=== PATIENT | male | born 1945 | race Caucasian/White ===

== ENCOUNTER 2016-08-08 18:30 | Emergency (ER) | payer MEDICARE, MEDICAID ==
[2016-08-08 18:57] LABS: Add Diff/Slide Review? Slide Review Added; Comments Flag Yes; Hematocrit 42 % (42-52); Hemoglobin 13.7 g/dl (14.0-18.0); Mean Corpuscular HGB Conc 33 g/dl (31-36); Mean Corpuscular Hemoglobin 27 pg (27-31); Mean Corpuscular Volume 83 fL (80-94); Mean Platelet Volume 8 um3 (7.4-10.4); Red Blood Count 5.03 10^6/ul (4.0-5.4); Red Cell Distribution Width 16 % (10.5-15); White Blood Count 8.9 10^3/ul (3.5-10.8)
[2016-08-08] MEDS ORDERED: Acetaminophen TAB* 325 MG PO ONE (19:02)
[2016-08-08 19:13] LABS: Albumin 3.9 g/dL (3.2-5.2); BUN/Creatinine Ratio 16.3 (8-20); EGFR African American 74.6 (>60); Globulin 2.8 g/dL (2-4); Magnesium 1.6 mg/dL (1.9-2.7); Potassium 4.1 mmol/L (3.5-5.0); Total Bilirubin 0.3 mg/dL (0.2-1.0); Total Protein 6.7 g/dL (6.4-8.9)
[2016-08-08 19:14] LABS: Troponin I 0.02 ng/mL (<0.04)
--- NOTE | 2016-08-08 19:28 | ED ---
HPI Chest Pain - HPI Summary HPI Summary: Patient presents with one hour of sharp substernal chest pain that makes him feel SOB. The pain is present in his mid-abdomen as well. He feels sweaty and anxious when the pain occurs and deep breaths can make it worse. He denies pain like this before. He denies feelings of gastric reflux, but tried taking his antacid medication without relief. A low grade sensation of the pain is present now, and he has 2 minute episode of sharp pain that resolves spontaneously. The pain does not radiate to his jaw or arm. He does have back pain but can not say whether it is related to his chest discomfort. - History of Current Complaint Chief Complaint: EDChestPainROMI Time Seen by Provider: 08/08/16 18:48 Hx Obtained From: Patient Onset/Duration: Started Hours Ago, Atraumatic, Still Present - low grade Timing: Intermittent, Lasting Minutes - 2 Initial Severity: Severe Current Severity: Severe Pain Intensity: 9 Chest Pain Location: Mid Sternal Chest Pain Radiates: Yes Chest Pain Radiates To:: Epigastric Character: Sharp/Stabbing Aggravating Factor(s): Deep Breaths Associated Signs and Symptoms: Positive: Chest Pain, Shortness of Breath, Lightheadedness, Back Pain, Abdominal Pain - Additional Pertinent History Primary Care Physician: [id number] - Allergy/Home Medications Allergies/Adverse Reactions: Allergies Allergy/AdvReac Type Severity Reaction Status Date / Time Shellfish Allergy Allergy Severe Difficulty Verified 06/20/16 09:56 Breathing Povidone Iodine Allergy Intermediate Rash Verified 06/20/16 09:56 [From Betadine] PMH/Surg Hx/FS Hx/Imm Hx Endocrine/Hematology History: Reports: Hx Anticoagulant Therapy, Hx Diabetes - II, Hx Anemia, Other Endocrine/Hematological Disorders - Eosinophilia Denies: Hx Blood Disorders, Hx Blood Transfusions, Hx Systemic Lupus Erythematosus, Hx Thyroid Disease Cardiovascular History: Reports: Hx Angina, Hx Congestive Heart Failure, Hx Coronary Artery Disease, Hx Embolism, Hx Hypercholesterolemia, Hx Hypertension, Hx Myocardial Infarction - x2, Other Cardiovascular Problems/Disorders - Cardiomyopathy Denies: Hx Deep Vein Thrombosis, Hx Pacemaker/ICD Respiratory History: Reports: Hx Asthma, Hx Pneumonia, Hx Pulmonary Edema, Hx Pulmonary Embolism, Other Respiratory Problems/Disorders - PE'S Denies: Hx Chronic Obstructive Pulmonary Disease (COPD), Hx Lung Cancer GI History: Reports: Hx Gastroesophageal Reflux Disease, Hx Hiatal Hernia, Other GI Disorders - chronic abdominal pain Denies: Hx Gall Bladder Disease, Hx Gastrointestinal Bleed, Hx Ulcer, Hx Urosepsis History: Reports: Hx Acute Renal Failure, Hx Benign Prostatic Hyperplasia, Hx Kidney Stones Denies: Hx Dialysis, Hx Renal Disease, Other Problems/Disorders Musculoskeletal History: Reports: Hx Back Problems, Other Musculoskeletal History - OBESITY, DJD Denies: Hx Rheumatoid Arthritis Sensory History: Reports: Hx Contacts or Glasses, Hx Vision Problem Denies: Other Sensory Impairments Opthamlomology History: Reports: Hx Contacts or Glasses, Hx Vision Problem Denies: Other Sensory Impairments Neurological History: Reports: 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 hernia repair x 2;. rt knee cartlidge repair;. RIGHT ROTATOR CUFF ; Hx Anesthesia Reactions: No - Immunization History Date of Tetanus Vaccine: Unk Date of Influenza Vaccine: 05/13/14 Infectious Disease History: Yes Infectious Disease History: Denies: Hx Hepatitis, Hx Human Immunodeficiency Virus (HIV), Hx of Known/ Suspected MRSA, Hx Shingles, Hx Tuberculosis, History Other Infectious Disease, Traveled Outside the [place] in Last 30 Days - Family History Known Family History: Positive: Cardiac Disease, Diabetes - Social History Occupation: Unemployed Lives: Alone Alcohol Use: None Hx Substance Use: No Substance Use Type: Reports: None Hx Tobacco Use: No Smoking Status (MU): Never Smoked Tobacco Review of Systems Negative: Fever, Chills Positive: Chest Pain. Negative: Palpitations Positive: Shortness Of Breath. Negative: Cough Negative: Headache All Other Systems Reviewed And Are Negative: Yes Physical Exam Triage Information Reviewed: Yes Vital Signs On Initial Exam: Initial Vitals Temp Pulse Resp BP Pulse Ox 97.4 F 64 16 128/74 96 08/08/16 18:41 08/08/16 18:41 08/08/16 18:41 08/08/16 18:41 08/08/16 18:41 Vital Signs Reviewed: Yes Appearance: Positive: Well-Appearing, Pain Distress, Obese Skin: Positive: Warm, Skin Color Reflects Adequate Perfusion, Dry, Soft Head/Face: Positive: Normal Head/Face Inspection Eyes: Positive: EOMI, ARNOLD, Conjunctiva Clear ENT: Positive: Hearing grossly normal Neck: Positive: Supple, Nontender, No Lymphadenopathy Respiratory/Lung Sounds: Positive: Clear to Auscultation, Breath Sounds Present. Negative: Rales, Rhonchi, Wheezes Cardiovascular: Positive: RRR Abdomen Description: Positive: Nontender, Soft. Negative: Distended, Guarding, Pulsatile Mass Bowel Sounds: Positive: Present Musculoskeletal: Positive: Strength/ROM Intact. Negative: Edema Left, Edema Right Neurological: Positive: Sensory/Motor Intact, Alert, Oriented to Person Place, Time, NV Bundle Intact Distally, Normal Gait Psychiatric: Positive: Affect/Mood Appropriate AVPU Assessment: Alert Diagnostics - Vital Signs Vital Signs Temp Pulse Resp BP Pulse Ox 08/08/16 18:41 97.4 F 64 16 128/74 96 - Laboratory Lab Results: Lab Results 08/08/16 08/08/16 Range/Units 18:47 18:47 WBC 8.9 (3.5-10.8) 10^3/ul RBC 5.03 (4.0-5.4) 10^6/ul Hgb 13.7 L (14.0-18.0) g/dl Hct 42 (42-52) % MCV 83 (80-94) fL MCH 27 (27-31) pg MCHC 33 (31-36) g/dl RDW 16 H (10.5-15) % Plt Count 231 (150-450) 10^3/ul MPV 8 (7.4-10.4) um3 Neut % (Auto) 47.9 (38-83) % Lymph % (Auto) 17.9 L (25-47) % [place] % (Auto) 6.0 (1-9) % Eos % (Auto) 27.1 H (0-6) % Baso % (Auto) 1.1 (0-2) % Absolute Neuts (auto) 4.2 (1.5-7.7) 10^3/ul Absolute Lymphs (auto) 1.6 (1.0-4.8) 10^3/ul Absolute Monos (auto) 0.5 (0-0.8) 10^3/ul Absolute Eos (auto) 2.4 H (0-0.6) 10^3/ul Absolute Basos (auto) 0.1 (0-0.2) 10^3/ul Absolute Nucleated RBC 0 10^3/ul Nucleated RBC % 0 Sodium 136 (133-145) mmol/L Potassium 4.1 (3.5-5.0) mmol/L Chloride 105 (101-111) mmol/L Carbon Dioxide 25 (22-32) mmol/L Anion Gap 6 (2-11) mmol/L BUN 20 (6-24) mg/dL Creatinine 1.23 H (0.67-1.17) mg/dL Est GFR ( Amer) 74.6 (>60) Est GFR (Non-Af Amer) 58.0 (>60) BUN/Creatinine Ratio 16.3 (8-20) Glucose 100 (70-100) mg/dL Calcium 9.0 (8.6-10.3) mg/dL Magnesium 1.6 L (1.9-2.7) mg/dL Total Bilirubin 0.30 (0.2-1.0) mg/dL AST 21 (13-39) U/L ALT 26 (7-52) U/L Alkaline Phosphatase 69 (34-104) U/L Troponin I 0.02 (<0.04) ng/mL Total Protein 6.7 (6.4-8.9) g/dL Albumin 3.9 (3.2-5.2) g/dL Globulin 2.8 (2-4) g/dL Albumin/Globulin Ratio 1.4 (1-3) Result Diagrams: 08/08/16 18:47 08/08/16 18:47 Lab Statement: Any lab studies that have been ordered have been reviewed, and results considered in the medical decision making process. - Radiology No standard instances Xray Interpretation: No Acute Changes Radiology Interpretation Completed By: Radiologist - EKG No standard instances Cardiac Rate: NL EKG Rhythm: Sinus Rhythm ST Segment: Normal Ectopy: None EKG Interpretation: Normal sinus with RBBB EKG Comparison: No Significant Change Re-Evaluation - Re-Evaluation First Eval Re-Evaluation Time: 10:45 - Patient's pain has improved. He is eating. Change: Improved Chest Pain Course/Dx - Course Course Of Treatment: Patient has improved and is pain free. His labwork was reveiwed with Dr. Ramirez, and patient will be discharged home with instructions to follow-up with his PCP and to return to the ED if symptoms worsen or return. - Chest Pain Differential Diagnosis/HQI/PQRI: Acute VA, ACS, Angina, CHF, Chest Wall, Pulmonary Embolism - Diagnoses Provider Diagnoses: Chest pain of unknown etiology - Provider Notifications Discussed Care Of Patient With: Dr. Ramirez, emergency department attending. Time Discussed With Above Provider: 23:00 Discharge - Discharge Plan Condition: Stable Disposition: HOME Patient Education Materials: Chest Pain (ED) Referrals: Ivonne Cotton MD [Primary Care Provider] - Additional Instructions: Please call Dr. Cotton for a follow-up appointment in the next 48 hours. Return to the emergency department if your symptoms worsen or return.
--- NOTE | 2016-08-08 19:29 | RAD ---
Indication: Chest pain. Coronary artery disease with stents. Cardiomyopathy. History of pulmonary embolism and asthma. Comparison: June 25, 2016 CT abdomen. March 27, 2016 Technique: Upright AP 1912 hours Report: Obese body habitus limits image quality. Cardiomegaly. Mild prominence of the central pulmonary vasculature and mildly prominent interstitial markings. Small bilateral pleural effusions. Negative for pneumothorax. IMPRESSION: The constellation of findings is most consistent with mild pulmonary vascular congestion and interstitial edema with associated small pleural effusions.
[2016-08-08] MEDS ORDERED: Morphine INJ* 2 MG/ML 1 ML CARPUJECT IV ONE (19:58)
[2016-08-08 23:55] VITALS: BP 135/89
== END 2016-08-08 23:51 | disposition home or self-care (01) ==
LOC: ED 18:30
DX: R07.9 Chest pain, unspecified (principal); R06.02 Shortness of breath; R10.9 Unspecified abdominal pain; E11.9 Type 2 diabetes mellitus without complications; I11.0 Hypertensive heart disease with heart failure; I50.9 Heart failure, unspecified; I25.119 Atherosclerotic heart disease of native coronary artery with unspecified angina pectoris; Z86.718 Personal history of other venous thrombosis and embolism; Z79.01 Long term (current) use of anticoagulants; K21.9 Gastro-esophageal reflux disease without esophagitis; I25.2 Old myocardial infarction; Z95.5 Presence of coronary angioplasty implant and graft; Z88.8 Allergy status to other drugs, medicaments and biological substances; I45.10 Unspecified right bundle-branch block
CPT/HCPCS: 36415; 71010; 80053; 83735; 83880; 84484; 85025; 86703; 93005; 96374; 99283; A9270-GY; J2270

== ENCOUNTER 2016-08-17 20:07 | Emergency (ER) | payer MEDICARE, MEDICAID ==
[2016-08-17 21:03] LABS: Urine Bacteria Absent (Absent); Urine Bilirubin Negative (Negative); Urine Glucose Negative (Negative); Urine Nitrite Negative (Negative)
[2016-08-17 21:40] LABS: Hematocrit 41 % (42-52); Hemoglobin 13.4 g/dl (14.0-18.0); Mean Corpuscular HGB Conc 33 g/dl (31-36); Mean Corpuscular Hemoglobin 27 pg (27-31); Mean Corpuscular Volume 83 fL (80-94); Mean Platelet Volume 8 um3 (7.4-10.4); Red Blood Count 4.94 10^6/ul (4.0-5.4); Red Cell Distribution Width 17 % (10.5-15); White Blood Count 7.8 10^3/ul (3.5-10.8)
[2016-08-17 21:59] LABS: Albumin 3.9 g/dL (3.2-5.2); BUN/Creatinine Ratio 20.7 (8-20); Calcium 9.1 mg/dL (8.6-10.3); EGFR Non-African American 59.1 (>60); Potassium 4.1 mmol/L (3.5-5.0); Total Bilirubin 0.3 mg/dL (0.2-1.0); Total Protein 6.9 g/dL (6.4-8.9)
--- NOTE | 2016-08-17 22:36 | ED ---
Tavo Osei SooYoung, scribed for Cory Farr on 08/17/16 at 2042 . GI/ HPI - HPI Summary HPI Summary: A 70 y/o M presents to ED with abd pain due to his Rivero catheter onset approx 1700. He says the catheter feels like "it's pulling." It hurts when he lays and sits down. His last catheter change was two days ago. Known enlarged prostate, which pt says is pushing against his bladder. He notes that the catheter was draining properly this AM. Pt is a non-smoker, non-drinker. - History of Current Complaint Chief Complaint: EDUrogenitalProblems Time Seen by Provider: 08/17/16 20:38 Stated Complaint: PAIN FROM CATHETER Hx Obtained From: Patient Onset/Duration: Started Hours Ago, Still Present Timing: Constant Current Severity: Moderate Pain Intensity: 9 - out of 10 - Additional Pertinent History Primary Care Physician: [id number] - Allergy/Home Medications Allergies/Adverse Reactions: Allergies Allergy/AdvReac Type Severity Reaction Status Date / Time Shellfish Allergy Allergy Severe Difficulty Verified 06/20/16 09:56 Breathing Povidone Iodine Allergy Intermediate Rash Verified 06/20/16 09:56 [From Betadine] PMH/Surg Hx/FS Hx/Imm Hx Previously Healthy: No Endocrine/Hematology History: Reports: Hx Anticoagulant Therapy, Hx Diabetes - II, Hx Anemia, Other Endocrine/Hematological Disorders - Eosinophilia Denies: Hx Blood Disorders, Hx Blood Transfusions, Hx Systemic Lupus Erythematosus, Hx Thyroid Disease Cardiovascular History: Reports: Hx Angina, Hx Congestive Heart Failure, Hx Coronary Artery Disease, Hx Embolism, Hx Hypercholesterolemia, Hx Hypertension, Hx Myocardial Infarction - x2, Other Cardiovascular Problems/Disorders - Cardiomyopathy Denies: Hx Deep Vein Thrombosis, Hx Pacemaker/ICD Respiratory History: Reports: Hx Asthma, Hx Pneumonia, Hx Pulmonary Edema, Hx Pulmonary Embolism, Other Respiratory Problems/Disorders - PE'S Denies: Hx Chronic Obstructive Pulmonary Disease (COPD), Hx Lung Cancer GI History: Reports: Hx Gastroesophageal Reflux Disease, Hx Hiatal Hernia, Other GI Disorders - chronic abdominal pain Denies: Hx Gall Bladder Disease, Hx Gastrointestinal Bleed, Hx Ulcer, Hx Urosepsis History: Reports: Hx Acute Renal Failure, Hx Benign Prostatic Hyperplasia, Hx Kidney Stones Denies: Hx Dialysis, Hx Renal Disease, Other Problems/Disorders Musculoskeletal History: Reports: Hx Back Problems, Other Musculoskeletal History - OBESITY, DJD Denies: Hx Rheumatoid Arthritis Sensory History: Reports: Hx Contacts or Glasses, Hx Vision Problem Denies: Other Sensory Impairments Opthamlomology History: Reports: Hx Contacts or Glasses, Hx Vision Problem Denies: Other Sensory Impairments Neurological History: Reports: 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 hernia repair x 2;. rt knee cartlidge repair;. RIGHT ROTATOR CUFF ; Hx Anesthesia Reactions: No - Immunization History Date of Tetanus Vaccine: Unk Date of Influenza Vaccine: 05/13/14 Infectious Disease History: No Infectious Disease History: Denies: Hx Hepatitis, Hx Human Immunodeficiency Virus (HIV), Hx of Known/ Suspected MRSA, Hx Shingles, Hx Tuberculosis, History Other Infectious Disease, Traveled Outside the [place] in Last 30 Days - Family History Known Family History: Positive: Cardiac Disease, Diabetes - Social History Occupation: Disabled Lives: Alone Alcohol Use: None Hx Substance Use: No Substance Use Type: Reports: None Hx Tobacco Use: No Smoking Status (MU): Never Smoked Tobacco Review of Systems Positive: Abdominal Pain Positive: other - pos: PAIN ASSOCIATED WITH CATHETER All Other Systems Reviewed And Are Negative: Yes Physical Exam Triage Information Reviewed: Yes Vital Signs On Initial Exam: Initial Vitals Temp Pulse Resp BP Pulse Ox 99 F 80 22 131/79 95 08/17/16 20:27 08/17/16 20:27 08/17/16 20:27 08/17/16 20:27 08/17/16 20:27 Vital Signs Reviewed: Yes Appearance: Positive: Well-Appearing, No Pain Distress Skin: Positive: Warm, Skin Color Reflects Adequate Perfusion, Dry Head/Face: Positive: Normal Head/Face Inspection Eyes: Positive: EOMI, ARNOLD ENT: Positive: Normal ENT inspection Neck: Positive: Supple, Nontender Respiratory/Lung Sounds: Positive: Clear to Auscultation, Breath Sounds Present Cardiovascular: Positive: RRR, Pulses are Symmetrical in both Upper and Lower Extremities Abdomen Description: Positive: Soft, Distended, Other: - TENDER IN RLQ AND LLQ Bowel Sounds: Positive: Present Musculoskeletal: Positive: Normal, Strength/ROM Intact - FROMx4 Neurological: Positive: Normal, Sensory/Motor Intact, Alert, Oriented to Person Place, Time Diagnostics - Vital Signs Vital Signs Temp Pulse Resp BP Pulse Ox 08/17/16 20:27 99 F 80 22 131/79 95 - Laboratory Lab Results: Lab Results 08/17/16 08/17/16 08/17/16 Range/Units 20:40 21:25 21:25 WBC 7.8 (3.5-10.8) 10^3/ul RBC 4.94 (4.0-5.4) 10^6/ul Hgb 13.4 L (14.0-18.0) g/dl Hct 41 L (42-52) % MCV 83 (80-94) fL MCH 27 (27-31) pg MCHC 33 (31-36) g/dl RDW 17 H (10.5-15) % Plt Count 199 (150-450) 10^3/ul MPV 8 (7.4-10.4) um3 Neut % (Auto) 50.1 (38-83) % Lymph % (Auto) 16.7 L (25-47) % [place] % (Auto) 10.7 H (1-9) % Eos % (Auto) 21.6 H (0-6) % Baso % (Auto) 0.9 (0-2) % Absolute Neuts (auto) 3.9 (1.5-7.7) 10^3/ul Absolute Lymphs (auto) 1.3 (1.0-4.8) 10^3/ul Absolute Monos (auto) 0.8 (0-0.8) 10^3/ul Absolute Eos (auto) 1.7 H (0-0.6) 10^3/ul Absolute Basos (auto) 0.1 (0-0.2) 10^3/ul Absolute Nucleated RBC 0 10^3/ul Nucleated RBC % 0 Sodium 136 (133-145) mmol/L Potassium 4.1 (3.5-5.0) mmol/L Chloride 106 (101-111) mmol/L Carbon Dioxide 23 (22-32) mmol/L Anion Gap 7 (2-11) mmol/L BUN 25 H (6-24) mg/dL Creatinine 1.21 H (0.67-1.17) mg/dL Est GFR ( Amer) 76.0 (>60) Est GFR (Non-Af Amer) 59.1 (>60) BUN/Creatinine Ratio 20.7 H (8-20) Glucose 83 (70-100) mg/dL Calcium 9.1 (8.6-10.3) mg/dL Total Bilirubin 0.30 (0.2-1.0) mg/dL AST 16 (13-39) U/L ALT 23 (7-52) U/L Alkaline Phosphatase 72 (34-104) U/L Total Protein 6.9 (6.4-8.9) g/dL Albumin 3.9 (3.2-5.2) g/dL Globulin 3.0 (2-4) g/dL Albumin/Globulin Ratio 1.3 (1-3) Lipase 27 (11.0-82.0) U/L Urine Color Yellow Urine Appearance Cloudy Urine pH 5.0 (5-9) Ur Specific [place] 1.012 (1.010-1.030) Urine Protein 1+(30 mg/dl) H (Negative) Urine Ketones Negative (Negative) Urine Blood 3+ H (Negative) Urine Nitrate Negative (Negative) Urine Bilirubin Negative (Negative) Urine Urobilinogen Negative (Negative) Ur Leukocyte Esterase 3+ H (Negative) Urine WBC (Auto) 3+(>20/hpf) H (Absent) Urine RBC (Auto) 3+(>10/hpf) H (Absent) Ur Squamous Epith Cells Present H (Absent) Urine Bacteria Absent (Absent) Urine Glucose Negative (Negative) Result Diagrams: 08/17/16 21:25 08/17/16 21:25 Lab Statement: Any lab studies that have been ordered have been reviewed, and results considered in the medical decision making process. GIGU Course/Dx - Course Course Of Treatment: MDM: Pt is a 70 y/o M with distended abd and tenderness at RLQ and LLQ. Pt has a Rivero catheter in bladder. Ordered a new catheter placed and UA. UA results: Urine protein is 1+. Urine blood was 3+. Urine WBC and RBC were each 3+. Luekocytes was 3+. Pt will be discharged home with Levoquin, to follow up with urology in 3 days. - Diagnoses Provider Diagnoses: BPH, UTI (urinary tract infection), Urinary retention Discharge - Discharge Plan Condition: Stable Disposition: HOME Prescriptions: Levofloxacin TAB* [Levaquin TAB*] 500 mg PO DAILY #7 tab Patient Education Materials: Levofloxacin (By mouth), Urinary Retention in Men (ED), Benign Prostatic Hypertrophy (ED), Urinary Tract Infection in Men (ED) Referrals: Ivonne Cotton MD [Primary Care Provider] - Ryan Hawk MD [Medical Doctor] - 3 Days Additional Instructions: Continue taking liquids by mouth. Follow up with Dr. Hawk within 3 days. If your symptoms worsen or return, please return to ED. The documentation as recorded by the Tavo clifford SooYoung accurately reflects the service I personally performed and the decisions made by me, Cory Farr.
[2016-08-17 22:46] VITALS: BP 129/75
== END 2016-08-17 22:44 | disposition home or self-care (01) ==
LOC: ED 20:07
DX: N40.0 Benign prostatic hyperplasia without lower urinary tract symptoms (principal); N39.0 Urinary tract infection, site not specified; R33.8 Other retention of urine
CPT/HCPCS: 36415; 80053; 81003; 81015; 83690; 85025; 86803; 87086; 99282

== ENCOUNTER 2016-09-03 09:44 | Inpatient (IN) | payer MEDICARE, MEDICAID ==
[2016-09-03] MEDS ORDERED: Aspirin Low Dose CHEW TAB* 81 MG PO ONE (09:57)
--- NOTE | 2016-09-03 10:34 | RAD ---
INDICATION: Chest pain COMPARISON: With recent comparison chest x-ray August 08, 2016 TECHNIQUE: Single AP portable view of the chest was obtained. FINDINGS: Image quality is compromised due to the relative inferiority of a portable chest x-ray. Some of the most recent chest x-ray there is mild cardiomegaly and coarse atherosclerotic calcification overlying the arch of the aorta. There is density of securing the left lung base and causing left costophrenic angle blunting, an appearance similar to the previous chest x-ray. Overall there is hyperaeration of the lungs bilaterally which could be due to poor inspiratory effort. The pulmonary vasculature is minimally engorged, appearance similar to the most recent chest x-ray. IMPRESSION: Similar to the one 1616 chest x-ray the constellation of findings described above are consistent with congestive heart failure with density and/or pleural effusion obscuring the left lung base.
[2016-09-03 10:49] LABS: Hematocrit 45 % (42-52); Hemoglobin 14.5 g/dl (14.0-18.0); Mean Corpuscular HGB Conc 32 g/dl (31-36); Mean Corpuscular Hemoglobin 27 pg (27-31); Mean Corpuscular Volume 83 fL (80-94); Mean Platelet Volume 8 um3 (7.4-10.4); Red Blood Count 5.44 10^6/ul (4.0-5.4); Red Cell Distribution Width 16 % (10.5-15); White Blood Count 8.8 10^3/ul (3.5-10.8)
[2016-09-03 10:51] LABS: Comments Flag Yes
[2016-09-03 11:03] LABS: Albumin 3.7 g/dL (3.2-5.2); BUN/Creatinine Ratio 22.7 (8-20); Calcium 8.6 mg/dL (8.6-10.3); EGFR African American 98.1 (>60); EGFR Non-African American 76.3 (>60); Globulin 2.8 g/dL (2-4); Total Bilirubin 0.3 mg/dL (0.2-1.0); Total Protein 6.5 g/dL (6.4-8.9)
[2016-09-03 11:05] LABS: Troponin I 0.02 ng/mL (<0.04)
[2016-09-03] MEDS ORDERED: Iodixanol* (CONTRAST) 320 MG/ML 100 ML SDV IV ONE ×2 (11:35→11:41)
--- NOTE | 2016-09-03 13:13 | RAD ---
INDICATION chest pain: COMPARISON: CT of the chest dated January 30, 2016 TECHNIQUE: Contrast-enhanced CT angiography of the chest abdomen and pelvis was acquired after the injection of 100 mL of Visipaque 320. Images reviewed in the axial, sagittal and coronal projections. Three-dimensional reformats of the thoracic and abdominal aorta were created and reviewed. ANGIOGRAPHIC FINDINGS: There are mild coronary artery calcifications. The aortic ring is not pathologically enlarged. There is no pathologic aneurysmal dilatation of the thoracic aorta. There is mild calcified atherosclerosis at the arch of the aorta. Calcified atherosclerosis becomes increasingly more severe in the infrarenal abdominal aorta extending into the bilateral common iliac arteries. There is no abdominal aortic aneurysm or evidence of active dissection. Contrast is seen filling as far as the bilateral common femoral arteries. There is calcified atherosclerosis at the origins of the celiac trunk and superior mesenteric artery. Mixed attenuation atherosclerosis extends into the proximal portion of the superior mesenteric artery causing mild stenosis. 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 Calcified atherosclerosis is seen at the origins of the renal arteries causing mild appearance of stenosis. The inferior mesenteric artery is adequately patent. CHEST: There is moderate cardiomegaly. The lungs are clear. There are no large pleural effusions. There is no mediastinal or hilar lymphadenopathy. There is a appearance of circumferential thickening of the mid level esophagus measuring up to 5 mm in thickness (image 34 of 270). ABDOMEN \T\ PELVIS: The liver, spleen and pancreas are grossly normal in appearance. The gallbladder is normal. At the apex of the left adrenal gland (image 113) there is a 9 mm fat density focus. The right adrenal gland is normal. The kidneys are normal in appearance without focal mass, calcification or signs of hydronephrosis. A Rivero catheter is identified in the lumen of the decompressed bladder. Evaluation of the gastrointestinal tract is limited without oral contrast. There is no small or large bowel dilatation. The appendix is normal in appearance (image 195). There is no gross retroperitoneal or mesenteric lymphadenopathy. The pelvic viscera is normal in appearance. There is a fat-containing left-sided inguinal hernia. Multilevel degenerative changes of the thoracic and lumbar spine include loss of intervertebral disc height, anterior marginal osteophyte formation at the thoracic spine and to a lesser extent at the lower lumbar spine. There are no sinister bone lesions. IMPRESSION: 1. Widespread calcified atherosclerosis as described in more detail above without evidence of acute aortic abnormality such as pathologic aneurysmal dilatation or acute dissection. 2. Circumferential thickening of the mid level esophagus up to 5 mm in thickness. Please correlate to signs and symptoms of esophagitis. 3. Cardiomegaly with coronary artery calcifications. 4. There is a 9 mm fatty focus at the apex of the left adrenal gland which could represent a lipoma or adenoma. 5. There are additional chronic, degenerative and iatrogenic findings described in the body the report.
[2016-09-03] MEDS ORDERED: Al Hydrox/Mg Hydrox/Simet LIQ* 30 ML UDC PO ONE (13:41)
[2016-09-03] MEDS ORDERED: Lidocaine 2% VISCOUS* 15 ML UDC PO ONE (13:41)
[2016-09-03 13:54] LABS: Troponin I 0.03 ng/mL (<0.04)
[2016-09-03] MEDS ORDERED: Nitroglycerin TAB 0.4 MG* 0.4 MG TAB SL ONE (13:58)
[2016-09-03] MEDS ORDERED: Nitroglycerin TAB 0.4 MG* 0.4 MG TAB ONE (14:32)
[2016-09-03] MEDS ORDERED: Al Hydrox/Mg Hydrox/Simet LIQ* 30 ML UDC PO PRN (14:47)
[2016-09-03] MEDS ORDERED: Albuterol 2.5 MG/3 ML NEB.SOL* (0.083%) INH PRN (14:47)
[2016-09-03] MEDS ORDERED: Dextrose 50% Syringe 50 ML* 25 GM/50 ML SYRINGE IV PUSH PRN (14:50)
[2016-09-03 16:50] LABS: Troponin I 0.02 ng/mL (<0.04)
[2016-09-03] MEDS: Omeprazole CAP* 20 MG PO SCH (16:57)
[2016-09-03] MEDS: Sucralfate TAB* 1 GM PO SCH (16:57)
[2016-09-03] MEDS: Insulin LISPRO* 1 UNITS UNIT SUBCUT SCH (17:16)
[2016-09-03] MEDS: Morphine INJ* 4 MG/ML 1 ML CARPUJECT IV PRN ×2 (18:14→22:35)
--- NOTE | 2016-09-03 19:25 | HP ---
HOSPITAL MEDICINE HISTORY AND PHYSICAL: DATE OF ADMISSION: 09/03/16 PRIMARY CARE PHYSICIAN: Dr. Cotton. ATTENDING PHYSICIAN: Harsh Couch MD *(dictation provided by Keily Lou NP) CHIEF COMPLAINT: Chest pain. HISTORY OF PRESENT ILLNESS: Mr. Yip is a 70-year-old male well known to the hospital medicine team with multiple admissions for chest and abdominal discomfort who has a past medical history of coronary artery disease with CABG, insulin dependent diabetes, AFib, eosinophilic and candidal esophagitis who presents to the hospital with chest and epigastric discomfort. Mr. Yip states he has been in his normal state of health. He has been following routinely with Dr. Cotton. His biggest issue recently has been of urinary retention secondary to enlarged prostate. Unfortunately he is not a candidate for prostate surgery and will continue with chronic indwelling Rivero. The patient states this morning that he was washing dishes when he developed a sudden onset of discomfort in his mid chest and in his epigastric region. He called emergency medical service to be brought to the emergency room. In the emergency room, Mr. Yip had a troponin which was 0.02, on repeat it was 0.03. Despite having nitroglycerin, the patient continued to have chest discomfort. His EKG showed no evidence of ischemia and AFib. The patient went on for a chest, abdomen, pelvis CT which is read as follows; "widespread calcified atherosclerosis, circumferential thickening of the mid level esophagus up to 5 mm in thickness. Cardiomegaly with coronary artery calcifications, 9 mm fatty focus at the apex of the left adrenal gland which could represent a lipoma or adenoma and additional chronic degenerative iatrogenic findings described in the body of the report." Based on the presentation with the patient with chest pain, epigastric pain, and esophagitis, Hospital Medicine was called regarding admission. PAST MEDICAL HISTORY: 1. History of AFib, on Xarelto. 2. Coronary artery disease, status post CABG. 3. History of cardiac catheterization in September 2014, which showed no evidence of definitive hemodynamically significant lesions. 4. Type 2 diabetes, insulin dependent. 5. Hypertension. 6. GERD. 7. Eosinophilic esophagitis. 8. Candidal esophagitis. 9. Obesity. 10. BPH with chronic indwelling Rivero. 11. SVT. 12. TIA. 13. Degenerative disk disease. 14. History of pulmonary embolism, October 2014. 15. History of retroperitoneal hematoma, 2014. 16. History of hernia repair. 17. History of right shoulder arthroscopy. 18. History of knee arthroscopy. MEDICATIONS: 1. Fluticasone/salmeterol 250/50 one puff inhaled b.i.d. 2. Albuterol nebulizer p.r.n. 3. Maalox Plus p.r.n. 4. Lantus insulin 25 units subcutaneously at bedtime. 5. Furosemide 20 mg p.o. q.a.m. 6. Finasteride 5 mg p.o. q.a.m. 7. Ferrous sulfate 325 mg p.o. daily. 8. Trulicity 0.75 mg subcutaneously q.7 days. 9. Docusate 100 mg p.o. b.i.d. 10. Calcium carbonate 500 mg p.o. b.i.d. 11. Atorvastatin 20 mg p.o. bedtime. 12. Senna 8.6 mg p.o. bedtime p.r.n. 13. Xarelto 20 mg p.o. q.a.m. 14. Potassium chloride 20 mEq p.o. daily. 15. MiraLax 17 g p.o. daily. 16. Omeprazole 20 mg p.o. b.i.d. 17. Multivitamin 1 tab p.o. daily. 18. Metoprolol tartrate 25 mg p.o. b.i.d. 19. Magnesium oxide 800 mg p.o. b.i.d. 20. Losartan 50 mg p.o. daily. 21. Metformin 1000 mg p.o. b.i.d. 22. Tamsulosin 0.4 mg p.o. at bedtime. 23. Sucralfate 1 g p.o. t.i.d. with meals. 24. Sertraline 75 mg p.o. daily. ALLERGIES: SHELLFISH and POVIDONE-IODINE. FAMILY HISTORY: The patient reports that both his mother and father related to heart disease and diabetes. SOCIAL HISTORY: No reported alcohol, tobacco, or drug use. The patient lives alone. He states his sister and Jessie Gonzalez would be his healthcare proxies. REVIEW OF SYSTEMS: A 14-point review of systems was completed with Mr. Yip and all those not mentioned above were negative. PHYSICAL EXAMINATION GENERAL: Mr. Yip is lying in bed. He is in no acute distress. He is calm and cooperative with my examination. VITAL SIGNS: Temperature 99.0, heart rate 76, respiratory rate 14, O2 saturation 96% on room air, blood pressure 134/60. LUNGS: Clear to auscultation bilaterally with no accessory muscle use and good aeration. HEART: S1, S2. No murmur, rub, or gallop and regular. ABDOMEN: Soft. There is tenderness to palpation in the epigastric region. Bowel sounds are positive. EXTREMITIES: No cyanosis or edema. NEUROLOGIC: He is alert and oriented x3. Moves all extremities equally. There is no facial asymmetry or focal weakness. Extraocular movements are intact. SKIN: Intact. LABORATORY DATA: WBC 8.8, hemoglobin 14.5, hematocrit 45, platelet count 223. Sodium 137, potassium 4.0, chloride 104, serum bicarbonate 28, BUN 22, creatinine 0.97, glucose 107, lactic acid 1.8. Troponin 0.02, on repeat it was 0.03. BNP 108. Report from CTA of chest, abdomen, and pelvis is as read in the HPI. ASSESSMENT: Mr. Yip is a 70-year-old male with past medical history of coronary artery disease status post CABG, insulin dependent diabetes, and history of candidal and eosinophilic esophagitis who presents today to the hospital with concern for chest and epigastric discomfort. Our plans are for observation in the hospital as I expect his length of stay to be less than 2 days for the followin. Chest and epigastric pain. The patient's first two troponins have essentially been negative but we will repeat a third one. He will be monitored on the telemetry unit. His pain seems to be more epigastric in nature. He does have question of esophagitis noted on his CT scan today. I have discussed the case with Dr. Joseph and the plan will be for the patient to be n.p.o. in preparation for endoscopy tomorrow. 2. Type 2 diabetes. Plan to continue Lantus and lispro sliding scale insulin. 3. Hypertension. Continue metoprolol and losartan. 4. Benign prostatic hypertrophy. Continue home medications and indwelling Rivero. 5. Atrial fibrillation. Continue Xarelto and metoprolol. 6. DVT prophylaxis with Xarelto. 7. Code status is DNR and a MOLST form has been completed. TIME SPENT: Approximately 60 minutes was spent on this admission of this patient; more than half the time spent with him at the bedside, reviewing the events leading up to this hospitalization, performing physical examination, and reviewing my plan of care. KEILY LOU NP CC: Dr. Cotton* [id number]/CPS #: [id number] CAMMIE
[2016-09-03] MEDS ORDERED: Tamsulosin CAP* 0.4 MG PO SCH (21:00)
[2016-09-03] MEDS ORDERED: Senna TAB PO PRN (21:00)
[2016-09-03] MEDS ORDERED: Atorvastatin* 20 MG TAB PO SCH (21:00)
[2016-09-03] MEDS ORDERED: Insulin GLARGINE(*) 1 UNITS UNIT SUBCUT SCH (21:00)
[2016-09-03] MEDS: Calcium Carbonate CHEW TAB* 500 MG (TUMS) PO SCH (21:00)
[2016-09-03] MEDS: Magnesium Oxide TAB* 400 MG PO SCH (21:01)
[2016-09-03] MEDS: Docusate CAP* 100 MG PO SCH (21:01)
[2016-09-03] MEDS: Metoprolol Tartrate TAB* 25 MG PO SCH (21:04)
[2016-09-04] MEDS: Morphine INJ* 4 MG/ML 1 ML CARPUJECT IV PRN ×2 (02:51→08:25)
[2016-09-04] MEDS: Mometasone/Formoter 200/5 MDI INH SCH ×2 (04:31→08:44)
[2016-09-04] MEDS: Insulin LISPRO* 1 UNITS UNIT SUBCUT SCH ×3 (07:17→16:55)
[2016-09-04] MEDS: Sucralfate TAB* 1 GM PO SCH ×2 (07:24→13:11)
[2016-09-04] MEDS: Omeprazole CAP* 20 MG PO SCH ×2 (07:24→17:48)
[2016-09-04] MEDS: Calcium Carbonate CHEW TAB* 500 MG (TUMS) PO SCH (07:25)
[2016-09-04] MEDS: Docusate CAP* 100 MG PO SCH (07:25)
[2016-09-04] MEDS: Magnesium Oxide TAB* 400 MG PO SCH (07:26)
[2016-09-04] MEDS: Metoprolol Tartrate TAB* 25 MG PO SCH (07:26)
[2016-09-04] MEDS ORDERED: Furosemide TAB* 20 MG PO SCH (09:00)
[2016-09-04] MEDS ORDERED: Rivaroxaban TAB(*) 20 MG TAB PO SCH (09:00)
[2016-09-04] MEDS ORDERED: Sertraline* 25 MG TAB PO SCH (09:00)
[2016-09-04] MEDS ORDERED: Prenatal Vitamin TAB PO SCH (09:00)
[2016-09-04] MEDS ORDERED: Sertraline* 50 MG TAB PO SCH (09:00)
[2016-09-04] MEDS ORDERED: Ferrous Sulfate TAB* 325 MG PO SCH (09:00)
[2016-09-04] MEDS ORDERED: Potassium Chlor TAB* 20 MEQ TAB.ER PO SCH (09:00)
[2016-09-04] MEDS ORDERED: Finasteride TAB* 5 MG PO SCH (09:00)
[2016-09-04] MEDS ORDERED: Polyethylene Glycol 3350* 17 GM PACKET PO SCH (09:00)
[2016-09-04] MEDS ORDERED: fentaNYL* 50 MCG/ML 2 ML VIAL (100 MCG VIAL) ONE (10:29)
[2016-09-04] MEDS ORDERED: Midazolam* 1 MG/ML 10 ML VIAL (10 MG) ONE (10:29)
[2016-09-04] MEDS ORDERED: Losartan TAB* 25 MG PO SCH (12:00)
--- NOTE | 2016-09-04 13:42 | PN ---
Subjective Date of Service: 09/04/16 Interval History: Mr. Yip is drowsy after his endoscopy today. He continues to complain of epigastric pain with palpation. He denies other complaint including chest pain , SOB, nausea, or vomiting. Objective Active Medications: Al Hydrox/Mg Hydrox/Simethicone (Maalox Plus*) 15 ml PO Q6H PRN Albuterol (Ventolin 2.5 Mg/3 Ml Neb.Marjorie*) 2.5 mg INH Q4H PRN Atorvastatin Calcium (Lipitor*) 20 mg PO BEDTIME DUSTIN Calcium Carbonate (Tums*) 500 mg PO BID DUSTIN Dextrose (D50w Syringe 50 Ml*) 12.5 gm IV PUSH .FOR FS < 60 - SS PRN Docusate Sodium (Colace Cap*) 100 mg PO BID DUSTIN Ferrous Sulfate (Ferrous Sulfate Tab*) 325 mg PO DAILY DUSTIN Finasteride (Proscar Tab*) 5 mg PO QAM DUSTIN Furosemide (Lasix Tab*) 20 mg PO QAM DUSTIN Insulin Glargine (Lantus(*)) 25 units SUBCUT BEDTIME DUSTIN Insulin Human Lispro (Humalog*) 0 units SUBCUT AC DUSTIN Losartan Potassium (Cozaar Tab*) 50 mg PO 1200 DUSTIN Magnesium Oxide (Magox 400 Tab*) 800 mg PO BID DUSTIN Metoprolol Tartrate (Lopressor Tab*) 25 mg PO BID DUSTIN Mometasone Furoate/Formoterol Fumar (Dulera 200/5 Mdi*) 2 puff INH BID DUSTIN Morphine Sulfate (Morphine Inj (Syringe)*) 4 mg IV Q4H PRN Multivitamins ( Vitamin Tab*) 1 tab PO DAILY DUSTIN Omeprazole (Prilosec Cap*) 20 mg PO 0730,1630 DUSTIN Polyethylene Glycol/Electrolytes (Miralax*) 17 gm PO DAILY DUSTIN Potassium Chloride (Klor Con Er Tab*) 20 meq PO DAILY DUSTIN Rivaroxaban (Xarelto (*)) 20 mg PO QAM DUSTIN Senna (Senokot Tab*) 1 tab PO BEDTIME PRN Sertraline HCl (Zoloft*) 25 mg PO DAILY DUSTIN Sertraline HCl (Zoloft*) 50 mg PO DAILY DUSTIN Sucralfate (Carafate*) 1 gm PO TID WITH MEALS DUSTIN Tamsulosin HCl (Flomax Cap*) 0.4 mg PO BEDTIME [facility] Vital Signs 09/03/16 09/03/16 09/03/16 14:00 14:30 15:00 Temperature Pulse Rate 66 78 78 Respiratory Rate Blood Pressure 141/71 134/60 116/70 (mmHg) O2 Sat by Pulse 97 96 95 Oximetry 09/03/16 09/03/16 09/03/16 15:13 15:30 16:00 Temperature Pulse Rate 72 66 Respiratory 14 Rate Blood Pressure 119/67 (mmHg) O2 Sat by Pulse 96 98 Oximetry 09/03/16 09/03/16 09/03/16 17:21 18:14 19:14 Temperature 98.8 F Pulse Rate 65 Respiratory 14 16 17 Rate Blood Pressure 143/78 (mmHg) O2 Sat by Pulse 97 Oximetry 09/03/16 09/03/16 09/03/16 19:45 20:00 22:35 Temperature 98.5 F Pulse Rate 66 Respiratory 16 16 18 Rate Blood Pressure 135/74 (mmHg) O2 Sat by Pulse 97 Oximetry 09/03/16 09/03/16 09/04/16 23:30 23:35 02:51 Temperature 96.9 F Pulse Rate 65 Respiratory 16 19 19 Rate Blood Pressure 128/71 (mmHg) O2 Sat by Pulse 97 Oximetry 09/04/16 09/04/16 09/04/16 03:31 03:51 06:30 Temperature 97.3 F Pulse Rate 64 Respiratory 16 17 17 Rate Blood Pressure 128/67 (mmHg) O2 Sat by Pulse 95 Oximetry 09/04/16 09/04/16 09/04/16 07:29 08:25 08:46 Temperature 98.1 F Pulse Rate 65 66 Respiratory 16 14 14 Rate Blood Pressure 113/65 (mmHg) O2 Sat by Pulse 94 95 Oximetry 09/04/16 09/04/16 09:21 12:17 Temperature 97.9 F Pulse Rate 72 Respiratory 16 18 Rate Blood Pressure 117/64 (mmHg) O2 Sat by Pulse 95 Oximetry Oxygen Devices in Use Now: None Appearance: Obese male lying in bed in NAD Respiratory: Symmetrical Chest Expansion and Respiratory Effort, Clear to Auscultation Cardiovascular: NL Sounds; No Murmurs; No JVD, No Edema Abdominal: - - Soft, protuberant, tenderness to epigastric region with palpation. Ribs nontender. Extremities: No Edema Skin: No Rash or Ulcers Neurological: Alert and Oriented x 3, NL Muscle Strength and Tone Nutrition: Taking PO's Result Diagrams: 09/03/16 10:40 09/03/16 10:40 Assess/Plan/Problems-Billing Assessment: Mr. Yip is a 70 yo male with a PMH of DM, CAD and esophagitis who was admitted on 09/03/16 with complaint of epigastric pain with concern for esophagitis on CT abdomen. - Patient Problems (1) Epigastric pain Comment: Persistent pain with palpation. Appreciate GI consult, endoscopy negative. Suspect musculoskeletal pain. (2) Type II diabetes mellitus Comment: BGS well controlled. Continue Lantus and lispro SSI coverage. (3) Atrial flutter Comment: The patient's EKG looks like atrial flutter. His HR is controlled. Continue xarelto. (4) Coronary artery disease Comment: Stable. Continue aspirin, metoprolol and atorvastatin. (5) Hypertension Comment: Controlled. Continue furosemide, metoprolol and Losartan. (6) DNR (do not resuscitate) (7) DVT prophylaxis Comment: Continue Xarelto. Status and Disposition: OBV. Discharge to home.
[2016-09-04] MEDS ORDERED: oxyCODONE/Acetamin 5/325 MG* TAB PO PRN (14:27)
[2016-09-04] MEDS ORDERED: Sucralfate TAB* 1 GM PO SCH (16:00)
[2016-09-04 16:21] VITALS: BP 138/72
--- NOTE | 2016-09-04 20:50 | PRO ---
DATE OF PROCEDURE: 09/04/16 - ROOM #435 PROCEDURE: Upper endoscopy. MEDICINES USED: Versed 3 mg IV, Fentanyl 25 mcg IV. NARRATIVE: This is 70-year-old gentleman with a history of chronic digestive complaints. He was admitted yesterday with a sudden onset of chest pain. It is somewhat pleuritic and also worsened with movement. He had a workup which included a CT scan of the chest and abdomen which suggested some thickening of the esophagus. For that reason, an upper endoscopy is being carried out. The patient had had previous upper endoscopy, the last one was about 2 or 3 years ago. He had some gastritis at that time. He does have a remote history of froy esophagitis. DESCRIPTION OF PROCEDURE: After the procedure was discussed with the patient, risks and benefits were outlined, written consent was obtained. The patient was placed in the left lateral decubitus position and conscious sedation was administered. A video diagnostic gastroscope was inserted orally and passed very carefully into the esophagus. The esophagus, stomach, and duodenum to the second to third portion were well visualized. The patient tolerated the procedure well and there were no immediate complications. FINDINGS: The esophagus was normal. There was no evidence of lesion, mass, exudate, or stricture. There was no erosion or evidence of Driscoll's esophagus. The stomach was entered, upon retroflexion, there was no evidence of a hiatal hernia. The cardia, fundus, and body of the stomach were unremarkable. The antrum was notable for some slight nodular inflammatory change consistent with his prior history of mild gastritis. There was no ulceration. The pylorus was normal and patent. The duodenal bulb was normal and the second to third portion of the duodenum was normal with a normal folding pattern. CONCLUSION: Mild antral gastritis, otherwise normal endoscopy, no evidence of esophageal abnormalities. RECOMMENDATION: His symptoms are more in keeping with a musculoskeletal process given the pain he has with movement and with rest. Again, there is no esophageal lesion to account for these symptoms. CC: Dr. Ivonne Cotton* [id number]/CPS #: [id number] MTDD
--- NOTE | 2016-09-04 22:16 | ED ---
Diana Osei Rebecca, scribed for Oleg Smith MD on 09/03/16 at 1000 . HPI Chest Pain - HPI Summary HPI Summary: Pt is a 70 y/o M who presents to ED c/o CP. Pain began suddenly at 0700 while doing dishes and has been constant since onset. Pain is midsternal and radiates to the back. Pain characterized as sharp, and is currently severe ranked 9/10. Sx aggravated by breathing and alleviated by nothing. Additionally c/o SOB. Denies fever, rash. No prior similar episodes. PMHx CAD. PSHx cardiac catheterization in 2008. No PMHx ulcers or kidney problems. - History of Current Complaint Chief Complaint: EDChestPainROMI Time Seen by Provider: 09/03/16 09:57 Hx Obtained From: Patient Onset/Duration: Started Hours Ago, Still Present Time of Onset: 07:00 Timing: Constant Initial Severity: Severe Current Severity: Severe Pain Intensity: 9 Pain Scale Used: 0-10 Numeric Chest Pain Location: Mid Sternal Chest Pain Radiates: Yes Chest Pain Radiates To:: Back Character: Sharp/Stabbing Aggravating Factor(s): Deep Breaths Alleviating Factor(s): Nothing Associated Signs and Symptoms: Positive: Chest Pain, Shortness of Breath, Other : - Denies rash. Negative: Fever - Additional Pertinent History Primary Care Physician: [id number] - Allergy/Home Medications Allergies/Adverse Reactions: Allergies Allergy/AdvReac Type Severity Reaction Status Date / Time Shellfish Allergy Allergy Severe Difficulty Verified 06/20/16 09:56 Breathing Povidone Iodine Allergy Intermediate Rash Verified 06/20/16 09:56 [From Betadine] PMH/Surg Hx/FS Hx/Imm Hx Endocrine/Hematology History: Reports: Hx Anticoagulant Therapy, Hx Diabetes - II, Hx Anemia, Other Endocrine/Hematological Disorders - Eosinophilia Denies: Hx Blood Disorders, Hx Blood Transfusions, Hx Systemic Lupus Erythematosus, Hx Thyroid Disease Cardiovascular History: Reports: Hx Angina, Hx Congestive Heart Failure, Hx Coronary Artery Disease, Hx Embolism, Hx Hypercholesterolemia, Hx Hypertension, Hx Myocardial Infarction - x2, Other Cardiovascular Problems/Disorders - Cardiomyopathy Denies: Hx Deep Vein Thrombosis, Hx Pacemaker/ICD Respiratory History: Reports: Hx Asthma, Hx Pneumonia, Hx Pulmonary Edema, Hx Pulmonary Embolism, Other Respiratory Problems/Disorders - PE'S Denies: Hx Chronic Obstructive Pulmonary Disease (COPD), Hx Lung Cancer GI History: Reports: Hx Gastroesophageal Reflux Disease, Hx Hiatal Hernia, Other GI Disorders - chronic abdominal pain Denies: Hx Gall Bladder Disease, Hx Gastrointestinal Bleed, Hx Ulcer, Hx Urosepsis History: Reports: Hx Acute Renal Failure, Hx Benign Prostatic Hyperplasia, Hx Kidney Stones Denies: Hx Dialysis, Hx Renal Disease, Other Problems/Disorders Musculoskeletal History: Reports: Hx Back Problems, Other Musculoskeletal History - OBESITY, DJD Denies: Hx Rheumatoid Arthritis Sensory History: Reports: Hx Contacts or Glasses, Hx Vision Problem Denies: Other Sensory Impairments Opthamlomology History: Reports: Hx Contacts or Glasses, Hx Vision Problem Denies: Other Sensory Impairments Neurological History: Reports: 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 hernia repair x 2;. rt knee cartlidge repair;. RIGHT ROTATOR CUFF ; Hx Anesthesia Reactions: No - Immunization History Date of Tetanus Vaccine: Unk Date of Influenza Vaccine: 05/13/14 Infectious Disease History: No Infectious Disease History: Denies: Hx Hepatitis, Hx Human Immunodeficiency Virus (HIV), Hx of Known/ Suspected MRSA, Hx Shingles, Hx Tuberculosis, History Other Infectious Disease, Traveled Outside the [place] in Last 30 Days - Family History Known Family History: Positive: Cardiac Disease, Diabetes - Social History Alcohol Use: None Hx Substance Use: No Substance Use Type: Reports: None Hx Tobacco Use: No Smoking Status (MU): Never Smoked Tobacco Review of Systems Negative: Fever, Chills Negative: Blurred Vision, Erythema Positive: Chest Pain - midtsernal Positive: Shortness Of Breath. Negative: Cough Negative: Abdominal Pain, Vomiting, Nausea Negative: dysuria, hematuria Negative: Myalgia, Edema Negative: Rash Neurological: Other - Denies dizziness All Other Systems Reviewed And Are Negative: Yes Physical Exam - Summary Physical Exam Summary: Constitutional: Well-developed, Well-nourished, Alert. (-) Distressed Skin: Warm, Dry HENT: Eyes: Conjunctiva normal Neck: Musculoskeletal ROM normal neck. (-) JVD, (-) Stridor, (-) Tracheal deviation Cardio: Very minimal sternal tenderness, rhythm regular, rate normal, Heart sounds normal; Intact distal pulses; The pedal pulses are 2+ and symmetric. Radial pulses are 2+ and symmetric. (-) Murmur Pulmonary/Chest wall: Effort normal. (-) Respiratory distress, (-) Wheezes, (-) Rales Abd: Soft, Epigastric tenderness (-) Distension, (-) Guarding, (-) Rebound Musculoskeletal: (-) Edema Lymph: (-) Cervical adenopathy Neuro: Alert, Oriented x3 Psych: Mood and affect Normal Triage Information Reviewed: Yes Vital Signs On Initial Exam: Initial Vitals Temp Pulse Resp BP Pulse Ox 99.0 F 69 19 147/71 96 09/03/16 09:48 09/03/16 09:48 09/03/16 09:48 09/03/16 09:48 09/03/16 09:48 Vital Signs Reviewed: Yes Diagnostics - Vital Signs Vital Signs Temp Pulse Resp BP Pulse Ox 09/03/16 09:48 99.0 F 69 19 147/71 96 - Laboratory Result Diagrams: 09/03/16 10:40 09/03/16 10:40 Lab Statement: Any lab studies that have been ordered have been reviewed, and results considered in the medical decision making process. - Radiology CXR Radiology Interpretation Completed By: Radiologist - Additionally c/o SOB. Denies fever, rash. No prior similar episodes. PMHx CAD. PSHx cardiac catheterization in 2008. - CT CTA Abd/Pel CT Interpretation Completed By: Radiologist - 1. Widespread calcified atherosclerosis as described in more detail above without evidence of acute aortic abnormality such as pathologic aneurysmal dilatation or acute dissection. 2. Circumferential thickening of the mid level esophagus up to 5 mm in thickness. Please correlate to signs and symptoms of esophagitis. 3. Cardiomegaly with coronary artery calcifications. 4. There is a 9 mm fatty focus at the apex of the left adrenal gland which could represent a lipoma or adenoma. 5. There are additional chronic, degenerative and iatrogenic findings described in the body the report. - EKG 0946 Cardiac Rate: NL - 79 bpm EKG Rhythm: Atrial Flutter EKG Interpretation: RBBB, no STEMI Re-Evaluation - Re-Evaluation First Eval Re-Evaluation Time: 13:58 Change: Unchanged Comment: Still having 9/10 pain. Chest Pain Course/Dx - Course Assessment/Plan: Pt is a 70 y/o M with a CC of CP since 0700 this morning. Additionally c/o SOB. Denies fever, rash. No prior similar episodes. PMHx CAD. PSHx cardiac catheterization in 2008. CXR reveals: "Similar to the one 1617 chest x-ray the constellation of findings described above are consistent with congestive heart failure with density and/or pleural effusion obscuring the left lung base." EKG reveals no acute pathology. CT Abd/Pel reveals: "1. Widespread calcified atherosclerosis as described in more detail above without evidence. of acute aortic abnormality such as pathologic aneurysmal dilatation or acute dissection. 2. Circumferential thickening of the mid level esophagus up to 5 mm in thickness. Please. correlate to signs and symptoms of esophagitis. 3. Cardiomegaly with coronary artery calcifications. 4. There is a 9 mm fatty focus at the apex of the left adrenal gland which could represent. a lipoma or adenoma. 5. There are additional chronic, degenerative and iatrogenic findings described in the. body the report." While esophagitis could explain pt's sx, given PMHx of CAD and stents, he should be r/o for acute coronary syndrome. Discussed care of pt with Dr. Rodriguez who accepts pt for admission. Pt will be admitted with a dx of esophagitis and unspecified CP. - Diagnoses Provider Diagnoses: Chest pain, unspecified, Esophagitis - Provider Notifications Discussed Care Of Patient With: Dr. Rodriguez, hospitalist, who accepts pt for admission. Time Discussed With Above Provider: 13:56 Discharge - Discharge Plan Condition: Good Disposition: ADMITTED TO [facility] Referrals: Ivonne Cotton MD [Primary Care Provider] - The documentation as recorded by the Diana clifford Rebecca accurately reflects the service I personally performed and the decisions made by me, Oleg Smith MD.
--- NOTE | 2016-09-04 23:32 | DS ---
[facility] MEDICINE DISCHARGE SUMMARY: DATE OF ADMISSION: 09/03/16 DATE OF DISCHARGE: 09/04/16 PRIMARY CARE PHYSICIAN: Dr. Cotton. ATTENDING PHYSICIAN: Dr. Harsh Couch *(dictation provided by Keily Lou NP) PRIMARY DIAGNOSIS: Epigastric pain, suspected musculoskeletal in origin. SECONDARY DIAGNOSES: 1. Type 2 diabetes, insulin dependent. 2. History of atrial fibrillation, on Xarelto. 3. Coronary artery disease, status post coronary artery bypass grafting. 4. History of cardiac catheterization, September 2014, showed no evidence of definitive hemodynamically significant lesions. 5. Hypertension. 6. Gastroesophageal reflux disease. 7. Eosinophilic esophagitis. 8. History of candidal esophagitis. 9. Obesity. 10. Benign prostatic hyperplasia, with chronic indwelling Rivero. 11. History of transient ischemic attack. 12. History of degenerative disk disease. 13. History of pulmonary embolism, October 2014. 14. History of retroperitoneal hematoma, 2014. 15. History of hernia repair. 16. History of right shoulder arthroscopy. 17. History of knee arthroscopy. MEDICATIONS: At the time of discharge are: 1. Oxycodone/acetaminophen 5/325 mg one tab p.o. q.4 hours p.r.n. pain. 2. Fluticasone/salmeterol 250/50 one puff inhaled b.i.d. 3. Albuterol nebulizer p.r.n. 4. Maalox Plus p.r.n. 5. Lantus insulin 25 units subcutaneously at bedtime. 6. Furosemide 20 mg p.o. q.a.m. 7. Finasteride 5 mg p.o. q.a.m. 8. Ferrous sulfate 325 mg p.o. daily. 9. Trulicity 0.75 mg subcutaneously q.7 days. 10. Docusate 100 mg p.o. b.i.d. 11. Calcium carbonate 500 mg p.o. b.i.d. 12. Atorvastatin 20 mg p.o. at bedtime. 13. Senna 8.6 mg p.o. at bedtime p.r.n. 14. Xarelto 20 mg p.o. q.a.m. 15. Potassium chloride 20 mEq p.o. daily. 16. MiraLAX 17 g p.o. daily. 17. Omeprazole 20 mg p.o. b.i.d. 18. Multivitamin 1 tab p.o. daily. 19. Metoprolol tartrate 25 mg p.o. b.i.d. 20. Magnesium oxide 800 mg p.o. b.i.d. 21. Losartan 50 mg p.o. daily. 22. Metformin 1000 mg p.o. b.i.d. 23. Tamsulosin 0.4 mg p.o. at bedtime. 24. Sucralfate 1 g p.o. t.i.d. with meals. 25. Sertraline 75 mg p.o. daily. HOSPITAL COURSE: Mr. Yip is a 70-year-old male with a past medical history of AFib, coronary artery disease, diabetes, as well as episodes of esophagitis, who presented to the hospital on 09/03/16 with a complaint of sudden onset of epigastric pain. Please see the dictated H and P from myself for complete details. In brief, the patient stated he was washing dishes when he had a sudden onset of a sharp epigastric pain and decided to come to the emergency room for evaluation. In the emergency room, he had a CT of the chest, abdomen, and pelvis which was read as follows: "Circumferential thickening of the mid level esophagus up to 5 mm in thickness. Please correlate to signs and symptoms of esophagitis." The patient had a troponin which was 0.02. His EKG showed no evidence of ischemia. Based on his presentation, he was admitted to the hospitalist team. Mr. Yip was seen in consultation by Dr. Joseph from Gastroenterology, who recommended endoscopy to evaluate esophagitis. Per the verbal report from Dr. Joseph, the patient's endoscopy was normal. The patient himself was complaining of severe pain with palpation on the epigastric region and I suspect that this is a musculoskeletal injury. He has no pain along the ribs and therefore, a dedicated rib x-ray was not ordered. The patient did have 3 troponins with peak at 0.03. Mr. Yip is doing well today after his endoscopy. He still complains some discomfort in the epigastric region. He should be following up with Dr. Cotton. DISPOSITION: Home. DIET: Consistent carbohydrate, low fat, low salt. ACTIVITY: As tolerated. FOLLOWUP PLAN: Please follow up with Dr. Cotton per routine status post his hospitalization. TIME SPENT: Approximately 60 minutes was spent in the discharge of this patient , more than half the time spent with him at the bedside reviewing the events leading up to this hospitalization, performing the physical examination, and reviewing the plan of care. KEILY LOU NP CC: Dr. Cotton* [id number]/CPS #: [id number] CAMMIE
== END 2016-09-04 18:20 | disposition home or self-care (01) | DRG 392 ==
LOC: ED 09:44 → MEDTELE 13:56 → OBSVTOIN 09-04 14:24
PROVIDERS: ADMIT Internal Medicine; ATTEND Internal Medicine
PROC: 0DJ08ZZ Inspection of Upper Intestinal Tract, Via Natural or Artificial Opening Endoscopic (ICD-10-PCS; principal; 2016-09-04)
DX: R10.13 Epigastric pain (principal); I48.91 Unspecified atrial fibrillation; Z68.41 Body mass index [BMI] 40.0-44.9, adult; I25.810 Atherosclerosis of coronary artery bypass graft(s) without angina pectoris; I11.9 Hypertensive heart disease without heart failure; E66.01 Morbid (severe) obesity due to excess calories; E11.9 Type 2 diabetes mellitus without complications; N40.0 Benign prostatic hyperplasia without lower urinary tract symptoms; K21.9 Gastro-esophageal reflux disease without esophagitis; K29.50 Unspecified chronic gastritis without bleeding; K20.0 Eosinophilic esophagitis; Z66 Do not resuscitate; Z79.01 Long term (current) use of anticoagulants; Z95.1 Presence of aortocoronary bypass graft; Z79.4 Long term (current) use of insulin; Z86.73 Personal history of transient ischemic attack (TIA), and cerebral infarction without residual deficits; Z86.711 Personal history of pulmonary embolism; Z79.899 Other long term (current) drug therapy; Z91.013 Allergy to seafood; Z91.048 Other nonmedicinal substance allergy status; Z83.3 Family history of diabetes mellitus; Z82.49 Family history of ischemic heart disease and other diseases of the circulatory system
CPT/HCPCS: 36415; 71010; 71275; 74174; 80053; 82947; 83605; 83880; 84484; 85025; 93005; 94640; 94760; A9270-GY; G0378; J2250; J2270; J3010; Q9967

== ENCOUNTER 2016-09-12 11:08 | Emergency (ER) | payer MEDICARE, MEDICAID ==
--- NOTE | 2016-09-12 12:32 | ED ---
Tavo Osei SooYoung, scribed for Kevin Ospina MD on 09/12/16 at 1212 . GI/ HPI - HPI Summary HPI Summary: A 70 y/o M MORRIS presents to ED with c/o leaking catheter onset this AM [employer]. Denies fever. Pt has known enlarged prostate. - History of Current Complaint Chief Complaint: EDUrogenitalProblems Time Seen by Provider: 09/12/16 11:34 Stated Complaint: PENIS PAIN FROM CATHER Hx Obtained From: Patient Onset/Duration: Still Present Timing: Lasting Hours Current Severity: Mild Pain Intensity: 1 Associated Signs and Symptoms: Negative: Fever - Additional Pertinent History Primary Care Physician: [id number] - Allergy/Home Medications Allergies/Adverse Reactions: Allergies Allergy/AdvReac Type Severity Reaction Status Date / Time Shellfish Allergy Allergy Severe Difficulty Verified 06/20/16 09:56 Breathing Povidone Iodine Allergy Intermediate Rash Verified 06/20/16 09:56 [From Betadine] PMH/Surg Hx/FS Hx/Imm Hx Previously Healthy: No Endocrine/Hematology History: Reports: Hx Anticoagulant Therapy, Hx Diabetes - II, Hx Anemia, Other Endocrine/Hematological Disorders - Eosinophilia Denies: Hx Blood Disorders, Hx Blood Transfusions, Hx Systemic Lupus Erythematosus, Hx Thyroid Disease Cardiovascular History: Reports: Hx Angina, Hx Congestive Heart Failure, Hx Coronary Artery Disease, Hx Embolism, Hx Hypercholesterolemia, Hx Hypertension, Hx Myocardial Infarction - x2, Other Cardiovascular Problems/Disorders - Cardiomyopathy Denies: Hx Deep Vein Thrombosis, Hx Pacemaker/ICD Respiratory History: Reports: Hx Asthma, Hx Pneumonia, Hx Pulmonary Edema, Hx Pulmonary Embolism, Other Respiratory Problems/Disorders - PE'S Denies: Hx Chronic Obstructive Pulmonary Disease (COPD), Hx Lung Cancer GI History: Reports: Hx Gastroesophageal Reflux Disease, Hx Hiatal Hernia, Other GI Disorders - chronic abdominal pain Denies: Hx Gall Bladder Disease, Hx Gastrointestinal Bleed, Hx Ulcer, Hx Urosepsis History: Reports: Hx Acute Renal Failure, Hx Benign Prostatic Hyperplasia, Hx Kidney Stones Denies: Hx Dialysis, Hx Renal Disease, Other Problems/Disorders Musculoskeletal History: Reports: Hx Back Problems, Other Musculoskeletal History - OBESITY, DJD Denies: Hx Rheumatoid Arthritis Sensory History: Reports: Hx Contacts or Glasses, Hx Vision Problem Denies: Other Sensory Impairments Opthamlomology History: Reports: Hx Contacts or Glasses, Hx Vision Problem Denies: Other Sensory Impairments Neurological History: Reports: 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 hernia repair x 2;. rt knee cartlidge repair;. RIGHT ROTATOR CUFF ; Hx Anesthesia Reactions: No - Immunization History Date of Tetanus Vaccine: Unk Date of Influenza Vaccine: 05/13/14 Infectious Disease History: Yes Infectious Disease History: Denies: Hx Hepatitis, Hx Human Immunodeficiency Virus (HIV), Hx of Known/ Suspected MRSA, Hx Shingles, Hx Tuberculosis, History Other Infectious Disease, Traveled Outside the [place] in Last 30 Days - Family History Known Family History: Positive: Cardiac Disease, Diabetes - Social History Occupation: Disabled Lives: [facility] [employer] Alcohol Use: None Hx Substance Use: No Substance Use Type: Reports: None Hx Tobacco Use: No Smoking Status (MU): Never Smoked Tobacco Review of Systems Negative: Fever Positive: other - POS: LEAKING CATHETER All Other Systems Reviewed And Are Negative: Yes Physical Exam - Summary Physical Exam Summary: Xochitl: well-appearing, no pain distress Skin: warm, skin color reflects, dry Head/Face: nml head/face inspection Eyes: EOMI, ARNOLD ENT: nml Neck: supple, non-tender Resp: CTA, breath sounds present Cardio: RRR Abd: nontender, soft GIGU: CATHETER IN PLACE. URINE IS CLEAR, YELLOW. Bowel: present Musc: nml, strength/ROM intact Neuro: nml, sensory/motor intact, A&O x 3 Psych: affect/mood appropriate Triage Information Reviewed: Yes Vital Signs On Initial Exam: Initial Vitals Temp Pulse Resp BP Pulse Ox 98.1 F 83 18 113/59 98 09/12/16 11:57 09/12/16 11:57 09/12/16 11:57 09/12/16 11:57 09/12/16 11:57 Vital Signs Reviewed: Yes Diagnostics - Vital Signs Vital Signs Temp Pulse Resp BP Pulse Ox 09/12/16 11:57 98.1 F 83 18 113/59 98 - Laboratory Lab Statement: Any lab studies that have been ordered have been reviewed, and results considered in the medical decision making process. GIGU Course/Dx - Course Assessment/Plan: POWER CHANGED IN ED. NO SIGN OF INFECTION. DISCHARGE HOME STABLE. - Diagnoses Provider Diagnoses: Power catheter problem Discharge - Discharge Plan Condition: Stable Disposition: HOME Patient Education Materials: Power Catheter Placement and Care (ED) Referrals: Ivonne Cotton MD [Primary Care Provider] - Additional Instructions: FOLLOW UP WITH YOUR DOCTOR. RETURN TO THE EMERGENCY DEPARTMENT FOR ANY WORSENING OF YOUR CONDITION OR QUESTIONS OR CONCERNS. The documentation as recorded by the Tavo clifford SooYoung accurately reflects the service I personally performed and the decisions made by me, Kevin Ospina MD.
[2016-09-12 12:40] VITALS: BP 113/65
== END 2016-09-12 12:38 | disposition home or self-care (01) ==
LOC: ED 11:08
DX: T83.038A Leakage of other urinary catheter, initial encounter (principal); Y84.6 Urinary catheterization as the cause of abnormal reaction of the patient, or of later complication, without mention of misadventure at the time of the procedure; Y92.9 Unspecified place or not applicable; E11.9 Type 2 diabetes mellitus without complications; Z79.01 Long term (current) use of anticoagulants; D64.9 Anemia, unspecified; N40.0 Benign prostatic hyperplasia without lower urinary tract symptoms; I50.9 Heart failure, unspecified; I25.10 Atherosclerotic heart disease of native coronary artery without angina pectoris; I10 Essential (primary) hypertension; E78.00 Pure hypercholesterolemia, unspecified; I25.2 Old myocardial infarction; Z86.711 Personal history of pulmonary embolism; E66.9 Obesity, unspecified; Z68.41 Body mass index [BMI] 40.0-44.9, adult
CPT/HCPCS: 99282

== ENCOUNTER 2016-10-01 09:42 | Emergency (ER) | payer MEDICARE, MEDICAID ==
[2016-10-01 10:07] LABS: Hematocrit 42 % (42-52); Hemoglobin 13.5 g/dl (14.0-18.0); Mean Corpuscular HGB Conc 32 g/dl (31-36); Mean Corpuscular Hemoglobin 27 pg (27-31); Mean Corpuscular Volume 84 fL (80-94); Mean Platelet Volume 8 um3 (7.4-10.4); Red Blood Count 5.02 10^6/ul (4.0-5.4); Red Cell Distribution Width 17 % (10.5-15); White Blood Count 9.7 10^3/ul (3.5-10.8)
[2016-10-01 10:08] LABS: Add Diff/Slide Review? Slide Review Added; Comments Flag Yes
--- NOTE | 2016-10-01 10:23 | RAD ---
Indication: Central chest pain with breathing. Vomiting. History of cardiomyopathy. Comparison: September 03, 2016 CT. Technique: Upright AP 0958 hours Report: Obesity limits image quality. Grossly clear lungs and pleural spaces. Negative for pneumothorax. Cardiomegaly and epicardial fat pads. Unremarkable central pulmonary vasculature. No gross subphrenic gas evident. IMPRESSION: Cardiomegaly without compelling evidence for pulmonary edema.
[2016-10-01 10:27] LABS: Albumin 3.6 g/dL (3.2-5.2); BUN/Creatinine Ratio 19.8 (8-20); Calcium 9.3 mg/dL (8.6-10.3); Globulin 2.9 g/dL (2-4); Total Bilirubin 0.3 mg/dL (0.2-1.0); Total Protein 6.5 g/dL (6.4-8.9)
[2016-10-01 10:30] LABS: Troponin I 0.02 ng/mL (<0.04)
[2016-10-01 10:42] LABS: Potassium 4.3 mmol/L (3.5-5.0)
[2016-10-01 10:53] LABS: T4 5.17 g/dL (6.09-12.23)
[2016-10-01 10:54] LABS: TSH (Thyroid Stimulating Horm) 0.8 mcIU/mL (0.34-5.60)
[2016-10-01] MEDS ORDERED: Morphine INJ* 4 MG/ML 1 ML CARPUJECT IV ONE (11:06)
[2016-10-01] MEDS ORDERED: Famotidine IV* 10 MG/ML 2 ML (20 mg) IV SLOW PU ONE (11:06)
[2016-10-01] MEDS ORDERED: Ondansetron INJ* 2 MG/ML VIAL IV ONE (11:06)
--- NOTE | 2016-10-01 15:09 | ED ---
Diana Osei Rebecca, scribed for Luis De León MD on 10/01/16 at 0955 . HPI Chest Pain - HPI Summary HPI Summary: Pt is a 71 y/o M BIBA who presents to ED c/o CP. Pain began suddenly this morning at 0730 this eating and has been constant since onset. Pain is midsternal without radiation and currently ranked 10/10. Pain is characterized as pressure/heaviness. Sx aggravated and alleviated by nothing, unchanged by NTG administered by EMS ELECT[employer]ER. Additionally c/o N/V, mild SOB characterized as dyspnea at rest. Denies diaphoresis or syncope. PMHx CAD, last STEMI approximately 2 years ago. - History of Current Complaint Chief Complaint: EDChestPainROMI Time Seen by Provider: 10/01/16 09:46 Hx Obtained From: Patient Onset/Duration: Started Hours Ago - 2 hours ago, Still Present Time of Onset: 07:30 Timing: Constant Initial Severity: Severe Current Severity: Severe Pain Intensity: 10 Pain Scale Used: 0-10 Numeric Chest Pain Location: Mid Sternal Chest Pain Radiates: No Character: Heaviness, Pressure/Squeezing Aggravating Factor(s): Nothing Alleviating Factor(s): Nothing Associated Signs and Symptoms: Positive: Shortness of Breath - mild, Nausea, Vomiting. Negative: Syncope, Diaphoresis - Additional Pertinent History Primary Care Physician: [id number] - Allergy/Home Medications Allergies/Adverse Reactions: Allergies Allergy/AdvReac Type Severity Reaction Status Date / Time Shellfish Allergy Allergy Severe Difficulty Verified 06/20/16 09:56 Breathing Povidone Iodine Allergy Intermediate Rash Verified 06/20/16 09:56 [From Betadine] PMH/Surg Hx/FS Hx/Imm Hx Endocrine/Hematology History: Reports: Hx Anticoagulant Therapy, Hx Diabetes - II, Hx Anemia, Other Endocrine/Hematological Disorders - Eosinophilia Denies: Hx Blood Disorders, Hx Blood Transfusions, Hx Systemic Lupus Erythematosus, Hx Thyroid Disease Cardiovascular History: Reports: Hx Angina, Hx Congestive Heart Failure, Hx Coronary Artery Disease, Hx Embolism, Hx Hypercholesterolemia, Hx Hypertension, Hx Myocardial Infarction - x2, Other Cardiovascular Problems/Disorders - Cardiomyopathy Denies: Hx Deep Vein Thrombosis, Hx Pacemaker/ICD Respiratory History: Reports: Hx Asthma, Hx Pneumonia, Hx Pulmonary Edema, Hx Pulmonary Embolism, Other Respiratory Problems/Disorders - PE'S Denies: Hx Chronic Obstructive Pulmonary Disease (COPD), Hx Lung Cancer GI History: Reports: Hx Gastroesophageal Reflux Disease, Hx Hiatal Hernia, Other GI Disorders - chronic abdominal pain Denies: Hx Gall Bladder Disease, Hx Gastrointestinal Bleed, Hx Ulcer, Hx Urosepsis History: Reports: Hx Acute Renal Failure, Hx Benign Prostatic Hyperplasia, Hx Kidney Stones Denies: Hx Dialysis, Hx Renal Disease, Other Problems/Disorders Musculoskeletal History: Reports: Hx Back Problems, Other Musculoskeletal History - OBESITY, DJD Denies: Hx Rheumatoid Arthritis Sensory History: Reports: Hx Contacts or Glasses, Hx Vision Problem Denies: Other Sensory Impairments Opthamlomology History: Reports: Hx Contacts or Glasses, Hx Vision Problem Denies: Other Sensory Impairments Neurological History: Reports: 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 hernia repair x 2;. rt knee cartlidge repair;. RIGHT ROTATOR CUFF ; Hx Anesthesia Reactions: No - Immunization History Date of Tetanus Vaccine: Unk Date of Influenza Vaccine: 05/13/14 Infectious Disease History: No Infectious Disease History: Denies: Hx Hepatitis, Hx Human Immunodeficiency Virus (HIV), Hx of Known/ Suspected MRSA, Hx Shingles, Hx Tuberculosis, History Other Infectious Disease, Traveled Outside the [place] in Last 30 Days - Family History Known Family History: Positive: Cardiac Disease, Diabetes - Social History Alcohol Use: None Hx Substance Use: No Substance Use Type: Reports: None Hx Tobacco Use: No Smoking Status (MU): Never Smoked Tobacco Review of Systems Negative: Skin Diaphoresis Positive: Chest Pain Positive: Shortness Of Breath - mild Positive: Vomiting, Nausea Negative: Syncope All Other Systems Reviewed And Are Negative: Yes Physical Exam Triage Information Reviewed: Yes Vital Signs On Initial Exam: Initial Vitals Temp Pulse Resp BP Pulse Ox 98.4 F 66 20 136/67 97 10/01/16 09:45 10/01/16 09:45 10/01/16 09:45 10/01/16 09:45 10/01/16 09:45 Vital Signs Reviewed: Yes Appearance: Positive: Obese Skin: Positive: Warm, Skin Color Reflects Adequate Perfusion, Dry Head/Face: Positive: Normal Head/Face Inspection Eyes: Positive: EOMI, ARNOLD ENT: Positive: Normal ENT inspection Neck: Positive: Supple, Nontender Respiratory/Lung Sounds: Positive: Clear to Auscultation, Breath Sounds Present Cardiovascular: Positive: RRR, Pulses are Symmetrical in both Upper and Lower Extremities, Other - Possible reproduction of CP in the retrosternal area and epigastric area Abdomen Description: Positive: Soft. Negative: Nontender - Possible epigastric tenderness Bowel Sounds: Positive: Present Musculoskeletal: Positive: Normal, Strength/ROM Intact Neurological: Positive: Normal, Sensory/Motor Intact, Alert, Oriented to Person Place, Time Psychiatric: Positive: Anxious - slightly Diagnostics - Vital Signs Vital Signs Temp Pulse Resp BP Pulse Ox 10/01/16 09:45 98.4 F 66 20 136/67 97 - Laboratory Lab Results: Lab Results 10/01/16 10/01/16 10/01/16 Range/Units 09:54 09:54 09:54 WBC 9.7 (3.5-10.8) 10^3/ul RBC 5.02 (4.0-5.4) 10^6/ul Hgb 13.5 L (14.0-18.0) g/dl Hct 42 (42-52) % MCV 84 (80-94) fL MCH 27 (27-31) pg MCHC 32 (31-36) g/dl RDW 17 H (10.5-15) % Plt Count 230 (150-450) 10^3/ul MPV 8 (7.4-10.4) um3 Neut % (Auto) 47.6 (38-83) % Lymph % (Auto) 20.8 L (25-47) % Whitman % (Auto) 8.3 (1-9) % Eos % (Auto) 21.9 H (0-6) % Baso % (Auto) 1.4 (0-2) % Absolute Neuts (auto) 4.7 (1.5-7.7) 10^3/ul Absolute Lymphs (auto) 2.0 (1.0-4.8) 10^3/ul Absolute Monos (auto) 0.8 (0-0.8) 10^3/ul Absolute Eos (auto) 2.1 H (0-0.6) 10^3/ul Absolute Basos (auto) 0.1 (0-0.2) 10^3/ul Absolute Nucleated RBC 0 10^3/ul Nucleated RBC % 0 INR (Anticoag Therapy) 1.10 (0.89-1.11) Sodium 139 (133-145) mmol/L Potassium 4.3 (3.5-5.0) mmol/L Chloride 105 (101-111) mmol/L Carbon Dioxide 28 (22-32) mmol/L Anion Gap 6 (2-11) mmol/L BUN 19 (6-24) mg/dL Creatinine 0.96 (0.67-1.17) mg/dL Est GFR ( Amer) 99.0 (>60) Est GFR (Non-Af Amer) 77.0 (>60) BUN/Creatinine Ratio 19.8 (8-20) Glucose 113 H (70-100) mg/dL Lactic Acid (0.5-2.0) mmol/L Calcium 9.3 (8.6-10.3) mg/dL Total Bilirubin 0.30 (0.2-1.0) mg/dL AST 16 (13-39) U/L ALT 16 (7-52) U/L Alkaline Phosphatase 59 (34-104) U/L CK-MB (CK-2) 4.2 (0.6-6.3) ng/mL Troponin I 0.02 (<0.04) ng/mL B-Natriuretic Peptide ( - 100) pg/mL Total Protein 6.5 (6.4-8.9) g/dL Albumin 3.6 (3.2-5.2) g/dL Globulin 2.9 (2-4) g/dL Albumin/Globulin Ratio 1.2 (1-3) TSH 0.80 (0.34-5.60) mcIU/mL Thyroxine (T4) 5.17 L (6.09-12.23) g/dL 10/01/16 10/01/16 10/01/16 Range/Units 09:54 09:54 13:28 WBC (3.5-10.8) 10^3/ul RBC (4.0-5.4) 10^6/ul Hgb (14.0-18.0) g/dl Hct (42-52) % MCV (80-94) fL MCH (27-31) pg MCHC (31-36) g/dl RDW (10.5-15) % Plt Count (150-450) 10^3/ul MPV (7.4-10.4) um3 Neut % (Auto) (38-83) % Lymph % (Auto) (25-47) % Whitman % (Auto) (1-9) % Eos % (Auto) (0-6) % Baso % (Auto) (0-2) % Absolute Neuts (auto) (1.5-7.7) 10^3/ul Absolute Lymphs (auto) (1.0-4.8) 10^3/ul Absolute Monos (auto) (0-0.8) 10^3/ul Absolute Eos (auto) (0-0.6) 10^3/ul Absolute Basos (auto) (0-0.2) 10^3/ul Absolute Nucleated RBC 10^3/ul Nucleated RBC % INR (Anticoag Therapy) (0.89-1.11) Sodium (133-145) mmol/L Potassium (3.5-5.0) mmol/L Chloride (101-111) mmol/L Carbon Dioxide (22-32) mmol/L Anion Gap (2-11) mmol/L BUN (6-24) mg/dL Creatinine (0.67-1.17) mg/dL Est GFR ( Amer) (>60) Est GFR (Non-Af Amer) (>60) BUN/Creatinine Ratio (8-20) Glucose (70-100) mg/dL Lactic Acid 2.4 H* (0.5-2.0) mmol/L Calcium (8.6-10.3) mg/dL Total Bilirubin (0.2-1.0) mg/dL AST (13-39) U/L ALT (7-52) U/L Alkaline Phosphatase (34-104) U/L CK-MB (CK-2) (0.6-6.3) ng/mL Troponin I 0.02 (<0.04) ng/mL B-Natriuretic Peptide 89 ( - 100) pg/mL Total Protein (6.4-8.9) g/dL Albumin (3.2-5.2) g/dL Globulin (2-4) g/dL Albumin/Globulin Ratio (1-3) TSH (0.34-5.60) mcIU/mL Thyroxine (T4) (6.09-12.23) g/dL Result Diagrams: 10/01/16 09:54 10/01/16 09:54 Lab Statement: Any lab studies that have been ordered have been reviewed, and results considered in the medical decision making process. - Radiology CXR Xray Interpretation: No Acute Changes - Cardiomegaly without compelling evidence for pulmonary edema. Radiology Interpretation Completed By: Radiologist - EKG 0943 Cardiac Rate: NL - 66 bpm EKG Rhythm: Atrial Flutter ST Segment: Normal - no ST elevations Chest Pain Course/Dx - Course Assessment/Plan: Pt is a 71 y/o M BIBA who presents to ED c/o CP. Pain began suddenly this morning at 0730 this eating and has been constant since onset. Pain is midsternal without radiation and currently ranked 10/10. Pain is characterized as pressure/heaviness. Sx aggravated and alleviated by nothing, unchanged by NTG administered by EMS ELECT[employer] ASSEM[employer]ER. Additionally c/o N/V, mild SOB characterized as dyspnea at rest. Denies diaphoresis or syncope. PMHx CAD, last STEMI approximately 2 years ago. Bloodwork within normal limits except for glucose of 113, lactic acid of 2.4 and thyroxine of 5.1. Troponin number 1 is 0.02 and 3 hours later, Troponin number 2 is 0.02. The CXR shows cardiomegaly without pulmonary edema. EKG is a normal sinus rhythm with no ST elevations. EMS gave pt ASA and 3 NTG w/o improvements. In the ED course, pt was given 1 dose of morphine and sx resolved. I disclosed the case with the hospitalist and they consulted with the pt and report that the pt has been admitted for the same reasons multiple times. He has gotten chest CT, Abd/Pel CT without any findings. He has had 3 stress tests in the last 3 years, with negative results. Therefore, this time I feel safe sending the pt home even though pt has multiple comorbidities. Pt will be D/C to home with a follow up with PCP. He was instructed to return to the ED if sx worsen or if SOB, dizziness, nausea, vomiting or diaphoresis begin. He understands and agrees. He is comfortable going home. Pt is hemodynamically stable and AxOx3. I discussed all the findings and test results with the patient. Patient was instructed to return to the emergency room immediately if any of the symptoms return or worsens. Plan of care was discussed with the patient and understands and agrees. All questions were answered at patient satisfaction. There were no further complaints or concerns. Lung exam before discharge: CTA B/L. Good air exchange. No wheezing or crackles heard. CVS: S1 and S2 present. No murmurs appreciated. Patient is alert and oriented x 3. Patient is hemodynamically stable. Patient will be discharged home with follow up care coordinator in the next 2-3 days - Chest Pain Differential Diagnosis/HQI/PQRI: Acute NV, ACS, Angina, CHF, Chest Wall, GI Disease, Lower Respiratory Infection - Diagnoses Provider Diagnoses: Atypical chest pain - Provider Notifications Discussed Care Of Patient With: Dr. Borges, hospitalist, who will evaluate pt in the ED. Time Discussed With Above Provider: 13:01 Discharge - Discharge Plan Condition: Stable Disposition: HOME Patient Education Materials: Chest Pain (ED) Referrals: Ivonne Cotton MD [Primary Care Provider] - 3 Days (Follow up with your primary care physician in the next 3 days. ) Additional Instructions: Return to the ED if your symptoms worsen or if you experience shortness of breath, dizziness, sweating, nausea or vomiting. The documentation as recorded by the Diana clifford Rebecca accurately reflects the service I personally performed and the decisions made by me, Luis De León MD.
[2016-10-01 15:36] VITALS: BP 121/55
--- NOTE | 2016-10-01 22:37 | CONS ---
HOSPITAL MEDICINE CONSULTATION REPORT: DATE OF CONSULT: 10/01/16 - EMERGENCY DEPT PRIMARY CARE PHYSICIAN: Dr. Cotton. ATTENDING PHYSICIAN: Dr. Margarito Borges (dictation provided by Keily Lou NP) REASON FOR CONSULT: Question of need for admission. HISTORY OF PRESENT ILLNESS: Mr. Yip is a 71-year-old male well-known to the hospital medicine team with multiple admissions for chest and abdominal discomfort, who has past medical history of coronary artery disease with CABG, insulin- dependent diabetes, AFib, eosinophilic and candidal esophagitis, who presented to the hospital today with concern for epigastric discomfort. Mr. Yip states that he has been in his normal state of health since his last admission here for similar complaints on 09/03/16. However, today, he had the sudden onset again of sharp pain in his epigastric region. He states that he was not doing anything when this happened. He had just eaten breakfast. He did become nauseous and vomit. He then called the EMS to be brought to the emergency room. He denies any other complaints. He has had no fever. He has been eating and drinking normally other than this one episode of vomiting this morning. He continues to have a Rivero catheter chronically for BPH. The patient was admitted to our hospital on 09/03/16 with complaints of epigastric pain and was tender to palpation as exactly as he is describing today. For that admission, he had a workup including CT of the chest, abdomen, and pelvis which did show concern for esophageal thickening. For this reason, he did go on for consultation with Gastroenterology and endoscopy. Endoscopy report showed only mild antral gastritis and is otherwise normal. Dr. Joseph speculated that likely the patient had a musculoskeletal process. In the emergency room, Mr. Yip had troponin which was 0.02, which is in keeping with all previous troponins checked over the past several years. An EKG showed no evidence of ischemia. PAST MEDICAL HISTORY: 1. Type 2 diabetes, insulin dependent. 2. History of AFib, on Xarelto. 3. Coronary artery disease, status post CABG. 4. History of cardiac catheterization, September 2014, which showed no hemodynamically significant lesions. 5. Hypertension. 6. GERD. 7. History of eosinophilic and candidal esophagitis. 8. Morbid obesity. 9. BPH with chronic indwelling Rivero. 10. History of SVT. 11. History of TIA. 12. Degenerative disk disease. 13. History of pulmonary embolism, October 2014. 14. History of retroperitoneal hematoma, 2014. 15. History of a hernia repair. 16. History of right shoulder arthroscopy. 17. History of knee arthroscopy. MEDICATIONS: 1. Fluticasone/formoterol 250/50 one puff inhaled b.i.d. p.r.n. 2. Albuterol nebulizer p.r.n. 3. Maalox plus p.r.n. 4. Lantus 25 units subcutaneously at bedtime. 5. Furosemide 20 mg p.o. q.a.m. 6. Finasteride 5 mg p.o. q.a.m. 7. Ferrous sulfate 325 mg p.o. daily. 8. Zosyn 3.375 mg subcutaneously q.7 days. 9. Docusate 100 mg p.o. b.i.d. 10. Calcium carbonate 500 mg p.o. b.i.d. 11. Atorvastatin 20 mg p.o. bedtime. 12. Senna 8.6 mg p.o. bedtime p.r.n. 13. Xarelto 20 mg p.o. q.a.m. 14. Potassium chloride 20 mEq p.o. daily. 15. MiraLAX 17 g p.o. daily. 16. Omeprazole 20 mg p.o. b.i.d. 17. Multivitamin 1 tab p.o. daily. 18. Metoprolol tartrate 25 mg p.o. b.i.d. 19. Magnesium oxide 800 mg p.o. b.i.d. 20. Losartan 50 mg p.o. daily. 21. Metformin 1000 mg p.o. b.i.d. 22. Tamsulosin 0.4 mg p.o. at bedtime. 23. Sucralfate 1 mg p.o. t.i.d. with meals. 24. Sertraline 75 mg p.o. daily. ALLERGIES: SHELLFISH, POVIDONE-IODINE. FAMILY HISTORY: The patient reports both his mother and father related to disease and diabetes. SOCIAL HISTORY: No report of alcohol, tobacco, or drug use. The patient lives alone. He states his sister and Jessie Gonzalez would be his healthcare proxies. REVIEW OF SYSTEMS: A 14-point review of systems was completed with Mr. Yip and all those not mentioned above were negative. PHYSICAL EXAM: Vital Signs: Temperature 98.4, respiratory rate 19, pulse 66, O2 saturation 98% on room air, blood pressure 115/71. General: Ms. Yip is sitting on the bed. He is in no acute distress. He is calm and cooperative with my examination. He is alert, he is oriented x3. Moves all extremities equally. There is no facial asymmetry or focal weakness. Extraocular movements are intact. Heart: S1, S2. No murmur, rub, gallop, and regular. Lungs are clear to auscultation bilaterally with no accessory muscle use and good aeration. Abdomen: Distended, consistent with his obesity. He has tenderness to palpation in the mid epigastric region, but none otherwise. Bowel sounds are positive. Extremities: No cyanosis or edema. Skin is intact. DIAGNOSTIC STUDIES/LAB DATA: Sodium 139, potassium 4.3, chloride 105, serum bicarbonate 28, BUN 19, creatinine 0.96, glucose 113, lactic acid 2.4. Troponin 0.02. TSH 0.80. BNP 89. WBC 9.7, hemoglobin 13.5, hematocrit 42, and platelet count 230. INR 1.10. Chest x-ray shows cardiomegaly without compelling evidence for pulmonary edema. ASSESSMENT AND PLAN: Mr. Yip is a 71-year-old male with frequent admissions to the hospital with concern for chest and epigastric discomfort as well as history of atrial fibrillation, on Xarelto; type 2 diabetes, on insulin; coronary artery disease, status post CABG, who presents to the hospital today again with concern for epigastric tenderness with sharp pain on palpation. The patient was just admitted less than a month ago for exact same complaints. At that time, he had a CT scan which was negative and Gastroenterology consultation and endoscopy which were also negative. I suspect again that the patient has a musculoskeletal injury that is causing this intermittent discomfort. Again, the pain is with palpation and is discretely in the epigastric region. I am not concerned for acute coronary syndrome. His first troponin was negative. Plan will be to repeat a second troponin as the patient would like to have lunch to make sure that he is able to tolerate oral intake before going home today. I see no indication for admission for Mr. Yip, in addition to that recent admission for his similar complaints he had been admitted in January with the same complaints with negative workup. He has also had multiple stress tests in 2012, 2013, 2015, and 2016, all of which were low risk. Mr. Yip is medically stable for discharge to home. Dr. De León plans to check a second troponin which seems reasonable, as I would like to test Mr. Yip's ability to eat as he did complain of vomiting this morning. TIME SPENT: Approximately 60 minutes was spent in the consultation of this patient, more than half the time was spent with him at the bedside, reviewing the events leading up to this hospitalization, performing the physical examination, and reviewing my plan of care. KEILY LOU NP CC: Dr. Cotton * [id number]/CPS #: [id number]
== END 2016-10-01 15:35 | disposition home or self-care (01) ==
LOC: ED 09:42
DX: R07.89 Other chest pain (principal); E11.9 Type 2 diabetes mellitus without complications; Z79.01 Long term (current) use of anticoagulants; I50.9 Heart failure, unspecified; E78.00 Pure hypercholesterolemia, unspecified; I25.2 Old myocardial infarction; I10 Essential (primary) hypertension; K21.9 Gastro-esophageal reflux disease without esophagitis; I25.10 Atherosclerotic heart disease of native coronary artery without angina pectoris; Z79.4 Long term (current) use of insulin; I48.91 Unspecified atrial fibrillation; Z95.1 Presence of aortocoronary bypass graft; E66.01 Morbid (severe) obesity due to excess calories; N40.0 Benign prostatic hyperplasia without lower urinary tract symptoms; Z86.73 Personal history of transient ischemic attack (TIA), and cerebral infarction without residual deficits; Z86.711 Personal history of pulmonary embolism; Z68.41 Body mass index [BMI] 40.0-44.9, adult
CPT/HCPCS: 36415; 71010; 80053; 82553; 83605; 83880; 84436; 84443; 84484; 85025; 85610; 93005; 96374; 96375; 99284; J2270; J2405

== ENCOUNTER 2016-10-13 09:28 | Emergency (ER) | payer MEDICARE, MEDICAID ==
[2016-10-13] MEDS ORDERED: Morphine INJ* 4 MG/ML 1 ML SYRINGE IV ONE ×2 (09:42→11:40)
[2016-10-13] MEDS ORDERED: Aspirin Low Dose CHEW TAB* 81 MG PO ONE (09:42)
[2016-10-13] MEDS ORDERED: NS 0.9% 1000 ML* 1,000 ML IV ONE (09:42)
[2016-10-13] MEDS ORDERED: Ondansetron INJ* 2 MG/ML VIAL IV ONE (09:42)
[2016-10-13] MEDS ORDERED: Pantoprazole IV* 40 MG IV ONE (09:48)
[2016-10-13 10:06] LABS: Hematocrit 41 % (42-52); Hemoglobin 13.1 g/dl (14.0-18.0); Mean Corpuscular HGB Conc 32 g/dl (31-36); Mean Corpuscular Hemoglobin 27 pg (27-31); Mean Corpuscular Volume 84 fL (80-94); Mean Platelet Volume 8 um3 (7.4-10.4); Red Blood Count 4.86 10^6/ul (4.0-5.4); Red Cell Distribution Width 16 % (10.5-15); White Blood Count 8.6 10^3/ul (3.5-10.8)
[2016-10-13 10:21] LABS: Albumin 3.5 g/dL (3.2-5.2); BUN/Creatinine Ratio 18.5 (8-20); Calcium 8.9 mg/dL (8.6-10.3); EGFR African American 86.4 (>60); EGFR Non-African American 67.2 (>60); Globulin 2.7 g/dL (2-4); Magnesium 1.5 mg/dL (1.9-2.7); Total Bilirubin 0.3 mg/dL (0.2-1.0); Total Protein 6.2 g/dL (6.4-8.9)
[2016-10-13 10:23] LABS: Troponin I 0.02 ng/mL (<0.04)
--- NOTE | 2016-10-13 10:45 | RAD ---
HISTORY: Chest pain, pneumonia COMPARISONS: October 01, 2016 VIEWS: 2: Frontal and lateral views of the chest. FINDINGS: CARDIOMEDIASTINAL SILHOUETTE: The cardiac silhouette is enlarged. The cardiomediastinal silhouette is otherwise normal. TOMY: The tomy are normal. PLEURA: The costophrenic angles are sharp. No pleural abnormalities are noted. LUNG PARENCHYMA: The lung volumes are low. The lungs are clear. ABDOMEN: The upper abdomen is clear. There is no subphrenic gas. BONES AND SOFT TISSUES: No bone or soft tissue abnormalities are noted. OTHER: None. IMPRESSION: CARDIOMEGALY. LOW LUNG VOLUMES.
--- NOTE | 2016-10-13 14:01 | ED ---
Telly Osei Salem, scribed for Nathanael Lam MD on 10/13/16 at 1236 . HPI Chest Pain - HPI Summary HPI Summary: Patient is a 71 y/o male who presents to the ED with CP since 0600 this morning. He states pain is still present and he describes it as squeezing pain that does not radiate. Pt reports vomiting twice since onset of pain. He denies abd pain and reports his CP is not aggravated or alleviated with anything. He reports a hx of FL and that he is on Xarelto. - History of Current Complaint Chief Complaint: EDChestPainROMI Time Seen by Provider: 10/13/16 09:40 Hx Obtained From: Patient Onset/Duration: Started Hours Ago, Still Present Initial Severity: Moderate Current Severity: Moderate Pain Intensity: 9 Pain Scale Used: 0-10 Numeric Chest Pain Radiates: No Character: Other: - Squeezing. Aggravating Factor(s): Nothing Alleviating Factor(s): Nothing Associated Signs and Symptoms: Positive: Vomiting - twice. - Additional Pertinent History Primary Care Physician: CHRISTINE - Allergy/Home Medications Allergies/Adverse Reactions: Allergies Allergy/AdvReac Type Severity Reaction Status Date / Time Shellfish Allergy Allergy Severe Difficulty Verified 06/20/16 09:56 Breathing Povidone Iodine Allergy Intermediate Rash Verified 06/20/16 09:56 [From Betadine] PMH/Surg Hx/FS Hx/Imm Hx Endocrine/Hematology History: Reports: Hx Anticoagulant Therapy, Hx Diabetes - II, Hx Anemia, Other Endocrine/Hematological Disorders - Eosinophilia Denies: Hx Blood Disorders, Hx Blood Transfusions, Hx Systemic Lupus Erythematosus, Hx Thyroid Disease Cardiovascular History: Reports: Hx Angina, Hx Congestive Heart Failure, Hx Coronary Artery Disease, Hx Embolism, Hx Hypercholesterolemia, Hx Hypertension, Hx Myocardial Infarction - x2, Other Cardiovascular Problems/Disorders - Cardiomyopathy Denies: Hx Deep Vein Thrombosis, Hx Pacemaker/ICD Respiratory History: Reports: Hx Asthma, Hx Pneumonia, Hx Pulmonary Edema, Hx Pulmonary Embolism, Other Respiratory Problems/Disorders - PE'S Denies: Hx Chronic Obstructive Pulmonary Disease (COPD), Hx Lung Cancer GI History: Reports: Hx Gastroesophageal Reflux Disease, Hx Hiatal Hernia, Other GI Disorders - chronic abdominal pain Denies: Hx Gall Bladder Disease, Hx Gastrointestinal Bleed, Hx Ulcer, Hx Urosepsis History: Reports: Hx Acute Renal Failure, Hx Benign Prostatic Hyperplasia, Hx Kidney Stones Denies: Hx Dialysis, Hx Renal Disease, Other Problems/Disorders Musculoskeletal History: Reports: Hx Back Problems, Other Musculoskeletal History - OBESITY, DJD Denies: Hx Rheumatoid Arthritis Sensory History: Reports: Hx Contacts or Glasses, Hx Vision Problem Denies: Other Sensory Impairments Opthamlomology History: Reports: Hx Contacts or Glasses, Hx Vision Problem Denies: Other Sensory Impairments Neurological History: Reports: 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 hernia repair x 2;. rt knee cartlidge repair;. RIGHT ROTATOR CUFF ; Hx Anesthesia Reactions: No - Immunization History Date of Tetanus Vaccine: Unk Date of Influenza Vaccine: 05/13/14 Infectious Disease History: No Infectious Disease History: Denies: Hx Hepatitis, Hx Human Immunodeficiency Virus (HIV), Hx of Known/ Suspected MRSA, Hx Shingles, Hx Tuberculosis, History Other Infectious Disease, Traveled Outside the [place] in Last 30 Days - Family History Known Family History: Positive: Cardiac Disease, Diabetes - Social History Alcohol Use: None Hx Substance Use: No Substance Use Type: Reports: None Hx Tobacco Use: No Smoking Status (MU): Never Smoked Tobacco Review of Systems Negative: Fever Positive: Chest Pain Positive: Vomiting. Negative: Abdominal Pain All Other Systems Reviewed And Are Negative: Yes Physical Exam - Summary Physical Exam Summary: The patient is well-nourished in no acute distress. The skin is warm and dry and skin color reflects adequate perfusion. HEENT: The head is normocephalic and atraumatic. The pupils are equal and reactive. The conjunctivae are clear and without drainage. Nares are patent and without drainage. Mouth reveals moist mucous membranes and the throat is without erythema and exudate. Neck is supple with full range of motion and non-tender. There are no carotid bruits. Respiratory: Chest is non-tender. Lungs are clear to auscultation and breath sounds are symmetrical and equal. No reproducible CP. Cardiovascular: Hear is regular rate and rhythm. There is no murmur or rub auscultated. Abdomen: The abdomen is soft. Epigastric tenderness. Obese. Musculoskeletal: There is no back pain noted. Extremities are non-tender with full range of motion. There is good capillary refill. Edema of the ankles. Neurological: Patient is alert and oriented to person, place and time. The patient has symmetrical motor strength in all four extremities. Psychiatric: The patient has an appropriate affect and does not exhibit any anxiety or depression. Triage Information Reviewed: Yes Vital Signs On Initial Exam: Initial Vitals BP 118/90 10/13/16 09:34 Vital Signs Reviewed: Yes - Mariola Coma Scale Coma Scale Total: 15 Diagnostics - Vital Signs Vital Signs Temp Pulse Resp BP Pulse Ox 10/13/16 11:50 20 10/13/16 11:30 16 119/78 10/13/16 11:00 16 121/71 10/13/16 10:37 14 10/13/16 10:35 117/77 10/13/16 10:14 15 10/13/16 10:06 24 10/13/16 10:00 66 19 113/74 97 10/13/16 09:43 98.3 F 66 24 118/90 96 10/13/16 09:36 98.3 F 66 24 118/90 96 10/13/16 09:35 66 20 94 10/13/16 09:34 118/90 - Laboratory Lab Results: Lab Results 10/13/16 10/13/16 10/13/16 Range/Units 09:51 09:51 09:51 WBC 8.6 (3.5-10.8) 10^3/ul RBC 4.86 (4.0-5.4) 10^6/ul Hgb 13.1 L (14.0-18.0) g/dl Hct 41 L (42-52) % MCV 84 (80-94) fL MCH 27 (27-31) pg MCHC 32 (31-36) g/dl RDW 16 H (10.5-15) % Plt Count 210 (150-450) 10^3/ul MPV 8 (7.4-10.4) um3 Neut % (Auto) 47.5 (38-83) % Lymph % (Auto) 22.4 L (25-47) % [place] % (Auto) 7.4 (1-9) % Eos % (Auto) 21.9 H (0-6) % Baso % (Auto) 0.8 (0-2) % Absolute Neuts (auto) 4.1 (1.5-7.7) 10^3/ul Absolute Lymphs (auto) 1.9 (1.0-4.8) 10^3/ul Absolute Monos (auto) 0.6 (0-0.8) 10^3/ul Absolute Eos (auto) 1.9 H (0-0.6) 10^3/ul Absolute Basos (auto) 0.1 (0-0.2) 10^3/ul Absolute Nucleated RBC 0 10^3/ul Nucleated RBC % 0 INR (Anticoag Therapy) 1.14 H (0.89-1.11) APTT 33.2 (26.0-36.3) seconds Sodium 138 (133-145) mmol/L Potassium 4.0 (3.5-5.0) mmol/L Chloride 105 (101-111) mmol/L Carbon Dioxide 26 (22-32) mmol/L Anion Gap 7 (2-11) mmol/L BUN 20 (6-24) mg/dL Creatinine 1.08 (0.67-1.17) mg/dL Est GFR ( Amer) 86.4 (>60) Est GFR (Non-Af Amer) 67.2 (>60) BUN/Creatinine Ratio 18.5 (8-20) Glucose 109 H (70-100) mg/dL Lactic Acid (0.5-2.0) mmol/L Calcium 8.9 (8.6-10.3) mg/dL Magnesium 1.5 L (1.9-2.7) mg/dL Total Bilirubin 0.30 (0.2-1.0) mg/dL AST 11 L (13-39) U/L ALT 13 (7-52) U/L Alkaline Phosphatase 58 (34-104) U/L Troponin I 0.02 (<0.04) ng/mL B-Natriuretic Peptide ( - 100) pg/mL Total Protein 6.2 L (6.4-8.9) g/dL Albumin 3.5 (3.2-5.2) g/dL Globulin 2.7 (2-4) g/dL Albumin/Globulin Ratio 1.3 (1-3) Lipase 20 (11.0-82.0) U/L 10/13/16 10/13/16 Range/Units 09:51 09:51 WBC (3.5-10.8) 10^3/ul RBC (4.0-5.4) 10^6/ul Hgb (14.0-18.0) g/dl Hct (42-52) % MCV (80-94) fL MCH (27-31) pg MCHC (31-36) g/dl RDW (10.5-15) % Plt Count (150-450) 10^3/ul MPV (7.4-10.4) um3 Neut % (Auto) (38-83) % Lymph % (Auto) (25-47) % [place] % (Auto) (1-9) % Eos % (Auto) (0-6) % Baso % (Auto) (0-2) % Absolute Neuts (auto) (1.5-7.7) 10^3/ul Absolute Lymphs (auto) (1.0-4.8) 10^3/ul Absolute Monos (auto) (0-0.8) 10^3/ul Absolute Eos (auto) (0-0.6) 10^3/ul Absolute Basos (auto) (0-0.2) 10^3/ul Absolute Nucleated RBC 10^3/ul Nucleated RBC % INR (Anticoag Therapy) (0.89-1.11) APTT (26.0-36.3) seconds Sodium (133-145) mmol/L Potassium (3.5-5.0) mmol/L Chloride (101-111) mmol/L Carbon Dioxide (22-32) mmol/L Anion Gap (2-11) mmol/L BUN (6-24) mg/dL Creatinine (0.67-1.17) mg/dL Est GFR ( Amer) (>60) Est GFR (Non-Af Amer) (>60) BUN/Creatinine Ratio (8-20) Glucose (70-100) mg/dL Lactic Acid 1.7 (0.5-2.0) mmol/L Calcium (8.6-10.3) mg/dL Magnesium (1.9-2.7) mg/dL Total Bilirubin (0.2-1.0) mg/dL AST (13-39) U/L ALT (7-52) U/L Alkaline Phosphatase (34-104) U/L Troponin I (<0.04) ng/mL B-Natriuretic Peptide 1077 H ( - 100) pg/mL Total Protein (6.4-8.9) g/dL Albumin (3.2-5.2) g/dL Globulin (2-4) g/dL Albumin/Globulin Ratio (1-3) Lipase (11.0-82.0) U/L Result Diagrams: 10/13/16 09:51 10/13/16 09:51 Lab Statement: Any lab studies that have been ordered have been reviewed, and results considered in the medical decision making process. - Radiology CXR Radiology Interpretation Completed By: Radiologist - IMPRESSION: CARDIOMEGALY. LOW LUNG VOLUMES. - EKG 0941 EKG Interpretation: Sinus rhythm @66 bpm. RBBB. No STEMI. PRWP. LAD. 1157 EKG Interpretation: Sinus rhythm @63 bpm. RBBB. No STEMI. PRWP. LAD. Re-Evaluation - Re-Evaluation First Eval Re-Evaluation Time: 01:52 Change: Improved Comment: Pain decreased. He reports he has medication at home. Chest Pain Course/Dx - Chest Pain Differential Diagnosis/HQI/PQRI: Acute FL, GI Disease, Other: - pneumonia, peptic ulcer disease - Diagnoses Provider Diagnoses: Abdominal pain, Chest pain Discharge - Discharge Plan Condition: Stable Disposition: HOME Patient Education Materials: Chest Pain (ED), Abdominal Pain (ED) Referrals: Ivonne Cotton MD [Primary Care Provider] - Additional Instructions: Follow up with PCP. The documentation as recorded by the Telly clifford Salem accurately reflects the service I personally performed and the decisions made by , Nathanael Lam MD.
[2016-10-13 14:32] VITALS: BP 126/71
== END 2016-10-13 12:29 | disposition home or self-care (01) ==
LOC: ED 09:28
DX: R10.9 Unspecified abdominal pain (principal); R07.9 Chest pain, unspecified; R11.10 Vomiting, unspecified
CPT/HCPCS: 36415; 71020; 80053; 83605; 83690; 83735; 83880; 84484; 85025; 85610; 85730; 93005; 96374; 96375; 99285; J2270; J2405

== ENCOUNTER 2016-10-15 13:38 | Observation (INO) | payer MEDICARE, MEDICAID ==
[2016-10-15] MEDS ORDERED: Ondansetron INJ* 2 MG/ML VIAL IV ONE (16:05)
[2016-10-15] MEDS ORDERED: NS 0.9% 1000 ML* 1,000 ML IV ONE (16:05)
[2016-10-15 16:49] LABS: Hematocrit 44 % (42-52); Hemoglobin 14.2 g/dl (14.0-18.0); Mean Corpuscular HGB Conc 32 g/dl (31-36); Mean Corpuscular Hemoglobin 27 pg (27-31); Mean Corpuscular Volume 84 fL (80-94); Mean Platelet Volume 9 um3 (7.4-10.4); Red Blood Count 5.27 10^6/ul (4.0-5.4); Red Cell Distribution Width 17 % (10.5-15); White Blood Count 9.3 10^3/ul (3.5-10.8)
[2016-10-15 17:05] LABS: Albumin 3.8 g/dL (3.2-5.2); BUN/Creatinine Ratio 15.5 (8-20); EGFR African American 84.6 (>60); EGFR Non-African American 65.8 (>60); Globulin 2.9 g/dL (2-4); Magnesium 1.5 mg/dL (1.9-2.7); Potassium 3.8 mmol/L (3.5-5.0); Total Bilirubin 0.3 mg/dL (0.2-1.0); Total Protein 6.7 g/dL (6.4-8.9)
[2016-10-15 17:11] LABS: Troponin I 0.07 ng/mL (<0.04)
[2016-10-15] MEDS ORDERED: Iodixanol* (CONTRAST) 320 MG/ML 100 ML SDV IV ONE (17:12)
--- NOTE | 2016-10-15 17:32 | ED ---
Joni Osei Michael, scribed for Carisa Trejo MD on 10/15/16 at 1645 . Abdominal Pain/Male - HPI Summary HPI Summary: 71 y/o male was BIBA to the ED presenting with diffuse abd pain that started at 1430 today while the patient was at rest. He states that the abd pain is aggravated with palpation and radiates to his lower back. The pt also had 3 vomiting episodes one day ago, but he has not had any today. He denies diarrhea. The PMHx is significant for PE and AL. - History of Current Complaint Chief Complaint: EDAbdPain Stated Complaint: ABD PAIN Time Seen by Provider: 10/15/16 16:04 Hx Obtained From: Patient, EMS, Medical Records Onset/Duration: Gradual Onset, Lasting Hours, Still Present Timing: Constant Severity Initially: Moderate Severity Currently: Moderate Pain Intensity: 9 Pain Scale Used: 0-10 Numeric Location: Diffuse Radiates: Yes Radiates to: Back Aggravating Factor(s): Other: - palpation Alleviating Factor(s): Nothing Associated Signs And Symptoms: Positive: Back Pain, Vomiting. Negative: Diarrhea - Allergies/Home Medications Allergies/Adverse Reactions: Allergies Allergy/AdvReac Type Severity Reaction Status Date / Time Shellfish Allergy Allergy Severe Difficulty Verified 10/15/16 13:50 Breathing Povidone Iodine Allergy Intermediate Rash Verified 10/15/16 13:50 [From Betadine] PMH/Surg Hx/FS Hx/Imm Hx Endocrine/Hematology History: Reports: Hx Anticoagulant Therapy, Hx Diabetes - II, Hx Anemia, Other Endocrine/Hematological Disorders - Eosinophilia Denies: Hx Blood Disorders, Hx Blood Transfusions, Hx Systemic Lupus Erythematosus, Hx Thyroid Disease Cardiovascular History: Reports: Hx Angina, Hx Congestive Heart Failure, Hx Coronary Artery Disease, Hx Embolism, Hx Hypercholesterolemia, Hx Hypertension, Hx Myocardial Infarction - x2, Other Cardiovascular Problems/Disorders - Cardiomyopathy Denies: Hx Deep Vein Thrombosis, Hx Pacemaker/ICD Respiratory History: Reports: Hx Asthma, Hx Pneumonia, Hx Pulmonary Edema, Hx Pulmonary Embolism, Other Respiratory Problems/Disorders - PE'S Denies: Hx Chronic Obstructive Pulmonary Disease (COPD), Hx Lung Cancer GI History: Reports: Hx Gastroesophageal Reflux Disease, Hx Hiatal Hernia, Other GI Disorders - chronic abdominal pain Denies: Hx Gall Bladder Disease, Hx Gastrointestinal Bleed, Hx Ulcer, Hx Urosepsis History: Reports: Hx Acute Renal Failure, Hx Benign Prostatic Hyperplasia, Hx Kidney Stones Denies: Hx Dialysis, Hx Renal Disease, Other Problems/Disorders Musculoskeletal History: Reports: Hx Back Problems, Other Musculoskeletal History - OBESITY, DJD Denies: Hx Rheumatoid Arthritis Sensory History: Reports: Hx Contacts or Glasses, Hx Vision Problem Denies: Other Sensory Impairments Opthamlomology History: Reports: Hx Contacts or Glasses, Hx Vision Problem Denies: Other Sensory Impairments Neurological History: Reports: 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 hernia repair x 2;. rt knee cartlidge repair;. RIGHT ROTATOR CUFF ; Hx Anesthesia Reactions: No - Immunization History Date of Tetanus Vaccine: Unk Date of Influenza Vaccine: 05/13/14 Infectious Disease History: No Infectious Disease History: Denies: Hx Hepatitis, Hx Human Immunodeficiency Virus (HIV), Hx of Known/ Suspected MRSA, Hx Shingles, Hx Tuberculosis, History Other Infectious Disease, Traveled Outside the [place] in Last 30 Days - Family History Known Family History: Positive: Cardiac Disease, Diabetes - Social History Occupation: Disabled Lives: Alone Alcohol Use: None Hx Substance Use: No Substance Use Type: Reports: None Hx Tobacco Use: No Smoking Status (MU): Never Smoked Tobacco Review of Systems Negative: Fever Positive: Abdominal Pain, Vomiting. Negative: Diarrhea All Other Systems Reviewed And Are Negative: Yes Physical Exam Triage Information Reviewed: Yes Vital Signs On Initial Exam: Initial Vitals Temp Pulse Resp BP Pulse Ox 98.4 F 65 16 136/68 98 10/15/16 13:50 10/15/16 13:50 10/15/16 13:50 10/15/16 13:50 10/15/16 13:50 Vital Signs Reviewed: Yes Appearance: Positive: Well-Appearing, No Pain Distress Skin: Positive: Warm, Skin Color Reflects Adequate Perfusion, Dry Eyes: Positive: EOMI, ARNOLD ENT: Positive: Pharynx normal, TMs normal Neck: Positive: Supple, Nontender Respiratory/Lung Sounds: Positive: Clear to Auscultation, Breath Sounds Present. Negative: Rales, Rhonchi, Wheezes Cardiovascular: Positive: Other - irregularly irregular rate Abdomen Description: Positive: Soft. Negative: Nontender - diffuse abd tenderness Bowel Sounds: Positive: Present Musculoskeletal: Positive: Strength/ROM Intact. Negative: Edema Left, Edema Right Neurological: Positive: Sensory/Motor Intact, Alert, Oriented to Person Place, Time, CN Intact II-III Psychiatric: Positive: Affect/Mood Appropriate - Mariola Coma Scale Coma Scale Total: 15 Diagnostics - Vital Signs Vital Signs Temp Pulse Resp BP Pulse Ox 10/15/16 14:29 97.4 F 64 20 124/68 98 10/15/16 13:50 98.4 F 65 16 136/68 98 - Laboratory Lab Results: Lab Results 10/15/16 10/15/16 10/15/16 Range/Units 16:10 16:10 16:10 WBC 9.3 (3.5-10.8) 10^3/ul RBC 5.27 (4.0-5.4) 10^6/ul Hgb 14.2 (14.0-18.0) g/dl Hct 44 (42-52) % MCV 84 (80-94) fL MCH 27 (27-31) pg MCHC 32 (31-36) g/dl RDW 17 H (10.5-15) % Plt Count 222 (150-450) 10^3/ul MPV 9 (7.4-10.4) um3 Neut % (Auto) 68.2 (38-83) % Lymph % (Auto) 12.8 L (25-47) % Morrow % (Auto) 5.9 (1-9) % Eos % (Auto) 12.4 H (0-6) % Baso % (Auto) 0.7 (0-2) % Absolute Neuts (auto) 6.3 (1.5-7.7) 10^3/ul Absolute Lymphs (auto) 1.2 (1.0-4.8) 10^3/ul Absolute Monos (auto) 0.6 (0-0.8) 10^3/ul Absolute Eos (auto) 1.2 H (0-0.6) 10^3/ul Absolute Basos (auto) 0.1 (0-0.2) 10^3/ul Absolute Nucleated RBC 0.01 10^3/ul Nucleated RBC % 0.1 Sodium 138 (133-145) mmol/L Potassium 3.8 (3.5-5.0) mmol/L Chloride 103 (101-111) mmol/L Carbon Dioxide 27 (22-32) mmol/L Anion Gap 8 (2-11) mmol/L BUN 17 (6-24) mg/dL Creatinine 1.10 (0.67-1.17) mg/dL Est GFR ( Amer) 84.6 (>60) Est GFR (Non-Af Amer) 65.8 (>60) BUN/Creatinine Ratio 15.5 (8-20) Glucose 106 H (70-100) mg/dL Lactic Acid 2.2 H* (0.5-2.0) mmol/L Calcium 9.0 (8.6-10.3) mg/dL Magnesium 1.5 L (1.9-2.7) mg/dL Total Bilirubin 0.30 (0.2-1.0) mg/dL AST 14 (13-39) U/L ALT 15 (7-52) U/L Alkaline Phosphatase 65 (34-104) U/L Troponin I 0.07 H* (<0.04) ng/mL C-Reactive Protein Pending Total Protein 6.7 (6.4-8.9) g/dL Albumin 3.8 (3.2-5.2) g/dL Globulin 2.9 (2-4) g/dL Albumin/Globulin Ratio 1.3 (1-3) Lipase 26 (11.0-82.0) U/L Result Diagrams: 10/15/16 16:10 10/15/16 16:10 Lab Statement: Any lab studies that have been ordered have been reviewed, and results considered in the medical decision making process. - EKG EK EKG Rhythm: Atrial Flutter EKG Comparison: No Significant Change - compared to EKG on 10/14/15 Abdominal Pain Fem Course/Dx - Course Course Of Treatment: 71 yo male who apparently has chronic abd and chest pain. He is unknown to me, his abdomen was diffusely ttp but without focality, a CT was recently done in Jun. He dose have an elevated trop of 0.07 and a sl elevated lactate, the hospitalists have agreed to observe the pt - Diagnoses Provider Diagnoses: Abdominal pain, Chest pain Discharge - Discharge Plan Condition: Stable Disposition: ADMITTED TO [facility] The documentation as recorded by the Joni clifford Michael accurately reflects the service I personally performed and the decisions made by me, Carisa Trejo MD.
[2016-10-15 17:40] LABS: C Reactive Protein 2.84 mg/L (< 5.00)
[2016-10-15 18:13] LABS: Urine Bacteria Absent (Absent); Urine Bilirubin Negative (Negative); Urine Glucose Negative (Negative); Urine Nitrite Positive (Negative)
[2016-10-15] MEDS ORDERED: Dextrose 50% Syringe 50 ML* 25 GM/50 ML SYRINGE IV PUSH PRN (18:37)
[2016-10-15] MEDS ORDERED: Ondansetron INJ* 2 MG/ML VIAL IV PRN (18:37)
[2016-10-15] MEDS ORDERED: oxyCODONE/Acetamin 5/325 MG* TAB PO PRN (18:45)
[2016-10-15] MEDS ORDERED: Albuterol 2.5 MG/3 ML NEB.SOL* (0.083%) INH PRN (18:45)
[2016-10-15] MEDS ORDERED: Senna TAB PO PRN (18:45)
[2016-10-15] MEDS ORDERED: Magnesium Sulfate 2 GM IV* 2 GM/50 ML BAG IVPB ONE (18:53)
[2016-10-15 19:21] LABS: Erythrocyte Sed Rate 10 mm/Hr (0-40)
[2016-10-15] MEDS ORDERED: cefTRIAXone VIAL(*) 1,000 MG in NS 0.9% 50 ML* 50 ML IVPB SCH (20:00)
[2016-10-15] MEDS ORDERED: Insulin GLARGINE(*) 1 UNITS UNIT SUBCUT SCH (21:00)
[2016-10-15] MEDS ORDERED: Lidocaine Patch REMOVE* 1 NOTE MISC SCH (21:00)
[2016-10-15] MEDS ORDERED: Atorvastatin* 20 MG TAB PO SCH (21:00)
[2016-10-15] MEDS ORDERED: Tamsulosin CAP* 0.4 MG PO SCH (21:00)
[2016-10-15] MEDS: Acetaminophen TAB* 325 MG PO PRN (21:40)
[2016-10-15] MEDS: Calcium Carbonate CHEW TAB* 500 MG (TUMS) PO SCH (21:41)
[2016-10-15] MEDS: Docusate CAP* 100 MG PO SCH (21:42)
[2016-10-15] MEDS: Metoprolol Tartrate TAB* 25 MG PO SCH (21:43)
[2016-10-15] MEDS: Magnesium Oxide TAB* 400 MG PO SCH (21:43)
[2016-10-15] MEDS: Omeprazole CAP* 20 MG PO SCH (21:45)
--- NOTE | 2016-10-15 21:46 | HP ---
HISTORY AND PHYSICAL: DATE OF ADMISSION: 10/15/16 PRIMARY CARE PROVIDER: Dr. Cotton. ATTENDING PHYSICIAN WHILE IN THE HOSPITAL: Dr. Zaheer Wiley* (report dictated by Tacos Vee NP) CHIEF COMPLAINT: 1. Abdominal pain. 2. Left buttocks pain and pain shooting down leg. HISTORY OF PRESENT ILLNESS: Mr. Yip is a 71-year-old male patient, he has multiple medical problems, history of AFib, CAD, diabetes, hypertension, GERD, esophagitis, obesity, BPH, SVT, TIA, degenerative disk disease, history of PE, and history of retroperitoneal hematoma, who comes into the ER today stating that this afternoon around 2:30, he was sitting down and he developed a sudden onset of abdominal discomfort and also back pain that went down his left side and down his left leg. No association of urinary incontinence or bowel incontinence or weakness to the lower extremity. He denied having any chills or fevers. He says that he did vomit yesterday twice, but there has been no diarrhea. He said on Monday, his catheter was changed. He denied having any chest pain. There was no orthopnea, no dyspnea on exertion. He denied having any chest pain with exertion. There was concern though in the ED because it was noted that his troponin was mildly elevated; in addition to this, because of his pain, it was also found that he had a UTI. He denied having any recent cough, shortness of breath or fevers, but because of the findings in the ED, it prompted hospitalist evaluation and we were asked to evaluate for admission. PAST MEDICAL HISTORY: Significant for: 1. Atrial fibrillation. 2. CAD. 3. Diabetes. 4. Hypertension. 5. GERD. 6. Eosinophilic esophagitis. 7. Obesity. 8. BPH. 9. SVT. 10. TIA. 11. Degenerative disk disease. 12. PE. 13. Retroperitoneal hematoma. PAST SURGICAL HISTORY: 1. The patient has a history of CABG. 2. Cardiac cath. 3. Hernia repair. 4. Shoulder arthroscopy. 5. Knee arthroscopy. HOME MEDICATIONS: Include: 1. Lipitor 20 mg at bedtime. 2. Ventolin 2.5 mg inhaled every 4 hours as needed. 3. Maalox 15 cc p.o. every 6 hours as needed. 4. Lantus 20 units subcu at bedtime. 5. Lasix 20 mg daily. 6. Advair 1 puff inhaled b.i.d. 7. Proscar 5 mg p.o. daily. 8. Ferrous sulfate 325 mg p.o. daily. 9. Trulicity 0.75 mg subcu every 7 days. 10. Colace 100 mg p.o. b.i.d. 11. Tums 500 mg p.o. b.i.d. 12. Potassium 20 mEq p.o. daily. 13. MiraLAX 17 g p.o. daily. 14. Prilosec 20 mg p.o. b.i.d. 15. Multivitamin 1 tablet daily. 16. Lopressor 25 mg p.o. b.i.d. 17. Magnesium 800 mg p.o. b.i.d. 18. Cozaar 50 mg daily. 19. Glucophage 1000 mg p.o. b.i.d. 20. Flomax 0.4 mg p.o. at bedtime. 21. Carafate 1 g p.o. t.i.d. with meals. 22. Zoloft 75 mg daily. 23. Senna 1 tablet at bedtime as needed. 24. Xarelto 20 mg p.o. daily. 25. Percocet 1 tablet every 4 hours as needed for pain. ALLERGIES TO MEDICATIONS: Include SHELLFISH and IODINE. FAMILY HISTORY: Both his parents had history of heart disease and diabetes. SOCIAL HISTORY: The patient does not smoke. He does not drink. He lives alone. Surrogate decision maker is his friend, Larry, and his sister, Zamzam. REVIEW OF SYSTEMS: There is no documented fever. He denied having any significant weight change. There was no double vision. He denies having any ear discharge. No rhinorrhea. No sore throat. No thyroid enlargement. Denies having any chest pain. There is abdominal pain; it is mostly lower and on to, he says, his flank. He is also complaining of having back pain that shoots down the left leg. He denies having any nausea, vomiting, or diarrhea. Denies having any dysuria, no frequency. Denies having loss of consciousness. No pruritus and no skin ulcerations. Review of 14 systems completed, all others negative. PHYSICAL EXAMINATION GENERAL: At this time, Mr. Yip is a 71-year-old male patient. He is chronically ill appearing. He is sitting in the ER stretcher. He does not appear to be in any acute distress. VITAL SIGNS: Reveal blood pressure 124/68 with a pulse of 64, respirations 18, O2 sat 98%, temperature 97.4. HEENT: Head: Atraumatic, normocephalic. Eyes: Sclerae are anicteric and not pale. Throat: Oral mucosa appears to be dry. No oropharyngeal erythema. NECK: Supple. LUNGS: Clear to auscultation bilaterally. No wheezes, rales, or rhonchi. HEART: Sounds S1, S2. Regular rate and rhythm. No murmurs, rubs, or gallops. ABDOMEN: Obese, it was soft, it was nontender. Bowel sounds present. EXTREMITIES: Pulses were 2+ throughout. He is able to move all 4 extremities with 5/5 strength. NEUROLOGIC: He is awake, he is alert, he is oriented x3. His tongue is midline. His guyline operator were equal. He had no gross focal deficits. SKIN: Grossly intact. DIAGNOSTIC STUDIES/LAB DATA: Today revealed WBC of 9.3, RBC of 5.27, hemoglobin 14.2, hematocrit of 44, platelet count of 222. Sodium 138, potassium 3.8, chloride of 103, bicarb 27, BUN 17, creatinine 1.10, glucose 106 , lactate 2.2, calcium 9.0, his mag was 1.5. His AST 14, ALT 15, alk phos 65. His troponin was 0.07. His albumin was 3.8. Urine showed 1+ protein, 2+ blood , positive nitrite, 1+ leukocyte esterase, 2+ wbc's, absent bacteria. He had an EKG obtained today as well, which showed atrial fibrillation with a rate of 64 with a right bundle branch block, no ST elevations or T-wave inversions. He had an EKG 2 days ago, which appeared similar. Old medical records were reviewed. ASSESSMENT AND PLAN: Mr. Yip is a 71-year-old male patient coming into the ER today with complaints of abdominal discomfort, recently had a CT scan actually in August of this year, and also complaining of having pain in his back going down his left leg. Hospitalist service was asked to evaluate for admission. He will be admitted under observation status for: 1. Abdominal discomfort. I suspect the pain that he is having is actually mostly back pain, it extends down the left side down the left leg. I think, at this point, it is probably from his degenerative disk disease and probably from sciatica pain. I am going to go ahead and put him on some Lidoderm patch. In addition to this, I am also going to give him p.r.n. Percocet and I will also order some PT for the patient. Also, his abdominal pain is chronic in nature. He does not appear to have an acute abdomen. I do not think he needs a CAT scan or imaging. If he spikes a fever or if his white count goes up, I would go ahead and repeat the imaging but he just had imaging in August which was stable. I do think at this point though he does have a urinary tract infection , which I think we should treat with Rocephin and I will continue to follow. 2. Indeterminate troponin. The troponin is 0.07, he is not having any cardiac symptoms. EKG appears to be stable. I think, at this point, we will trend these and place him on telemetry and I will continue to follow. 3. Atrial fibrillation. He is rate controlled. Continue meds as prescribed. 4. Coronary artery disease. He is on a statin and a beta guy, so for the time being we will continue these. 5. Diabetes. We will go ahead and put him on lispro sliding scale and continue the Lantus. 6. Hypertension. Continue meds as prescribed. 7. Gastroesophageal reflux disease. Continue PPI therapy, his Tums, and his Carafate. 8. Eosinophilic esophagitis. We will go ahead and continue meds as prescribed. 9. History of benign prostatic hyperplasia. He is on Flomax and Proscar, continue. 10. Supraventricular tachycardia. Not an active issue. We will monitor. 11. History of transient ischemic attack. Continue with secondary prevention. 12. Degenerative disk disease. Continue p.r.n. Percocet. I did add on Lidoderm patch. 13. History of pulmonary embolism. Continue with Xarelto. 14. DVT prophylaxis. We will go ahead and continue Xarelto. 15. Fluids, electrolytes, and nutrition. He can have a consistent carb diet. 16. Code status. He wishes to be a DNR. TIME SPENT: On the admission was approximately 70 minutes, greater than half the time was spent [id number] with the patient obtaining my history and physical, and the other half time was spent going over the plan of care with patient and implementing plan of care. I did discuss the plan of care with my attending, Dr. Wiley; he is in agreement. TACOS VEE NP CC: Dr. Cotton * [id number]/[facility] #: [id number] CAMMIE
[2016-10-15] MEDS: Mometasone/Formoter 200/5 MDI INH SCH (22:04)
[2016-10-16] MEDS: Lidocaine PATCH 5%* 1 PATCH TRANSDERM SCH ×2 (01:07→08:46)
[2016-10-16] MEDS: Acetaminophen TAB* 325 MG PO PRN (02:28)
[2016-10-16] MEDS: Sucralfate TAB* 1 GM PO SCH ×2 (05:47→11:34)
[2016-10-16 06:10] LABS: Hematocrit 37 % (42-52); Hemoglobin 12.3 g/dl (14.0-18.0); Mean Corpuscular HGB Conc 33 g/dl (31-36); Mean Corpuscular Hemoglobin 27 pg (27-31); Mean Corpuscular Volume 83 fL (80-94); Mean Platelet Volume 8 um3 (7.4-10.4); Red Blood Count 4.53 10^6/ul (4.0-5.4); Red Cell Distribution Width 17 % (10.5-15); White Blood Count 7.3 10^3/ul (3.5-10.8)
[2016-10-16 06:23] LABS: BUN/Creatinine Ratio 16.5 (8-20); Calcium 8.3 mg/dL (8.6-10.3); EGFR African American 97.8 (>60); EGFR Non-African American 76.1 (>60); Potassium 3.8 mmol/L (3.5-5.0)
[2016-10-16] MEDS: Insulin LISPRO* 1 UNITS UNIT SUBCUT SCH ×2 (08:34→12:14)
[2016-10-16] MEDS: Mometasone/Formoter 200/5 MDI INH SCH (08:37)
[2016-10-16] MEDS: Calcium Carbonate CHEW TAB* 500 MG (TUMS) PO SCH (08:46)
[2016-10-16] MEDS: Omeprazole CAP* 20 MG PO SCH (08:46)
[2016-10-16] MEDS: Docusate CAP* 100 MG PO SCH (08:47)
[2016-10-16] MEDS: Magnesium Oxide TAB* 400 MG PO SCH (08:47)
[2016-10-16] MEDS: Metoprolol Tartrate TAB* 25 MG PO SCH (08:48)
[2016-10-16] MEDS ORDERED: Sertraline* 50 MG TAB PO SCH (09:00)
[2016-10-16] MEDS ORDERED: Prenatal Vitamin TAB PO SCH (09:00)
[2016-10-16] MEDS ORDERED: Potassium Chlor TAB* 20 MEQ TAB.ER PO SCH (09:00)
[2016-10-16] MEDS ORDERED: Finasteride TAB* 5 MG PO SCH (09:00)
[2016-10-16] MEDS ORDERED: Ferrous Sulfate TAB* 325 MG PO SCH (09:00)
[2016-10-16] MEDS ORDERED: Rivaroxaban TAB(*) 20 MG TAB PO SCH (09:00)
[2016-10-16] MEDS ORDERED: Sertraline* 25 MG TAB PO SCH (09:00)
[2016-10-16] MEDS ORDERED: Polyethylene Glycol 3350* 17 GM PACKET PO SCH (09:00)
[2016-10-16] MEDS ORDERED: Furosemide TAB* 20 MG PO SCH (09:00)
[2016-10-16] MEDS ORDERED: Losartan TAB* 25 MG PO SCH (12:00)
[2016-10-16 16:08] VITALS: BP 132/71
--- NOTE | 2016-10-17 03:49 | DS ---
DISCHARGE SUMMARY: DATE OF ADMISSION: 10/15/16 DATE OF DISCHARGE: 10/16/16 PRIMARY CARE PROVIDER: Dr. Cotton. PRIMARY DIAGNOSES: 1. Abdominal pain. 2. Urinary tract infection, E. coli. SECONDARY DIAGNOSES: 1. Lower back pain. 2. Atrial fibrillation. 3. Coronary artery disease. 4. Type 2 diabetes. 5. Hypertension. 6. Morbid obesity. 7. Benign prostatic hypertrophy. 8. History of transient ischemic attacks. 9. History of degenerative disk disease. 10. History of pulmonary embolism. 11. History of retroperitoneal hematoma in 2004. MEDICATIONS ON DISCHARGE: Unchanged from admission include: 1. Acetaminophen 650 mg every 4 hours as needed for pain or fever. 2. Albuterol every 4 hours as needed for shortness of breath. 3. Atorvastatin 20 mg at bedtime. 4. Calcium carbonate 500 mg twice daily. 5. Maalox 15 mL every 6 hours as needed for abdominal distress or dyspepsia. 6. Lantus 25 mg at bedtime. 7. Lasix 20 mg in the morning. 8. Advair 250/50 one puff twice daily. 9. Proscar 5 mg in the morning. 10. Ferrous sulfate 325 mg daily. 11. Trulicity 0.75 mg every 7 days. 12. Colace 100 mg twice daily. 13. Potassium chloride 20 mEq daily. 14. MiraLAX 17 g daily. 15. Prilosec 20 mg twice daily. 16. Multivitamin 1 tab daily. 17. Metoprolol tartrate 25 mg twice daily. 18. Magnesium oxide 800 mg twice daily. 19. Cozaar 50 mg at noon. 20. Metformin 1000 mg twice daily. 21. Flomax 0.4 mg at bedtime. 22. Carafate 1 g 3 times a day with meals. 23. Zoloft 75 mg daily. 24. Senna 8.6 mg at bedtime as needed for constipation. 25. Xarelto 20 mg daily. 26. Percocet 5/325 one tab every 4 hours as needed for pain up to 4 tabs, max daily dose. 27. Ciprofloxacin 500 mg twice daily for 6 additional days. PERTINENT MICROBIOLOGY: Urine positive for E. coli 75,000 to 100,000 colony counts per mL. Troponin I 0.07, decreased to 0.02 on 2 consecutive checks. HISTORY OF PRESENT ILLNESS AND HOSPITAL COURSE: This is a 71-year-old man, past medical history as outlined in the history of present illness on the day of admission with recurrent hospital stays for abdominal pain as well as chest pain, presented to the hospital reporting both abdominal pain as well as left lower leg pain, felt like it was shooting up to his abdomen. Troponin was checked and it was noted to be 0.07, concerning for cardiac etiology. The patient was admitted to the hospitalist service. The patient reported his abdominal pain had improved the following day without intervention; however, still continued to have left lower leg pain. It was positive for ipsilateral left lower extremity straight leg test with shooting pain from the leg up to his back. In addition, he endorsed lower back pain, unchanged from his chronic pain. I suspect this is similar pain that he has been experiencing chronically. His laboratory data indication of new or worsening infection. He did have a urinary culture that was positive for E. coli, noted to be checked from River[place] catheter. He had no other complaints that might be suspicious for urinary tract infection including urine cloudiness or change in smell. However, in the setting of positive culture, he was started on ciprofloxacin. Sensitivity should be followed at his next followup appointment. There were no other changes to his medications except for the addition of ciprofloxacin. The patient was able to tolerate both breakfast and lunch without any distress. He had no nausea, vomiting, constipation, or diarrhea during the course of the hospital stay. At followup, please; 1. Follow urine sensitivities as indicated above. 2. Evaluate for continued resolution of abdominal pain. 3. Can consider physical therapy evaluation. Referral for continued sciatic pain in his lower back and left leg. 4. No other specific labs or vitals that need followup. Reasons to return to the hospital including but not limited to recurrent or worsening of symptoms, worsening abdominal pain, nausea, vomiting, inability to tolerate p.o., loss of consciousness, bleeding from any source, chest pain, shortness of breath, inability to obtain or tolerate medications were discussed with the patient. TIME SPENT: Greater than 45 minutes were spent with this patient on discharge from the hospital, greater than half was spent [id number] with the patient. CC: Dr. Cotton * [id number]/[facility] [place] #: [id number] CAMMIE
== END 2016-10-16 18:00 | disposition home or self-care (01) ==
LOC: ED 13:38 → MEDTELE 17:48
PROVIDERS: ADMIT Internal Medicine; ATTEND Internal Medicine
DX: R10.9 Unspecified abdominal pain (principal); N39.0 Urinary tract infection, site not specified; B96.20 Unspecified Escherichia coli [E. coli] as the cause of diseases classified elsewhere; M51.16 Intervertebral disc disorders with radiculopathy, lumbar region; I48.91 Unspecified atrial fibrillation; Z79.01 Long term (current) use of anticoagulants; I25.10 Atherosclerotic heart disease of native coronary artery without angina pectoris; I10 Essential (primary) hypertension; E11.9 Type 2 diabetes mellitus without complications; Z79.4 Long term (current) use of insulin; K21.9 Gastro-esophageal reflux disease without esophagitis; E66.01 Morbid (severe) obesity due to excess calories; N40.0 Benign prostatic hyperplasia without lower urinary tract symptoms; Z86.73 Personal history of transient ischemic attack (TIA), and cerebral infarction without residual deficits; Z86.711 Personal history of pulmonary embolism; Z79.899 Other long term (current) drug therapy; Z88.8 Allergy status to other drugs, medicaments and biological substances; Z95.1 Presence of aortocoronary bypass graft; R94.31 Abnormal electrocardiogram [ECG] [EKG]; R06.02 Shortness of breath
CPT/HCPCS: 36415; 80048; 80053; 81003; 81015; 83605; 83690; 83735; 84484; 85025; 85610; 85652; 86140; 87040; 87077; 87086; 87186; 93005; 94640; 96361; 96365; 96367; 99283; A9270-GY; G0378; G8978-GP-CI; G8979-GP-CH; J0696

== ENCOUNTER 2016-10-29 09:06 | Emergency (ER) | payer MEDICARE, MEDICAID ==
[2016-10-29 10:50] LABS: Hematocrit 41 % (42-52); Hemoglobin 13.2 g/dl (14.0-18.0); Mean Corpuscular HGB Conc 32 g/dl (31-36); Mean Corpuscular Hemoglobin 27 pg (27-31); Mean Corpuscular Volume 84 fL (80-94); Mean Platelet Volume 9 um3 (7.4-10.4); Red Blood Count 4.93 10^6/ul (4.0-5.4); Red Cell Distribution Width 17 % (10.5-15); White Blood Count 8.6 10^3/ul (3.5-10.8)
[2016-10-29 10:57] LABS: ALT 13 U/L (7-52); Albumin 3.4 g/dL (3.2-5.2); Alkaline Phosphatase 54 U/L (34-104); BUN/Creatinine Ratio 19.4 (8-20); Blood Urea Nitrogen 19 mg/dL (6-24); CO2 Carbon Dioxide 23 mmol/L (22-32); Calcium 8.4 mg/dL (8.6-10.3); Chloride 107 mmol/L (101-111); Creatine Kinase 113 U/L (10-223); EGFR African American 96.7 (>60); EGFR Non-African American 75.2 (>60); Globulin 2.6 g/dL (2-4); Glucose 129 mg/dL (70-100); Magnesium 1.7 mg/dL (1.9-2.7); Sodium 137 mmol/L (133-145)
--- NOTE | 2016-10-29 10:59 | RAD ---
INDICATION: Chest pain COMPARISON: October 13, 2016 TECHNIQUE: An AP portable view obtained at 1047 hours is submitted. FINDINGS: Bones/Soft Tissues: There are no acute bony findings. Cardiomediastinal: The cardiomediastinal silhouette is enlarged, unchanged. Lungs: There are no infiltrates. Pleura: There are no pleural effusions. Other: None IMPRESSION: ENLARGED CARDIAC SILHOUETTE, UNCHANGED. LUNGS CLEAR.
[2016-10-29 11:00] LABS: Troponin I 0.02 ng/mL (<0.04)
[2016-10-29] MEDS ORDERED: Morphine INJ* 4 MG/ML 1 ML SYRINGE IV ONE (11:03)
[2016-10-29 11:30] LABS: T4 5.87 g/dL (6.09-12.23)
[2016-10-29] MEDS ORDERED: Magnesium Oxide TAB* 400 MG PO ONE (12:04)
--- NOTE | 2016-10-29 14:05 | ED ---
Ravi Osei Janilya, scribed for Luis De León MD on 10/29/16 at 0922 . HPI Chest Pain - HPI Summary HPI Summary: A 71 y/o male was BIBA to [facility] presenting w/ a sudden onset of constant CP that started this morning. Pt states that he walked 100 yards to a grocery store and on the way back, he felt sharp and stabbing CP. At home, the pain worsened hence the 911 call. The pain severity rated 9/10. At this time, the severity is still at 9/10. In addition to CP, pt reports some SOB. Pt denies nausea, diaphoresis. Per EMS, en route pt was given 2 nitro and 324 mg ASA with no relief to Sx. PMHx 3 stents in heart, HTN, hypercholesterolemia. No SHx of tobacco or EtOH use. FHx PA mother and father. - History of Current Complaint Hx Obtained From: Patient Onset/Duration: Started Hours Ago, Atraumatic, Worse Since - coming back home after walking to grocery store Timing: Constant Initial Severity: Moderate Current Severity: Moderate Pain Intensity: 9 Pain Scale Used: 0-10 Numeric Chest Pain Radiates: No Character: Sharp/Stabbing Aggravating Factor(s): Movement Alleviating Factor(s): Nothing Associated Signs and Symptoms: Positive: Chest Pain, Shortness of Breath. Negative: Diaphoresis, Nausea - Additional Pertinent History Primary Care Physician: CHRISTINE - Allergy/Home Medications Allergies/Adverse Reactions: Allergies Allergy/AdvReac Type Severity Reaction Status Date / Time Shellfish Allergy Allergy Severe Difficulty Verified 10/15/16 13:50 Breathing Povidone Iodine Allergy Intermediate Rash Verified 10/15/16 13:50 [From Betadine] PMH/Surg Hx/FS Hx/Imm Hx Previously Healthy: No Endocrine/Hematology History: Reports: Hx Anticoagulant Therapy, Hx Diabetes - II, Hx Anemia, Other Endocrine/Hematological Disorders - Eosinophilia Denies: Hx Blood Disorders, Hx Blood Transfusions, Hx Systemic Lupus Erythematosus, Hx Thyroid Disease Cardiovascular History: Reports: Hx Angina, Hx Congestive Heart Failure, Hx Coronary Artery Disease, Hx Embolism, Hx Hypercholesterolemia, Hx Hypertension, Hx Myocardial Infarction - x2, Other Cardiovascular Problems/Disorders - Cardiomyopathy Denies: Hx Deep Vein Thrombosis, Hx Pacemaker/ICD Respiratory History: Reports: Hx Asthma, Hx Pneumonia, Hx Pulmonary Edema, Hx Pulmonary Embolism, Other Respiratory Problems/Disorders - PE'S Denies: Hx Chronic Obstructive Pulmonary Disease (COPD), Hx Lung Cancer GI History: Reports: Hx Gastroesophageal Reflux Disease, Hx Hiatal Hernia, Other GI Disorders - chronic abdominal pain Denies: Hx Gall Bladder Disease, Hx Gastrointestinal Bleed, Hx Ulcer, Hx Urosepsis History: Reports: Hx Acute Renal Failure, Hx Benign Prostatic Hyperplasia, Hx Kidney Stones Denies: Hx Dialysis, Hx Renal Disease, Other Problems/Disorders Musculoskeletal History: Reports: Hx Back Problems, Other Musculoskeletal History - OBESITY, DJD Denies: Hx Rheumatoid Arthritis Sensory History: Reports: Hx Contacts or Glasses, Hx Vision Problem Denies: Hx Hearing Aid, Other Sensory Impairments Opthamlomology History: Reports: Hx Contacts or Glasses, Hx Vision Problem Denies: Other Sensory Impairments Neurological History: Reports: 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 hernia repair x 2;. rt knee cartlidge repair;. RIGHT ROTATOR CUFF ;. CABG Hx Anesthesia Reactions: No - Immunization History Date of Tetanus Vaccine: Unk Date of Influenza Vaccine: 05/13/14 Infectious Disease History: Denies: Hx Hepatitis, Hx Human Immunodeficiency Virus (HIV), Hx of Known/ Suspected MRSA, Hx Shingles, Hx Tuberculosis, History Other Infectious Disease, Traveled Outside the [place] in Last 30 Days - Family History Known Family History: Positive: Cardiac Disease - [place] mother and father, Diabetes - Social History Alcohol Use: None Hx Substance Use: No Substance Use Type: Reports: None Hx Tobacco Use: No Smoking Status (MU): Never Smoked Tobacco Review of Systems Negative: Skin Diaphoresis Positive: Chest Pain Positive: Shortness Of Breath Negative: Nausea All Other Systems Reviewed And Are Negative: Yes Physical Exam - Summary Physical Exam Summary: VITAL SIGNS: Reviewed. GENERAL: Patient is an obese male who is lying comfortable in the stretcher. Patient is not in any acute respiratory distress. HEAD AND FACE: No signs of trauma. No ecchymosis, hematomas or skull depressions. No sinus tenderness. EYES: PERRLA, EOMI x 2, No injected conjunctiva, no nystagmus. EARS: Hearing grossly intact. Ear canals and tympanic membranes are within normal limits. MOUTH: Oropharynx within normal limits. NECK: Supple, trachea is midline, no adenopathy, no JVD, no carotid bruit, no c- spine tenderness, neck with full ROM. CHEST: Symmetric, positive tenderness at palpation in the center of the chest LUNGS: Clear to auscultation bilaterally. No wheezing or crackles. CVS: Irregular rate and rhythm, S1 and S2 present, no murmurs or gallops appreciated. ABDOMEN: Soft, non-tender. No signs of distention. No rebound no guarding, and no masses palpated. Bowel sounds are normal. EXTREMITIES: FROM in all major joints, no edema, no cyanosis or clubbing. NEURO: Alert and oriented x 3. No acute neurological deficits. Speech is normal and follows commands. SKIN: Dry and warm Triage Information Reviewed: Yes Vital Signs On Initial Exam: Initial Vitals Temp Pulse Resp BP Pulse Ox 98.4 F 64 18 113/70 97 10/29/16 10:23 10/29/16 10:23 10/29/16 10:23 10/29/16 10:23 10/29/16 10:23 Vital Signs Reviewed: Yes Diagnostics - Vital Signs Vital Signs Temp Pulse Resp BP Pulse Ox 10/29/16 11:41 16 10/29/16 10:23 98.4 F 64 18 113/70 97 - Laboratory Lab Results: Lab Results 10/29/16 10/29/16 10/29/16 Range/Units 10:30 10:30 10:30 WBC 8.6 (3.5-10.8) 10^3/ul RBC 4.93 (4.0-5.4) 10^6/ul Hgb 13.2 L (14.0-18.0) g/dl Hct 41 L (42-52) % MCV 84 (80-94) fL MCH 27 (27-31) pg MCHC 32 (31-36) g/dl RDW 17 H (10.5-15) % Plt Count 214 (150-450) 10^3/ul MPV 9 (7.4-10.4) um3 Neut % (Auto) 53.0 (38-83) % Lymph % (Auto) 16.0 L (25-47) % [place] % (Auto) 6.5 (1-9) % Eos % (Auto) 23.3 H (0-6) % Baso % (Auto) 1.2 (0-2) % Absolute Neuts (auto) 4.5 (1.5-7.7) 10^3/ul Absolute Lymphs (auto) 1.4 (1.0-4.8) 10^3/ul Absolute Monos (auto) 0.6 (0-0.8) 10^3/ul Absolute Eos (auto) 2.0 H (0-0.6) 10^3/ul Absolute Basos (auto) 0.1 (0-0.2) 10^3/ul Absolute Nucleated RBC 0 10^3/ul Nucleated RBC % 0 INR (Anticoag Therapy) 1.14 H (0.89-1.11) APTT 28.8 (26.0-36.3) seconds Sodium 137 (133-145) mmol/L Potassium TNP Chloride 107 (101-111) mmol/L Carbon Dioxide 23 (22-32) mmol/L Anion Gap TNP BUN 19 (6-24) mg/dL Creatinine 0.98 (0.67-1.17) mg/dL Est GFR ( Amer) 96.7 (>60) Est GFR (Non-Af Amer) 75.2 (>60) BUN/Creatinine Ratio 19.4 (8-20) Glucose 129 H (70-100) mg/dL Lactic Acid (0.5-2.0) mmol/L Calcium 8.4 L (8.6-10.3) mg/dL Magnesium 1.7 L (1.9-2.7) mg/dL Total Bilirubin 0.30 (0.2-1.0) mg/dL AST TNP ALT 13 (7-52) U/L Alkaline Phosphatase 54 (34-104) U/L Total Creatine Kinase 113 (10-223) U/L CK-MB (CK-2) 4.9 (0.6-6.3) ng/mL Troponin I 0.02 (<0.04) ng/mL B-Natriuretic Peptide ( - 100) pg/mL Total Protein 6.0 L (6.4-8.9) g/dL Albumin 3.4 (3.2-5.2) g/dL Globulin 2.6 (2-4) g/dL Albumin/Globulin Ratio 1.3 (1-3) TSH 0.80 (0.34-5.60) mcIU/mL Thyroxine (T4) 5.87 L (6.09-12.23) g/dL 10/29/16 10/29/16 Range/Units 10:30 10:30 WBC (3.5-10.8) 10^3/ul RBC (4.0-5.4) 10^6/ul Hgb (14.0-18.0) g/dl Hct (42-52) % MCV (80-94) fL MCH (27-31) pg MCHC (31-36) g/dl RDW (10.5-15) % Plt Count (150-450) 10^3/ul MPV (7.4-10.4) um3 Neut % (Auto) (38-83) % Lymph % (Auto) (25-47) % [place] % (Auto) (1-9) % Eos % (Auto) (0-6) % Baso % (Auto) (0-2) % Absolute Neuts (auto) (1.5-7.7) 10^3/ul Absolute Lymphs (auto) (1.0-4.8) 10^3/ul Absolute Monos (auto) (0-0.8) 10^3/ul Absolute Eos (auto) (0-0.6) 10^3/ul Absolute Basos (auto) (0-0.2) 10^3/ul Absolute Nucleated RBC 10^3/ul Nucleated RBC % INR (Anticoag Therapy) (0.89-1.11) APTT (26.0-36.3) seconds Sodium (133-145) mmol/L Potassium Chloride (101-111) mmol/L Carbon Dioxide (22-32) mmol/L Anion Gap BUN (6-24) mg/dL Creatinine (0.67-1.17) mg/dL Est GFR ( Amer) (>60) Est GFR (Non-Af Amer) (>60) BUN/Creatinine Ratio (8-20) Glucose (70-100) mg/dL Lactic Acid 2.3 H* (0.5-2.0) mmol/L Calcium (8.6-10.3) mg/dL Magnesium (1.9-2.7) mg/dL Total Bilirubin (0.2-1.0) mg/dL AST ALT (7-52) U/L Alkaline Phosphatase (34-104) U/L Total Creatine Kinase (10-223) U/L CK-MB (CK-2) (0.6-6.3) ng/mL Troponin I (<0.04) ng/mL B-Natriuretic Peptide 98 ( - 100) pg/mL Total Protein (6.4-8.9) g/dL Albumin (3.2-5.2) g/dL Globulin (2-4) g/dL Albumin/Globulin Ratio (1-3) TSH (0.34-5.60) mcIU/mL Thyroxine (T4) (6.09-12.23) g/dL Result Diagrams: 10/29/16 10:30 10/29/16 11:20 Lab Statement: Any lab studies that have been ordered have been reviewed, and results considered in the medical decision making process. - Radiology CXR Xray Interpretation: Positive (See Comments) - IMPRESSION: ENLARGED CARDIAC SILHOUETTE, UNCHANGED. LUNGS CLEAR. Radiology Interpretation Completed By: Radiologist - EKG 0906 Cardiac Rate: NL - 91 bpm EKG Rhythm: Sinus Rhythm ST Segment: Normal Chest Pain Course/Dx - Course Assessment/Plan: A 71 y/o male was BIBA to [facility] presenting w/ a sudden onset of constant CP that started this morning. Pt states that he walked 100 yards to a grocery store and on the way back, he felt sharp and stabbing CP. At home, the pain worsened hence the 911 call. The pain severity rated 9/10. At this time , the severity is still at 9/10. In addition to CP, pt reports some SOB. Pt denies nausea, diaphoresis. Per EMS, en route pt was given 2 nitro and 324 mg ASA with no relief to Sx. Blood test are found within normal limits except for mild anemia, glucose 129, Lactic acid 2.3, Calcium 3.4, Magnesium 1.7 T4 5.87. Troponin #1: 0.02 and #2: 0.01 CXR cardiomegaly, unchanged from previous. EKG: Atrial fibrillation at 91 BPM. EMS gave ASA and 2 NTG sublingual and symptoms did not improved. Patient pain is reproducible at palpitations, and increases with movements of his both arms. In the ED course he was given morphine for the pain and his symptoms improved. After medications he is feeling better. At this time I don't think he is having an acute coronary syndrome since pain is reproducible, EKG is similar to his usual and troponin is negative. No suspicion for dissection since VS are WNL, chest pain does not radiate to his back and after morphine pain resolved. CXR showed no pneumonia. No suspicion for PE since patient is not tachycardic or hypoxic. Since patient is feeling better he will be discharged home with F/U of PCP. I discussed all the findings and test results with the patient. Patient was instructed to return to the emergency room immediately if any of the symptoms return or worsens. Plan of care was discussed with the patient and understands and agrees. All questions were answered at patient satisfaction. There were no further complaints or concerns. Lung exam before discharge: CTA B/L. Good air exchange. No wheezing or crackles heard. CVS: S1 and S2 present. No murmurs appreciated. Patient is alert and oriented x 3. Patient is hemodynamically stable. Patient will be discharged home with follow up community recreation programmer in the next 2-3 days - Chest Pain Differential Diagnosis/HQI/PQRI: Acute PA, ACS, Angina, Chest Wall, GI Disease, Lower Respiratory Infection - Diagnoses Provider Diagnoses: Atypical chest pain Discharge - Discharge Plan Condition: Stable Disposition: HOME Prescriptions: HYDROcodone/ACETAMIN 5-325 MG* [[place] 5-325 TAB*] 1 tab PO Q6H PRN #10 tab MDD Max 4 tabs / day PRN Reason: Pain Patient Education Materials: Chest Pain (ED) Referrals: Ivonne Cotton MD [Primary Care Provider] - 2 Days The documentation as recorded by the Ravi clifford Janilya accurately reflects the service I personally performed and the decisions made by me, Luis De León MD.
[2016-10-29 14:33] VITALS: BP 133/68
== END 2016-10-29 14:32 | disposition home or self-care (01) ==
LOC: ED 09:06
DX: R07.89 Other chest pain (principal); R06.02 Shortness of breath
CPT/HCPCS: 36415; 71010; 80053; 82550; 82553; 83605; 83735; 83880; 84436; 84443; 84484; 85025; 85610; 85730; 86803; 93005; 96374; 99283; J2270

== ENCOUNTER 2016-11-12 21:04 | Inpatient (IN) | payer MEDICARE, MEDICAID ==
[2016-11-12] MEDS ORDERED: Morphine INJ* 4 MG/ML 1 ML SYRINGE IV ONE (21:51)
[2016-11-12] MEDS ORDERED: Pantoprazole IV* 40 MG IV ONE (21:51)
[2016-11-12] MEDS ORDERED: NS 0.9% 1000 ML* 1,000 ML IV ONE (21:51)
[2016-11-12] MEDS ORDERED: Ondansetron INJ* 2 MG/ML VIAL IV ONE (21:51)
[2016-11-12 22:04] LABS: Hematocrit 43 % (42-52); Hemoglobin 13.7 g/dl (14.0-18.0); Mean Corpuscular HGB Conc 32 g/dl (31-36); Mean Corpuscular Hemoglobin 27 pg (27-31); Mean Corpuscular Volume 83 fL (80-94); Mean Platelet Volume 9 um3 (7.4-10.4); Red Blood Count 5.17 10^6/ul (4.0-5.4); Red Cell Distribution Width 17 % (10.5-15); White Blood Count 12.2 10^3/ul (3.5-10.8)
[2016-11-12 22:05] LABS: Add Diff/Slide Review? Slide Review Added; Comments Flag Yes
[2016-11-12 22:14] LABS: Albumin 3.7 g/dL (3.2-5.2); BUN/Creatinine Ratio 18.1 (8-20); Calcium 9.1 mg/dL (8.6-10.3); EGFR African American 89.3 (>60); EGFR Non-African American 69.4 (>60); Globulin 2.9 g/dL (2-4); Potassium 4.1 mmol/L (3.5-5.0); Total Bilirubin 0.3 mg/dL (0.2-1.0); Total Protein 6.6 g/dL (6.4-8.9)
--- NOTE | 2016-11-12 22:21 | RAD ---
Indication: Abdominal pain. Single frontal view of the chest performed at 2205 hours was reviewed. Comparison is made with previous exam dated October 29, 2016. No mediastinal shift is noted. Cardiomegaly is noted. Lungs are clear. IMPRESSION: CARDIOMEGALY WITH NO EVIDENCE OF ACTIVE CARDIOPULMONARY DISEASE.
[2016-11-12] MEDS ORDERED: Iodixanol* (CONTRAST) 320 MG/ML 100 ML SDV IV ONE (23:47)
--- NOTE | 2016-11-13 02:10 | ED ---
Alvin Osei Adam, scribed for Cory Farr on 11/12/16 at 2123 . Complex/Multi-Sys Presentation - HPI Summary HPI Summary: Pt is a 71 year old male presenting with abdominal pain and N/V/D starting today. The abdominal pain is worse with palpation. He states that he has vomited 3x and had diarrhea 3x today. He also reports 3 episodes of rectal bleeding starting tonight (with red blood). He denies fever, CP, SOB, and edema. PMHx includes CAD, DM, CHF, HTN, and HLD. Pt takes Xarelto. He denies tobacco/alcohol/drug use. He still has his appendix and gallbladder. - History Of Current Complaint Chief Complaint: EDGeneral Time Seen by Provider: 11/12/16 21:16 Hx Obtained From: Patient Onset/Duration: Gradual Onset, Lasting Hours, Still Present Timing: Constant Severity Currently: Moderate Severity Initially: Moderate Location: Pain At: - Abdomen Aggravating Factor(s): Palpation of the abdomen Alleviating Factor(s): Nothing Associated Signs And Symptoms: Positive: Nausea, Vomiting, Diarrhea, Other - Rectal bleeding. Negative: SOB, Chest Pain, Edema, Fever - Allergies/Home Medications Allergies/Adverse Reactions: Allergies Allergy/AdvReac Type Severity Reaction Status Date / Time Shellfish Allergy Allergy Severe Difficulty Verified 11/12/16 21:19 Breathing Povidone Iodine Allergy Intermediate Rash Verified 11/12/16 21:19 [From Betadine] PMH/Surg Hx/FS Hx/Imm Hx Endocrine/Hematology History: Reports: Hx Anticoagulant Therapy, Hx Diabetes - II, Hx Anemia, Other Endocrine/Hematological Disorders - Eosinophilia Denies: Hx Blood Disorders, Hx Blood Transfusions, Hx Systemic Lupus Erythematosus, Hx Thyroid Disease Cardiovascular History: Reports: Hx Angina, Hx Congestive Heart Failure, Hx Coronary Artery Disease, Hx Embolism, Hx Hypercholesterolemia, Hx Hypertension, Hx Myocardial Infarction - x2, Other Cardiovascular Problems/Disorders - Cardiomyopathy Denies: Hx Deep Vein Thrombosis, Hx Pacemaker/ICD Respiratory History: Reports: Hx Asthma, Hx Pneumonia, Hx Pulmonary Edema, Hx Pulmonary Embolism, Other Respiratory Problems/Disorders - PE'S Denies: Hx Chronic Obstructive Pulmonary Disease (COPD), Hx Lung Cancer GI History: Reports: Hx Gastroesophageal Reflux Disease, Hx Hiatal Hernia, Other GI Disorders - chronic abdominal pain Denies: Hx Gall Bladder Disease, Hx Gastrointestinal Bleed, Hx Ulcer, Hx Urosepsis History: Reports: Hx Acute Renal Failure, Hx Benign Prostatic Hyperplasia, Hx Kidney Stones Denies: Hx Dialysis, Hx Renal Disease, Other Problems/Disorders Musculoskeletal History: Reports: Hx Back Problems, Other Musculoskeletal History - OBESITY, DJD Denies: Hx Rheumatoid Arthritis Sensory History: Reports: Hx Contacts or Glasses, Hx Vision Problem Denies: Hx Hearing Aid, Other Sensory Impairments Opthamlomology History: Reports: Hx Contacts or Glasses, Hx Vision Problem Denies: Other Sensory Impairments Neurological History: Reports: 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 hernia repair x 2;. rt knee cartlidge repair;. RIGHT ROTATOR CUFF ;. CABG Hx Anesthesia Reactions: No - Immunization History Date of Tetanus Vaccine: Unk Date of Influenza Vaccine: 05/13/14 Infectious Disease History: Denies: Hx Hepatitis, Hx Human Immunodeficiency Virus (HIV), Hx of Known/ Suspected MRSA, Hx Shingles, Hx Tuberculosis, History Other Infectious Disease, Traveled Outside the [place] in Last 30 Days - Family History Known Family History: Positive: Cardiac Disease - [place] mother and father, Diabetes - Social History Occupation: Disabled Lives: Alone Alcohol Use: None Hx Substance Use: No Substance Use Type: Reports: None Hx Tobacco Use: No Smoking Status (MU): Never Smoked Tobacco Review of Systems Negative: Fever Negative: Chest Pain Negative: Shortness Of Breath Positive: Abdominal Pain, Vomiting, Diarrhea, Nausea, Other - Rectal bleeding Negative: Edema All Other Systems Reviewed And Are Negative: Yes Physical Exam Triage Information Reviewed: Yes Vital Signs Reviewed: Yes Appearance: Positive: Well-Appearing, No Pain Distress Skin: Positive: Warm, Skin Color Reflects Adequate Perfusion, Dry Head/Face: Positive: Normal Head/Face Inspection Eyes: Positive: EOMI, [place] ENT: Positive: Normal ENT inspection Neck: Positive: Supple, Nontender Respiratory/Lung Sounds: Positive: Clear to Auscultation, Breath Sounds Present Cardiovascular: Positive: RRR, Pulses are Symmetrical in both Upper and Lower Extremities Abdomen Description: Positive: Other: - Diffuse tenderness in the abdomen. Fresh blood in the rectum. Bowel Sounds: Positive: Present Musculoskeletal: Positive: Normal, Strength/ROM Intact Diagnostics - Laboratory Result Diagrams: 11/12/16 21:48 11/12/16 21:48 Lab Statement: Any lab studies that have been ordered have been reviewed, and results considered in the medical decision making process. - Radiology CXR Radiology Interpretation Completed By: Radiologist - IMPRESSION: CARDIOMEGALY WITH NO EVIDENCE OF ACTIVE CARDIOPULMONARY DISEASE. - CT A/P CT Interpretation Completed By: Radiologist - IMPRESSION: NO DEFINITE ACUTE PATHOLOGY. MILD PROSTATE ENLARGEMENT. MODERATE-SIZED FAT CONTAINING LEFT INGUINAL HERNIA. - Additional Comments Diagnostic Additional Comments: Stool Occult Blood - Positive Antibody Screen - Negative Complex Multi-Symp Course/Dx - Diagnoses Provider Diagnoses: GI bleed, Abdominal pain - Physician Notifications Discussed Care Of Patient With: Dr. Miramontes (hospitalist) at 01:25. He accepts admission of patient. Discharge - Discharge Plan Condition: Stable Disposition: ADMITTED TO [facility] The documentation as recorded by the Alvin clifford Adam accurately reflects the service I personally performed and the decisions made by , Cory Farr.
[2016-11-13] MEDS ORDERED: Albuterol 2.5 MG/3 ML NEB.SOL* (0.083%) INH PRN (03:26)
[2016-11-13] MEDS ORDERED: Dextrose 50% Syringe 50 ML* 25 GM/50 ML SYRINGE IV PUSH PRN (03:31)
[2016-11-13] MEDS: Morphine INJ* 2 MG/ML 1 ML SYRINGE IV PRN ×3 (04:17→17:00)
[2016-11-13] MEDS: NS 0.9% 1000 ML* 1,000 ML IV SCH ×2 (05:02→21:32)
[2016-11-13] MEDS ORDERED: Pantoprazole IV* 40 MG ONE (05:48)
[2016-11-13] MEDS: Pantoprazole IV* 40 MG IV SCH (05:52)
[2016-11-13 05:55] LABS: Hematocrit 40 % (42-52); Hemoglobin 13.1 g/dl (14.0-18.0)
[2016-11-13] MEDS: Mometasone/Formoter 200/5 MDI INH SCH ×2 (08:37→19:34)
[2016-11-13] MEDS ORDERED: Omeprazole CAP* 20 MG PO SCH (09:00)
[2016-11-13] MEDS ORDERED: Furosemide TAB* 20 MG PO SCH (09:00)
[2016-11-13] MEDS ORDERED: Sertraline* 50 MG TAB PO SCH (09:00)
[2016-11-13 09:05] LABS: Hematocrit 42 % (42-52); Hemoglobin 13.5 g/dl (14.0-18.0)
--- NOTE | 2016-11-13 10:00 | PN ---
Subjective Date of Service: 11/13/16 Interval History: Mr. Yip continues to endorse abdominal pain, n/v. He denies any further episodes of bloody stool. He reports that his ochoa is now draining; ED note indicates that the previous catheter was not in the bladder. Patient also expressed concern for pain and bruising to his right forearm, which he thinks may be shingles. He denies any blistering or vesicles thus far. The area of concern appeared yesterday and he states that he may have "banged his arm against something." Family History: Unchanged from Admission Social History: Unchanged from Admission Past Medical History: Unchanged from Admission Objective Active Medications: Hydrocodone Bitart/Acetaminophen ([place] 5-325 Tab*) 1 tab PO Q6H PRN PRN Reason: PAIN Albuterol (Ventolin 2.5 Mg/3 Ml Neb.Marjorie*) 2.5 mg INH Q4H PRN PRN Reason: SHORTNESS OF BREATH Atorvastatin Calcium (Lipitor*) 20 mg PO BEDTIME [facility] Calcium Carbonate (Tums*) 500 mg PO BID [facility] Dextrose (D50w Syringe 50 Ml*) 12.5 gm IV PUSH .FOR FS < 60 - SS PRN PRN Reason: FS < 60 Ferrous Sulfate (Ferrous Sulfate Tab*) 325 mg PO DAILY [facility] Finasteride (Proscar Tab*) 5 mg PO QAM [facility] Sodium Chloride (Ns 0.9% 1000 Ml*) 1,000 mls @ 75 mls/hr IV PER RATE [facility] Last Admin: 11/13/16 05:02 Dose: 75 mls/hr Insulin Glargine (Lantus(*)) 25 units SUBCUT BEDTIME [facility] Insulin Human Lispro (Humalog*) 0 units SUBCUT ACHS [facility] PRN Reason: Protocol Losartan Potassium (Cozaar Tab*) 50 mg PO 1200 [facility] Magnesium Oxide (Magox 400 Tab*) 800 mg PO BID [facility] Metoprolol Tartrate (Lopressor Tab*) 25 mg PO BID [facility] Mometasone Furoate/Formoterol Fumar (Dulera 200/5 Mdi*) 2 puff INH BID [facility] Last Admin: 11/13/16 08:37 Dose: 2 puff Morphine Sulfate (Morphine Inj (Syringe)*) 2 mg IV Q4H PRN PRN Reason: PAIN - MILD Last Admin: 11/13/16 09:55 Dose: 2 mg Multivitamins ( Vitamin Tab*) 1 tab PO DAILY [facility] Oxycodone/Acetaminophen (Percocet 5/325 Tab*) 1 tab PO Q4H PRN PRN Reason: PAIN Pantoprazole Sodium (Protonix Iv*) 40 mg IV Q24H [facility] Last Admin: 11/13/16 05:52 Dose: 40 mg Polyethylene Glycol/Electrolytes (Miralax*) 17 gm PO DAILY [facility] Potassium Chloride (Klor Con Er Tab*) 20 meq PO DAILY [facility] Sertraline HCl (Zoloft*) 75 mg PO DAILY [facility] Tamsulosin HCl (Flomax Cap*) 0.4 mg PO BEDTIME [facility] Vital Signs 11/13/16 11/13/16 11/13/16 03:51 04:00 04:17 Temperature 97.4 F Pulse Rate 81 68 Respiratory 16 20 16 Rate Blood Pressure 121/80 116/70 (mmHg) O2 Sat by Pulse 92 94 Oximetry 11/13/16 11/13/16 04:30 09:55 Temperature Pulse Rate 68 Respiratory 17 16 Rate Blood Pressure 124/84 (mmHg) O2 Sat by Pulse 94 Oximetry Oxygen Devices in Use Now: None Appearance: Male patient, lying in bed, in NAD Eyes: PERRLA Ears/Nose/Mouth/Throat: Clear Oropharnyx, Mucous Membranes Moist Neck: NL Appearance and Movements; NL JVP Respiratory: Symmetrical Chest Expansion and Respiratory Effort, Clear to Auscultation Cardiovascular: NL Sounds; No Murmurs; No JVD, RRR Abdominal: - - diffuse tenderness with palpation, + BS x 4, abd soft Extremities: No Edema Skin: - - Macular rash to right lateral forearm, appears ecchymotic. No blisters or vesicles noted. Neurological: Alert and Oriented x 3, NL Muscle Strength and Tone Lines/Tubes/Other Access: Clean, Dry and Intact Peripheral IV Nutrition: Taking PO's Result Diagrams: 11/13/16 08:36 11/12/16 21:48 Assess/Plan/Problems-Billing Assessment: Mr. Yip is a 71 yo male with a PMH of afib, CAD, DM, HTN, GERD, eosinophilic esophagitis, obesity, BPH, SVT, TIA, DDD, PE, and retroperitoneal hematoma who presented to the ED on 11/12 with concern for abd pain and n/v/d. - Patient Problems (1) UTI (urinary tract infection) Comment: Positive UA with noted blood, nitrates, leukocyte esterase, bacteria. Previous UTI in September with ESBL E. coli. Patient with history of urinary retention and BPH, chronic ochoa. Ochoa exchanged prior to collection of UA Few sensitivities seen on culture from September - will start meropenem. ID consult tomorrow (2) Abdominal pain Code(s): R10.9 - UNSPECIFIED ABDOMINAL PAIN Comment: With n/v/d - suspect gastroenteritis, ?GIB CT abd/pelvis with no definitive acute pathology. Continue pantoprazole gtt, IVF. Stool culture, O&P, fecal leukocytes pending Abd pain may also be secondary to bladder distention, secondary to malpositioned catheter and suspected UTI. Pt has chronic epigastric pain, resume sucralfate and omeprazole when appropriate. (3) Nausea, vomiting, and diarrhea Code(s): R11.2 - NAUSEA WITH VOMITING, UNSPECIFIED; R19.7 - DIARRHEA, UNSPECIFIED Comment: Suspect gastroenteritis Report of bloody stools at home, though none here Stool studies pending Continue IVF, pantoprazole gtt, supportive care Continue to trend HH, which is currently stable. (4) Afib Code(s): I48.91 - UNSPECIFIED ATRIAL FIBRILLATION Comment: Rate controlled. Continue metoprolol. Hold rivaroxaban today while evaluating for GIB. (5) Coronary artery disease Code(s): I25.10 - ATHSCL HEART DISEASE OF [place] CORONARY ARTERY W/O ANG PCTRS Comment: Stable Continue metoprolol and atorvastatin. (6) Type II diabetes mellitus Comment: BG well controlled. Continue Lantus and lispro SSI coverage. (7) GERD (gastroesophageal reflux disease) Code(s): K21.9 - GASTRO-ESOPHAGEAL REFLUX DISEASE WITHOUT ESOPHAGITIS Comment : Stable Continue pantoprazole gtt. Resume home carafate and omeprazole when medically appropriate. (8) HLD (hyperlipidemia) Code(s): E78.5 - HYPERLIPIDEMIA, UNSPECIFIED Comment: Continue atorvastatin. (9) History of BPH Code(s): Z87.438 - PERSONAL HISTORY OF OTHER DISEASES OF MALE GENITAL ORGANS Comment: With urinary retention and chronic ochoa Ochoa exchanged 11/13 Continue tamsulosin and finasteride. (10) Hypertension Code(s): I10 - ESSENTIAL (PRIMARY) HYPERTENSION Comment: Normotensive. Continue metoprolol and Losartan. Hold home furosemide in acute illness, n/v. (11) DVT prophylaxis Code(s): PWH2830 - Comment: SCDs May possibly resume Xarelto tomorrow if no further evidence of GIB Status and Disposition: OBV admit. D/c to home when medically stable.
[2016-11-13] MEDS: Sertraline* 25 MG TAB PO SCH (10:01)
[2016-11-13] MEDS: Finasteride TAB* 5 MG PO SCH (10:01)
[2016-11-13] MEDS: Metoprolol Tartrate TAB* 25 MG PO SCH ×2 (10:02→21:20)
[2016-11-13] MEDS: Potassium Chlor TAB* 20 MEQ TAB.ER PO SCH (10:02)
[2016-11-13] MEDS: Calcium Carbonate CHEW TAB* 500 MG (TUMS) PO SCH ×2 (10:03→19:57)
[2016-11-13] MEDS: Magnesium Oxide TAB* 400 MG PO SCH ×2 (10:03→19:56)
[2016-11-13] MEDS: Prenatal Vitamin TAB PO SCH (10:03)
[2016-11-13] MEDS: Polyethylene Glycol 3350* 17 GM PACKET PO SCH (10:04)
[2016-11-13] MEDS: Insulin LISPRO* 1 UNITS UNIT SUBCUT SCH ×4 (10:06→21:27)
[2016-11-13] MEDS: Ferrous Sulfate TAB* 325 MG PO SCH (10:06)
[2016-11-13 10:51] LABS: Urine Bacteria 1+ (Absent); Urine Bilirubin Negative (Negative); Urine Glucose Negative (Negative); Urine Nitrite Positive (Negative)
--- NOTE | 2016-11-13 11:10 | PN ---
Progress Note - Progress Note Note: Called by Dr Garner, radiologist regarding last night imaging- urinary catheter located in penile urethra, requires better placement. Spoke with Nurse, Shyla, catheter was replaced overnight and has good urine output currently. - MWEllings
--- NOTE | 2016-11-13 11:10 | RAD ---
Indication: Abdominal pain, diverticulitis. CT of the abdomen and pelvis was performed after oral and IV contrast administration. Coronal and sagittal reconstructed images were obtained. Comparison is made with previous exam dated April 11, 2016. The lung bases demonstrate no pleural fluid, nodules or masses. Cardiomegaly is noted without evidence of pericardial effusion. Prominent pleural fat is noted bilaterally. Liver is normal in size. No focal lesions or intrahepatic ductal dilatation is noted. The spleen is normal in size. The gallbladder demonstrates no calcified gallstones. No pericholecystic fluid or wall thickening is identified. The common duct is not dilated. The pancreas demonstrates no mass or pancreatic duct dilatation. The spleen is normal in size. Anterior to the spleen is a small soft tissue density measuring 8 mm. This may represent an splenule. Additional splenule is noted between the pancreatic tail and splenic hilum. This measures 14 mm. The adrenal gland demonstrates hyperplasia bilaterally worse on the left than on the right. There is a fat-containing lesion in the left adrenal gland likely representing a small myelolipoma. This is unchanged since previous examination. The kidneys demonstrate symmetric nephrograms without focal lesions or hydronephrosis. Aorta and inferior vena cava are unremarkable. Atherosclerosis of the aorta as well as the superior mesenteric artery is noted. No retroperitoneal adenopathy is noted. CT of the pelvis demonstrates urinary bladder to be unremarkable. The prostate is mildly enlarged. There is a left-sided inguinal hernia containing omentum likely of the indirect type. No free fluid is identified. A Rivero catheter balloon is in the penile urethral. The Rivero catheter should be advanced. IMPRESSION: No abnormal fluid collections or masses are noted. There is a Rivero catheter with balloon in the penile urethra and should be advanced. Mildly distended urinary bladder is noted. Left adrenal myelolipoma which is likely unchanged from previous exam. ARIANNA Johnson was notified of the results will notify the hospitalist.
--- NOTE | 2016-11-13 11:42 | HP ---
HISTORY AND PHYSICAL: DATE OF ADMISSION: 11/13/16 CHIEF COMPLAINT: Nausea, vomiting, and diarrhea. HISTORY OF PRESENT ILLNESS: The patient is a 71-year-old gentleman, who says he ate dinner last night, was feeling his usual state of health, then he went to the bathroom and developed nausea and vomiting, and then had very watery stools. There were some specks of blood in the stools as well. He had 4 bowel movements before he finally came in. He had abdominal pain too throughout his belly, 9/10 in severity, is sharp pain, it is unrelenting. All he had was a baked potato and a piece of chicken, he said. In the ER, the patient was evaluated. He was afebrile, had a minimally elevated white count of 12,000, and was mildly anemic, which is not new for him. PAST MEDICAL HISTORY: Significant for atrial fibrillation, on Xarelto; coronary artery disease; diabetes; hypertension; GERD; eosinophilic esophagitis ; obesity; BPH; SVT; TIA; degenerative disk disease; PE; retroperitoneal hematoma. PAST SURGICAL HISTORY: Significant for CABG, cardiac cath, hernia repair, shoulder arthroscopy, and knee arthroscopy. CURRENT MEDICATIONS: Are as follows: 1. Percocet 5/325 one tab every 4 hours as needed. 2. Metformin 1000 mg twice daily. 3. Tamsulosin 0.4 mg at bedtime. 4. Sucralfate 1 g 3 times a day with meals. 5. Zoloft 75 mg daily. 6. Senna 8.6 mg at bedtime. 7. Xarelto 20 mg daily. 8. Potassium chloride 20 mEq daily. 9. MiraLAX 17 g daily. 10. Omeprazole 20 mg twice daily. 11. Multivitamin 1 tablet daily. 12. Metoprolol tartrate 25 mg twice daily. 13. Magnesium oxide 800 mg twice daily. 14. Losartan 50 mg daily. 15. Lantus insulin 25 units subcu at bedtime. 16. [place] 5/325 one tab every 6 hours as needed. 17. Furosemide 20 mg in the morning. 18. Fluticasone/salmeterol 250/50 one puff twice daily. 19. Finasteride 5 mg in the morning. 20. Ferrous sulfate 325 mg daily. 21. Trulicity 0.75 mg subcu q.7 days. 22. Docusate 100 mg twice daily. 23. Cipro 500 mg twice daily. 24. Calcium carbonate 500 twice daily. 25. Lipitor 20 mg at bedtime. 26. Ventolin 2.5 mg inhaled every 4 hours as needed. 27. Maalox Plus 15 cc every 6 hours as needed. ALLERGIES: He has an allergy/adverse reaction to SHELLFISH and IODINE. FAMILY HISTORY: Both parents had heart disease and diabetes. SOCIAL HISTORY: No tobacco, alcohol, or recreational drug use. He lives alone. His friend, Larry, and his sister, Sondra, are his healthcare proxies. REVIEW OF SYSTEMS: A 14-point review of systems was completed with the patient. All pertinent positives and negatives are in the history of present illness, otherwise it is negative. PHYSICAL EXAMINATION GENERAL: Obese gentleman, lying in bed, in no acute distress. VITAL SIGNS: Temperature 98.7 degrees, heart rate 72 beats per minute, respiratory rate 14 breaths per minute, pulse ox 96% on room air, blood pressure 120/71. HEENT: Normocephalic, atraumatic. Pupils equal, round, and reactive to light. Moist mucous membranes. NECK: Supple. No JVD, bruits, palpable thyroid, or lymphadenopathy. CHEST: Clear to auscultation and percussion bilaterally. CARDIOVASCULAR: S1, S2 appreciated. ABDOMEN: Positive bowel sounds in all 4 quadrants. Soft, nontender, nondistended. No hepatosplenomegaly. EXTREMITIES: No cyanosis, clubbing, or edema. +2 peripheral pulses bilaterally. NEURO: Alert and oriented x3. Moves all extremities. SKIN: No rashes or abnormalities. DIAGNOSTIC STUDIES/LAB DATA: White count 12.2, hemoglobin 13.7, hematocrit 43 , platelets 252. Sodium 136, potassium 4.1, chloride 104, CO2 26, BUN 19, creatinine 1.05, glucose 91. INR 1.29. Chest x-ray shows cardiomegaly with no evidence of cardiopulmonary disease. Abdominal pelvic CT was read as no definitive acute pathology. Mild prostate enlargement, moderate size fat-containing left inguinal hernia, small left adrenal myolipoma with small possible nodule, could represent an adenoma , maybe followup with non-emergent MRI necessary. ASSESSMENT AND PLAN: 1. Nausea, vomiting, diarrhea with some blood: Probably gastroenteritis, maybe even bleeding from the diarrhea and/or hemorrhoid. We will check stool for O and P, fecal leukocytes, and culture and sensitivity. I will check his H and H q.[address] him on Protonix drip. I will hydrate him gently with 75 cc an hour. He is normally on Lasix. I anticipate this patient will turn around quite quickly as he is already feeling better. He has had no diarrhea in the ER and I do not think he has a gross gastrointestinal bleed at this time. I would hold off on calling GI for now. 2. Atrial fibrillation: We will hold Xarelto with his possible gastrointestinal bleed, but could likely be able to restart this tomorrow as I do not think it is significant. 3. Diabetes mellitus: Continue Lantus, place on fingersticks with sliding scale insulin. 4. Coronary artery disease: Stable. Continue current regimen. 5. Hypertension: Well controlled. Continue current regimen. 5. Gastroesophageal reflux disease. Continue PPI. 6. Benign prostatic hyperplasia: Continue Flomax and Proscar. 7. History of transient ischemic attack. Continue secondary prevention. 8. History of pulmonary embolism: Again, we will hold Xarelto. We will continue one probably later today if gastrointestinal bleed is insignificant. 9. FEN: Consistent carb diet. 10. DVT prophylaxis: Sequential compression stockings. 11. The patient is a do not resuscitate. TIME SPENT: Over 80 minutes was spent on this HPI, more than 45 minutes of which was spent in direct axms-ev-aitr contact with the patient in evaluation, physical exam, counseling, and coordination of care. CC: Dr. Ivonne Cotton* [id number]/[facility] #: [id number] CAMMIE
[2016-11-13] MEDS: Losartan TAB* 25 MG PO SCH (12:30)
[2016-11-13 16:29] LABS: Hematocrit 41 % (42-52); Hemoglobin 13.4 g/dl (14.0-18.0)
[2016-11-13] MEDS: Meropenem 500MG PREMIX(*) 500 MG/50 ML BAG IV SCH (18:24)
[2016-11-13] MEDS: oxyCODONE/Acetamin 5/325 MG* TAB PO PRN (19:55)
[2016-11-13] MEDS: Atorvastatin* 20 MG TAB PO SCH (19:57)
[2016-11-13] MEDS ORDERED: diPHENhydraMINE PO* 25 MG PO PRN ×2 (20:02→23:15)
[2016-11-13] MEDS: Morphine INJ* 4 MG/ML 1 ML SYRINGE IV PRN (21:18)
[2016-11-13] MEDS: Tamsulosin CAP* 0.4 MG PO SCH (21:21)
[2016-11-13] MEDS: Insulin GLARGINE(*) 1 UNITS UNIT SUBCUT SCH (21:31)
[2016-11-13 22:30] LABS: Hematocrit 41 % (42-52); Hemoglobin 13.1 g/dl (14.0-18.0)
[2016-11-14] MEDS: Meropenem 500MG PREMIX(*) 500 MG/50 ML BAG IV SCH ×2 (02:02→09:16)
[2016-11-14] MEDS: Pantoprazole IV* 40 MG IV SCH (04:21)
[2016-11-14 05:51] LABS: Hematocrit 38 % (42-52); Hemoglobin 12.3 g/dl (14.0-18.0); Mean Corpuscular HGB Conc 33 g/dl (31-36); Mean Corpuscular Hemoglobin 28 pg (27-31); Mean Corpuscular Volume 84 fL (80-94); Mean Platelet Volume 8 um3 (7.4-10.4); Red Blood Count 4.49 10^6/ul (4.0-5.4); Red Cell Distribution Width 17 % (10.5-15); White Blood Count 6.9 10^3/ul (3.5-10.8)
[2016-11-14] MEDS: Morphine INJ* 4 MG/ML 1 ML SYRINGE IV PRN ×3 (07:21→18:08)
[2016-11-14] MEDS: Insulin LISPRO* 1 UNITS UNIT SUBCUT SCH ×4 (07:53→21:46)
[2016-11-14] MEDS: Mometasone/Formoter 200/5 MDI INH SCH ×2 (09:00→21:14)
[2016-11-14] MEDS: HYDROcodone/ACETAMIN 5-325 MG* 1 TAB PO PRN ×2 (09:10→16:20)
[2016-11-14] MEDS: Prenatal Vitamin TAB PO SCH (09:12)
[2016-11-14] MEDS: Magnesium Oxide TAB* 400 MG PO SCH ×2 (09:13→21:45)
[2016-11-14] MEDS: Sertraline* 25 MG TAB PO SCH (09:13)
[2016-11-14] MEDS: Potassium Chlor TAB* 20 MEQ TAB.ER PO SCH (09:13)
[2016-11-14] MEDS: Calcium Carbonate CHEW TAB* 500 MG (TUMS) PO SCH ×2 (09:13→21:45)
[2016-11-14] MEDS: Metoprolol Tartrate TAB* 25 MG PO SCH ×2 (09:14→21:45)
[2016-11-14] MEDS: Finasteride TAB* 5 MG PO SCH (09:14)
[2016-11-14] MEDS: Ferrous Sulfate TAB* 325 MG PO SCH (09:14)
[2016-11-14] MEDS: Polyethylene Glycol 3350* 17 GM PACKET PO SCH (09:29)
--- NOTE | 2016-11-14 09:50 | PN ---
Subjective Date of Service: 11/14/16 Interval History: This is a 71 yo male with BPH and chronic urinary retention with indwelling Rivero catheter who presented with c/o abd pain, n/v. He noted some blood in his diarrhea. UA suggestive of UTI and he has a h/o ESBL, he has been empirically started on Meropenem while awaiting culture results. Also of note, Rivero balloon was within the urethra at time of admission with a slightly distended bladder. Patient reports that he continues to have abdominal pain with poor appetite and intermittent nausea. He has not had any additional episodes of vomiting or diarrhea. Objective Active Medications: Hydrocodone Bitart/Acetaminophen ([place] 5-325 Tab*) 1 tab PO Q6H PRN PRN Reason: PAIN Last Admin: 11/14/16 09:10 Dose: 1 tab Albuterol (Ventolin 2.5 Mg/3 Ml Neb.Marjorie*) 2.5 mg INH Q4H PRN PRN Reason: SHORTNESS OF BREATH Atorvastatin Calcium (Lipitor*) 20 mg PO BEDTIME [facility] Last Admin: 11/13/16 19:57 Dose: 20 mg Calcium Carbonate (Tums*) 500 mg PO BID [facility] Last Admin: 11/14/16 09:13 Dose: 500 mg Dextrose (D50w Syringe 50 Ml*) 12.5 gm IV PUSH .FOR FS < 60 - SS PRN PRN Reason: FS < 60 Diphenhydramine HCl (Benadryl Po*) 25 mg PO Q4H PRN PRN Reason: PRURITIS Ferrous Sulfate (Ferrous Sulfate Tab*) 325 mg PO DAILY [facility] Last Admin: 11/14/16 09:14 Dose: 325 mg Finasteride (Proscar Tab*) 5 mg PO QAM [facility] Last Admin: 11/14/16 09:14 Dose: 5 mg Sodium Chloride (Ns 0.9% 1000 Ml*) 1,000 mls @ 75 mls/hr IV PER RATE [facility] Last Admin: 11/13/16 21:32 Dose: 75 mls/hr Meropenem (Merrem 500mg Premix(*)) 500 mg in 50 mls @ 100 mls/hr IV Q8H [facility] Last Admin: 11/14/16 09:16 Dose: 100 mls/hr Insulin Glargine (Lantus(*)) 25 units SUBCUT BEDTIME [facility] Last Admin: 11/13/16 21:31 Dose: 25 units Insulin Human Lispro (Humalog*) 0 units SUBCUT ACHS [facility] PRN Reason: Protocol Last Admin: 11/14/16 07:53 Dose: Not Given Losartan Potassium (Cozaar Tab*) 50 mg PO 1200 [facility] Last Admin: 11/13/16 12:30 Dose: 50 mg Magnesium Oxide (Magox 400 Tab*) 800 mg PO BID [facility] Last Admin: 11/14/16 09:13 Dose: 800 mg Metoprolol Tartrate (Lopressor Tab*) 25 mg PO BID [facility] Last Admin: 11/14/16 09:14 Dose: 25 mg Mometasone Furoate/Formoterol Fumar (Dulera 200/5 Mdi*) 2 puff INH BID [facility] Last Admin: 11/14/16 09:00 Dose: 2 puff Morphine Sulfate (Morphine Inj (Syringe)*) 4 mg IV Q4H PRN PRN Reason: PAIN - MILD Last Admin: 11/14/16 07:21 Dose: 4 mg Multivitamins ( Vitamin Tab*) 1 tab PO DAILY [facility] Last Admin: 11/14/16 09:12 Dose: 1 tab Oxycodone/Acetaminophen (Percocet 5/325 Tab*) 1 tab PO Q4H PRN PRN Reason: PAIN Last Admin: 11/13/16 19:55 Dose: 1 tab Pantoprazole Sodium (Protonix Iv*) 40 mg IV Q24H [facility] Last Admin: 11/14/16 04:21 Dose: 40 mg Polyethylene Glycol/Electrolytes (Miralax*) 17 gm PO DAILY [facility] Last Admin: 11/14/16 09:29 Dose: Not Given Potassium Chloride (Klor Con Er Tab*) 20 meq PO DAILY [facility] Last Admin: 11/14/16 09:13 Dose: 20 meq Sertraline HCl (Zoloft*) 75 mg PO DAILY [facility] Last Admin: 11/14/16 09:13 Dose: 75 mg Tamsulosin HCl (Flomax Cap*) 0.4 mg PO BEDTIME [facility] Last Admin: 11/13/16 21:21 Dose: 0.4 mg Vital Signs: Temp Pulse Resp BP Pulse Ox 97.8 F 69 18 122/60 96 11/14/16 07:46 11/14/16 07:46 11/14/16 09:10 11/14/16 07:46 11/14/16 07:46 Oxygen Devices in Use Now: None Appearance: Elderly gentleman in NAD. Accompanied by his medicaid service coordinator Neck: NL Appearance and Movements; NL JVP Respiratory: Symmetrical Chest Expansion and Respiratory Effort, Clear to Auscultation Cardiovascular: NL Sounds; No Murmurs; No JVD, RRR Abdominal: - - abd slightly distended, bowel sounds present, diffuse TTP Extremities: No Edema Skin: - - patchy area of eccyhmosis R forearm, nothing raised Neurological: Alert and Oriented x 3 Result Diagrams: 11/14/16 05:30 11/12/16 21:48 Diagnostic Imaging: CXR - NAD CT abd/pelvis - No acute pathology, Rivero balloon within the urethra with slightly distended bladder Assess/Plan/Problems-Billing Assessment: Mr. Yip is a 71 yo male with a PMH of afib, CAD, DM, HTN, GERD, eosinophilic esophagitis, obesity, BPH, SVT, TIA, DDD, PE, and retroperitoneal hematoma who presented to the ED on 11/12 with concern for abd pain and n/v/d. - Patient Problems (1) Nausea, vomiting, and diarrhea Comment: Suspect gastroenteritis Report of bloody stools at home, though none here Stool studies pending Continue supportive care Note elevated eosinophils, suggesting maybe this is a parasitic process, but upon further review elevated eos is a somewhat chronic process for him H/H stsable yesterday, dropped slightly this am, will recheck at noon (2) UTI (urinary tract infection) Comment: With chronic indwelling Irvero catheter Suspected UTI based on UA Culture pending Empirically started on Meropenem based on h/o ESBL Requested ID consult (3) Urinary retention Comment: Chronic Secondary to BPH with chronic indwelling Rivero catheter (4) Afib Comment: Rate controlled. Continue metoprolol. Chronically anticoagulated with Xarelto, which was held at admission d/t c/o bloody stool (5) GERD (gastroesophageal reflux disease) Comment: He is quite tender in the epigastrum Cont IV protonix at this time (6) Cardiomyopathy Comment: No acute exacerbation EF last measured at 45-50% (7) Coronary artery disease Comment: Stable Continue metoprolol and atorvastatin. (8) Depression Comment: Continue zoloft. (9) Eosinophil count raised Comment: This appears to be chronic Unsure of any outpatient workup that may have occured (10) HLD (hyperlipidemia) Comment: Continue atorvastatin. (11) Hypertension Comment: Normotensive. Continue metoprolol and Losartan. Hold home furosemide in acute illness, n/v. (12) Obesity Comment: BMI 43 (13) Type II diabetes mellitus Comment: BG well controlled. Continue Lantus and lispro SSI coverage. Status and Disposition: Patient remains quite symptomatic and requires continued hospital care. Transition to inpatient.
[2016-11-14 11:57] LABS: Hematocrit 39 % (42-52); Hemoglobin 12.9 g/dl (14.0-18.0)
[2016-11-14] MEDS: Losartan TAB* 25 MG PO SCH (12:04)
--- NOTE | 2016-11-14 14:23 | CONS ---
CONSULTATION REPORT: DATE OF CONSULT: 11/14/16 REQUESTING PROVIDER: Gillian Clarke NP CONSULTING SERVICE: Infectious Disease. REASON FOR CONSULT: Urinary tract infection. IMPRESSION: 1. Chronic indwelling Rivero catheter and admitted with vomiting and diarrhea, no fever, I think the primary diagnosis is viral gastroenteritis. His urinalysis shows blood, leukocyte esterase, and nitrites; the nitrites are new on the urinalysis though pyuria is not. He does have a more significant left flank tenderness and so, I think urinary tract infection is a reasonable consideration. 2. Morbid obesity. 3. Coronary artery disease, history of coronary artery bypass graft. 4. Diabetes. RECOMMENDATION: 1. Change meropenem from 500 IV every 8 hours to 1 g every 12 hours while we will await the urine culture, which has grown fairly resistant gram-negative's in the past. 2. His diet is advancing, but he is distended, has decreased bowel sounds. If he develops more vomiting, we may consider an abdominal x-ray. HISTORY OF PRESENT ILLNESS: This is a 71-year-old male with a chronic Rivero catheter, admitted with vomiting and diarrhea. It came on the night of the with explosive stools and liquid vomiting without blood or coffee-ground emesis. He had no fevers, chills, or sweats. He had eaten fine the meal before. He came to the ER. A CT of the abdomen and pelvis was unremarkable. His white blood cell count was 12. He was given IV fluids and antiemetics. Yesterday, he was started on meropenem when the urinalysis came back with leukocyte esterase, blood, and nitrites. The urine culture is pending. Blood cultures are pending. He has had no fevers, chills, or sweats. He is eating again, he has had no recurrence of vomiting or diarrhea, he feels bloated. He has left greater than right flank pain worse with movement. He has had no change in the quality of the urine in the Rivero bag. He has not recently been treated for urinary tract infection, he grew an ESBL producing E. coli when he was here in the end of September, was treated with Cipro to which the isolate was resistant. PAST MEDICAL HISTORY: 1. Coronary artery disease, status post CABG. 2. Urinary retention, with chronic Rivero catheter. 3. Atrial fibrillation. 4. Diabetes. 5. Hypertension. 6. Gastroesophageal reflux disease. 7. Eosinophilic esophagitis. 8. Obesity. 9. Benign prostatic hypertrophy. 10. SVT. 11. TIA. 12. Degenerative disk disease. 13. History of pulmonary embolus. 14. Retroperitoneal hematoma. 15. History of shoulder arthroscopy and knee arthroscopy. MEDICATIONS: 1. Albuterol. 2. Lipitor. 3. Calcium. 4. Ferrous sulfate. 5. Finasteride. 6. Insulin glargine. 7. Losartan. 8. Magnesium. 9. Meropenem 500 mg IV every 8 hours. 10. Metoprolol. 11. Sertraline. 12. Tamsulosin. ALLERGIES: IODINE. FAMILY HISTORY: No recurrent infections or tuberculosis. SOCIAL HISTORY: He lives in [facility]. He has no travel. No sick contacts. REVIEW OF SYSTEMS: A full review of systems was negative except as noted above. PHYSICAL EXAM: Vital Signs: Temperature is 36.6, heart rate 70, respiratory rate 16, blood pressure 120/60, O2 sat 96% on room air. In general, he is awake , non- distressed. Neurologic: He is oriented x3. Follows all commands. HEENT: There is no conjunctival hemorrhage. Oropharynx without lesions. Neck is supple without nuchal rigidity. Lymph Nodes: There is no cervical, supraclavicular, inguinal, axillary, or epitrochlear lymphadenopathy. Heart has regular rate and rhythm without murmurs, rubs, or gallops. Lungs are clear to auscultation bilaterally. Abdomen is mildly distended, it is soft, decreased bowel sounds. There is left greater than right flank tenderness to palpation. There is no suprapubic tenderness. Skin: There is no rash or splinter hemorrhages. Musculoskeletal: There is no spine tenderness to palpation or joint synovitis. Genitourinary: There is a Rivero catheter. LABORATORY DATA: White blood cell count is 7, hemoglobin 12, platelets 193. Creatinine is 1. Please see impressions and recommendations as outlined above. Thanks for asking me to see Mr. Yip in consultation. [id number]/[facility] #: [id number] MTDD
[2016-11-14] MEDS: Rivaroxaban TAB(*) 20 MG TAB PO SCH (14:52)
[2016-11-14] MEDS: Meropenem 1 GM PREMIX(*) 1 GM/50 ML BAG IV SCH (21:42)
[2016-11-14] MEDS: Tamsulosin CAP* 0.4 MG PO SCH (21:45)
[2016-11-14] MEDS: Atorvastatin* 20 MG TAB PO SCH (21:45)
[2016-11-14] MEDS: Insulin GLARGINE(*) 1 UNITS UNIT SUBCUT SCH (21:46)
[2016-11-15] MEDS: Morphine INJ* 4 MG/ML 1 ML SYRINGE IV PRN (03:48)
[2016-11-15] MEDS: Pantoprazole IV* 40 MG IV SCH (03:49)
[2016-11-15 05:58] LABS: Hematocrit 38 % (42-52); Hemoglobin 12.6 g/dl (14.0-18.0); Mean Corpuscular HGB Conc 33 g/dl (31-36); Mean Corpuscular Hemoglobin 27 pg (27-31); Mean Corpuscular Volume 83 fL (80-94); Mean Platelet Volume 8 um3 (7.4-10.4); Red Blood Count 4.64 10^6/ul (4.0-5.4); Red Cell Distribution Width 17 % (10.5-15); White Blood Count 7.1 10^3/ul (3.5-10.8)
[2016-11-15 06:28] LABS: Calcium 8.3 mg/dL (8.6-10.3); EGFR African American 87.4 (>60); EGFR Non-African American 67.9 (>60); Potassium 4.1 mmol/L (3.5-5.0)
[2016-11-15] MEDS: Insulin LISPRO* 1 UNITS UNIT SUBCUT SCH ×4 (07:56→21:26)
[2016-11-15] MEDS: Mometasone/Formoter 200/5 MDI INH SCH ×2 (08:05→20:25)
[2016-11-15] MEDS: Potassium Chlor TAB* 20 MEQ TAB.ER PO SCH (08:26)
[2016-11-15] MEDS: Ferrous Sulfate TAB* 325 MG PO SCH (08:26)
[2016-11-15] MEDS: Polyethylene Glycol 3350* 17 GM PACKET PO SCH (08:26)
[2016-11-15] MEDS: Sertraline* 25 MG TAB PO SCH (08:26)
[2016-11-15] MEDS: Finasteride TAB* 5 MG PO SCH (08:26)
[2016-11-15] MEDS: Prenatal Vitamin TAB PO SCH (08:26)
[2016-11-15] MEDS: Meropenem 1 GM PREMIX(*) 1 GM/50 ML BAG IV SCH (08:27)
[2016-11-15] MEDS: Metoprolol Tartrate TAB* 25 MG PO SCH ×2 (08:27→21:18)
[2016-11-15] MEDS: Calcium Carbonate CHEW TAB* 500 MG (TUMS) PO SCH ×2 (08:27→21:19)
[2016-11-15] MEDS: Rivaroxaban TAB(*) 20 MG TAB PO SCH (08:27)
[2016-11-15] MEDS: Magnesium Oxide TAB* 400 MG PO SCH ×2 (08:27→21:18)
--- NOTE | 2016-11-15 11:39 | PN ---
Subjective Date of Service: 11/15/16 Interval History: Patient reports persistent abdominal pain. No nausea or vomiting. He had an episode of diarrhea this am. Not grossly bloody. No fevers. No additional complaints. Objective Active Medications: Hydrocodone Bitart/Acetaminophen (Isle 5-325 Tab*) 1 tab PO Q6H PRN PRN Reason: PAIN Last Admin: 11/14/16 16:20 Dose: 1 tab Albuterol (Ventolin 2.5 Mg/3 Ml Neb.Marjorie*) 2.5 mg INH Q4H PRN PRN Reason: SHORTNESS OF BREATH Atorvastatin Calcium (Lipitor*) 20 mg PO BEDTIME [facility] Last Admin: 11/14/16 21:45 Dose: 20 mg Calcium Carbonate (Tums*) 500 mg PO BID [facility] Last Admin: 11/15/16 08:27 Dose: 500 mg Dextrose (D50w Syringe 50 Ml*) 12.5 gm IV PUSH .FOR FS < 60 - SS PRN PRN Reason: FS < 60 Diphenhydramine HCl (Benadryl Po*) 25 mg PO Q4H PRN PRN Reason: PRURITIS Ferrous Sulfate (Ferrous Sulfate Tab*) 325 mg PO DAILY [facility] Last Admin: 11/15/16 08:26 Dose: 325 mg Finasteride (Proscar Tab*) 5 mg PO QAM [facility] Last Admin: 11/15/16 08:26 Dose: 5 mg Meropenem (Merrem 1 Gm Premix(*)) 1 gm in 50 mls @ 100 mls/hr IV Q12HR [facility] Last Admin: 11/15/16 08:27 Dose: 100 mls/hr Insulin Glargine (Lantus(*)) 25 units SUBCUT BEDTIME [facility] Last Admin: 11/14/16 21:46 Dose: 25 units Insulin Human Lispro (Humalog*) 0 units SUBCUT ACHS [facility] PRN Reason: Protocol Last Admin: 11/15/16 07:56 Dose: Not Given Losartan Potassium (Cozaar Tab*) 50 mg PO 1200 [facility] Last Admin: 11/14/16 12:04 Dose: 50 mg Magnesium Oxide (Magox 400 Tab*) 800 mg PO BID [facility] Last Admin: 11/15/16 08:27 Dose: 800 mg Metoprolol Tartrate (Lopressor Tab*) 25 mg PO BID [facility] Last Admin: 11/15/16 08:27 Dose: 25 mg Mometasone Furoate/Formoterol Fumar (Dulera 200/5 Mdi*) 2 puff INH BID [facility] Last Admin: 11/15/16 08:05 Dose: 2 puff Morphine Sulfate (Morphine Inj (Syringe)*) 4 mg IV Q4H PRN PRN Reason: PAIN - MILD Last Admin: 11/15/16 03:48 Dose: 4 mg Multivitamins ( Vitamin Tab*) 1 tab PO DAILY [facility] Last Admin: 11/15/16 08:26 Dose: 1 tab Oxycodone/Acetaminophen (Percocet 5/325 Tab*) 1 tab PO Q4H PRN PRN Reason: PAIN Last Admin: 11/13/16 19:55 Dose: 1 tab Pantoprazole Sodium (Protonix Iv*) 40 mg IV Q24H [facility] Last Admin: 11/15/16 03:49 Dose: 40 mg Polyethylene Glycol/Electrolytes (Miralax*) 17 gm PO DAILY [facility] Last Admin: 11/15/16 08:26 Dose: 17 gm Potassium Chloride (Klor Con Er Tab*) 20 meq PO DAILY [facility] Last Admin: 11/15/16 08:26 Dose: 20 meq Rivaroxaban (Xarelto (*)) 20 mg PO DAILY [facility] Last Admin: 11/15/16 08:27 Dose: 20 mg Sertraline HCl (Zoloft*) 75 mg PO DAILY [facility] Last Admin: 11/15/16 08:26 Dose: 75 mg Tamsulosin HCl (Flomax Cap*) 0.4 mg PO BEDTIME [facility] Last Admin: 11/14/16 21:45 Dose: 0.4 mg Vital Signs: Temp Pulse Resp BP Pulse Ox 97.7 F 62 16 137/67 96 11/15/16 07:17 11/15/16 08:06 11/15/16 08:06 11/15/16 07:17 11/15/16 08:06 Oxygen Devices in Use Now: None Appearance: Mildly uncomfortable appearing elderly gentleman Neck: NL Appearance and Movements; NL JVP Respiratory: Symmetrical Chest Expansion and Respiratory Effort, Clear to Auscultation Cardiovascular: NL Sounds; No Murmurs; No JVD, RRR Abdominal: - - distended, TTP in upper quadrants and epigastrum, bowel sounds present but quiet Extremities: No Edema Skin: No Rash or Ulcers Neurological: Alert and Oriented x 3 Result Diagrams: 11/15/16 05:38 11/15/16 05:38 Microbiology and Other Data: Microbiology 11/15/16 09:30 Stool Gross Appearance - Final Stool 11/15/16 09:30 Stool Gross Appearance - Final Stool Diagnostic Imaging: CXR - NAD CT abd/pelvis - No acute pathology, Rivero balloon within the urethra with slightly distended bladder Assess/Plan/Problems-Billing Assessment: Mr. Yip is a 71 yo male with a PMH of afib, CAD, DM, HTN, GERD, eosinophilic esophagitis, obesity, BPH, SVT, TIA, DDD, PE, and retroperitoneal hematoma who presented to the ED on 11/12 with concern for abd pain and n/v/d. - Patient Problems (1) Nausea, vomiting, and diarrhea Comment: Suspect gastroenteritis Report of bloody stools at home, though none here Stool studies pending Continue supportive care Will obtain KUB d/t persistent pain and distention (2) UTI (urinary tract infection) Comment: With chronic indwelling Rivero catheter ESBL Ecoli growing on culture Good AYAD to Meropenem sensitive to Augmentin, but AYAD high Plan to cont Meropenem Appreciated ID consult (3) Urinary retention Comment: Chronic Secondary to BPH with chronic indwelling Rivero catheter (4) Afib Comment: Rate controlled. Continue metoprolol. Chronically anticoagulated with Xarelto (5) GERD (gastroesophageal reflux disease) Comment: He is quite tender in the epigastrum Cont IV protonix at this time (6) Cardiomyopathy Comment: No acute exacerbation EF last measured at 45-50% (7) Coronary artery disease Comment: Stable Continue metoprolol and atorvastatin. (8) Depression Comment: Continue zoloft. (9) Eosinophil count raised Comment: This appears to be chronic Unsure of any outpatient workup that may have occured (10) HLD (hyperlipidemia) Comment: Continue atorvastatin. (11) Hypertension Comment: Normotensive. Continue metoprolol and Losartan. Hold home furosemide in acute illness, n/v. (12) Obesity Comment: BMI 43 (13) Type II diabetes mellitus Comment: BG well controlled. Continue Lantus and lispro SSI coverage. Status and Disposition: Patient remains quite symptomatic and requires continued hospital care. Inpatient. Will discuss length of IV abx with Dr Nunn
[2016-11-15] MEDS: Losartan TAB* 25 MG PO SCH (12:06)
[2016-11-15] MEDS: HYDROcodone/ACETAMIN 5-325 MG* 1 TAB PO PRN (12:06)
--- NOTE | 2016-11-15 14:29 | RAD ---
INDICATION: Abdominal pain and distention evaluate for small bowel obstruction. COMPARISON: Comparison is made with the prior CT of the abdomen and pelvis from November 13, 2016. TECHNIQUE: Frontal supine films of the abdomen were obtained. FINDINGS: There is a paucity of air within the small bowel. The stomach and colon appear nondistended. There is a small amount of residual contrast in the descending and sigmoid colon from the prior CT study. There are vascular calcifications which project over the pelvis. IMPRESSION: NO EVIDENCE FOR OBSTRUCTION.
[2016-11-15] MEDS ORDERED: Piperac/Tazob 3.375 gm in NS* 3.375 GM/100 ML BAG IVPB ONE (17:00)
[2016-11-15] MEDS: Tamsulosin CAP* 0.4 MG PO SCH (21:18)
[2016-11-15] MEDS: Atorvastatin* 20 MG TAB PO SCH (21:18)
[2016-11-15] MEDS: Piperac/Tazob 3.375 gm in NS* 3.375 GM/100 ML BAG IVPB SCH (21:19)
[2016-11-15] MEDS: Insulin GLARGINE(*) 1 UNITS UNIT SUBCUT SCH (21:27)
[2016-11-16] MEDS: oxyCODONE/Acetamin 5/325 MG* TAB PO PRN (02:14)
[2016-11-16] MEDS: Piperac/Tazob 3.375 gm in NS* 3.375 GM/100 ML BAG IVPB SCH (04:51)
[2016-11-16] MEDS: Pantoprazole IV* 40 MG IV SCH (04:51)
[2016-11-16] MEDS: Insulin LISPRO* 1 UNITS UNIT SUBCUT SCH ×2 (07:42→11:55)
[2016-11-16] MEDS: Calcium Carbonate CHEW TAB* 500 MG (TUMS) PO SCH (07:43)
[2016-11-16] MEDS: Ferrous Sulfate TAB* 325 MG PO SCH (07:43)
[2016-11-16] MEDS: Rivaroxaban TAB(*) 20 MG TAB PO SCH (07:43)
[2016-11-16] MEDS: Prenatal Vitamin TAB PO SCH (07:44)
[2016-11-16] MEDS: Magnesium Oxide TAB* 400 MG PO SCH (07:44)
[2016-11-16] MEDS: Potassium Chlor TAB* 20 MEQ TAB.ER PO SCH (07:44)
[2016-11-16] MEDS: HYDROcodone/ACETAMIN 5-325 MG* 1 TAB PO PRN (07:44)
[2016-11-16] MEDS: Finasteride TAB* 5 MG PO SCH (07:44)
[2016-11-16] MEDS: Sertraline* 25 MG TAB PO SCH (07:44)
[2016-11-16] MEDS: Metoprolol Tartrate TAB* 25 MG PO SCH (07:44)
[2016-11-16] MEDS: Mometasone/Formoter 200/5 MDI INH SCH (08:32)
[2016-11-16] MEDS: Polyethylene Glycol 3350* 17 GM PACKET PO SCH (08:47)
[2016-11-16 11:36] VITALS: BP 109/61
[2016-11-16] MEDS: Losartan TAB* 25 MG PO SCH (12:10)
--- NOTE | 2016-11-17 01:00 | DS ---
DISCHARGE SUMMARY: DATE OF ADMISSION: 11/12/16 DATE OF DISCHARGE: 11/16/16 PRIMARY CARE PROVIDER: Ivonne Cotton MD CONSULTING INFECTIOUS DISEASE SPECIALIST: Daniel Nunn MD DISCHARGING PROVIDER: ARIANNA Lancaster SUPERVISING PHYSICIAN: Ema Overton MD * (DICTATED BY ARIANNA LANCASTER) PRIMARY DISCHARGE DIAGNOSES: 1. Urinary tract infection secondary to ESBL producing E. coli. 2. Viral gastroenteritis. SECONDARY DISCHARGE DIAGNOSES: 1. Chronic urinary retention with indwelling Rivero catheter secondary to benign prostatic hypertrophy. 2. Atrial fibrillation chronically anticoagulated with Xarelto. 3. Gastroesophageal reflux disease. 4. Cardiomyopathy without acute exacerbation with last EF measured at 45% to 50 %. 5. Coronary artery disease. 6. Depression. 7. Eosinophilia of unknown etiology - chronic. 8. Hyperlipidemia. 9. Hypertension. 10. Morbid obesity with a BMI of 43. 11. Insulin-dependent diabetes, controlled. DISCHARGE MEDICATIONS: 1. Nebulized albuterol inhaled q.4 hours as needed for shortness of breath. 2. Augmentin 875/125 p.o. b.i.d. x7 days. 3. Lipitor 20 mg p.o. at bedtime. 4. Docusate 100 mg p.o. b.i.d. 5. Trulicity 0.75 mg subcu weekly. 6. Ferrous sulfate 325 mg p.o. daily. 7. Finasteride 5 mg p.o. daily. 8. Advair 1 puff inhaled twice daily. 9. Lasix 20 mg p.o. daily. 10. Vicodin 1 tablet p.o. q.6 hours as needed for pain. 11. Lantus 25 units subcu daily. 12. Losartan 50 mg p.o. daily. 13. Magnesium oxide 800 mg p.o. twice daily. 14. Metoprolol tartrate 25 mg p.o. twice daily. 15. Multivitamin 1 tablet p.o. daily. 16. Omeprazole 20 mg p.o. twice daily. 17. MiraLAX 17 g p.o. daily. 18. Potassium chloride 20 mEq p.o. daily. 19. Xarelto 20 mg p.o. daily. 20. Senna 8.6 mg p.o. at bedtime as needed for constipation. 21. Zoloft 75 mg p.o. daily. 22. Sucralfate 1 g p.o. t.i.d. with meals. 23. Flomax 0.4 mg p.o. at bedtime. 24. Metformin 1000 mg p.o. twice daily. 25. Oxycodone 5/325 one tablet p.o. q.4 hours as needed for pain. MEDICATION CHANGES: 1. Discontinue ciprofloxacin. 2. Start Augmentin x7 days. HOSPITAL IMAGIN. CT of the abdomen and pelvis, 11/12/16, demonstrates no acute intra- abdominal pathology. The Rivero catheter balloon, however, was within the urethra rather than the urinary bladder, and he had a mildly distended urinary bladder. Left adrenal myelolipoma noted, which is unchanged from prior. 2. Chest x-ray, 11/12/16, shows cardiomegaly without evidence of acute process. 3. Abdominal x-ray, 11/15/16, shows no evidence of obstruction. HOSPITAL COURSE: This is a 71-year-old gentleman with an extensive medical history and multiple prior hospital admissions who presented to the emergency department with complaints of abdominal pain, nausea, vomiting and diarrhea. He states that he had the large bloody bowel movement at home, which prompted him to contact EMS for transport to the emergency room. Symptoms had started rather suddenly just prior to admission. Denied any recent sick contacts. DIAGNOSTIC STUDIES/LAB DATA: Initial labs demonstrated mild leukocytosis with a white blood cell count of 12,200. Remainder of CBC was unremarkable. Comprehensive metabolic panel was also unremarkable with a normal lactic acid of 1.2. CT of the abdomen and pelvis was performed, which did not demonstrate any acute intra-abdominal pathology, but did demonstrate that his catheter balloon had migrated into the urethra, and his bladder was noted to be moderately distended. His urinalysis was positive for blood as well as positive for nitrites and 3+ white blood cells and 1+ bacteria. The patient has a known history of ESBL producing E. coli and the patient was subsequently empirically started on meropenem for suspected ESBL positive urinary tract infection. The patient continued to complain of abdominal pain, but his vomiting improved. He did have one additional episode of diarrhea, which was not grossly bloody, sent to the labs for analysis. He was negative for C. diff. Positive for lactoferrin and blood. Ova and parasite screenings still pending at the time of discharge. The patient was continued on supportive care measures with the assumption that his GI complaints were secondary to viral gastroenteritis. His abdominal pain and discomfort was not in the lower abdomen as would be expected if it were all related to his urinary tract infection. Rather, it was mostly epigastric and kind of in both flank regions. His abdominal pain improved slightly throughout his hospital stay and his appetite returned back to normal. Sensitivities returned on urine culture confirming an ESBL producing E. coli. He was sensitive to both Zosyn and Augmentin. Meropenem was discontinued in favor for Zosyn and the patient will be discharged with Augmentin for continued treatment of his urinary tract infection. DISPOSITION: The patient is being discharged to home with Augmentin x7 days as described above. Recommend close followup with his primary care provider regarding this hospitalization. ARIANNA LANCASTER CC: Ivonne Cotton MD* [id number]/[facility] #: [id number] CAMMIE
== END 2016-11-16 12:20 | disposition home or self-care (01) | DRG 699 ==
LOC: ED 21:04 → MED 11-13 03:47 → OBSVTOIN 11-14 09:44
PROVIDERS: ADMIT Internal Medicine; ATTEND Internal Medicine
PROC: 0T2BX0Z Change Drainage Device in Bladder, External Approach (ICD-10-PCS; principal; 2016-11-13)
DX: T83.518A Infection and inflammatory reaction due to other urinary catheter, initial encounter (principal); I42.9 Cardiomyopathy, unspecified; D72.1 Eosinophilia; Z68.41 Body mass index [BMI] 40.0-44.9, adult; I11.0 Hypertensive heart disease with heart failure; I50.9 Heart failure, unspecified; I48.91 Unspecified atrial fibrillation; N39.0 Urinary tract infection, site not specified; G43.909 Migraine, unspecified, not intractable, without status migrainosus; A08.4 Viral intestinal infection, unspecified; F32.9 Major depressive disorder, single episode, unspecified; I25.10 Atherosclerotic heart disease of native coronary artery without angina pectoris; E11.9 Type 2 diabetes mellitus without complications; E78.5 Hyperlipidemia, unspecified; E78.00 Pure hypercholesterolemia, unspecified; J45.909 Unspecified asthma, uncomplicated; K21.9 Gastro-esophageal reflux disease without esophagitis; G89.29 Other chronic pain; M19.90 Unspecified osteoarthritis, unspecified site; F70 Mild intellectual disabilities; F41.0 Panic disorder [episodic paroxysmal anxiety]; F40.240 Claustrophobia; Z66 Do not resuscitate; N40.1 Benign prostatic hyperplasia with lower urinary tract symptoms; R33.9 Retention of urine, unspecified; R10.9 Unspecified abdominal pain; T83.028A Displacement of other urinary catheter, initial encounter; Y73.1 Therapeutic (nonsurgical) and rehabilitative gastroenterology and urology devices associated with adverse incidents; E66.01 Morbid (severe) obesity due to excess calories; B96.29 Other Escherichia coli [E. coli] as the cause of diseases classified elsewhere; D17.79 Benign lipomatous neoplasm of other sites; Z88.8 Allergy status to other drugs, medicaments and biological substances; Z91.013 Allergy to seafood; Z86.711 Personal history of pulmonary embolism; I25.2 Old myocardial infarction; Z87.01 Personal history of pneumonia (recurrent); Z87.442 Personal history of urinary calculi; Z95.5 Presence of coronary angioplasty implant and graft; Z95.1 Presence of aortocoronary bypass graft; Z82.49 Family history of ischemic heart disease and other diseases of the circulatory system; Z83.3 Family history of diabetes mellitus; Z86.73 Personal history of transient ischemic attack (TIA), and cerebral infarction without residual deficits; Y92.9 Unspecified place or not applicable; Z79.4 Long term (current) use of insulin; Z79.01 Long term (current) use of anticoagulants
CPT/HCPCS: 36415; 71010; 74000; 74177; 80048; 80053; 81003; 81015; 82272; 83605; 83630; 83690; 83880; 85014; 85018; 85025; 85610; 85730; 86850; 86900; 86901; 87045; 87046; 87077; 87086; 87177; 87186; 87209; 87328; 87329; 87493; 87899; 94640; 94760; 96374; A9270-GY; G0378; J2185; J2270; J2405; J2543; Q9967

== ENCOUNTER 2016-11-26 17:01 | Emergency (ER) | payer MEDICARE, MEDICAID ==
[2016-11-26] MEDS ORDERED: Ondansetron INJ* 2 MG/ML VIAL IV ONE (17:20)
[2016-11-26] MEDS: NS 0.9% 1000 ML* 2,000 ML IV ONE (17:28)
[2016-11-26 17:39] LABS: Hematocrit 42 % (42-52); Hemoglobin 13.5 g/dl (14.0-18.0); Mean Corpuscular HGB Conc 33 g/dl (31-36); Mean Corpuscular Hemoglobin 27 pg (27-31); Mean Corpuscular Volume 83 fL (80-94); Mean Platelet Volume 8 um3 (7.4-10.4); Red Blood Count 5.03 10^6/ul (4.0-5.4); Red Cell Distribution Width 17 % (10.5-15); White Blood Count 8.9 10^3/ul (3.5-10.8)
[2016-11-26 17:40] LABS: Add Diff/Slide Review? Slide Review Added; Comments Flag Yes
[2016-11-26 17:54] LABS: Albumin 3.6 g/dL (3.2-5.2); BUN/Creatinine Ratio 20.4 (8-20); C Reactive Protein 9.79 mg/L (< 5.00); Calcium 9.4 mg/dL (8.6-10.3); EGFR African American 96.7 (>60); EGFR Non-African American 75.2 (>60); Potassium 4.1 mmol/L (3.5-5.0); Total Bilirubin 0.4 mg/dL (0.2-1.0); Total Protein 6.6 g/dL (6.4-8.9)
[2016-11-26] MEDS ORDERED: Iodixanol* (CONTRAST) 320 MG/ML 100 ML SDV IV ONE (18:28)
--- NOTE | 2016-11-26 20:07 | RAD ---
CLINICAL HISTORY: Flulike symptoms and abdominal pain. Relevant surgical history includes "stents x3" and hernia repair x2. COMPARISON: Most recent comparison CT examination is dated November 13, 2016 TECHNIQUE: Contrast enhanced CT examination of the abdomen and pelvis from the lung bases through the initial tuberosities. The patient received 100 mL Visipaque 320 intravenously prior to imaging.The patient received oral contrast as well prior to imaging. FINDINGS: VISUALIZED LUNG BASES: There is moderate cardiomegaly. Again seen is left-sided pleural thickening. Since the previous CT of the abdomen there is been development of a 1.1 cm subpleural nodule. ABDOMEN AND PELVIS: The liver, spleen and pancreas are grossly normal in appearance. Again seen is a 7 mm hypoattenuating focus in the left adrenal gland has not changed significantly since at least the September 19, 2014 CT examination. The gallbladder is normal. The kidneys are normal in appearance without focal mass, calcification or signs of hydronephrosis. The oral contrast has progressed as far as the distal small bowel. The small and large bowel are not distended. The patient's normal appendix is identified in the right lower quadrant measuring 6 mm in diameter (image 71). Gas and stool seen throughout the length of the colon. There is no definite pericolonic inflammatory change. There is no gross retroperitoneal or mesenteric lymphadenopathy. The prostate measures 4.5 x 5.5 cm in the axial plane and up to 6 cm in the cephalocaudal projection. The prostate gland is seen extending into the base of the urinary bladder. There appears to be a Rivero catheter balloon inflated in the base of the penile urethra (image 105 of [phone]). There is a moderate-sized fat-containing left-sided inguinal hernia. There is coarse atherosclerotic calcification of the infrarenal abdominal aorta with coarse calcification extending into the iliac arteries. Coarse atherosclerotic calcification is seen at the origin of the celiac trunk and superior mesenteric artery. In the superior mesenteric artery calcified atherosclerosis extends into the proximal portion of the artery. Degenerative changes include multilevel loss of intervertebral disc height involving the lower thoracic and lumbar spine as well as anterior bridging osteophytes at the lower thoracic spine..There are no sinister bone lesions. IMPRESSION: 1. No acute inflammatory change or evidence of obstruction involving the gastrointestinal tract. 2. Interval appearance of a 1.1 cm subpleural nodule in the dependent portion of the left lower lobe which is new since the 2316 CT examination. The time course of this nodule favors round atelectasis versus inflammatory change as opposed to a neoplastic etiology. 3. The balloon of the patient's Rivero catheter appears to be inflated in the base of the penile urethra. Please correlate to physical exam and urine output of the Rivero catheter. 4. Additional chronic and degenerative changes are described in the body the report. The location of the Rivero catheter balloon was reported to Dr. Ospina over the telephone at 2000 hours on November 26, 2016.
--- NOTE | 2016-11-26 22:18 | ED ---
Asael Osei Billy, scribed for Kevin Ospina MD on 11/26/16 at 1718 . Abdominal Pain/Male - HPI Summary HPI Summary: Patient is a 71 year-old male coming to [facility] for evaluation of diffuse abdominal pain and N/V/D. He describes cramping and sharp pains. Patient has had 4 episodes of watery diarrhea today. He also has subjective fevers and chills. Denies any blood in the stool. He was seen in the ED 2 weeks ago for similar symptoms and was admitted to the hospital overnight. He was discharged with a diagnosis of UTI and viral gastroenteritis. He states that the symptoms have not improved in the last 2 weeks despite antibiotics. - History of Current Complaint Chief Complaint: EDNauseaVomitDiarrh Stated Complaint: FLU LIKE SYMPTOMS Time Seen by Provider: 11/26/16 17:08 Hx Obtained From: Patient Onset/Duration: Gradual Onset, Lasting Weeks Timing: Constant Severity Initially: Moderate Severity Currently: Moderate Location: Diffuse Radiates: No Character: Sharp, Cramping Aggravating Factor(s): Nothing Alleviating Factor(s): Nothing Associated Signs And Symptoms: Positive: Fever, Nausea, Vomiting, Diarrhea, Other - chills - Allergies/Home Medications Allergies/Adverse Reactions: Allergies Allergy/AdvReac Type Severity Reaction Status Date / Time Shellfish Allergy Allergy Severe Difficulty Verified 11/12/16 21:19 Breathing Povidone Iodine Allergy Intermediate Rash Verified 11/12/16 21:19 [From Betadine] PMH/Surg Hx/FS Hx/Imm Hx Endocrine/Hematology History: Reports: Hx Anticoagulant Therapy, Hx Diabetes - II, Hx Anemia, Other Endocrine/Hematological Disorders - Eosinophilia Denies: Hx Blood Disorders, Hx Blood Transfusions, Hx Systemic Lupus Erythematosus, Hx Thyroid Disease Cardiovascular History: Reports: Hx Angina, Hx Congestive Heart Failure, Hx Coronary Artery Disease, Hx Embolism, Hx Hypercholesterolemia, Hx Hypertension, Hx Myocardial Infarction - x2, Other Cardiovascular Problems/Disorders - Cardiomyopathy Denies: Hx Deep Vein Thrombosis, Hx Pacemaker/ICD Respiratory History: Reports: Hx Asthma, Hx Pneumonia, Hx Pulmonary Edema, Hx Pulmonary Embolism, Other Respiratory Problems/Disorders - PE'S Denies: Hx Chronic Obstructive Pulmonary Disease (COPD), Hx Lung Cancer GI History: Reports: Hx Gastroesophageal Reflux Disease, Hx Hiatal Hernia, Other GI Disorders - chronic abdominal pain Denies: Hx Gall Bladder Disease, Hx Gastrointestinal Bleed, Hx Ulcer, Hx Urosepsis History: Reports: Hx Acute Renal Failure, Hx Benign Prostatic Hyperplasia, Hx Kidney Stones Denies: Hx Dialysis, Hx Renal Disease, Other Problems/Disorders Musculoskeletal History: Reports: Hx Back Problems, Other Musculoskeletal History - OBESITY, DJD Denies: Hx Rheumatoid Arthritis Sensory History: Reports: Hx Contacts or Glasses, Hx Vision Problem Denies: Hx Hearing Aid, Other Sensory Impairments Opthamlomology History: Reports: Hx Contacts or Glasses, Hx Vision Problem Denies: Other Sensory Impairments Neurological History: Reports: 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 hernia repair x 2;. rt knee cartlidge repair;. RIGHT ROTATOR CUFF ;. CABG Hx Anesthesia Reactions: No - Immunization History Date of Tetanus Vaccine: Unk Date of Influenza Vaccine: 05/13/14 Infectious Disease History: No Infectious Disease History: Denies: Hx Hepatitis, Hx Human Immunodeficiency Virus (HIV), Hx of Known/ Suspected MRSA, Hx Shingles, Hx Tuberculosis, History Other Infectious Disease, Traveled Outside the [place] in Last 30 Days - Family History Known Family History: Positive: Cardiac Disease - [place] mother and father, Diabetes - Social History Alcohol Use: None Hx Substance Use: No Substance Use Type: Reports: None Hx Tobacco Use: No Smoking Status (MU): Never Smoked Tobacco Review of Systems Positive: Fever, Chills Positive: Abdominal Pain, Vomiting, Diarrhea, Nausea All Other Systems Reviewed And Are Negative: Yes Physical Exam Triage Information Reviewed: Yes Vital Signs On Initial Exam: Initial Vitals Temp Pulse Resp BP Pulse Ox 97.6 F 66 16 119/62 95 11/26/16 17:03 11/26/16 17:03 11/26/16 17:03 11/26/16 17:03 11/26/16 17:03 Vital Signs Reviewed: Yes Appearance: Positive: Well-Appearing, No Pain Distress Skin: Positive: Warm, Skin Color Reflects Adequate Perfusion, Dry Head/Face: Positive: Normal Head/Face Inspection Eyes: Positive: EOMI, ARNOLD ENT: Positive: Normal ENT inspection Neck: Positive: Supple, Nontender Respiratory/Lung Sounds: Positive: Clear to Auscultation, Breath Sounds Present Cardiovascular: Positive: RRR Abdomen Description: Positive: Soft, Other: - Mild diffuse tenderness. Bowel Sounds: Positive: Hypoactive Musculoskeletal: Positive: Normal, Strength/ROM Intact Neurological: Positive: Normal, Sensory/Motor Intact, Alert, Oriented to Person Place, Time Psychiatric: Positive: Affect/Mood Appropriate Diagnostics - Vital Signs Vital Signs Temp Pulse Resp BP Pulse Ox 11/26/16 17:06 97.6 F 66 16 119/62 95 11/26/16 17:03 97.6 F 66 16 119/62 95 - Laboratory Lab Results: Lab Results 11/26/16 11/26/16 11/26/16 Range/Units 17:30 17:30 17:30 WBC 8.9 (3.5-10.8) 10^3/ul RBC 5.03 (4.0-5.4) 10^6/ul Hgb 13.5 L (14.0-18.0) g/dl Hct 42 (42-52) % MCV 83 (80-94) fL MCH 27 (27-31) pg MCHC 33 (31-36) g/dl RDW 17 H (10.5-15) % Plt Count 249 (150-450) 10^3/ul MPV 8 (7.4-10.4) um3 Neut % (Auto) 60.4 (38-83) % Lymph % (Auto) 9.9 L (25-47) % [place] % (Auto) 4.4 (1-9) % Eos % (Auto) 20.3 H (0-6) % Baso % (Auto) 5.0 H (0-2) % Absolute Neuts (auto) 5.4 (1.5-7.7) 10^3/ul Absolute Lymphs (auto) 0.9 L (1.0-4.8) 10^3/ul Absolute Monos (auto) 0.4 (0-0.8) 10^3/ul Absolute Eos (auto) 1.8 H (0-0.6) 10^3/ul Absolute Basos (auto) 0.4 H (0-0.2) 10^3/ul Absolute Nucleated RBC 0 10^3/ul Nucleated RBC % 0 INR (Anticoag Therapy) 1.63 H (0.89-1.11) APTT 34.6 (26.0-36.3) seconds Sodium 137 (133-145) mmol/L Potassium 4.1 (3.5-5.0) mmol/L Chloride 104 (101-111) mmol/L Carbon Dioxide 26 (22-32) mmol/L Anion Gap 7 (2-11) mmol/L BUN 20 (6-24) mg/dL Creatinine 0.98 (0.67-1.17) mg/dL Est GFR ( Amer) 96.7 (>60) Est GFR (Non-Af Amer) 75.2 (>60) BUN/Creatinine Ratio 20.4 H (8-20) Glucose 91 (70-100) mg/dL Lactic Acid (0.5-2.0) mmol/L Calcium 9.4 (8.6-10.3) mg/dL Total Bilirubin 0.40 (0.2-1.0) mg/dL AST 16 (13-39) U/L ALT 20 (7-52) U/L Alkaline Phosphatase 64 (34-104) U/L Total Creatine Kinase 76 (10-223) U/L CK-MB (CK-2) 4.3 (0.6-6.3) ng/mL C-Reactive Protein 9.79 H (< 5.00) mg/L B-Natriuretic Peptide ( - 100) pg/mL Total Protein 6.6 (6.4-8.9) g/dL Albumin 3.6 (3.2-5.2) g/dL Globulin 3.0 (2-4) g/dL Albumin/Globulin Ratio 1.2 (1-3) Lipase 19 (11.0-82.0) U/L 11/26/16 11/26/16 Range/Units 17:30 17:30 WBC (3.5-10.8) 10^3/ul RBC (4.0-5.4) 10^6/ul Hgb (14.0-18.0) g/dl Hct (42-52) % MCV (80-94) fL MCH (27-31) pg MCHC (31-36) g/dl RDW (10.5-15) % Plt Count (150-450) 10^3/ul MPV (7.4-10.4) um3 Neut % (Auto) (38-83) % Lymph % (Auto) (25-47) % [place] % (Auto) (1-9) % Eos % (Auto) (0-6) % Baso % (Auto) (0-2) % Absolute Neuts (auto) (1.5-7.7) 10^3/ul Absolute Lymphs (auto) (1.0-4.8) 10^3/ul Absolute Monos (auto) (0-0.8) 10^3/ul Absolute Eos (auto) (0-0.6) 10^3/ul Absolute Basos (auto) (0-0.2) 10^3/ul Absolute Nucleated RBC 10^3/ul Nucleated RBC % INR (Anticoag Therapy) (0.89-1.11) APTT (26.0-36.3) seconds Sodium (133-145) mmol/L Potassium (3.5-5.0) mmol/L Chloride (101-111) mmol/L Carbon Dioxide (22-32) mmol/L Anion Gap (2-11) mmol/L BUN (6-24) mg/dL Creatinine (0.67-1.17) mg/dL Est GFR ( Amer) (>60) Est GFR (Non-Af Amer) (>60) BUN/Creatinine Ratio (8-20) Glucose (70-100) mg/dL Lactic Acid 1.3 (0.5-2.0) mmol/L Calcium (8.6-10.3) mg/dL Total Bilirubin (0.2-1.0) mg/dL AST (13-39) U/L ALT (7-52) U/L Alkaline Phosphatase (34-104) U/L Total Creatine Kinase (10-223) U/L CK-MB (CK-2) (0.6-6.3) ng/mL C-Reactive Protein (< 5.00) mg/L B-Natriuretic Peptide 95 ( - 100) pg/mL Total Protein (6.4-8.9) g/dL Albumin (3.2-5.2) g/dL Globulin (2-4) g/dL Albumin/Globulin Ratio (1-3) Lipase (11.0-82.0) U/L Result Diagrams: 11/26/16 17:30 11/26/16 17:30 Lab Statement: Any lab studies that have been ordered have been reviewed, and results considered in the medical decision making process. - CT abd/pel CT Interpretation Completed By: Radiologist - 1. No acute inflammatory change or evidence of obstruction involving the gastrointestinal tract. 2. Interval appearance of a 1.1 cm subpleural nodule in the dependent portion of the left lower lobe which is new since the fourth 2316 CT examination. The time course of this nodule favors round atelectasis versus inflammatory change as opposed to a neoplastic etiology. 3. The balloon of the patient's Rivero catheter appears to be inflated in the base of the penile urethra. Please correlate to physical exam and urine output of the Rivero catheter. 4. Additional chronic and degenerative changes are described in the body the report. Abdominal Pain Fem Course/Dx - Course Course Of Treatment: NO CRITICAL CARE TIME Assessment/Plan: WHEN THE CATHETER WAS ADVANCED INTO THE BLADDER, URINE FLOW RETURNED AND THE PAIN WENT AWAY. RESULTS DICUSSED WITH PATIENT. A STOOL SAMPLE WAS SENT TO THE LAB; RESULTS ARE PENDING. DISCHARGE HOME STABLE. - Diagnoses Provider Diagnoses: Abdominal pain, Diarrhea, Urinary catheter dysfunction - Provider Notifications Discussed Care Of Patient With: Dr. Santana (radiology) at 1999: CT imaging results discussed. Discharge - Discharge Plan Condition: Stable Disposition: HOME Patient Education Materials: Acute Diarrhea (ED), Abdominal Pain (ED) Referrals: Ivonne Cotton MD [Primary Care Provider] - Additional Instructions: FOLLOW UP WITH YOUR DOCTOR. YOUR URINARY CATHETER BALLOON WAS IN YOUR URETHRA. WHEN THE CATHETER AND BALLOON WERE ADVANCED INTO THE BLADDER, URINE FLOW RESUMED AND YOU PAIN WENT AWAY. YOU HAVE A DIARRHEA SAMPLE IN THE LAB AND THE RESULTS ARE PENDING. RETURN TO THE EMERGENCY DEPARTMENT FOR ANY WORSENING OF YOUR CONDITION; PAIN, FEVER, YOU FEEL ILL OR QUESTIONS OR CONCERNS. The documentation as recorded by the Asael clifford Billy accurately reflects the service I personally performed and the decisions made by me, Kevin Ospina MD.
[2016-11-26 22:43] VITALS: BP 109/59
== END 2016-11-26 23:00 | disposition home or self-care (01) ==
LOC: ED 17:01
DX: R10.9 Unspecified abdominal pain (principal); R19.7 Diarrhea, unspecified; T83.098A Other mechanical complication of other urinary catheter, initial encounter; E11.9 Type 2 diabetes mellitus without complications; Z79.01 Long term (current) use of anticoagulants; I50.9 Heart failure, unspecified; I25.10 Atherosclerotic heart disease of native coronary artery without angina pectoris; I25.2 Old myocardial infarction; K21.9 Gastro-esophageal reflux disease without esophagitis; R62.50 Unspecified lack of expected normal physiological development in childhood; Z79.4 Long term (current) use of insulin; Y84.6 Urinary catheterization as the cause of abnormal reaction of the patient, or of later complication, without mention of misadventure at the time of the procedure; Y92.9 Unspecified place or not applicable
CPT/HCPCS: 36415; 74177; 80053; 82270; 82550; 82553; 83605; 83630; 83690; 83880; 85025; 85610; 85730; 86140; 87045; 87046; 87077; 87328; 87329; 87493; 87899; 99283; J2405; Q9967

== ENCOUNTER 2017-01-13 06:32 | Emergency (ER) | payer MEDICARE, MEDICAID ==
[2017-01-13] MEDS ORDERED: Ketorolac INJ* 30 MG/ML 1 ML VIAL IV ONE (07:21)
[2017-01-13 07:37] LABS: Hematocrit 42 % (42-52); Hemoglobin 13.4 g/dl (14.0-18.0); Mean Corpuscular HGB Conc 32 g/dl (31-36); Mean Corpuscular Hemoglobin 27 pg (27-31); Mean Corpuscular Volume 82 fL (80-94); Mean Platelet Volume 9 um3 (7.4-10.4); Red Blood Count 5.06 10^6/ul (4.0-5.4); Red Cell Distribution Width 17 % (10.5-15)
[2017-01-13 07:52] LABS: Potassium 4.1 mmol/L (3.5-5.0)
[2017-01-13 07:53] LABS: Albumin 3.5 g/dL (3.2-5.2); Calcium 8.5 mg/dL (8.6-10.3); EGFR African American 94.5 (>60); EGFR Non-African American 73.5 (>60); Globulin 2.8 g/dL (2-4); Total Bilirubin 0.3 mg/dL (0.2-1.0); Total Protein 6.3 g/dL (6.4-8.9)
[2017-01-13 07:55] LABS: Troponin I 0.03 ng/mL (<0.04)
--- NOTE | 2017-01-13 08:14 | RAD ---
Indication: Chest pain. Cardiomyopathy, congestive heart failure. Asthma. History of PE. Comparison: No relevant prior exams available on the [facility] [place] PACS for comparison. Technique: Sitting AP and lateral chest views. Report: Cardiomegaly. Mildly prominent and ill-defined central pulmonary vasculature. Mild prominence of the mid to lower lung zone interstitial markings. Grossly clear pleural spaces. Negative for pneumothorax. IMPRESSION: Cardiomegaly and probable mild interstitial edema.
[2017-01-13 12:17] VITALS: BP 102/55
--- NOTE | 2017-01-13 12:36 | ED ---
Maldonado Osei Auryana, scribed for Rickey Ramirez MD on 01/13/17 at 0731 . HPI Chest Pain - HPI Summary HPI Summary: 71 year old male BIBA with chest pain starting last night at 08:30 PM. Patient reports that the pain started suddenly last night while awake and continued intermittently- still present this morning at 06:00. The pain is characterized as a pressure. Patient also states that he "doesn't feel good all over". He denies any injuries. Chest pain is worse with touch, movement, and deep breaths and is unalleviated with ASA - 1 dose [employer]. PMHx is significant for [place], PE, cardiomyopathy, CHF, HTN, and HLD. - History of Current Complaint Chief Complaint: EDChestPainROMI Time Seen by Provider: 01/13/17 07:15 Hx Obtained From: Patient Onset/Duration: Started Days Ago - yesterday at 20:30, Still Present Time of Onset: 20:30 Timing: Constant Initial Severity: Mild Current Severity: Moderate Pain Intensity: 9 Pain Scale Used: 0-10 Numeric Chest Pain Location: Diffuse Character: Pressure/Squeezing Aggravating Factor(s): Movement, Deep Breaths, Other: - touch Associated Signs and Symptoms: Positive: Chest Pain, Other: - general illness - "doesn't feel good all over" - Additional Pertinent History Primary Care Physician: [id number] - Allergy/Home Medications Allergies/Adverse Reactions: Allergies Allergy/AdvReac Type Severity Reaction Status Date / Time Shellfish Allergy Allergy Severe Difficulty Verified 01/13/17 06:43 Breathing Povidone Iodine Allergy Intermediate Rash Verified 01/13/17 06:43 [From Betadine] Home Medications: Home Medications Acetaminophen [Acetaminophen Extra Stren] 1,000 mg PO BID PRN 01/13/17 [History Confirmed 01/13/17] Oxybutynin XL TAB* [Ditropan Xl TAB*] 10 mg PO DAILY 01/13/17 [History Confirmed 01/13/17] PMH/Surg Hx/FS Hx/Imm Hx Endocrine/Hematology History: Reports: Hx Anticoagulant Therapy, Hx Diabetes - II, Hx Anemia, Other Endocrine/Hematological Disorders - Eosinophilia Denies: Hx Blood Disorders, Hx Blood Transfusions, Hx Systemic Lupus Erythematosus, Hx Thyroid Disease Cardiovascular History: Reports: Hx Angina, Hx Congestive Heart Failure, Hx Coronary Artery Disease, Hx Embolism, Hx Hypercholesterolemia, Hx Hypertension, Hx Myocardial Infarction - x2, Other Cardiovascular Problems/Disorders - Cardiomyopathy Denies: Hx Deep Vein Thrombosis, Hx Pacemaker/ICD Respiratory History: Reports: Hx Asthma, Hx Pneumonia, Hx Pulmonary Edema, Hx Pulmonary Embolism, Other Respiratory Problems/Disorders - PE'S Denies: Hx Chronic Obstructive Pulmonary Disease (COPD), Hx Lung Cancer GI History: Reports: Hx Gastroesophageal Reflux Disease, Hx Hiatal Hernia, Other GI Disorders - chronic abdominal pain Denies: Hx Gall Bladder Disease, Hx Gastrointestinal Bleed, Hx Ulcer, Hx Urosepsis History: Reports: Hx Acute Renal Failure, Hx Benign Prostatic Hyperplasia, Hx Kidney Stones Denies: Hx Dialysis, Hx Renal Disease, Other Problems/Disorders Musculoskeletal History: Reports: Hx Back Problems, Other Musculoskeletal History - OBESITY, DJD Denies: Hx Rheumatoid Arthritis Sensory History: Reports: Hx Contacts or Glasses, Hx Vision Problem Denies: Hx Hearing Aid, Other Sensory Impairments Opthamlomology History: Reports: Hx Contacts or Glasses, Hx Vision Problem Denies: Other Sensory Impairments Neurological History: Reports: 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 hernia repair x 2;. rt knee cartlidge repair;. RIGHT ROTATOR CUFF ;. CABG Hx Anesthesia Reactions: No - Immunization History Date of Tetanus Vaccine: Unk Date of Influenza Vaccine: 05/13/14 Infectious Disease History: No Infectious Disease History: Denies: Hx Hepatitis, Hx Human Immunodeficiency Virus (HIV), Hx of Known/ Suspected MRSA, Hx Shingles, Hx Tuberculosis, History Other Infectious Disease, Traveled Outside the [place] in Last 30 Days - Family History Known Family History: Positive: Cardiac Disease - [place] mother and father, Diabetes - Social History Occupation: Disabled Lives: Alone Alcohol Use: None Hx Substance Use: No Substance Use Type: Reports: None Hx Tobacco Use: No Smoking Status (MU): Never Smoked Tobacco Review of Systems Positive: Other - general illness - doesn't feel good all over. Negative: Fever Eyes: Negative ENT: Negative Positive: Chest Pain Respiratory: Negative Gastrointestinal: Negative Genitourinary: Negative Musculoskeletal: Negative Skin: Negative Neurological: Negative Psychological: Normal All Other Systems Reviewed And Are Negative: Yes Physical Exam Triage Information Reviewed: Yes Vital Signs On Initial Exam: Initial Vitals Temp Pulse Resp BP Pulse Ox 97.3 F 62 16 126/72 97 01/13/17 06:32 01/13/17 06:32 01/13/17 06:32 01/13/17 06:32 01/13/17 06:32 Vital Signs Reviewed: Yes Appearance: Positive: Well-Appearing, No Pain Distress, Obese Skin: Positive: Warm, Skin Color Reflects Adequate Perfusion, Dry Head/Face: Positive: Normal Head/Face Inspection Eyes: Positive: Normal ENT: Positive: Normal ENT inspection Neck: Positive: Supple, Nontender Respiratory/Lung Sounds: Positive: Clear to Auscultation, Breath Sounds Present Cardiovascular: Positive: RRR, Pulses are Symmetrical in both Upper and Lower Extremities, Other - tenderness of the left anteriorlateral chest wall Abdomen Description: Positive: Nontender, Soft Bowel Sounds: Positive: Present Musculoskeletal: Positive: Normal, Strength/ROM Intact Neurological: Positive: Normal Psychiatric: Positive: Normal, Affect/Mood Appropriate Diagnostics - Vital Signs Vital Signs Temp Pulse Resp BP Pulse Ox 01/13/17 06:35 97.3 F 62 16 126/72 97 01/13/17 06:32 97.3 F 62 16 126/72 97 - Laboratory Lab Results: Lab Results 01/13/17 01/13/17 01/13/17 Range/Units 06:45 06:45 06:45 WBC 7.0 (3.5-10.8) 10^3/ul RBC 5.06 (4.0-5.4) 10^6/ul Hgb 13.4 L (14.0-18.0) g/dl Hct 42 (42-52) % MCV 82 (80-94) fL MCH 27 (27-31) pg MCHC 32 (31-36) g/dl RDW 17 H (10.5-15) % Plt Count 199 (150-450) 10^3/ul MPV 9 (7.4-10.4) um3 Neut % (Auto) 50.8 (38-83) % Lymph % (Auto) 18.5 L (25-47) % [place] % (Auto) 7.3 (1-9) % Eos % (Auto) 22.3 H (0-6) % Baso % (Auto) 1.1 (0-2) % Absolute Neuts (auto) 3.5 (1.5-7.7) 10^3/ul Absolute Lymphs (auto) 1.3 (1.0-4.8) 10^3/ul Absolute Monos (auto) 0.5 (0-0.8) 10^3/ul Absolute Eos (auto) 1.6 H (0-0.6) 10^3/ul Absolute Basos (auto) 0.1 (0-0.2) 10^3/ul Absolute Nucleated RBC 0.01 10^3/ul Nucleated RBC % 0.1 Sodium 138 (133-145) mmol/L Potassium 4.1 (3.5-5.0) mmol/L Chloride 106 (101-111) mmol/L Carbon Dioxide 25 (22-32) mmol/L Anion Gap 7 (2-11) mmol/L BUN 12 (6-24) mg/dL Creatinine 1.00 (0.67-1.17) mg/dL Est GFR ( Amer) 94.5 (>60) Est GFR (Non-Af Amer) 73.5 (>60) BUN/Creatinine Ratio 12.0 (8-20) Glucose 103 H (70-100) mg/dL Lactic Acid 1.6 (0.5-2.0) mmol/L Calcium 8.5 L (8.6-10.3) mg/dL Total Bilirubin 0.30 (0.2-1.0) mg/dL AST 15 (13-39) U/L ALT 14 (7-52) U/L Alkaline Phosphatase 58 (34-104) U/L Troponin I 0.03 (<0.04) ng/mL Total Protein 6.3 L (6.4-8.9) g/dL Albumin 3.5 (3.2-5.2) g/dL Globulin 2.8 (2-4) g/dL Albumin/Globulin Ratio 1.3 (1-3) // Range/Units 11:30 WBC (3.5-10.8) 10^3/ul RBC (4.0-5.4) 10^6/ul Hgb (14.0-18.0) g/dl Hct (42-52) % MCV (80-94) fL MCH (27-31) pg MCHC (31-36) g/dl RDW (10.5-15) % Plt Count (150-450) 10^3/ul MPV (7.4-10.4) um3 Neut % (Auto) (38-83) % Lymph % (Auto) (25-47) % [place] % (Auto) (1-9) % Eos % (Auto) (0-6) % Baso % (Auto) (0-2) % Absolute Neuts (auto) (1.5-7.7) 10^3/ul Absolute Lymphs (auto) (1.0-4.8) 10^3/ul Absolute Monos (auto) (0-0.8) 10^3/ul Absolute Eos (auto) (0-0.6) 10^3/ul Absolute Basos (auto) (0-0.2) 10^3/ul Absolute Nucleated RBC 10^3/ul Nucleated RBC % Sodium (133-145) mmol/L Potassium (3.5-5.0) mmol/L Chloride (101-111) mmol/L Carbon Dioxide (22-32) mmol/L Anion Gap (2-11) mmol/L BUN (6-24) mg/dL Creatinine (0.67-1.17) mg/dL Est GFR ( Amer) (>60) Est GFR (Non-Af Amer) (>60) BUN/Creatinine Ratio (8-20) Glucose (70-100) mg/dL Lactic Acid (0.5-2.0) mmol/L Calcium (8.6-10.3) mg/dL Total Bilirubin (0.2-1.0) mg/dL AST (13-39) U/L ALT (7-52) U/L Alkaline Phosphatase (34-104) U/L Troponin I 0.03 (<0.04) ng/mL Total Protein (6.4-8.9) g/dL Albumin (3.2-5.2) g/dL Globulin (2-4) g/dL Albumin/Globulin Ratio (1-3) Result Diagrams: 01/13/17 06:45 01/13/17 06:45 Lab Statement: Any lab studies that have been ordered have been reviewed, and results considered in the medical decision making process. - Radiology CXR Xray Interpretation: Positive (See Comments) - IMPRESSION: Cardiomegaly and probable mild interstitial edema. Radiology Interpretation Completed By: Radiologist - EKG 06:45 EKG Rhythm: Atrial Flutter EKG Interpretation: atrial flutter Chest Pain Course/Dx - Course Course Of Treatment: Mr. Yip presented with about 24 hours of a reproducible chest pain. His W/U including two troponins, was negative. - Diagnoses Provider Diagnoses: Chest pain Discharge - Discharge Plan Condition: Stable Disposition: HOME Patient Education Materials: Chest Pain (ED) Referrals: Ivonne Cotton MD [Primary Care Provider] - 3 Days The documentation as recorded by the Maldonado clifford Auryana accurately reflects the service I personally performed and the decisions made by me, Rickey Ramirez MD.
== END 2017-01-13 12:17 | disposition home or self-care (01) ==
LOC: ED 06:32
DX: R07.9 Chest pain, unspecified (principal); I48.92 Unspecified atrial flutter; E11.9 Type 2 diabetes mellitus without complications; Z79.01 Long term (current) use of anticoagulants; I50.9 Heart failure, unspecified; I25.10 Atherosclerotic heart disease of native coronary artery without angina pectoris; E78.00 Pure hypercholesterolemia, unspecified; I10 Essential (primary) hypertension; I25.2 Old myocardial infarction; I42.9 Cardiomyopathy, unspecified
CPT/HCPCS: 36415; 71020; 80053; 83605; 84484; 85025; 93005; 99283; J1885

== ENCOUNTER 2017-03-26 10:47 | Emergency (ER) | payer MEDICARE, MEDICAID ==
[2017-03-26] MEDS ORDERED: Aspirin Low Dose CHEW TAB* 81 MG PO ONE (11:25)
[2017-03-26 11:40] LABS: Hematocrit 42 % (42-52); Hemoglobin 13.7 g/dl (14.0-18.0); Mean Corpuscular HGB Conc 33 g/dl (31-36); Mean Corpuscular Hemoglobin 27 pg (27-31); Mean Corpuscular Volume 82 fL (80-94); Mean Platelet Volume 8 um3 (7.4-10.4); Red Blood Count 5.11 10^6/ul (4.0-5.4); Red Cell Distribution Width 18 % (10.5-15)
--- NOTE | 2017-03-26 12:00 | RAD ---
INDICATION: Chest pain. COMPARISON: Comparison is made with prior chest x-ray study from January 13, 2017. TECHNIQUE: A portable view of the chest was obtained. FINDINGS: The heart appears mildly enlarged and unchanged from the prior exam. The lungs are clear. No pleural effusion is seen. IMPRESSION: NO EVIDENCE FOR ACUTE FINDING.
[2017-03-26 12:03] LABS: BUN/Creatinine Ratio 23.2 (8-20); EGFR African American 95.6 (>60); EGFR Non-African American 74.3 (>60); Globulin 2.9 g/dL (2-4); Potassium 3.6 mmol/L (3.5-5.0); Total Bilirubin 0.4 mg/dL (0.2-1.0); Total Protein 6.9 g/dL (6.4-8.9); Troponin I 0.02 ng/mL (<0.04)
[2017-03-26 16:36] VITALS: BP 121/72
--- NOTE | 2017-03-27 12:08 | ED ---
Sanchez Osei Nikita, scribed for Rickey Ramirez MD on 03/26/17 at 1128 . HPI Chest Pain - HPI Summary HPI Summary: This patient is a 28 year old M BIBA to ED with a chief complaint of lower sternal CP since 09. Pt was cleaning his apartment during onset. The CC is described as constant and sharp. The patient rates the pain 9/10 in severity. Symptoms aggravated by swallowing and deep breaths. Symptoms alleviated by nothing. Pt took a light brown pill that did not help. Patient reports SOB, diaphoresis, and upper abdominal pain. Patient denies nausea, and central or lower abdominal pain. Pt denies using O2 at home. PMHx of PE, MIx2, stents x3, DM, dyslipidemia, COPD, asthma, BPH, MR, DJD, CAD, CARDIOMYOPATHY, HTN, EOSINOPHILIA, INGUINAL HERNIA, pelvic hematoma secondary to cardiac cath, constipation. - History of Current Complaint Chief Complaint: EDChestPainROMI Time Seen by Provider: 03/26/17 11:13 Hx Obtained From: Patient Onset/Duration: Started Hours Ago - 899, Still Present Timing: Constant, Lasting Hours Initial Severity: Severe Current Severity: Severe Pain Intensity: 9 Pain Scale Used: 0-10 Numeric Chest Pain Location: Lower Sternal Chest Pain Radiates: No Character: Sharp/Stabbing Aggravating Factor(s): Nothing Alleviating Factor(s): Nothing Associated Signs and Symptoms: Positive: Other: - Patient reports SOB, diaphoresis, and upper abdominal pain. Patient denies nausea, and central or lower abdominal pain. - Additional Pertinent History Primary Care Physician: [id number] - Allergy/Home Medications Allergies/Adverse Reactions: Allergies Allergy/AdvReac Type Severity Reaction Status Date / Time Shellfish Allergy Allergy Severe Difficulty Verified 01/13/17 06:43 Breathing Povidone Iodine Allergy Intermediate Rash Verified 01/13/17 06:43 [From Betadine] PMH/Surg Hx/FS Hx/Imm Hx Endocrine/Hematology History: Reports: Hx Anticoagulant Therapy, Hx Diabetes - II, Hx Anemia, Other Endocrine/Hematological Disorders - Eosinophilia Denies: Hx Blood Disorders, Hx Blood Transfusions, Hx Systemic Lupus Erythematosus, Hx Thyroid Disease Cardiovascular History: Reports: Hx Angina, Hx Congestive Heart Failure, Hx Coronary Artery Disease, Hx Embolism, Hx Hypercholesterolemia, Hx Hypertension, Hx Myocardial Infarction - x2, Other Cardiovascular Problems/Disorders - Cardiomyopathy Denies: Hx Deep Vein Thrombosis, Hx Pacemaker/ICD Respiratory History: Reports: Hx Asthma, Hx Pneumonia, Hx Pulmonary Edema, Hx Pulmonary Embolism, Other Respiratory Problems/Disorders - PE'S Denies: Hx Chronic Obstructive Pulmonary Disease (COPD), Hx Lung Cancer GI History: Reports: Hx Gastroesophageal Reflux Disease, Hx Hiatal Hernia, Other GI Disorders - chronic abdominal pain Denies: Hx Gall Bladder Disease, Hx Gastrointestinal Bleed, Hx Ulcer, Hx Urosepsis History: Reports: Hx Acute Renal Failure, Hx Benign Prostatic Hyperplasia, Hx Kidney Stones Denies: Hx Dialysis, Hx Renal Disease, Other Problems/Disorders Musculoskeletal History: Reports: Hx Back Problems, Other Musculoskeletal History - OBESITY, DJD Denies: Hx Rheumatoid Arthritis Sensory History: Reports: Hx Contacts or Glasses, Hx Vision Problem Denies: Hx Hearing Aid, Other Sensory Impairments Opthamlomology History: Reports: Hx Contacts or Glasses, Hx Vision Problem Denies: Other Sensory Impairments Neurological History: Reports: 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 hernia repair x 2;. rt knee cartlidge repair;. RIGHT ROTATOR CUFF ;. CABG Hx Anesthesia Reactions: No - Immunization History Date of Tetanus Vaccine: Unk Date of Influenza Vaccine: 05/13/14 Infectious Disease History: No Infectious Disease History: Denies: Hx Hepatitis, Hx Human Immunodeficiency Virus (HIV), Hx of Known/ Suspected MRSA, Hx Shingles, Hx Tuberculosis, History Other Infectious Disease, Traveled Outside the [place] in Last 30 Days - Family History Known Family History: Positive: Cardiac Disease - DC mother and father, Diabetes - Social History Alcohol Use: None Hx Substance Use: No Substance Use Type: Reports: None Hx Tobacco Use: No Smoking Status (MU): Never Smoked Tobacco Review of Systems Positive: Skin Diaphoresis Positive: Chest Pain Positive: Shortness Of Breath Positive: Abdominal Pain - Upper Abdominal pain. Negative: Nausea All Other Systems Reviewed And Are Negative: Yes Physical Exam Triage Information Reviewed: Yes Vital Signs On Initial Exam: Initial Vitals Temp Pulse Resp BP Pulse Ox 98.4 F 79 19 115/61 95 03/26/17 10:58 03/26/17 10:58 03/26/17 10:58 03/26/17 10:58 03/26/17 10:58 Vital Signs Reviewed: Yes Appearance: Positive: Well-Appearing, No Pain Distress, Obese Skin: Positive: Warm, Skin Color Reflects Adequate Perfusion, Dry Head/Face: Positive: Normal Head/Face Inspection Eyes: Positive: Normal ENT: Positive: Normal ENT inspection Neck: Positive: Supple, Nontender Respiratory/Lung Sounds: Positive: Clear to Auscultation, Breath Sounds Present Cardiovascular: Positive: Other - Tender in xiphoid area, cardiac tones distant. Abdomen Description: Positive: Nontender, Soft Bowel Sounds: Positive: Present Musculoskeletal: Positive: Normal Neurological: Positive: Normal, Sensory/Motor Intact, Alert, Oriented to Person Place, Time, CN Intact II-III Psychiatric: Positive: Affect/Mood Appropriate - [place] Coma Scale Coma Scale Total: 15 Diagnostics - Vital Signs Vital Signs Temp Pulse Resp BP Pulse Ox 03/26/17 11:02 75 15 97 03/26/17 10:58 98.4 F 75 14 115/61 97 - Laboratory Lab Results: Lab Results 03/26/17 03/26/17 03/26/17 Range/Units 11:10 11:10 11:10 WBC 8.0 (3.5-10.8) 10^3/ul RBC 5.11 (4.0-5.4) 10^6/ul Hgb 13.7 L (14.0-18.0) g/dl Hct 42 (42-52) % MCV 82 (80-94) fL MCH 27 (27-31) pg MCHC 33 (31-36) g/dl RDW 18 H (10.5-15) % Plt Count 226 (150-450) 10^3/ul MPV 8 (7.4-10.4) um3 Neut % (Auto) 55.1 (38-83) % Lymph % (Auto) 18.1 L (25-47) % [place] % (Auto) 6.2 (1-9) % Eos % (Auto) 19.6 H (0-6) % Baso % (Auto) 1.0 (0-2) % Absolute Neuts (auto) 4.4 (1.5-7.7) 10^3/ul Absolute Lymphs (auto) 1.5 (1.0-4.8) 10^3/ul Absolute Monos (auto) 0.5 (0-0.8) 10^3/ul Absolute Eos (auto) 1.6 H (0-0.6) 10^3/ul Absolute Basos (auto) 0.1 (0-0.2) 10^3/ul Absolute Nucleated RBC 0 10^3/ul Nucleated RBC % 0 INR (Anticoag Therapy) 1.16 H (0.89-1.11) D-Dimer, Quantitative < 200 (Less Than 230) ng/mL Sodium 137 (133-145) mmol/L Potassium 3.6 (3.5-5.0) mmol/L Chloride 103 (101-111) mmol/L Carbon Dioxide 27 (22-32) mmol/L Anion Gap 7 (2-11) mmol/L BUN 23 (6-24) mg/dL Creatinine 0.99 (0.67-1.17) mg/dL Est GFR ( Amer) 95.6 (>60) Est GFR (Non-Af Amer) 74.3 (>60) BUN/Creatinine Ratio 23.2 H (8-20) Glucose 119 H (70-100) mg/dL Lactic Acid (0.5-2.0) mmol/L Calcium 9.0 (8.6-10.3) mg/dL Total Bilirubin 0.40 (0.2-1.0) mg/dL AST 18 (13-39) U/L ALT 22 (7-52) U/L Alkaline Phosphatase 61 (34-104) U/L Troponin I 0.02 (<0.04) ng/mL Total Protein 6.9 (6.4-8.9) g/dL Albumin 4.0 (3.2-5.2) g/dL Globulin 2.9 (2-4) g/dL Albumin/Globulin Ratio 1.4 (1-3) 03/26/17 03/26/17 Range/Units 11:10 16:10 WBC (3.5-10.8) 10^3/ul RBC (4.0-5.4) 10^6/ul Hgb (14.0-18.0) g/dl Hct (42-52) % MCV (80-94) fL MCH (27-31) pg MCHC (31-36) g/dl RDW (10.5-15) % Plt Count (150-450) 10^3/ul MPV (7.4-10.4) um3 Neut % (Auto) (38-83) % Lymph % (Auto) (25-47) % [place] % (Auto) (1-9) % Eos % (Auto) (0-6) % Baso % (Auto) (0-2) % Absolute Neuts (auto) (1.5-7.7) 10^3/ul Absolute Lymphs (auto) (1.0-4.8) 10^3/ul Absolute Monos (auto) (0-0.8) 10^3/ul Absolute Eos (auto) (0-0.6) 10^3/ul Absolute Basos (auto) (0-0.2) 10^3/ul Absolute Nucleated RBC 10^3/ul Nucleated RBC % INR (Anticoag Therapy) (0.89-1.11) D-Dimer, Quantitative (Less Than 230) ng/mL Sodium (133-145) mmol/L Potassium (3.5-5.0) mmol/L Chloride (101-111) mmol/L Carbon Dioxide (22-32) mmol/L Anion Gap (2-11) mmol/L BUN (6-24) mg/dL Creatinine (0.67-1.17) mg/dL Est GFR ( Amer) (>60) Est GFR (Non-Af Amer) (>60) BUN/Creatinine Ratio (8-20) Glucose (70-100) mg/dL Lactic Acid 1.6 (0.5-2.0) mmol/L Calcium (8.6-10.3) mg/dL Total Bilirubin (0.2-1.0) mg/dL AST (13-39) U/L ALT (7-52) U/L Alkaline Phosphatase (34-104) U/L Troponin I 0.01 (<0.04) ng/mL Total Protein (6.4-8.9) g/dL Albumin (3.2-5.2) g/dL Globulin (2-4) g/dL Albumin/Globulin Ratio (1-3) Result Diagrams: 03/26/17 11:10 03/26/17 11:10 Lab Statement: Any lab studies that have been ordered have been reviewed, and results considered in the medical decision making process. - Radiology CXR Radiology Interpretation Completed By: Radiologist - NO EVIDENCE FOR ACUTE FINDING. ED physician has reviewed this radiology report and agrees. - EKG 1049 Cardiac Rate: NL - 76 bpm EKG Rhythm: 1st Degree HB EKG Interpretation: RBBB Chest Pain Course/Dx - Course Course Of Treatment: Mr. Yip clearly has risk factors. He presented with an atypical, reproducible pain and his W/U including a delayed troponin was negative. His EDACS was 14. - Diagnoses Provider Diagnoses: Chest pain Discharge - Discharge Plan Condition: Stable Disposition: HOME Patient Education Materials: Chest Pain (ED) Referrals: Ivonne Cotton MD [Primary Care Provider] - 3 Days The documentation as recorded by the Sanchez clifford Nikita accurately reflects the service I personally performed and the decisions made by , Rickey Ramirez MD.
== END 2017-03-26 17:19 | disposition home or self-care (01) ==
LOC: ED 10:47
DX: R07.9 Chest pain, unspecified (principal); R10.10 Upper abdominal pain, unspecified
CPT/HCPCS: 36415; 71010; 80053; 83605; 84484; 85025; 85379; 85610; 93005; 99283; A9270-GY

== ENCOUNTER 2017-04-01 18:49 | Emergency (ER) | payer MEDICARE, MEDICAID ==
[2017-04-01] MEDS ORDERED: Ondansetron INJ* 2 MG/ML VIAL IV ONE (19:54)
[2017-04-01] MEDS ORDERED: NS 0.9% 1000 ML* 1,000 ML IV ONE (19:54)
[2017-04-01] MEDS ORDERED: HYDROmorphone* 1 MG/ML 1 ML CARPUJECT IV ONE (19:54)
[2017-04-01 20:08] LABS: Hematocrit 43 % (42-52); Hemoglobin 14.2 g/dl (14.0-18.0); Mean Corpuscular HGB Conc 33 g/dl (31-36); Mean Corpuscular Hemoglobin 27 pg (27-31); Mean Corpuscular Volume 83 fL (80-94); Mean Platelet Volume 8 um3 (7.4-10.4); Red Blood Count 5.22 10^6/ul (4.0-5.4); Red Cell Distribution Width 18 % (10.5-15); White Blood Count 10.3 10^3/ul (3.5-10.8)
[2017-04-01 20:19] LABS: Albumin 3.8 g/dL (3.2-5.2); BUN/Creatinine Ratio 23.2 (8-20); C Reactive Protein 1.38 mg/L (< 5.00); Calcium 9.1 mg/dL (8.6-10.3); EGFR African American 95.6 (>60); EGFR Non-African American 74.3 (>60); Magnesium 1.5 mg/dL (1.9-2.7); Potassium 4.4 mmol/L (3.5-5.0); Total Bilirubin 0.3 mg/dL (0.2-1.0); Total Protein 6.8 g/dL (6.4-8.9)
[2017-04-01 20:20] LABS: Troponin I 0.01 ng/mL (<0.04)
[2017-04-01] MEDS ORDERED: Pantoprazole IV* 40 MG IV ONE (20:29)
--- NOTE | 2017-04-01 20:57 | RAD ---
INDICATION: Abdominal pain and vomiting COMPARISON: Chest x-ray dated March 26, 2017 TECHNIQUE: PA and lateral views of the chest were obtained. FINDINGS: Similar the prior chest x-ray there is mild cardiomegaly. There is faint calcification overlying the arch of the aorta. There is density obscuring the bilateral costophrenic angles more significantly on the left than the right on the AP projection. There is faint infiltrate overlying the right lower lobe. The right heart border is not obscured. IMPRESSION: PATCHY INFILTRATE OVERLYING THE RIGHT LUNG BASE COULD REPRESENT PNEUMONIA IN THE CORRECT CLINICAL SETTING. THERE IS LEFT GREATER THAN RIGHT BILATERAL COSTOPHRENIC ANGLE BLUNTING WHICH COULD BE DUE TO ATELECTASIS AND/OR SMALL PLEURAL EFFUSIONS.
--- NOTE | 2017-04-01 21:10 | RAD ---
CLINICAL HISTORY: Abdominal pain and vomiting COMPARISON: Numerous prior CT examinations, most recently dated July 05, 1960 TECHNIQUE: Noncontrast CT examination of the abdomen and pelvis from the lung bases through the initial tuberosities. FINDINGS: VISUALIZED LUNG BASES: Similar to the prior CT examination there is cardiomegaly. ABDOMEN AND PELVIS: Evaluation of the solid organs and vasculature is limited without intravenous contrast. The liver, spleen, pancreas and right adrenal gland are grossly normal in appearance. There is a stable 1.4 cm nodule at the left adrenal gland. The gallbladder is normal. The kidneys are normal in appearance without focal mass, calcification or signs of hydronephrosis. A Rivero catheter is noted in the urinary bladder which is mostly decompressed. Evaluation is limited without oral contrast. The small and large bowel are not distended.The patient's normal appendix is identified in the right lower quadrant (coronal image 55). There is no gross retroperitoneal or mesenteric lymphadenopathy. There is a small right and moderate size left fat-containing inguinal hernia. Neither has changed substantially when compared to the June 25, 2016 CT examination. The pelvic viscera is normal in appearance. There is coarse atherosclerotic calcification of the infrarenal abdominal aorta extending into the bilateral iliac arteries there is coarse calcification along the ostium and proximal portion of the superior mesenteric artery and to a lesser extent the origin of the celiac trunk. Degenerative changes include multilevel loss of intervertebral disc height involving the lower thoracic and lumbar spine.There are no sinister bone lesions. IMPRESSION: 1. No acute inflammatory change of the gastrointestinal tract or signs of pathologic obstruction. 2. Stable left inguinal hernia containing fat at the time of image acquisition. 3. Stable 1.4 cm left adrenal gland nodule. 4. Additional chronic and degenerative changes described in the body the report unlikely to be directly related to the patient's current presentation.
[2017-04-01] MEDS ORDERED: HYDROmorphone* 1 MG/ML 1 ML CARPUJECT IV SLOW PU ONE (21:11)
[2017-04-01] MEDS ORDERED: Magnesium CITRATE* 300 ML BTL PO ONE (22:56)
[2017-04-01 23:17] VITALS: BP 136/68
--- NOTE | 2017-04-02 00:24 | ED ---
Diana Osei Rebecca, scribed for Nathanael Lam MD on 04/01/17 at 2001 . Abdominal Pain/Male - HPI Summary HPI Summary: Pt is a 71 y/o M BIBA who presents to ED c/o diffuse abdominal pain since 1800 today. Pain is currently severe, ranked 9/10 and characterized as sharp. Pain does not radiate to the back. Sx aggravated by deep breaths, alleviated by nothing. Additionally c/o vomiting. Denies fever, chills, blood in stool and LE pain. Confirms he has had BM today. Pt is on Xarelto. PMHx DM, GERD and chronic abdominal pain. Current pain is different form previous incidences of abdominal pain. BG of 124. - History of Current Complaint Chief Complaint: EDAbdPain Stated Complaint: ABD PAIN/VOMITING Time Seen by Provider: 04/01/17 19:29 Hx Obtained From: Patient Onset/Duration: Lasting Hours, Still Present Severity Currently: Severe Pain Intensity: 9 Pain Scale Used: 0-10 Numeric Location: Diffuse Radiates: No Character: Sharp Aggravating Factor(s): Deep Breaths Alleviating Factor(s): Nothing Associated Signs And Symptoms: Positive: Vomiting. Negative: Fever, Blood in Stool - Allergies/Home Medications Allergies/Adverse Reactions: Allergies Allergy/AdvReac Type Severity Reaction Status Date / Time Shellfish Allergy Allergy Severe Difficulty Verified 04/01/17 19:21 Breathing Povidone Iodine Allergy Intermediate Rash Verified 04/01/17 19:21 [From Betadine] PMH/Surg Hx/FS Hx/Imm Hx Endocrine/Hematology History: Reports: Hx Anticoagulant Therapy, Hx Diabetes - II, Hx Anemia, Other Endocrine/Hematological Disorders - Eosinophilia Denies: Hx Blood Disorders, Hx Blood Transfusions, Hx Systemic Lupus Erythematosus, Hx Thyroid Disease Cardiovascular History: Reports: Hx Angina, Hx Congestive Heart Failure, Hx Coronary Artery Disease, Hx Embolism, Hx Hypercholesterolemia, Hx Hypertension, Hx Myocardial Infarction - x2, Other Cardiovascular Problems/Disorders - Cardiomyopathy Denies: Hx Deep Vein Thrombosis, Hx Pacemaker/ICD Respiratory History: Reports: Hx Asthma, Hx Pneumonia, Hx Pulmonary Edema, Hx Pulmonary Embolism, Other Respiratory Problems/Disorders - PE'S Denies: Hx Chronic Obstructive Pulmonary Disease (COPD), Hx Lung Cancer GI History: Reports: Hx Gastroesophageal Reflux Disease, Hx Hiatal Hernia, Other GI Disorders - chronic abdominal pain Denies: Hx Gall Bladder Disease, Hx Gastrointestinal Bleed, Hx Ulcer, Hx Urosepsis History: Reports: Hx Acute Renal Failure, Hx Benign Prostatic Hyperplasia, Hx Kidney Stones Denies: Hx Dialysis, Hx Renal Disease, Other Problems/Disorders Musculoskeletal History: Reports: Hx Back Problems, Other Musculoskeletal History - OBESITY, DJD Denies: Hx Rheumatoid Arthritis Sensory History: Reports: Hx Contacts or Glasses, Hx Vision Problem Denies: Hx Hearing Aid, Other Sensory Impairments Opthamlomology History: Reports: Hx Contacts or Glasses, Hx Vision Problem Denies: Other Sensory Impairments Neurological History: Reports: 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 hernia repair x 2;. rt knee cartlidge repair;. RIGHT ROTATOR CUFF ;. CABG Hx Anesthesia Reactions: No - Immunization History Date of Tetanus Vaccine: Unk Date of Influenza Vaccine: 05/13/14 Infectious Disease History: No Infectious Disease History: Denies: Hx Hepatitis, Hx Human Immunodeficiency Virus (HIV), Hx of Known/ Suspected MRSA, Hx Shingles, Hx Tuberculosis, History Other Infectious Disease, Traveled Outside the [place] in Last 30 Days - Family History Known Family History: Positive: Cardiac Disease - [place] mother and father, Diabetes - Social History Alcohol Use: None Hx Substance Use: No Substance Use Type: Reports: None Hx Tobacco Use: No Smoking Status (MU): Never Smoked Tobacco Review of Systems Negative: Fever, Chills Positive: Abdominal Pain - Diffuse, Vomiting, Other - NEGATIVE: Blood in stool Positive: Other - NEGATIVE: LE pain All Other Systems Reviewed And Are Negative: Yes Physical Exam - Summary Physical Exam Summary: The patient is well-nourished in no acute distress and in no acute pain. The skin is warm and dry and skin color reflects adequate perfusion. HEENT: The head is normocephalic and atraumatic. The pupils are equal and reactive. The conjunctivae are clear and without drainage. Nares are patent and without drainage. Mouth reveals dry mucous membranes and the throat is without erythema and exudate. The external ears are intact. The ear canals are patent and without drainage. The tympanic membranes are intact. Neck is supple with full range of motion and non-tender. Respiratory: Chest is non-tender. Lungs are clear to auscultation and breath sounds are symmetrical and equal. Cardiovascular: Hear is regular rate and rhythm. There is no murmur or rub auscultated. There is no peripheral edema and pulses are symmetrical and equal. Abdomen: The abdomen is distended and diffusely tender. There are diminished bowel sounds heard in all four quadrants. Musculoskeletal: There is no back pain noted. Extremities are non-tender with full range of motion. There is capillary refill between 2 and 3 seconds. There is no peripheral edema or calf tenderness elicited. Good pulses distally. Neurological: Patient is alert and oriented to person, place and time. The patient has symmetrical motor strength in all four extremities. Psychiatric: The patient has an appropriate affect and does not exhibit any anxiety or depression. Triage Information Reviewed: Yes Vital Signs On Initial Exam: Initial Vitals Temp Pulse Resp BP Pulse Ox 98.6 F 74 18 147/71 96 04/01/17 18:54 04/01/17 18:54 04/01/17 18:54 04/01/17 18:54 04/01/17 18:54 Vital Signs Reviewed: Yes - Mariola Coma Scale Coma Scale Total: 15 Diagnostics - Vital Signs Vital Signs Temp Pulse Resp BP Pulse Ox 04/01/17 18:59 98.6 F 71 18 147/71 94 04/01/17 18:54 98.6 F 74 18 147/71 96 - Laboratory Lab Results: Lab Results 04/01/17 04/01/17 04/01/17 Range/Units 19:09 19:09 19:09 WBC 10.3 (3.5-10.8) 10^3/ul RBC 5.22 (4.0-5.4) 10^6/ul Hgb 14.2 (14.0-18.0) g/dl Hct 43 (42-52) % MCV 83 (80-94) fL MCH 27 (27-31) pg MCHC 33 (31-36) g/dl RDW 18 H (10.5-15) % Plt Count 230 (150-450) 10^3/ul MPV 8 (7.4-10.4) um3 Neut % (Auto) 65.5 (38-83) % Lymph % (Auto) 12.4 L (25-47) % Gem % (Auto) 6.5 (1-9) % Eos % (Auto) 14.8 H (0-6) % Baso % (Auto) 0.8 (0-2) % Absolute Neuts (auto) 6.7 (1.5-7.7) 10^3/ul Absolute Lymphs (auto) 1.3 (1.0-4.8) 10^3/ul Absolute Monos (auto) 0.7 (0-0.8) 10^3/ul Absolute Eos (auto) 1.5 H (0-0.6) 10^3/ul Absolute Basos (auto) 0.1 (0-0.2) 10^3/ul Absolute Nucleated RBC 0.01 10^3/ul Nucleated RBC % 0 INR (Anticoag Therapy) (0.89-1.11) Sodium 137 (133-145) mmol/L Potassium 4.4 (3.5-5.0) mmol/L Chloride 105 (101-111) mmol/L Carbon Dioxide 26 (22-32) mmol/L Anion Gap 6 (2-11) mmol/L BUN 23 (6-24) mg/dL Creatinine 0.99 (0.67-1.17) mg/dL Est GFR ( Amer) 95.6 (>60) Est GFR (Non-Af Amer) 74.3 (>60) BUN/Creatinine Ratio 23.2 H (8-20) Glucose 129 H (70-100) mg/dL Lactic Acid (0.5-2.0) mmol/L Calcium 9.1 (8.6-10.3) mg/dL Magnesium 1.5 L (1.9-2.7) mg/dL Total Bilirubin 0.30 (0.2-1.0) mg/dL AST 19 (13-39) U/L ALT 22 (7-52) U/L Alkaline Phosphatase 58 (34-104) U/L Troponin I 0.01 (<0.04) ng/mL C-Reactive Protein 1.38 (< 5.00) mg/L B-Natriuretic Peptide 94 ( - 100) pg/mL Total Protein 6.8 (6.4-8.9) g/dL Albumin 3.8 (3.2-5.2) g/dL Globulin 3.0 (2-4) g/dL Albumin/Globulin Ratio 1.3 (1-3) Amylase 47 (29-103) U/L Lipase 44 (11.0-82.0) U/L 04/01/17 04/01/17 Range/Units 19:09 19:09 WBC (3.5-10.8) 10^3/ul RBC (4.0-5.4) 10^6/ul Hgb (14.0-18.0) g/dl Hct (42-52) % MCV (80-94) fL MCH (27-31) pg MCHC (31-36) g/dl RDW (10.5-15) % Plt Count (150-450) 10^3/ul MPV (7.4-10.4) um3 Neut % (Auto) (38-83) % Lymph % (Auto) (25-47) % Gem % (Auto) (1-9) % Eos % (Auto) (0-6) % Baso % (Auto) (0-2) % Absolute Neuts (auto) (1.5-7.7) 10^3/ul Absolute Lymphs (auto) (1.0-4.8) 10^3/ul Absolute Monos (auto) (0-0.8) 10^3/ul Absolute Eos (auto) (0-0.6) 10^3/ul Absolute Basos (auto) (0-0.2) 10^3/ul Absolute Nucleated RBC 10^3/ul Nucleated RBC % INR (Anticoag Therapy) 1.22 H (0.89-1.11) Sodium (133-145) mmol/L Potassium (3.5-5.0) mmol/L Chloride (101-111) mmol/L Carbon Dioxide (22-32) mmol/L Anion Gap (2-11) mmol/L BUN (6-24) mg/dL Creatinine (0.67-1.17) mg/dL Est GFR ( Amer) (>60) Est GFR (Non-Af Amer) (>60) BUN/Creatinine Ratio (8-20) Glucose (70-100) mg/dL Lactic Acid 2.2 H* (0.5-2.0) mmol/L Calcium (8.6-10.3) mg/dL Magnesium (1.9-2.7) mg/dL Total Bilirubin (0.2-1.0) mg/dL AST (13-39) U/L ALT (7-52) U/L Alkaline Phosphatase (34-104) U/L Troponin I (<0.04) ng/mL C-Reactive Protein (< 5.00) mg/L B-Natriuretic Peptide ( - 100) pg/mL Total Protein (6.4-8.9) g/dL Albumin (3.2-5.2) g/dL Globulin (2-4) g/dL Albumin/Globulin Ratio (1-3) Amylase (29-103) U/L Lipase (11.0-82.0) U/L Result Diagrams: 04/01/17 19:09 04/01/17 19:09 Lab Statement: Any lab studies that have been ordered have been reviewed, and results considered in the medical decision making process. - Radiology CXR Radiology Interpretation Completed By: ED Physician - Reviewed the CXR film which has no significant change from the last 2 XRs, done on 03/26/2017 and December of this year., Radiologist - PATCHY INFILTRATE OVERLYING THE RIGHT LUNG BASE COULD REPRESENT PNEUMONIA IN THE CORRECT CLINICAL SETTING. THERE IS LEFT GREATER THAN RIGHT BILATERAL COSTOPHRENIC ANGLE BLUNTING WHICH COULD BE DUE TO ATELECTASIS AND/OR SMALL PLEURAL EFFUSIONS. ED physician reviewed radiology report. - CT CT Abd/Pel CT Interpretation: No Acute Changes - 1. No acute inflammatory change of the gastrointestinal tract or signs of pathologic obstruction. 2. Stable left inguinal hernia containing fat at the time of image acquisition. 3. Stable 1.4 cm left adrenal gland nodule. 4. Additional chronic and degenerative changes described in the body the report unlikely to be directly related to the patient' s current presentation. ED physician reviewed radiology report and agrees. CT Interpretation Completed By: Radiologist - EKG 1930 Cardiac Rate: NL - [address] Segment: Normal EKG Interpretation: RBBB, no ST elevation, no ME Re-Evaluation - Re-Evaluation First Eval Re-Evaluation Time: 22:53 Change: Unchanged Comment: Continues to complain of abdominal pain, but reports he is ready to be D/C to home when asked. Abdominal Pain Fem Course/Dx - Course Assessment/Plan: Pt is a 71 y/o M BIBA who presents to ED c/o diffuse abdominal pain since 1800 today. Pain is currently severe, ranked 9/10 and characterized as sharp. Pain does not radiate to the back. Sx aggravated by deep breaths, alleviated by nothing. Additionally c/o vomiting. Denies fever, chills, blood in stool and LE pain. Confirms he has had BM today. Pt is on Xarelto. PMHx DM, GERD and chronic abdominal pain. Current pain is different form previous incidences of abdominal pain. BG of 124. CXR as read by radiologist reveals "PATCHY INFILTRATE OVERLYING THE RIGHT LUNG BASE COULD REPRESENT PNEUMONIA IN THE CORRECT CLINICAL SETTING. THERE IS LEFT GREATER THAN RIGHT BILATERAL COSTOPHRENIC ANGLE BLUNTING WHICH COULD BE DUE TO ATELECTASIS AND/OR SMALL PLEURAL EFFUSIONS." When film was reviewed by ED physician it shows to have no significant change from last 2 XRs, done on 03/26/[address] Abd/Pel is negative. Lab results are unremarkable. EKG is sinus rhythm with RBBB and no STEMI. In the ED course, pt received Dilaudid, protonix, Zofran, and fluids. He will be D/C to home with Dx of constipaion, constipation, hypomagnesemia and dehydration with a bottle of magnesium citrate that he can take tomorrow. Pt confirms he has oxycodone at home and would like to be D/C. He understands and agrees. Elevated BP noted and advised to f/u with PCP. - Diagnoses Differential Diagnosis/HQI/PQRI: Bowel Obstruction, Constipation, Ischemic Bowel , Pancreatitis, Peptic Ulcer Disease, Other - dehydration Provider Diagnoses: Abdominal pain, Constipation, Hypomagnesemia, Dehydration Discharge - Discharge Plan Condition: Stable Disposition: HOME Patient Education Materials: Hypomagnesemia (ED), Dehydration (ED), Constipation (ED) Referrals: Ivonne Cotton MD [Primary Care Provider] - 3 Days The documentation as recorded by the Diana clifford Rebecca accurately reflects the service I personally performed and the decisions made by me, Nathanael Lam MD.
== END 2017-04-01 23:22 | disposition home or self-care (01) ==
LOC: ED 18:49
DX: R10.9 Unspecified abdominal pain (principal); K59.00 Constipation, unspecified; I45.10 Unspecified right bundle-branch block; E86.0 Dehydration; E83.42 Hypomagnesemia; E11.9 Type 2 diabetes mellitus without complications; Z79.01 Long term (current) use of anticoagulants; I50.9 Heart failure, unspecified; I25.10 Atherosclerotic heart disease of native coronary artery without angina pectoris; I10 Essential (primary) hypertension; E78.00 Pure hypercholesterolemia, unspecified; I25.2 Old myocardial infarction; J45.909 Unspecified asthma, uncomplicated; Z86.711 Personal history of pulmonary embolism; E66.9 Obesity, unspecified; F41.8 Other specified anxiety disorders; F40.240 Claustrophobia; Z68.41 Body mass index [BMI] 40.0-44.9, adult
CPT/HCPCS: 36415; 71020; 74176; 80053; 82150; 83605; 83690; 83735; 83880; 84484; 85025; 85610; 86140; 93005; 96360; 96374; 96375; 99284; A9270-GY; J1170; J2405

== ENCOUNTER 2017-04-29 03:54 | Emergency (ER) | payer MEDICAID, MEDICARE ==
[2017-04-29] MEDS ORDERED: Ondansetron INJ* 2 MG/ML VIAL IV ONE (04:13)
[2017-04-29] MEDS ORDERED: NS 0.9% 1000 ML* 1,000 ML IV ONE (04:13)
[2017-04-29] MEDS ORDERED: Morphine INJ* 4 MG/ML 1 ML CARPUJECT IV ONE ×2 (04:13→08:19)
[2017-04-29 05:25] LABS: Hematocrit 42 % (42-52); Hemoglobin 13.9 g/dl (14.0-18.0); Mean Corpuscular HGB Conc 33 g/dl (31-36); Mean Corpuscular Hemoglobin 28 pg (27-31); Mean Corpuscular Volume 83 fL (80-94); Mean Platelet Volume 8 um3 (7.4-10.4); Red Blood Count 5.06 10^6/ul (4.0-5.4); Red Cell Distribution Width 17 % (10.5-15); White Blood Count 12.3 10^3/ul (3.5-10.8)
[2017-04-29 05:37] LABS: Albumin 3.9 g/dL (3.2-5.2); BUN/Creatinine Ratio 21.4 (8-20); Calcium 8.9 mg/dL (8.6-10.3); EGFR African American 78.8 (>60); EGFR Non-African American 61.3 (>60); Potassium 3.8 mmol/L (3.5-5.0); Total Bilirubin 0.5 mg/dL (0.2-1.0); Total Protein 6.9 g/dL (6.4-8.9)
[2017-04-29 05:38] LABS: Troponin I 0.02 ng/mL (<0.04)
[2017-04-29] MEDS ORDERED: Iodixanol* (CONTRAST) 320 MG/ML 100 ML SDV IV ONE (05:47)
[2017-04-29] MEDS ORDERED: HYDROmorphone INJ* 1 MG/ML CARPUJECT SYRINGE IV SLOW PU ONE (06:39)
[2017-04-29 06:48] LABS: Urine Bacteria Absent (Absent); Urine Bilirubin Negative (Negative); Urine Glucose Negative (Negative); Urine Nitrite Negative (Negative)
--- NOTE | 2017-04-29 06:48 | ED ---
Diana Osei Rebecca, scribed for Cory Farr on 04/29/17 at 0423 . Abdominal Pain/Male - HPI Summary HPI Summary: Pt is a 71 y/o M who presents to ED c/o diffuse abdominal pain. Sx began suddenly at 0300 this morning and is currently severe, ranked 9/10. Sx aggravated and alleviated by nothing. Additionally c/o N/V/D and LUE pain. Denies CP, SOB. PMHx CAD with 2 MIs. - History of Current Complaint Chief Complaint: EDAbdPain Stated Complaint: ABD PAIN Hx Obtained From: Patient Onset/Duration: Still Present Severity Currently: Severe Pain Intensity: 9 Pain Scale Used: 0-10 Numeric Location: Diffuse Radiates: No Aggravating Factor(s): Nothing Alleviating Factor(s): Nothing Associated Signs And Symptoms: Positive: Negative, Nausea, Vomiting, Diarrhea - Allergies/Home Medications Allergies/Adverse Reactions: Allergies Allergy/AdvReac Type Severity Reaction Status Date / Time Shellfish Allergy Allergy Severe Difficulty Verified 04/29/17 04:13 Breathing Povidone Iodine Allergy Intermediate Rash Verified 04/29/17 04:13 [From Betadine] PMH/Surg Hx/FS Hx/Imm Hx Endocrine/Hematology History: Reports: Hx Anticoagulant Therapy, Hx Diabetes - II, Hx Anemia, Other Endocrine/Hematological Disorders - Eosinophilia Denies: Hx Blood Disorders, Hx Blood Transfusions, Hx Systemic Lupus Erythematosus, Hx Thyroid Disease Cardiovascular History: Reports: Hx Angina, Hx Congestive Heart Failure, Hx Coronary Artery Disease, Hx Embolism, Hx Hypercholesterolemia, Hx Hypertension, Hx Myocardial Infarction - x2, Other Cardiovascular Problems/Disorders - Cardiomyopathy Denies: Hx Deep Vein Thrombosis, Hx Pacemaker/ICD Respiratory History: Reports: Hx Asthma, Hx Pneumonia, Hx Pulmonary Edema, Hx Pulmonary Embolism, Other Respiratory Problems/Disorders - PE'S Denies: Hx Chronic Obstructive Pulmonary Disease (COPD), Hx Lung Cancer GI History: Reports: Hx Gastroesophageal Reflux Disease, Hx Hiatal Hernia, Other GI Disorders - chronic abdominal pain Denies: Hx Gall Bladder Disease, Hx Gastrointestinal Bleed, Hx Ulcer, Hx Urosepsis History: Reports: Hx Acute Renal Failure, Hx Benign Prostatic Hyperplasia, Hx Kidney Stones Denies: Hx Dialysis, Hx Renal Disease, Other Problems/Disorders Musculoskeletal History: Reports: Hx Back Problems, Other Musculoskeletal History - OBESITY, DJD Denies: Hx Rheumatoid Arthritis Sensory History: Reports: Hx Contacts or Glasses, Hx Vision Problem Denies: Hx Hearing Aid, Other Sensory Impairments Opthamlomology History: Reports: Hx Contacts or Glasses, Hx Vision Problem Denies: Other Sensory Impairments Neurological History: Reports: 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 hernia repair x 2;. rt knee cartlidge repair;. RIGHT ROTATOR CUFF ;. CABG Hx Anesthesia Reactions: No - Immunization History Date of Tetanus Vaccine: Unk Date of Influenza Vaccine: 05/13/14 Infectious Disease History: No Infectious Disease History: Denies: Hx Hepatitis, Hx Human Immunodeficiency Virus (HIV), Hx of Known/ Suspected MRSA, Hx Shingles, Hx Tuberculosis, History Other Infectious Disease, Traveled Outside the [place] in Last 30 Days - Family History Known Family History: Positive: Cardiac Disease - [place] mother and father, Diabetes - Social History Alcohol Use: None Hx Substance Use: No Substance Use Type: Reports: None Hx Tobacco Use: No Smoking Status (MU): Never Smoked Tobacco Review of Systems Negative: Chest Pain Negative: Shortness Of Breath Positive: Abdominal Pain, Vomiting, Diarrhea, Nausea Positive: Other - LUE pain All Other Systems Reviewed And Are Negative: Yes Physical Exam - Summary Physical Exam Summary: Appearance: Well appearing, no pain distress Skin: warm, dry, reflects adequate perfusion Head/face: normal Eyes: EOMI, ARNOLD ENT: normal Neck: supple, nontender Respiratory: CTA, breath sounds present Cardiovascular: RRR, pulses symmetrical Abdomen: diffuse abdominal tenderness, soft Bowel: present Musculoskeletal: normal, strength/ROM intact Neuro: normal, sensory motor intact, A&Ox3 Triage Information Reviewed: Yes Vital Signs On Initial Exam: Initial Vitals Temp Pulse Resp BP Pulse Ox 98.1 F 70 20 126/108 93 04/29/17 03:59 04/29/17 03:59 04/29/17 03:59 04/29/17 03:59 04/29/17 03:59 Vital Signs Reviewed: Yes - Benge Coma Scale Coma Scale Total: 15 Diagnostics - Vital Signs Vital Signs Temp Pulse Resp BP Pulse Ox 04/29/17 03:59 98.1 F 70 20 126/108 93 - Laboratory Lab Results: Lab Results 04/29/17 04/29/17 04/29/17 Range/Units 04:50 04:50 04:50 WBC 12.3 H (3.5-10.8) 10^3/ul RBC 5.06 (4.0-5.4) 10^6/ul Hgb 13.9 L (14.0-18.0) g/dl Hct 42 (42-52) % MCV 83 (80-94) fL MCH 28 (27-31) pg MCHC 33 (31-36) g/dl RDW 17 H (10.5-15) % Plt Count 217 (150-450) 10^3/ul MPV 8 (7.4-10.4) um3 Neut % (Auto) 73.3 (38-83) % Lymph % (Auto) 7.8 L (25-47) % [place] % (Auto) 6.3 (1-9) % Eos % (Auto) 11.8 H (0-6) % Baso % (Auto) 0.8 (0-2) % Absolute Neuts (auto) 9.0 H (1.5-7.7) 10^3/ul Absolute Lymphs (auto) 1.0 (1.0-4.8) 10^3/ul Absolute Monos (auto) 0.8 (0-0.8) 10^3/ul Absolute Eos (auto) 1.5 H (0-0.6) 10^3/ul Absolute Basos (auto) 0.1 (0-0.2) 10^3/ul Absolute Nucleated RBC 0.01 10^3/ul Nucleated RBC % 0 INR (Anticoag Therapy) 0.98 (0.89-1.11) APTT 22.7 L (26.0-36.3) seconds Sodium 135 (133-145) mmol/L Potassium 3.8 (3.5-5.0) mmol/L Chloride 102 (101-111) mmol/L Carbon Dioxide 26 (22-32) mmol/L Anion Gap 7 (2-11) mmol/L BUN 25 H (6-24) mg/dL Creatinine 1.17 (0.67-1.17) mg/dL Est GFR ( Amer) 78.8 (>60) Est GFR (Non-Af Amer) 61.3 (>60) BUN/Creatinine Ratio 21.4 H (8-20) Glucose 122 H (70-100) mg/dL Lactic Acid (0.5-2.0) mmol/L Calcium 8.9 (8.6-10.3) mg/dL Total Bilirubin 0.50 (0.2-1.0) mg/dL AST 16 (13-39) U/L ALT 20 (7-52) U/L Alkaline Phosphatase 64 (34-104) U/L Troponin I 0.02 (<0.04) ng/mL Total Protein 6.9 (6.4-8.9) g/dL Albumin 3.9 (3.2-5.2) g/dL Globulin 3.0 (2-4) g/dL Albumin/Globulin Ratio 1.3 (1-3) Lipase 41 (11.0-82.0) U/L 04/29/17 Range/Units 04:50 WBC (3.5-10.8) 10^3/ul RBC (4.0-5.4) 10^6/ul Hgb (14.0-18.0) g/dl Hct (42-52) % MCV (80-94) fL MCH (27-31) pg MCHC (31-36) g/dl RDW (10.5-15) % Plt Count (150-450) 10^3/ul MPV (7.4-10.4) um3 Neut % (Auto) (38-83) % Lymph % (Auto) (25-47) % [place] % (Auto) (1-9) % Eos % (Auto) (0-6) % Baso % (Auto) (0-2) % Absolute Neuts (auto) (1.5-7.7) 10^3/ul Absolute Lymphs (auto) (1.0-4.8) 10^3/ul Absolute Monos (auto) (0-0.8) 10^3/ul Absolute Eos (auto) (0-0.6) 10^3/ul Absolute Basos (auto) (0-0.2) 10^3/ul Absolute Nucleated RBC 10^3/ul Nucleated RBC % INR (Anticoag Therapy) (0.89-1.11) APTT (26.0-36.3) seconds Sodium (133-145) mmol/L Potassium (3.5-5.0) mmol/L Chloride (101-111) mmol/L Carbon Dioxide (22-32) mmol/L Anion Gap (2-11) mmol/L BUN (6-24) mg/dL Creatinine (0.67-1.17) mg/dL Est GFR ( Amer) (>60) Est GFR (Non-Af Amer) (>60) BUN/Creatinine Ratio (8-20) Glucose (70-100) mg/dL Lactic Acid 1.6 (0.5-2.0) mmol/L Calcium (8.6-10.3) mg/dL Total Bilirubin (0.2-1.0) mg/dL AST (13-39) U/L ALT (7-52) U/L Alkaline Phosphatase (34-104) U/L Troponin I (<0.04) ng/mL Total Protein (6.4-8.9) g/dL Albumin (3.2-5.2) g/dL Globulin (2-4) g/dL Albumin/Globulin Ratio (1-3) Lipase (11.0-82.0) U/L Result Diagrams: 04/29/17 04:50 04/29/17 04:50 Lab Statement: Any lab studies that have been ordered have been reviewed, and results considered in the medical decision making process. - Radiology CXR Xray Interpretation: No Acute Changes Radiology Interpretation Completed By: ED Physician - CT CT Abd/Pel CT Interpretation Completed By: Radiologist - Pending radiologist interpretation. See Hermes IQ for results. - EKG 0357 Cardiac Rate: NL - 73 bpm EKG Rhythm: Sinus Rhythm EKG Interpretation: RBBB Abdominal Pain Fem Course/Dx - Course Assessment/Plan: Pt is a 71 y/o M who presents to ED c/o diffuse abdominal pain. Sx began suddenly at 0300 this morning and is currently severe, ranked 9/ 10. Sx aggravated and alleviated by nothing. Additionally c/o N/V/D and LUE pain. Denies CP, SOB. PMHx CAD with 2 MIs. EKG is sinus rhythm with RBBB. WBC of 12.3, troponin of 0.02. CXR reveals no acute findings. In the ED course, pt received zofran, morphine and fluids. Pt will be signed out to Dr. Smith, pending disposition, awaiting CT Abd/Pel. Elevated BP noted and advised to f/u with PCP. Allergies noted. - Diagnoses Provider Diagnoses: Abdominal pain Discharge - Discharge Plan Condition: Stable Disposition: OTHER Discharge Disposition Comment: Pt will be signed out to Dr. Smith, pending dispo, awaiting CT Abd/Pel Referrals: Ivonne Cotton MD [Primary Care Provider] - The documentation as recorded by the Diana clifford Rebecca accurately reflects the service I personally performed and the decisions made by Chika abbott Emmanuel.
--- NOTE | 2017-04-29 08:31 | RAD ---
HISTORY: Abdominal pain COMPARISONS: April 01, 2017 VIEWS: 1: frontal portable view of the chest at 4:35 AM FINDINGS: LINES AND TUBES: None. CARDIOMEDIASTINAL SILHOUETTE: The cardiac silhouette is enlarged. The cardiomediastinal silhouette is otherwise normal for portable technique. PLEURA: The costophrenic angles are sharp. No pleural abnormalities are noted. LUNG PARENCHYMA: There is a mild diffuse reticular pattern with prominence of the pulmonary vessels. ABDOMEN: The upper abdomen is clear. There is no subphrenic gas. BONES AND SOFT TISSUES: No bone or soft tissue abnormalities are noted. IMPRESSION: CARDIOMEGALY WITH MILD PULMONARY INTERSTITIAL EDEMA
--- NOTE | 2017-04-29 08:41 | RAD ---
CLINICAL HISTORY: Diffuse abdominal pain COMPARISON: April 01, 2017 TECHNIQUE: Multiple contiguous axial CT scans were obtained of the abdomen and pelvis after the administration of intravenous contrast. Coronal and sagittal multiplanar reformations are submitted for review. Oral contrast was administered. Delayed images were obtained through the abdomen and pelvis. FINDINGS: LUNG BASES: The lung bases are clear. LIVER: The liver is diffusely low in attenuation compared to the spleen. There are no focal hepatic parenchymal masses. BILE DUCTS: There is no intrahepatic or extrahepatic biliary dilatation. GALLBLADDER: The gallbladder is normal, without pericholecystic inflammatory change. PANCREAS: The pancreas is normal, without mass or ductal dilatation. SPLEEN: The spleen is at the upper limits of normal in size. UPPER GI TRACT: Evaluation of the gastrointestinal tract is limited by incomplete gastric distention. The upper GI tract is unremarkable. SMALL BOWEL AND MESENTERY: The small bowel is normal in contour, course, and caliber. There is no obstruction or dilatation. COLON: The colon is normal in contour, course, caliber. There is no pericolonic inflammatory change. There is a tubular, vermiform, hollow viscus that is blind ending, and originates from the cecum, consistent with a normal appendix. There is no periappendiceal inflammatory change. 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 There is no hydronephrosis or nephrolithiasis. BLADDER: The bladder is smooth in contour. PELVIC ORGANS: The prostate is diffusely enlarged. The seminal vesicles are symmetric. AORTA: There is extensive atherosclerosis of the abdominal aorta and its branches. There is no aneurysmal dilatation. IVC: Unremarkable LYMPH NODES: There is a 1.4 cm short axis lymph node of the misael hepatis. ABDOMINAL WALL: There are bilateral, left greater than right, fat-containing inguinal hernias. There is atrophy of the rectus abdominis musculature. BONES AND SOFT TISSUES: There are mild diffuse degenerative changes. OTHER: None IMPRESSION: 1. BILATERAL, LEFT GREATER THAN RIGHT, FAT-CONTAINING HERNIAS. 2. ATHEROSCLEROSIS. 3. THE SPLEEN IS AT THE UPPER LIMITS OF NORMAL IN SIZE. 4. ENLARGED LYMPH NODE OF THE MISAEL HEPATIS. 5. ENLARGED PROSTATE. 6. FATTY LIVER
--- NOTE | 2017-04-29 09:11 | RAD ---
HISTORY: Abdominal pain, distention COMPARISONS: CT dated April 29, 2017 TECHNIQUE: Multiple transverse and longitudinal ultrasound images were obtained of the right upper quadrant of the abdomen using grayscale and color Doppler imaging. FINDINGS: LIVER: The liver is normal in shape, size, contour, and echogenicity. There are no focal parenchymal masses. There is normal hepatopedal flow of the portal vein on Doppler imaging. BILIARY TREE: There is no intrahepatic or extrahepatic biliary dilatation. The common duct measures 0.4 cm. GALLBLADDER: The gallbladder is well-visualized. There is no cholelithiasis, gallbladder wall thickening, pericholecystic fluid, or sonographic Bentley sign. PANCREAS: The pancreas is obscured by overlying bowel gas. RIGHT KIDNEY: The right kidney is normal in shape, size, contour, and echogenicity. There is no hydronephrosis or nephrolithiasis. The right kidney measures 11.3 x 5.7 x 5.2 cm. AORTA AND IVC: The aorta and IVC are unremarkable. FLUID: There are no pleural effusions. There is no free fluid within the hepatorenal recess. OTHER FINDINGS: None. IMPRESSION: NO ACUTE SONOGRAPHIC PATHOLOGY OF THE VISUALIZED PORTION OF THE ABDOMEN
[2017-04-29] MEDS ORDERED: Al Hydrox/Mg Hydrox/Simet LIQ* 30 ML UDC PO ONE (10:29)
[2017-04-29] MEDS ORDERED: Lidocaine 2% VISCOUS* 15 ML UDC PO ONE (10:29)
[2017-04-29 11:54] VITALS: BP 105/66
--- NOTE | 2017-05-01 08:47 | ED ---
Progress - Progress Note Progress Note: Prelim urine cx reveals >100,000 proteus mirabilis - will wait for final to address w/ pt. Course/Dx - Diagnoses Provider Diagnoses: Abdominal pain
== END 2017-04-29 12:20 | disposition home or self-care (01) ==
LOC: ED 03:54
DX: R10.9 Unspecified abdominal pain (principal); Z79.01 Long term (current) use of anticoagulants; I70.90 Unspecified atherosclerosis
CPT/HCPCS: 36415; 71010; 74177; 76705; 80053; 81003; 81015; 83605; 83690; 84484; 85025; 85610; 85730; 87077; 87086; 87186; 93005; 96374; 96375; 99283; A9270-GY; J1170; J2270; J2405; Q9967

== ENCOUNTER 2017-05-01 06:14 | Emergency (ER) | payer MEDICARE ==
[2017-05-01] MEDS ORDERED: NS 0.9% 1000 ML* 1,000 ML IV ONE (07:39)
[2017-05-01 08:14] LABS: Hematocrit 37 % (42-52); Hemoglobin 12.4 g/dl (14.0-18.0); Mean Corpuscular HGB Conc 33 g/dl (31-36); Mean Corpuscular Hemoglobin 28 pg (27-31); Mean Corpuscular Volume 83 fL (80-94); Mean Platelet Volume 8 um3 (7.4-10.4); Red Blood Count 4.49 10^6/ul (4.0-5.4); Red Cell Distribution Width 18 % (10.5-15); White Blood Count 9.5 10^3/ul (3.5-10.8)
[2017-05-01 08:37] LABS: Albumin 3.3 g/dL (3.2-5.2); BUN/Creatinine Ratio 18.4 (8-20); C Reactive Protein 3.61 mg/L (< 5.00); EGFR African American 96.7 (>60); EGFR Non-African American 75.2 (>60); Globulin 2.4 g/dL (2-4); Potassium 4.3 mmol/L (3.5-5.0); Total Bilirubin 0.3 mg/dL (0.2-1.0); Total Protein 5.7 g/dL (6.4-8.9)
[2017-05-01 08:59] LABS: Urine Bacteria 2+ (Absent); Urine Bilirubin Negative (Negative); Urine Glucose Negative (Negative); Urine Nitrite Positive (Negative)
[2017-05-01 10:00] VITALS: BP 116/50
--- NOTE | 2017-05-01 10:50 | ED ---
Sue Osei Nilda, scribed for Rickey Ramirez MD on 05/01/17 at 0724 . GI/ HPI - HPI Summary HPI Summary: This patient is a 71 year old M BIBA to [facility] with a chief complaint of bloody stool since this morning. The patient rates the pain 5/10 in severity. Symptoms aggravated and alleviated by nothing. Patient reports diarrhea (5x this since this morning) and constant diffuse sharp abdominal pain (since 2 days ago). He was seen at [facility] two days ago for the abd pain but it did not resolve. Patient had normal BM yesterday. - History of Current Complaint Chief Complaint: EDRectalPain Time Seen by Provider: 05/01/17 07:17 Stated Complaint: RECTAL BLEED Hx Obtained From: Patient Onset/Duration: Started Hours Ago Current Severity: Moderate Pain Intensity: 5 Location of Pain: Diffuse Pain Characteristics: Sharp Associated Signs and Symptoms: Positive: Bright Red Blood w/Stool, Abdominal Pain Aggravating Factor(s): Nothing Alleviating Factor(s): Nothing, Spontaneous Resolution - Additional Pertinent History Primary Care Physician: [id number] - Allergy/Home Medications Allergies/Adverse Reactions: Allergies Allergy/AdvReac Type Severity Reaction Status Date / Time Shellfish Allergy Allergy Severe Difficulty Verified 05/01/17 06:27 Breathing Povidone Iodine Allergy Intermediate Rash Verified 05/01/17 06:27 [From Betadine] PMH/Surg Hx/FS Hx/Imm Hx Endocrine/Hematology History: Reports: Hx Anticoagulant Therapy, Hx Diabetes - II, Hx Anemia, Other Endocrine/Hematological Disorders - Eosinophilia Denies: Hx Blood Disorders, Hx Blood Transfusions, Hx Systemic Lupus Erythematosus, Hx Thyroid Disease Cardiovascular History: Reports: Hx Angina, Hx Congestive Heart Failure, Hx Coronary Artery Disease, Hx Embolism, Hx Hypercholesterolemia, Hx Hypertension, Hx Myocardial Infarction - x2, Other Cardiovascular Problems/Disorders - Cardiomyopathy Denies: Hx Deep Vein Thrombosis, Hx Pacemaker/ICD Respiratory History: Reports: Hx Asthma, Hx Pneumonia, Hx Pulmonary Edema, Hx Pulmonary Embolism, Other Respiratory Problems/Disorders - PE'S Denies: Hx Chronic Obstructive Pulmonary Disease (COPD), Hx Lung Cancer GI History: Reports: Hx Gastroesophageal Reflux Disease, Hx Hiatal Hernia, Other GI Disorders - chronic abdominal pain Denies: Hx Gall Bladder Disease, Hx Gastrointestinal Bleed, Hx Ulcer, Hx Urosepsis History: Reports: Hx Acute Renal Failure, Hx Benign Prostatic Hyperplasia, Hx Kidney Stones Denies: Hx Dialysis, Hx Renal Disease, Other Problems/Disorders Musculoskeletal History: Reports: Hx Back Problems, Other Musculoskeletal History - OBESITY, DJD Denies: Hx Rheumatoid Arthritis Sensory History: Reports: Hx Contacts or Glasses, Hx Vision Problem Denies: Hx Hearing Aid, Other Sensory Impairments Opthamlomology History: Reports: Hx Contacts or Glasses, Hx Vision Problem Denies: Other Sensory Impairments Neurological History: Reports: 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 hernia repair x 2;. rt knee cartlidge repair;. RIGHT ROTATOR CUFF ;. CABG Hx Anesthesia Reactions: No - Immunization History Date of Tetanus Vaccine: Unk Date of Influenza Vaccine: 05/13/14 Infectious Disease History: No Infectious Disease History: Denies: Hx Hepatitis, Hx Human Immunodeficiency Virus (HIV), Hx of Known/ Suspected MRSA, Hx Shingles, Hx Tuberculosis, History Other Infectious Disease, Traveled Outside the [place] in Last 30 Days - Family History Known Family History: Positive: Cardiac Disease - [place] mother and father, Diabetes - Social History Alcohol Use: None Hx Substance Use: No Substance Use Type: Reports: None Hx Tobacco Use: No Smoking Status (MU): Never Smoked Tobacco Review of Systems Negative: Shortness Of Breath Positive: Abdominal Pain, Diarrhea, Other - bloody stool All Other Systems Reviewed And Are Negative: Yes Physical Exam Triage Information Reviewed: Yes Vital Signs On Initial Exam: Initial Vitals BP 118/50 05/01/17 06:22 Vital Signs Reviewed: Yes Appearance: Positive: Well-Appearing, No Pain Distress, Obese Skin: Positive: Warm, Skin Color Reflects Adequate Perfusion, Dry Head/Face: Positive: Normal Head/Face Inspection Eyes: Positive: Normal ENT: Positive: Normal ENT inspection Neck: Positive: Supple, Nontender Respiratory/Lung Sounds: Positive: Clear to Auscultation, Breath Sounds Present Cardiovascular: Positive: RRR Abdomen Description: Positive: Nontender, Soft Bowel Sounds: Positive: Present Musculoskeletal: Positive: Normal Neurological: Positive: Normal Psychiatric: Positive: Normal, Affect/Mood Appropriate - Mariola Coma Scale Coma Scale Total: 15 Diagnostics - Vital Signs Vital Signs Temp Pulse Resp BP Pulse Ox 05/01/17 07:00 67 115/57 95 05/01/17 06:24 98.1 F 71 18 118/50 96 05/01/17 06:22 118/50 - Laboratory Lab Results: Lab Results 05/01/17 05/01/17 05/01/17 Range/Units 07:54 07:54 07:54 WBC 9.5 (3.5-10.8) 10^3/ul RBC 4.49 (4.0-5.4) 10^6/ul Hgb 12.4 L (14.0-18.0) g/dl Hct 37 L (42-52) % MCV 83 (80-94) fL MCH 28 (27-31) pg MCHC 33 (31-36) g/dl RDW 18 H (10.5-15) % Plt Count 187 (150-450) 10^3/ul MPV 8 (7.4-10.4) um3 Neut % (Auto) 65.0 (38-83) % Lymph % (Auto) 13.6 L (25-47) % Towner % (Auto) 6.0 (1-9) % Eos % (Auto) 15.0 H (0-6) % Baso % (Auto) 0.4 (0-2) % Absolute Neuts (auto) 6.2 (1.5-7.7) 10^3/ul Absolute Lymphs (auto) 1.3 (1.0-4.8) 10^3/ul Absolute Monos (auto) 0.6 (0-0.8) 10^3/ul Absolute Eos (auto) 1.4 H (0-0.6) 10^3/ul Absolute Basos (auto) 0 (0-0.2) 10^3/ul Absolute Nucleated RBC 0 10^3/ul Nucleated RBC % 0 Sodium 136 (133-145) mmol/L Potassium 4.3 (3.5-5.0) mmol/L Chloride 107 (101-111) mmol/L Carbon Dioxide 25 (22-32) mmol/L Anion Gap 4 (2-11) mmol/L BUN 18 (6-24) mg/dL Creatinine 0.98 (0.67-1.17) mg/dL Est GFR ( Amer) 96.7 (>60) Est GFR (Non-Af Amer) 75.2 (>60) BUN/Creatinine Ratio 18.4 (8-20) Glucose 116 H (70-100) mg/dL Lactic Acid 1.4 (0.5-2.0) mmol/L Calcium 8.0 L (8.6-10.3) mg/dL Total Bilirubin 0.30 (0.2-1.0) mg/dL AST 12 L (13-39) U/L ALT 14 (7-52) U/L Alkaline Phosphatase 49 (34-104) U/L C-Reactive Protein 3.61 (< 5.00) mg/L Total Protein 5.7 L (6.4-8.9) g/dL Albumin 3.3 (3.2-5.2) g/dL Globulin 2.4 (2-4) g/dL Albumin/Globulin Ratio 1.4 (1-3) Urine Color Urine Appearance Urine pH (5-9) Ur Specific [place] (1.010-1.030) Urine Protein (Negative) Urine Ketones (Negative) Urine Blood (Negative) Urine Nitrate (Negative) Urine Bilirubin (Negative) Urine Urobilinogen (Negative) Ur Leukocyte Esterase (Negative) Urine WBC (Auto) (Absent) Urine RBC (Auto) (Absent) Triple Phos Crystals (Absent) Urine Bacteria (Absent) Urine Glucose (Negative) 05/01/17 Range/Units 08:03 WBC (3.5-10.8) 10^3/ul RBC (4.0-5.4) 10^6/ul Hgb (14.0-18.0) g/dl Hct (42-52) % MCV (80-94) fL MCH (27-31) pg MCHC (31-36) g/dl RDW (10.5-15) % Plt Count (150-450) 10^3/ul MPV (7.4-10.4) um3 Neut % (Auto) (38-83) % Lymph % (Auto) (25-47) % Towner % (Auto) (1-9) % Eos % (Auto) (0-6) % Baso % (Auto) (0-2) % Absolute Neuts (auto) (1.5-7.7) 10^3/ul Absolute Lymphs (auto) (1.0-4.8) 10^3/ul Absolute Monos (auto) (0-0.8) 10^3/ul Absolute Eos (auto) (0-0.6) 10^3/ul Absolute Basos (auto) (0-0.2) 10^3/ul Absolute Nucleated RBC 10^3/ul Nucleated RBC % Sodium (133-145) mmol/L Potassium (3.5-5.0) mmol/L Chloride (101-111) mmol/L Carbon Dioxide (22-32) mmol/L Anion Gap (2-11) mmol/L BUN (6-24) mg/dL Creatinine (0.67-1.17) mg/dL Est GFR ( Amer) (>60) Est GFR (Non-Af Amer) (>60) BUN/Creatinine Ratio (8-20) Glucose (70-100) mg/dL Lactic Acid (0.5-2.0) mmol/L Calcium (8.6-10.3) mg/dL Total Bilirubin (0.2-1.0) mg/dL AST (13-39) U/L ALT (7-52) U/L Alkaline Phosphatase (34-104) U/L C-Reactive Protein (< 5.00) mg/L Total Protein (6.4-8.9) g/dL Albumin (3.2-5.2) g/dL Globulin (2-4) g/dL Albumin/Globulin Ratio (1-3) Urine Color Yellow Urine Appearance Cloudy Urine pH 9.0 (5-9) Ur Specific [place] 1.025 (1.010-1.030) Urine Protein 3+(>=500 mg/dl) H (Negative) Urine Ketones Negative (Negative) Urine Blood Negative (Negative) Urine Nitrate Positive H (Negative) Urine Bilirubin Negative (Negative) Urine Urobilinogen Negative (Negative) Ur Leukocyte Esterase 3+ H (Negative) Urine WBC (Auto) Trace(0-5/hpf) (Absent) Urine RBC (Auto) 1+(3-5/hpf) H (Absent) Triple Phos Crystals Present H (Absent) Urine Bacteria 2+ H (Absent) Urine Glucose Negative (Negative) Result Diagrams: 05/01/17 07:54 05/01/17 07:54 Lab Statement: Any lab studies that have been ordered have been reviewed, and results considered in the medical decision making process. GIGU Course/Dx - Course Course Of Treatment: Mr. Yip presented with the same pain he had two days ago and has had since. It has not changed in any way but he has had 5 watery stools over the night and saw some blood in the last one. His abdomen was nontender when he was distracted and a CT from two days ago was unremarkable. Labs revealed no acidosis or leukocytosis but he has dropped his hematocrit a little bit. There is no evidence of ischemic bowel although it is not out of the question and he will need close F/U. His U/A is bad and he is due to change his catheter so we changed it today. - Diagnoses Provider Diagnoses: UTI (urinary tract infection), Rectal bleed - Physician Notifications Discussed Care Of Patient With: Nadeem Smith - Gastro Time Discussed With Above Provider: 09:29 Instructed by Provider To: Other - Agrees with plan to D/C patient and have close follow up. Discharge - Discharge Plan Condition: Stable Disposition: HOME Prescriptions: Ciprofloxacin TAB* [Cipro Tab*] 500 mg PO BID #20 tab Patient Education Materials: Urinary Tract Infection in Men (ED), Rectal Bleeding (ED) Referrals: Ivonne Cotton MD [Primary Care Provider] - 3 Days Additional Instructions: RETURN TO THE EMERGENCY DEPARTMENT FOR CHANGING OR WORSENING SYMPTOMS. The documentation as recorded by the Sue clifford Nilda accurately reflects the service I personally performed and the decisions made by , Rickey Ramirez MD.
--- NOTE | 2017-05-04 08:31 | PN ---
Progress Note - Progress Note Date of Service: 05/04/17 Note: Patient placed on cipro which final cultures (proteus mirabilis >100,000) shows is sensitive to so no further action needed.
== END 2017-05-01 10:15 | disposition home or self-care (01) ==
LOC: ED 06:14
DX: N39.0 Urinary tract infection, site not specified (principal); R10.9 Unspecified abdominal pain; R19.7 Diarrhea, unspecified; K62.5 Hemorrhage of anus and rectum
CPT/HCPCS: 36415; 80053; 81003; 81015; 83605; 85025; 86140; 87077; 87086; 87186; 96360; 99282

== ENCOUNTER → 2017-05-04 04:51 | Emergency (ER) | payer MEDICARE ==
[~2017-05-04 04:51] MED LIST: Al Hydrox/Mg Hydrox/Simet LIQ* 30 ML UDC PO ONE; Famotidine IV* 10 MG/ML 2 ML (20 mg) IV SLOW PU ONE; Lidocaine 2% VISCOUS* 15 ML UDC PO ONE; NS 0.9% 1000 ML* 1,000 ML IV SCH
[2017-05-04 06:56] LABS: Hematocrit 38 % (42-52); Hemoglobin 12.7 g/dl (14.0-18.0); Mean Corpuscular HGB Conc 33 g/dl (31-36); Mean Corpuscular Hemoglobin 27 pg (27-31); Mean Corpuscular Volume 83 fL (80-94); Mean Platelet Volume 8 um3 (7.4-10.4); Red Blood Count 4.62 10^6/ul (4.0-5.4); Red Cell Distribution Width 18 % (10.5-15); White Blood Count 7.8 10^3/ul (3.5-10.8)
[2017-05-04 07:11] LABS: Albumin 3.4 g/dL (3.2-5.2); C Reactive Protein 4.3 mg/L (< 5.00); Calcium 8.7 mg/dL (8.6-10.3); EGFR African American 94.5 (>60); EGFR Non-African American 73.5 (>60); Globulin 2.7 g/dL (2-4); Magnesium 1.6 mg/dL (1.9-2.7); Total Bilirubin 0.3 mg/dL (0.2-1.0); Total Protein 6.1 g/dL (6.4-8.9)
[2017-05-04 09:52] VITALS: BP 160/77
--- NOTE | 2017-05-04 10:11 | ED ---
Zulay Osei Alfonso, scribed for Luis De León MD on 05/04/17 at 0706 . Abdominal Pain/Male - HPI Summary HPI Summary: This patient is a 71 year old M [place] [facility] with a chief complaint of acute on chronic intermittent epigastric pain worse since last night. The patient rates the aching pain 7/10 in severity. Symptoms aggravated by palpation. Symptoms alleviated by nothing. Symptoms not alleviated by Tylenol. He has not yet tried ibuprofen. He has been taking prednisone. Patient denies fever, chills , CP, SOB, cough, nausea, vomiting, diarrhea (resolved from earlier), blood in the stools, and gastric reflux. He has had 12 CT A/P at [facility] [place]. He lives alone. He has never seen a GI physician. - History of Current Complaint Chief Complaint: EDAbdPain Stated Complaint: ABD PAIN Hx Obtained From: Patient Onset/Duration: Gradual Onset, Worse Since - earlier today Timing: Intermittent Severity Currently: Moderate Pain Intensity: 7 Pain Scale Used: 0-10 Numeric Location: Epigastric Character: Dull - Aching Aggravating Factor(s): Nothing Alleviating Factor(s): Other: - Palpation Associated Signs And Symptoms: Positive: Other - Negative fever, chills, CP, SOB , cough, nausea, vomiting, diarrhea (resolved from earlier), blood in the stools , and gastric reflux. - Allergies/Home Medications Allergies/Adverse Reactions: Allergies Allergy/AdvReac Type Severity Reaction Status Date / Time Shellfish Allergy Allergy Severe Difficulty Verified 05/01/17 06:27 Breathing Povidone Iodine Allergy Intermediate Rash Verified 05/01/17 06:27 [From Betadine] PMH/Surg Hx/FS Hx/Imm Hx Endocrine/Hematology History: Reports: Hx Anticoagulant Therapy, Hx Diabetes - II, Hx Anemia, Other Endocrine/Hematological Disorders - Eosinophilia Denies: Hx Blood Disorders, Hx Blood Transfusions, Hx Systemic Lupus Erythematosus, Hx Thyroid Disease Cardiovascular History: Reports: Hx Angina, Hx Congestive Heart Failure, Hx Coronary Artery Disease, Hx Embolism, Hx Hypercholesterolemia, Hx Hypertension, Hx Myocardial Infarction - x2, Other Cardiovascular Problems/Disorders - Cardiomyopathy Denies: Hx Deep Vein Thrombosis, Hx Pacemaker/ICD Respiratory History: Reports: Hx Asthma, Hx Pneumonia, Hx Pulmonary Edema, Hx Pulmonary Embolism, Other Respiratory Problems/Disorders - PE'S Denies: Hx Chronic Obstructive Pulmonary Disease (COPD), Hx Lung Cancer GI History: Reports: Hx Gastroesophageal Reflux Disease, Hx Hiatal Hernia, Other GI Disorders - chronic abdominal pain Denies: Hx Gall Bladder Disease, Hx Gastrointestinal Bleed, Hx Ulcer, Hx Urosepsis History: Reports: Hx Acute Renal Failure, Hx Benign Prostatic Hyperplasia, Hx Kidney Stones Denies: Hx Dialysis, Hx Renal Disease, Other Problems/Disorders Musculoskeletal History: Reports: Hx Back Problems, Other Musculoskeletal History - OBESITY, DJD Denies: Hx Rheumatoid Arthritis Sensory History: Reports: Hx Contacts or Glasses, Hx Vision Problem Denies: Hx Hearing Aid, Other Sensory Impairments Opthamlomology History: Reports: Hx Contacts or Glasses, Hx Vision Problem Denies: Other Sensory Impairments Neurological History: Reports: 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 hernia repair x 2;. rt knee cartlidge repair;. RIGHT ROTATOR CUFF ;. CABG Hx Anesthesia Reactions: No - Immunization History Date of Tetanus Vaccine: Unk Date of Influenza Vaccine: 05/13/14 Infectious Disease History: No Infectious Disease History: Denies: Hx Hepatitis, Hx Human Immunodeficiency Virus (HIV), Hx of Known/ Suspected MRSA, Hx Shingles, Hx Tuberculosis, History Other Infectious Disease, Traveled Outside the US in Last 30 Days - Family History Known Family History: Positive: Cardiac Disease - MD mother and father, Diabetes - Social History Lives: Alone Alcohol Use: None Hx Substance Use: No Substance Use Type: Reports: None Hx Tobacco Use: No Smoking Status (MU): Never Smoked Tobacco Review of Systems Negative: Fever, Chills Negative: Chest Pain Negative: Shortness Of Breath, Cough Positive: Abdominal Pain, Other - Negative blood in the stools, and gastric reflux. Negative: Vomiting, Diarrhea, Nausea All Other Systems Reviewed And Are Negative: Yes Physical Exam - Summary Physical Exam Summary: VITAL SIGNS: Reviewed. GENERAL: Patient is a well-developed and obese male who is lying comfortable in the stretcher. Patient is not in any acute respiratory distress. HEAD AND FACE: Normocephalic and atraumatic. EYES: PERRLA, EOMI x 2, No injected conjunctiva. EARS: Hearing grossly intact. Ear canals and tympanic membranes are WNL. MOUTH: Oropharynx within normal limits. NECK: Supple, trachea is midline, no adenopathy, no JVD. CHEST: Symmetric, no tenderness at palpation LUNGS: Clear to auscultation bilaterally. No wheezing or crackles. CVS: RRR, S1 and S2 present, no murmurs or gallops appreciated. ABDOMEN: Soft. Epigastric tenderness. No signs of distention. Positive bowel sounds. No rebound no guarding, and no masses palpated. No abdominal bruit or pulsations. EXTREMITIES: FROM in all major joints, no edema, no cyanosis or clubbing. NEURO: Alert and oriented x 3. No acute neurological deficits. Speech is normal. SKIN: Dry and warm Triage Information Reviewed: Yes Vital Signs On Initial Exam: Initial Vitals Temp Pulse Resp BP Pulse Ox 97.9 F 66 18 122/72 95 05/04/17 05:01 05/04/17 05:01 05/04/17 05:01 05/04/17 05:01 05/04/17 05:01 Vital Signs Reviewed: Yes - Mariola Coma Scale Coma Scale Total: 15 Diagnostics - Vital Signs Vital Signs Temp Pulse Resp BP Pulse Ox 05/04/17 05:01 97.9 F 66 18 122/72 95 - Laboratory Lab Results: Lab Results 05/04/17 Range/Units 06:40 WBC 7.8 (3.5-10.8) 10^3/ul RBC 4.62 (4.0-5.4) 10^6/ul Hgb 12.7 L (14.0-18.0) g/dl Hct 38 L (42-52) % MCV 83 (80-94) fL MCH 27 (27-31) pg MCHC 33 (31-36) g/dl RDW 18 H (10.5-15) % Plt Count 213 (150-450) 10^3/ul MPV 8 (7.4-10.4) um3 Neut % (Auto) 61.8 (38-83) % Lymph % (Auto) 17.4 L (25-47) % [place] % (Auto) 5.9 (1-9) % Eos % (Auto) 14.4 H (0-6) % Baso % (Auto) 0.5 (0-2) % Absolute Neuts (auto) 4.8 (1.5-7.7) 10^3/ul Absolute Lymphs (auto) 1.4 (1.0-4.8) 10^3/ul Absolute Monos (auto) 0.5 (0-0.8) 10^3/ul Absolute Eos (auto) 1.1 H (0-0.6) 10^3/ul Absolute Basos (auto) 0 (0-0.2) 10^3/ul Absolute Nucleated RBC 0.01 10^3/ul Nucleated RBC % 0.1 Result Diagrams: 05/04/17 06:40 05/04/17 06:40 Lab Statement: Any lab studies that have been ordered have been reviewed, and results considered in the medical decision making process. - EKG 0900 Cardiac Rate: NL - BPM 63 EKG Rhythm: Sinus Rhythm EKG Interpretation: No ST elevation. RBBB. Abdominal Pain Fem Course/Dx - Course Course Of Treatment: This patient is a 71 year old M BIBA to [facility] with a chief complaint of acute on chronic intermittent epigastric pain worse since last night. The patient rates the aching pain 7/10 in severity. Symptoms aggravated by palpation. Symptoms alleviated by nothing. Symptoms not alleviated by Tylenol. He has not yet tried ibuprofen. He has been taking prednisone. Patient denies fever, chills, CP, SOB, cough, nausea, vomiting, diarrhea (resolved from earlier), blood in the stools, and gastric reflux. He has had 12 CT A/P at [facility] [place]. He lives alone. He has never seen a GI physician. Assessment/Plan: In the ED course an IV access was obtained. Patient was placed in a ekg monitor tech. Patient was started with IV fluids. Labs without any significant abnormality except for slight chronic anemia, glucose of 107. He was given pepcid and GI cocktail and his symptoms have resolved. EKG NSR at 63 BPM and no STEMI. Positive RBBB. Patient has no CP. Patient has been here multiple times for same complaints. He has approximately [address] in approximately one year for the same complaints. Patients pain is epigastric and worsens when he take prednisone. I believe patients pain may be related to gastritis caused by prednisone. Today I will not request for another abdominal and pelvic CT. Patient may benefit from a GI consult. After medications his symptoms have improved. I discussed all the findings and test results with the patient. Patient was instructed to return to the emergency room immediately if any of the symptoms return or worsens. They were explained the possibility of an early abdominal pathology which was not detected at this time despite the physical exam and testing. They understand and agree. Abdominal exam before discharge: Soft, NT. No signs of distention. BS present. No rebound no guarding , and no masses palpated. Patient is alert and oriented and hemodynamically stable. Patient is to follow up with primary care physician in the next 2 to 3 days. Patient agree and understands. Patient is eating and drinking and no nausea or vomiting or abdominal pain - Diagnoses Differential Diagnosis/HQI/PQRI: Constipation, Peptic Ulcer Disease, Urinary Tract Infection Provider Diagnoses: Epigastric abdominal pain Discharge - Discharge Plan Condition: Stable Disposition: HOME Patient Education Materials: Epigastric Pain (ED), Abdominal Pain (ED), Chronic Abdominal Pain (ED) Referrals: Nadeem Smith MD [Medical Doctor] - 3 Days Ivonne Cotton MD [Primary Care Provider] - 3 Days Additional Instructions: RETURN TO THE EMERGENCY DEPARTMENT FOR CHANGING OR WORSENING SYMPTOMS. The documentation as recorded by the Zulay clifford Alfonso accurately reflects the service I personally performed and the decisions made by me, Luis De León MD.
== END | disposition home or self-care (01) ==
LOC: ED 04:51
DX: R10.13 Epigastric pain (principal); R10.9 Unspecified abdominal pain
CPT/HCPCS: 36415; 80053; 83605; 83690; 83735; 83880; 85025; 85610; 85730; 86140; 93005; 99283

== ENCOUNTER 2018-02-19 13:55 | Observation (INO) | payer MEDICARE, MEDICAID ==
[2018-02-19] MEDS ORDERED: Morphine INJ* 2 MG/ML 1 ML SYRINGE (TWO MG - NEW SYRINGE VERSION) ONE (14:17)
[2018-02-19 14:18] LABS: ABS Basophils 0.1 10^3/ul (0-0.2); ABS Eosinophils 0.3 10^3/ul (0-0.6); ABS Lymphocytes 1.1 10^3/ul (1.0-4.8); ABS Monocytes 0.7 10^3/ul (0-0.8); ABS Neutrophils 9.6 10^3/ul (1.5-7.7); ABS Nucleated RBC 0 10^3/ul; Eosinophil % 2.2 % (0-6); Hematocrit 39 % (42-52); Hemoglobin 13.2 g/dl (14.0-18.0); Lymphocyte % 9.1 % (25-47); Mean Corpuscular HGB Conc 34 g/dl (31-36); Mean Corpuscular Hemoglobin 30 pg (27-31); Mean Corpuscular Volume 88 fL (80-94); Mean Platelet Volume 8.2 um3 (7.4-10.4); Nucleated Red Blood Cells % 0.1; Platelet Count 228 10^3/ul (150-450); Red Blood Count 4.45 10^6/ul (4.00-5.40); Red Cell Distribution Width 16 % (10.5-15); White Blood Count 11.6 10^3/ul (3.5-10.8)
[2018-02-19] MEDS ORDERED: Morphine VIAL* 4 MG/ML VIAL (1 ml vial) IV ONE (14:19)
--- NOTE | 2018-02-19 14:28 | RAD ---
HISTORY: CP, chest pain COMPARISONS: April 29, 2017 VIEWS: 1: frontal portable view of the chest at 2:15 PM FINDINGS: LINES AND TUBES: None. CARDIOMEDIASTINAL SILHOUETTE: The cardiac silhouette is enlarged. The cardiomediastinal silhouette is otherwise normal for portable technique. PLEURA: The costophrenic angles are sharp. No pleural abnormalities are noted. LUNG PARENCHYMA: The lungs are clear. ABDOMEN: The upper abdomen is clear. There is no subphrenic gas. BONES AND SOFT TISSUES: No bone or soft tissue abnormalities are noted. IMPRESSION: CARDIOMEGALY. NO ACTIVE CARDIOPULMONARY DISEASE.
[2018-02-19 14:42] LABS: EGFR Non-African American 55.1 (>60)
[2018-02-19] MEDS ORDERED: Magnesium Oxide TAB* 400 MG PO ONE (15:21)
--- NOTE | 2018-02-19 15:22 | ED ---
HPI Chest Pain - HPI Summary HPI Summary: This is scrkulwant Moon documenting for attending Luis De León MD. Patient is a 72 y/o M BIBA w/ c/o chest pain onsetting at around 1300 today. He reports he was doing walking laps today during pain onset. Pain is rated 10/10 and is described as a pressure. Chest pain is diffuse and not reported to radiate. He states he felt he was nearing LOC and experiencing diaphoresis but denies nausea, vomiting. Patient reports 2 PR in the past, claims current Sx feel similar to previous MIs. On triage, pain is noted to increase with movement and palpation. Home allergies and medications are reviewed. - History of Current Complaint Chief Complaint: EDChestPainROMI Time Seen by Provider: 02/19/18 14:01 Hx Obtained From: Patient Onset/Duration: Started Hours Ago - onset 1300 today Timing: Constant Current Severity: Severe Pain Intensity: 10 Pain Scale Used: 0-10 Numeric - 10/10 Chest Pain Location: Diffuse Chest Pain Radiates: No Character: Pressure/Squeezing Aggravating Factor(s): Movement, Other: - palpation Alleviating Factor(s): Nothing Associated Signs and Symptoms: Positive: Diaphoresis, Other: - feelings of nearing LOC. Negative: Nausea, Vomiting - Additional Pertinent History Primary Care Physician: [id number] - Allergy/Home Medications Allergies/Adverse Reactions: Allergies Allergy/AdvReac Type Severity Reaction Status Date / Time povidone-iodine Allergy Rash Verified 02/19/18 14:23 shellfish derived Allergy Difficulty Verified 02/19/18 14:23 Breathing Home Medications: Home Medications Acetaminophen [Acetaminophen Extra Strength] 1,000 mg PO BID PRN 02/19/18 [ History Confirmed 02/19/18] Albuterol HFA INHALER* [Ventolin HFA Inhaler*] 2 puff INH Q6H PRN 02/19/18 [ History Confirmed 02/19/18] Fluticas/Salmet 230/21 HFA(NF) [Advair HFA 23O/21 (NF)] 1 puff INH BID 02/19/18 [History Confirmed 02/19/18] Rivaroxaban TAB(*) [Xarelto 20 mg] 20 mg PO DAILY 02/19/18 [History Confirmed ] Senna TAB* [Senokot TAB*] 2 tab PO BEDTIME PRN 02/19/18 [History Confirmed 02/19] Triamcinolone 0.5% CREAM(NF) [Triamcinolone 0.5% CREAM*] 1 applic TOPICAL BID [History Confirmed 02/19/18] PMH/Surg Hx/FS Hx/Imm Hx Endocrine/Hematology History: Reports: Hx Anticoagulant Therapy, Hx Diabetes - II, Hx Anemia, Other Endocrine/Hematological Disorders - Eosinophilia Denies: Hx Blood Disorders, Hx Blood Transfusions, Hx Systemic Lupus Erythematosus, Hx Thyroid Disease Cardiovascular History: Reports: Hx Angina, Hx Congestive Heart Failure, Hx Coronary Artery Disease, Hx Embolism, Hx Hypercholesterolemia, Hx Hypertension, Hx Myocardial Infarction - x2, Other Cardiovascular Problems/Disorders - Cardiomyopathy Denies: Hx Deep Vein Thrombosis, Hx Pacemaker/ICD Respiratory History: Reports: Hx Asthma, Hx Pneumonia, Hx Pulmonary Edema, Hx Pulmonary Embolism, Other Respiratory Problems/Disorders - PE'S Denies: Hx Chronic Obstructive Pulmonary Disease (COPD), Hx Lung Cancer GI History: Reports: Hx Gastroesophageal Reflux Disease, Hx Hiatal Hernia, Other GI Disorders - chronic abdominal pain Denies: Hx Gall Bladder Disease, Hx Gastrointestinal Bleed, Hx Ulcer, Hx Urosepsis History: Reports: Hx Acute Renal Failure, Hx Benign Prostatic Hyperplasia, Hx Kidney Stones Denies: Hx Dialysis, Hx Renal Disease, Other Problems/Disorders Musculoskeletal History: Reports: Hx Back Problems, Other Musculoskeletal History - OBESITY, DJD Denies: Hx Rheumatoid Arthritis Sensory History: Reports: Hx Contacts or Glasses, Hx Vision Problem Denies: Hx Hearing Aid, Other Sensory Impairments Opthamlomology History: Reports: Hx Contacts or Glasses, Hx Vision Problem Denies: Other Sensory Impairments Neurological History: Reports: 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 hernia repair x 2;. rt knee cartlidge repair;. RIGHT ROTATOR CUFF ;. CABG Hx Anesthesia Reactions: No - Immunization History Date of Tetanus Vaccine: Unk Date of Influenza Vaccine: 05/13/14 Immunizations Up to Date: Yes Infectious Disease History: No Infectious Disease History: Denies: Hx Hepatitis, Hx Human Immunodeficiency Virus (HIV), Hx of Known/ Suspected MRSA, Hx Shingles, Hx Tuberculosis, History Other Infectious Disease, Traveled Outside the [place] in Last 30 Days - Family History Known Family History: Positive: Cardiac Disease - [place] mother and father, Diabetes - Social History Alcohol Use: None Hx Substance Use: No Substance Use Type: Reports: None Hx Tobacco Use: No Smoking Status (MU): Never Smoked Tobacco Review of Systems Positive: Skin Diaphoresis Positive: Chest Pain Negative: Vomiting, Nausea Neurological: Other - feelings on nearing LOC All Other Systems Reviewed And Are Negative: Yes Physical Exam - Summary Physical Exam Summary: VITAL SIGNS: Reviewed. GENERAL: Patient is a well-developed and nourished male who is lying in the stretcher with some distress secondary to pain. HEAD AND FACE: No signs of trauma. No ecchymosis, hematomas or skull depressions. No sinus tenderness. EYES: PERRLA, EOMI x 2, No injected conjunctiva, no nystagmus. EARS: Hearing grossly intact. Ear canals and tympanic membranes are within normal limits. MOUTH: Oropharynx within normal limits. NECK: Supple, trachea is midline, no adenopathy, no JVD, no carotid bruit, no c- spine tenderness, neck with full ROM. CHEST: Symmetric, reproducible chest pain to palpation. LUNGS: Clear to auscultation bilaterally. No wheezing or crackles. CVS: Regular rate and rhythm, S1 and S2 present, no murmurs or gallops appreciated. ABDOMEN: Soft, non-tender. No signs of distention. No rebound no guarding, and no masses palpated. Bowel sounds are normal. EXTREMITIES: FROM in all major joints, no edema, no cyanosis or clubbing. NEURO: Alert and oriented x 3. No acute neurological deficits. Speech is normal and follows commands. SKIN: Dry and warm Triage Information Reviewed: Yes Vital Signs On Initial Exam: Initial Vitals Temp Pulse Resp BP Pulse Ox 98.7 F 86 24 101/61 95 02/19/18 14:02 02/19/18 14:02 02/19/18 14:02 02/19/18 14:02 02/19/18 14:02 Vital Signs Reviewed: Yes Diagnostics - Vital Signs Vital Signs Temp Pulse Resp BP Pulse Ox 02/19/18 14:21 24 02/19/18 14:02 98.7 F 86 24 101/61 95 - Laboratory Lab Results: Lab Results 02/19/18 02/19/18 02/19/18 Range/Units 14:08 14:08 14:08 WBC 11.6 H (3.5-10.8) 10^3/ul RBC 4.45 (4.00-5.40) 10^6/ul Hgb 13.2 L (14.0-18.0) g/dl Hct 39 L (42-52) % MCV 88 (80-94) fL MCH 30 (27-31) pg MCHC 34 (31-36) g/dl RDW 16 H (10.5-15) % Plt Count 228 (150-450) 10^3/ul MPV 8.2 (7.4-10.4) um3 Neut % (Auto) 82.3 (38-83) % Lymph % (Auto) 9.1 L (25-47) % [place] % (Auto) 5.9 (0-7) % Eos % (Auto) 2.2 (0-6) % Baso % (Auto) 0.5 (0-2) % Absolute Neuts (auto) 9.6 H (1.5-7.7) 10^3/ul Absolute Lymphs (auto) 1.1 (1.0-4.8) 10^3/ul Absolute Monos (auto) 0.7 (0-0.8) 10^3/ul Absolute Eos (auto) 0.3 (0-0.6) 10^3/ul Absolute Basos (auto) 0.1 (0-0.2) 10^3/ul Absolute Nucleated RBC 0 10^3/ul Nucleated RBC % 0.1 Sodium 139 (135-145) mmol/L Potassium 4.2 (3.5-5.0) mmol/L Chloride 109 (101-111) mmol/L Carbon Dioxide 21 L (22-32) mmol/L Anion Gap 9 (2-11) mmol/L BUN 23 (6-24) mg/dL Creatinine 1.28 H (0.67-1.17) mg/dL Est GFR ( Amer) 66.7 (>60) Est GFR (Non-Af Amer) 55.1 (>60) BUN/Creatinine Ratio 18.0 (8-20) Glucose 134 H (70-100) mg/dL Lactic Acid 1.8 (0.5-2.0) mmol/L Calcium 8.9 (8.6-10.3) mg/dL Magnesium 1.8 L (1.9-2.7) mg/dL Total Bilirubin 0.70 (0.2-1.0) mg/dL AST 9 L (13-39) U/L ALT 10 (7-52) U/L Alkaline Phosphatase 62 (34-104) U/L Total Creatine Kinase 47 (10-223) U/L CK-MB (CK-2) 1.6 (0.6-6.3) ng/mL Troponin I 0.02 (<0.04) ng/mL B-Natriuretic Peptide ( - 100) pg/mL Total Protein 7.0 (6.4-8.9) g/dL Albumin 3.8 (3.2-5.2) g/dL Globulin 3.2 (2-4) g/dL Albumin/Globulin Ratio 1.2 (1-3) TSH Pending 02/19/18 Range/Units 14:08 WBC (3.5-10.8) 10^3/ul RBC (4.00-5.40) 10^6/ul Hgb (14.0-18.0) g/dl Hct (42-52) % MCV (80-94) fL MCH (27-31) pg MCHC (31-36) g/dl RDW (10.5-15) % Plt Count (150-450) 10^3/ul MPV (7.4-10.4) um3 Neut % (Auto) (38-83) % Lymph % (Auto) (25-47) % [place] % (Auto) (0-7) % Eos % (Auto) (0-6) % Baso % (Auto) (0-2) % Absolute Neuts (auto) (1.5-7.7) 10^3/ul Absolute Lymphs (auto) (1.0-4.8) 10^3/ul Absolute Monos (auto) (0-0.8) 10^3/ul Absolute Eos (auto) (0-0.6) 10^3/ul Absolute Basos (auto) (0-0.2) 10^3/ul Absolute Nucleated RBC 10^3/ul Nucleated RBC % Sodium (135-145) mmol/L Potassium (3.5-5.0) mmol/L Chloride (101-111) mmol/L Carbon Dioxide (22-32) mmol/L Anion Gap (2-11) mmol/L BUN (6-24) mg/dL Creatinine (0.67-1.17) mg/dL Est GFR ( Amer) (>60) Est GFR (Non-Af Amer) (>60) BUN/Creatinine Ratio (8-20) Glucose (70-100) mg/dL Lactic Acid (0.5-2.0) mmol/L Calcium (8.6-10.3) mg/dL Magnesium (1.9-2.7) mg/dL Total Bilirubin (0.2-1.0) mg/dL AST (13-39) U/L ALT (7-52) U/L Alkaline Phosphatase (34-104) U/L Total Creatine Kinase (10-223) U/L CK-MB (CK-2) (0.6-6.3) ng/mL Troponin I (<0.04) ng/mL B-Natriuretic Peptide 105 H ( - 100) pg/mL Total Protein (6.4-8.9) g/dL Albumin (3.2-5.2) g/dL Globulin (2-4) g/dL Albumin/Globulin Ratio (1-3) TSH Result Diagrams: 02/19/18 14:08 02/19/18 14:08 Lab Statement: Any lab studies that have been ordered have been reviewed, and results considered in the medical decision making process. - Radiology CXR Xray Interpretation: No Acute Changes Radiology Interpretation Completed By: Radiologist - Cardiomegaly. No active cardiopulmonary disease. This report was reviewed by ED physician. - EKG 1411 Cardiac Rate: NL - Rate of 84 BPM EKG Rhythm: Sinus Rhythm ST Segment: Normal - no ST elevation EKG Interpretation: RBBB EKG Comparison: No Significant Change - This EKG is similar to one taken on 07/09 Re-Evaluation - Re-Evaluation First Eval Re-Evaluation Time: 16:10 Comment: Discussed results of labs and tests with patient. Plan to admit patient to [facility] [place] was discussed and patient is agreeable with plan. Chest Pain Course/Dx - Course Assessment/Plan: Patient is a 72 y/o M BIBA w/ c/o chest pain onsetting at around 1300 today. He reports he was doing walking laps today during pain onset. Pain is rated 10/10 and is described as a pressure. Chest pain is diffuse and not reported to radiate. He states he felt he was nearing LOC and experiencing diaphoresis but denies nausea, vomiting. Patient reports 2 PR in the past, claims current Sx feel similar to previous MIs. On triage, pain is noted to increase with movement and palpation. Home allergies and medications are reviewed. Past medical history significant for coronary artery disease, hypertension, renal failure, GERD, dyslipidemia, atrial flutter, diabetes type 2 , and BPH. Blood test results without any significant abnormality except for what was a count of 11.6, slight anemia,creatinine of 1.28, magnesium 1.8 for which the patient was given magnesium by mouth. BNP is 105 and TSH is 0.3. EKG shows no ST elevations. Chest x-ray shows no acute pathology. The patient was given aspirin at present by ambulance with minimal improvement symptoms. The patient also was given morphine for the pain in the ER and there was some slight improvement. Troponin is 0.02 however the patient has significant comorbidities therefore I discuss my physical exam and findings with Dr. Ambrose from the hospitalist services were accepted the patient for admission. The patients hemoglobin after stable alert and oriented 3. - Chest Pain Differential Diagnosis/HQI/PQRI: Acute PR, ACS, Angina, CHF, Chest Wall, GI Disease, Lower Respiratory Infection - Diagnoses Provider Diagnoses: Atypical chest pain - Provider Notifications Discussed Care Of Patient With: Ankita Ambrose Time Discussed With Above Provider: 15:49 Instructed by Provider To: Other - Dr. Ambrose was consulted on the patient's case at 15:49. Dr. Ambrose accepts the patient for admission to [facility] [place]. Discharge - Sign-Out/Discharge Documenting (check all that apply): Patient Departure - admit - Discharge Plan Condition: Good Disposition: ADMITTED TO [facility]
[2018-02-19] MEDS ORDERED: Magnesium Sulfate 1 GM IV* 1 GM/100 ML BAG IV ONE (17:19)
[2018-02-19] MEDS ORDERED: Senna TAB PO PRN (17:23)
[2018-02-19 17:36] LABS: Urine Appearance Turbid; Urine Blood 3+ (Negative); Urine Color Amber; Urine Ketones Negative (Negative); Urine Protein 2+(100 mg/dL) (Negative); Urine Red Blood Cell 3+(>10/hpf) (Absent); Urine Specific Gravity 1.017 (1.010-1.030); Urine Urobilinogen Negative (Negative); Urine White Blood Cell 3+(>20/hpf) (Absent)
[2018-02-19] MEDS ORDERED: Lidocaine 2% VISCOUS* 15 ML UDC PO ONE (17:37)
[2018-02-19] MEDS ORDERED: NS 0.9% 500 ML* 500 ML IV ONE (19:28)
[2018-02-19] MEDS ORDERED: Dextrose 50% Syringe 50 ML* 25 GM/50 ML SYRINGE IV PUSH PRN (19:35)
[2018-02-19] MEDS: Mometasone/Formoter 200/5 MDI INH SCH (20:30)
[2018-02-19] MEDS ORDERED: Metoprolol Tartrate TAB* 25 MG PO SCH (21:00)
[2018-02-19] MEDS: Omeprazole CAP* 20 MG PO SCH (21:10)
[2018-02-19] MEDS: Metoprolol Tartrate TAB* 25 MG PO SCH (21:10)
[2018-02-19] MEDS: Insulin LISPRO* 1 UNITS UNIT SUBCUT SCH (21:10)
[2018-02-19] MEDS: Tamsulosin CAP* 0.4 MG PO SCH (21:10)
[2018-02-19] MEDS ORDERED: Al Hydrox/Mg Hydrox/Simet LIQ* 30 ML UDC PO PRN (22:43)
--- NOTE | 2018-02-19 23:49 | HP ---
HISTORY AND PHYSICAL: DATE OF ADMISSION: 02/19/18 PROVIDER: Pedro Pablo Ivan NP ATTENDING PHYSICIAN: Dr. Ambrose * (report dictated by Pedro Pablo Ivan NP). PRIMARY CARE PROVIDER: Dr. Ivonne Cotton. CHIEF COMPLAINT: Chest pain. HISTORY OF PRESENT ILLNESS: Mr. Yip is a 72-year-old male who is well known to our service. He has a past medical history of atrial fibrillation, on Xarelto, coronary artery disease, angina, type 2 diabetes, hypertension, GERD, eosinophilic esophagitis, obesity, BPH, history of SVT, and history of PE, who presented today with report of acute onset of chest pain. The patient also has an indwelling catheter. The patient reports that today he was feeling at his normal baseline health upon awaking and reports that he went to evangelical and after evangelical, he got together with some friends and went for a "15-minute walk. " He reports that he went approximately care home and all of a sudden while walking and exerting himself, he had acute onset of midsternal chest pain reporting 10/10 chest pressure. He states it was so painful, he was doubled over. He reports he had accompanied shortness of breath. He denies that the chest pain radiated and denies experiencing any nausea or diaphoresis. He reports that his friend became worried and called 911 and EMS picked him up and brought him to the emergency department. In the ambulance, he was given 1 sublingual nitro, which he reports did not relieve the chest pressure. When he arrived at the emergency department, he reports the chest pressure had subsided. Currently on evaluation, the patient was found to be sitting up on the emergency department stretcher, alert and oriented x3 and in no acute distress. He currently denies chest pain or shortness of breath. He does report epigastric tenderness and does state that he has reflux at his baseline. The last time he had a cardiac stress test was in 2015. He did undergo a cardiac catheterization in September [address] Arreguin. In regards to the patient's reflux, the patient reports that he has significant reflux and does take Carafate several times a day. He states that today his epigastric tenderness is much worse than at his baseline. The patient also reports that he usually does walk quite frequently and does not usually have chest pain or exertion. PAST MEDICAL HISTORY: 1. Atrial fibrillation, on Xarelto. 2. History of PE, on Xarelto. 3. Coronary artery disease, status post CABG. 4. Insulin-dependent type 2 diabetes. 5. Hypertension. 6. GERD. 7. Eosinophilic esophagitis. 8. Obesity. 9. BPH. 10. History of SVT. 11. TIA. 12. Degenerative disk disease. 13. History of retroperitoneal hematoma. 14. Chronic urinary retention with indwelling Rivero catheter. 15. Cardiomyopathy with EF of 45%. 16. Depression. 17. Morbid obesity. 18. Mild developmental disability. PAST SURGICAL HISTORY: 1. CABG. 2. Cardiac catheterization. 3. Hernia repair. 4. Shoulder arthroscopy and knee arthroscopy. HOME MEDICATIONS: 1. Multivitamin 1 tab p.o. daily. 2. Metoprolol tartrate 25 mg p.o. b.i.d. 3. Xarelto 20 mg p.o. daily. 4. Flomax 0.4 mg p.o. at bedtime. 5. Carafate 1 g p.o. t.i.d. with meals. 6. Zoloft 75 mg p.o. daily. 7. Senna 2 tabs p.o. at bedtime p.r.n. 8. Potassium chloride 20 mEq p.o. daily. 9. Oxybutynin XL 10 mg p.o. daily. 10. Prilosec 20 mg p.o. b.i.d. 11. Lasix 20 mg p.o. q.a.m. 12. Advair HFA 230/21 one puff INH b.i.d. 13. Proscar 5 mg p.o. q.a.m. 14. Ferrous sulfate 325 mg p.o. daily. 15. Trulicity 0.75 mg subcu q. 7 days. 16. Ventolin 2 puffs INH q. 6 hours p.r.n. 17. Acetaminophen 1000 mg p.o. b.i.d. p.r.n. ALLERGIES: 1. SHELLFISH. 2. POVIDONE-IODINE. FAMILY HISTORY: Both his parents have history of type 2 diabetes and coronary artery disease. SOCIAL HISTORY: Denies history of tobacco abuse. Denies alcohol or recreational drug use. He currently lives alone. He lists his sister, Luciana Bolton, as his healthcare proxy. REVIEW OF SYSTEMS: A 14-point review of systems was performed. All the pertinent positives and negatives are mentioned in the history of present illness. Otherwise, negative. PHYSICAL EXAMINATION GENERAL APPEARANCE: Chronically ill-appearing 72-year-old male sitting up in the emergency department stretcher, alert and oriented x3, watching TV, in no acute distress. VITAL SIGNS: Temperature 97.3, heart rate 86, respirations 18, O2 sat 95% on room air, blood pressure 104/54. HEENT: Head is normocephalic, atraumatic. Pupils are equal and reactive to light. Oropharynx is clear. Moist mucous membranes. NECK: Supple. LUNGS: Clear to auscultation bilaterally. Good aeration throughout. CARDIAC: S1, S2. Regular rate and rhythm. Lower extremity edema noted. ABDOMEN: Obese, soft, epigastric tenderness noted. Otherwise, nontender throughout. Normal bowel sounds. EXTREMITIES: Moves all extremities. Strength is 5/5 throughout. NEUROLOGIC: Cranial nerves II through XII are grossly intact. No focal deficits noted. PSYCH: The patient has a mild developmental disability noted. He answers questions appropriately. Appears to be a fair to good historian. LABORATORY DATA AND DIAGNOSTIC STUDIES: WBC is 11.6, RBC 4.45, HGB 13.2, HCT 39, MCV 88, MCH 30, MCHC 34, RDW 16, platelet count 228. Sodium 139, potassium 4.2, chloride 109, carbon dioxide 21. Anion gap 9. BUN 23, creatinine 1.28. Glucose 134. Lactic acid 1.8. Calcium 8.9. Magnesium 1.8. Total bilirubin 0.70. AST 9, ALT 10, alkaline phosphatase 62, total creatine kinase 47, CK-MB 1.6, troponin 0.02. BNP 105, total protein 7.0, albumin 3.8, TSH 0.30. Urinalysis 2+ protein, blood 3+, nitrite is positive, leukocyte esterase 3+, wbc 3+, bacteria 3+. Chest x-ray, impression, "Cardiomegaly, no active cardiopulmonary disease." EKG, sinus rhythm at a rate of 84, noted ST changes, right bundle-branch block noted. No significant changes and similar to 05/04/17. ASSESSMENT AND PLAN: Mr. Yip is a 72-year-old male with a past medical history of coronary artery disease, status post CABG; atrial fibrillation, on Xarelto; history of PE; chronic urinary retention with indwelling Rivero catheter secondary to benign prostatic hypertrophy; history of cardiomyopathy; GERD; chronic eosinophilia; depression; hypertension; morbid obesity; insulin- dependent type 2 diabetes, who presents to the emergency department today with acute onset of chest pain with exertion. 1. Chest pain. The patient's 2 initial troponins are negative. His FABIEN score is 4. It is concerning that his chest pain developed with exertion and this is new for him, per the patient. It is possible this is related to his epigastric tenderness and this is reflux. I have ordered a GI cocktail in the emergency department. He has no noted EKG changes. Plan to trend troponins and we will obtain EKG if he develops any further episodes of chest pain. It is noted his last cardiac stress test was in 2015 which placed him at low risk. The patient certainly is at high risk due to his past medical history and will be admitted to telemetry on observation and for nuclear chemical stress test in the morning. NPO after midnight. I will hold a.m. dose of beta-guy. 2. Epigastric tenderness. Per the patient, usually he does not have such significant epigastric tenderness, but the patient is well known to our service and he does have chronic GERD with chest discomfort and is on Carafate and omeprazole and he does have a history of gastritis in the past. I did order a one- time GI cocktail in the emergency department which has not been given yet. It appears his last upper endoscopy was in August 2016 in which he was found to have "mild antral gastritis," otherwise normal endoscopy, no evidence of esophageal abnormalities. The patient may need to follow up with GI as an outpatient for repeat upper endoscopy. Continue Carafate and omeprazole. 3. Abnormal urinalysis. The patient does have an abnormal urinalysis; however looking back at his history, he has chronic UTIs. It is unclear at this time if he is colonized. He has no urinary symptoms, has had no fever or chills and no signs of sepsis. At this time, he has mildly elevated leukocytosis and does have a mild elevated creatinine. The plan will be to obtain blood cultures which were not done in the emergency department. Due to that, he has no urinary symptoms. The plan will be to hold antibiotics and await urine culture. 4. Acute kidney injury. The patient's creatinine is 1.29, slightly above his baseline creatinine. We will recheck in the morning. Unclear etiology this could possibly because the weather is hot outside and he is not drinking enough fluids. We will give the patient 500 mL bolus and as stated above will recheck creatinine in the morning. 5. Hypomagnesium. The patient was given magnesium replacement in the emergency department. 6. Abnormal TSH. The patient was noted to have TSH of 0.30. Will add on thyroid panel. 7. Normocytic anemia. The patient appears to have a history and is within his baseline. Continue ferrous sulfate. Due to he is on Xarelto, we will add on a stool for occult blood; however, this does appear to be stable compared to his baseline. 8. Insulin-dependent type 2 diabetes. A fingerstick blood glucose a.c. and h.s. with Lispro sliding scale. 9. Hypertension, controlled. We will continue Lasix 20 mg p.o. daily, metoprolol tartrate 25 mg p.o. b.i.d. and plan to hold beta-guy in the morning prior to nuclear stress test. 10. Atrial fibrillation, appears to be in sinus rhythm. Continue metoprolol and Xarelto. 11. Depression. Continue Zoloft. 12. Urinary retention. Continue Rivero catheter. Continue Ditropan and Flomax. 11. DVT prophylaxis, Xarelto. 12. Code status: DNR. 13. Diet: N.P.O. after midnight. Consistent carb diet. TIME SPENT: Approximately 60 minutes was spent on this admission. This case was discussed with attending physician, Dr. Ambrose, who agrees with the plan of care. PEDRO PABLO IVAN, CATHERINE [id number]/[facility] #: [id number] CAMMIE
[2018-02-20 05:16] LABS: ABS Basophils 0 10^3/ul (0-0.2); ABS Eosinophils 0.8 10^3/ul (0-0.6); ABS Lymphocytes 1.1 10^3/ul (1.0-4.8); ABS Monocytes 0.8 10^3/ul (0-0.8); ABS Neutrophils 7.5 10^3/ul (1.5-7.7); ABS Nucleated RBC 0 10^3/ul; Eosinophil % 7.4 % (0-6); Hematocrit 38 % (42-52); Hemoglobin 12.7 g/dl (14.0-18.0); Lymphocyte % 11.1 % (25-47); Mean Corpuscular HGB Conc 34 g/dl (31-36); Mean Corpuscular Hemoglobin 30 pg (27-31); Mean Corpuscular Volume 88 fL (80-94); Mean Platelet Volume 8.4 um3 (7.4-10.4); Nucleated Red Blood Cells % 0; Platelet Count 203 10^3/ul (150-450); Red Blood Count 4.32 10^6/ul (4.00-5.40); Red Cell Distribution Width 16 % (10.5-15); White Blood Count 10.2 10^3/ul (3.5-10.8)
[2018-02-20 05:34] LABS: EGFR Non-African American 64.9 (>60)
[2018-02-20] MEDS: Sucralfate TAB* 1 GM PO SCH ×4 (07:09→18:13)
[2018-02-20] MEDS: Metoprolol Tartrate TAB* 25 MG PO SCH ×2 (07:11→21:16)
[2018-02-20] MEDS: Mometasone/Formoter 200/5 MDI INH SCH ×2 (08:14→19:57)
[2018-02-20] MEDS: Insulin LISPRO* 1 UNITS UNIT SUBCUT SCH ×4 (08:39→21:16)
[2018-02-20] MEDS ORDERED: Sertraline* 50 MG TAB PO SCH (09:00)
[2018-02-20] MEDS: Potassium Chlor TAB* 20 MEQ TAB.ER PO SCH (09:54)
[2018-02-20] MEDS: Furosemide TAB* 20 MG PO SCH (09:55)
[2018-02-20] MEDS: Omeprazole CAP* 20 MG PO SCH ×2 (09:55→21:14)
[2018-02-20] MEDS: Sertraline* 25 MG TAB PO SCH (09:56)
[2018-02-20] MEDS: Acetaminophen TAB* 325 MG PO PRN ×3 (09:58→18:14)
[2018-02-20] MEDS: Prenatal Vitamin TAB PO SCH (09:59)
[2018-02-20] MEDS: Rivaroxaban TAB(*) 20 MG TAB PO SCH (09:59)
[2018-02-20] MEDS: Oxybutynin XL TAB* 5 MG PO SCH (10:00)
[2018-02-20] MEDS: Finasteride TAB* 5 MG PO SCH (10:01)
[2018-02-20] MEDS: Ferrous Sulfate TAB* 325 MG PO SCH (10:01)
[2018-02-20] MEDS ORDERED: Regadenoson* 0.4 MG/5 ML SYRINGE ONE (11:55)
--- NOTE | 2018-02-20 13:55 | RAD ---
Edited for charges. Indication: Chest pain. Myocardial perfusion scan was performed utilizing 1 day protocol. Rest myocardial perfusion scan was performed after intravenous injection of 10.7 mCi of technetium 99m tetrofosmin. Pharmacological stress was applied and 25.32 mCi of technetium 99 and tetrofosmin was injected. There is homogeneous distribution of the radiotracer throughout the left ventricle. There is no evidence of any fixed or reversible perfusion defect identified. No ejection fraction was calculated due to irregular heart rate. No gating could BE performed. IMPRESSION: No reversible changes are noted. ASSESSMENT: Low risk Based on imaging criteria from ACC/AHA 2002 Guideline Update for the Management of Patients With Chronic Stable Angina Table 23. Noninvasive Risk Stratification. Likely MTDD
--- NOTE | 2018-02-20 14:56 | PN ---
Subjective Date of Service: 02/20/18 Interval History: c/o lower abd pain, reports 2 episodes of diarrhea during the night and early this AM, states that he has been having diarrhea for approx 1 month, states that sometimes he is unable to make it to the restroom. Family History: Unchanged from Admission Social History: Unchanged from Admission Past Medical History: Unchanged from Admission Objective Active Medications: Acetaminophen (Tylenol Tab*) 650 mg PO Q4H PRN PRN Reason: PAIN Last Admin: 02/20/18 14:03 Dose: 650 mg Al Hydrox/Mg Hydrox/Simethicone (Maalox Plus*) 30 ml PO Q4H PRN PRN Reason: INDIGESTION Dextrose (D50w Syringe 50 Ml*) 12.5 gm IV PUSH .FOR FS < 60 - SS PRN PRN Reason: FS < 60 Ferrous Sulfate (Ferrous Sulfate Tab*) 325 mg PO DAILY [facility] Last Admin: 02/20/18 10:01 Dose: 325 mg Finasteride (Proscar Tab*) 5 mg PO QAM [facility] Last Admin: 02/20/18 10:01 Dose: 5 mg Furosemide (Lasix Tab*) 20 mg PO QAM [facility] Last Admin: 02/20/18 09:55 Dose: 20 mg Insulin Human Lispro (Humalog*) 0 units SUBCUT ACHS [facility]; Protocol Last Admin: 02/20/18 12:34 Dose: Not Given Metoprolol Tartrate (Lopressor Tab*) 25 mg PO BID [facility] Last Admin: 02/20/18 07:11 Dose: Not Given Mometasone Furoate/Formoterol Fumar (Dulera 200/5 Mdi*) 1 puff INH BID [facility]; Protocol Last Admin: 02/20/18 08:14 Dose: Not Given Multivitamins ( Vitamin Tab*) 1 tab PO DAILY [facility] Last Admin: 02/20/18 09:59 Dose: 1 tab Omeprazole (Prilosec Cap*) 20 mg PO BID [facility] Last Admin: 02/20/18 09:55 Dose: 20 mg Oxybutynin Chloride (Ditropan Xl Tab*) 10 mg PO DAILY [facility] Last Admin: 02/20/18 10:00 Dose: 10 mg Potassium Chloride (Klor Con Er Tab*) 20 meq PO DAILY [facility] Last Admin: 02/20/18 09:54 Dose: 20 meq Rivaroxaban (Xarelto(*)) 20 mg PO DAILY [facility] Last Admin: 02/20/18 09:59 Dose: 20 mg Senna (Senokot Tab*) 2 tab PO BEDTIME PRN PRN Reason: CONSTIPATION Sertraline HCl (Zoloft*) 75 mg PO DAILY [facility] Last Admin: 02/20/18 09:56 Dose: 75 mg Sucralfate (Carafate*) 1 gm PO TID WITH MEALS [facility] Last Admin: 02/20/18 14:03 Dose: 1 gm Tamsulosin HCl (Flomax Cap*) 0.4 mg PO BEDTIME [facility] Last Admin: 02/19/18 21:10 Dose: 0.4 mg Vital Signs - 8 hr 02/20/18 02/20/18 02/20/18 09:06 09:23 10:16 Temperature 97.7 F Pulse Rate 113 Respiratory 18 16 Rate Blood Pressure 87/52 103/61 (mmHg) O2 Sat by Pulse 100 Oximetry Oxygen Devices in Use Now: None Appearance: elderly male, appears comfortable resting in bed, no acute distress Eyes: No Scleral Icterus Ears/Nose/Mouth/Throat: Mucous Membranes Moist Neck: NL Appearance and Movements; NL JVP, Trachea Midline Respiratory: Symmetrical Chest Expansion and Respiratory Effort, Clear to Auscultation Cardiovascular: - - murmur, s1s2 Abdominal: - - lower abd tenderness with palpation, guarding, NL Bowel sounds, NO distension Extremities: No Edema, No Clubbing, Cyanosis Skin: No Rash or Ulcers Neurological: Alert and Oriented x 3 Result Diagrams: 02/20/18 04:58 02/20/18 04:58 Additional Lab and Data: Lab Results 02/19/18 02/19/18 02/19/18 Range/Units 14:08 14:08 14:08 WBC 11.6 H (3.5-10.8) 10^3/ul RBC 4.45 (4.00-5.40) 10^6/ul Hgb 13.2 L (14.0-18.0) g/dl Hct 39 L (42-52) % MCV 88 (80-94) fL MCH 30 (27-31) pg MCHC 34 (31-36) g/dl RDW 16 H (10.5-15) % Plt Count 228 (150-450) 10^3/ul MPV 8.2 (7.4-10.4) um3 Neut % (Auto) 82.3 (38-83) % Lymph % (Auto) 9.1 L (25-47) % [place] % (Auto) 5.9 (0-7) % Eos % (Auto) 2.2 (0-6) % Baso % (Auto) 0.5 (0-2) % Absolute Neuts (auto) 9.6 H (1.5-7.7) 10^3/ul Absolute Lymphs (auto) 1.1 (1.0-4.8) 10^3/ul Absolute Monos (auto) 0.7 (0-0.8) 10^3/ul Absolute Eos (auto) 0.3 (0-0.6) 10^3/ul Absolute Basos (auto) 0.1 (0-0.2) 10^3/ul Absolute Nucleated RBC 0 10^3/ul Nucleated RBC % 0.1 Sodium 139 (135-145) mmol/L Potassium 4.2 (3.5-5.0) mmol/L Chloride 109 (101-111) mmol/L Carbon Dioxide 21 L (22-32) mmol/L Anion Gap 9 (2-11) mmol/L BUN 23 (6-24) mg/dL Creatinine 1.28 H (0.67-1.17) mg/dL Est GFR ( Amer) 66.7 (>60) Est GFR (Non-Af Amer) 55.1 (>60) BUN/Creatinine Ratio 18.0 (8-20) Glucose 134 H (70-100) mg/dL Lactic Acid 1.8 (0.5-2.0) mmol/L Calcium 8.9 (8.6-10.3) mg/dL Magnesium 1.8 L (1.9-2.7) mg/dL Total Bilirubin 0.70 (0.2-1.0) mg/dL AST 9 L (13-39) U/L ALT 10 (7-52) U/L Alkaline Phosphatase 62 (34-104) U/L Total Creatine Kinase 47 (10-223) U/L CK-MB (CK-2) 1.6 (0.6-6.3) ng/mL Troponin I 0.02 (<0.04) ng/mL B-Natriuretic Peptide ( - 100) pg/mL Total Protein 7.0 (6.4-8.9) g/dL Albumin 3.8 (3.2-5.2) g/dL Globulin 3.2 (2-4) g/dL Albumin/Globulin Ratio 1.2 (1-3) TSH Pending 02/19/18 Range/Units 14:08 WBC (3.5-10.8) 10^3/ul RBC (4.00-5.40) 10^6/ul Hgb (14.0-18.0) g/dl Hct (42-52) % MCV (80-94) fL MCH (27-31) pg MCHC (31-36) g/dl RDW (10.5-15) % Plt Count (150-450) 10^3/ul MPV (7.4-10.4) um3 Neut % (Auto) (38-83) % Lymph % (Auto) (25-47) % [place] % (Auto) (0-7) % Eos % (Auto) (0-6) % Baso % (Auto) (0-2) % Absolute Neuts (auto) (1.5-7.7) 10^3/ul Absolute Lymphs (auto) (1.0-4.8) 10^3/ul Absolute Monos (auto) (0-0.8) 10^3/ul Absolute Eos (auto) (0-0.6) 10^3/ul Absolute Basos (auto) (0-0.2) 10^3/ul Absolute Nucleated RBC 10^3/ul Nucleated RBC % Sodium (135-145) mmol/L Potassium (3.5-5.0) mmol/L Chloride (101-111) mmol/L Carbon Dioxide (22-32) mmol/L Anion Gap (2-11) mmol/L BUN (6-24) mg/dL Creatinine (0.67-1.17) mg/dL Est GFR ( Amer) (>60) Est GFR (Non-Af Amer) (>60) BUN/Creatinine Ratio (8-20) Glucose (70-100) mg/dL Lactic Acid (0.5-2.0) mmol/L Calcium (8.6-10.3) mg/dL Magnesium (1.9-2.7) mg/dL Total Bilirubin (0.2-1.0) mg/dL AST (13-39) U/L ALT (7-52) U/L Alkaline Phosphatase (34-104) U/L Total Creatine Kinase (10-223) U/L CK-MB (CK-2) (0.6-6.3) ng/mL Troponin I (<0.04) ng/mL B-Natriuretic Peptide 105 H ( - 100) pg/mL Total Protein (6.4-8.9) g/dL Albumin (3.2-5.2) g/dL Globulin (2-4) g/dL Albumin/Globulin Ratio (1-3) TSH Microbiology and Other Data: Microbiology 02/19/18 16:55 Urine Culture - Preliminary Urine Klebsiella Oxytoca 02/19/18 23:00 Stool Occult Blood (AYAD) - Final Stool Assess/Plan/Problems-Billing Assessment: - Patient Problems (1) Chest pain Current Visit: No Status: Acute Onset Date: 10/23/14 Code(s): R07.9 - CHEST PAIN, UNSPECIFIED SNOMED Code(s): 20750869 Comment: Troponin negative -Nuclear stress test- low risk - suspect that his chest pain is related to muscloskeltal pain (2) Abdominal pain Current Visit: No Status: Acute Priority: High Onset Date: 10/23/14 Code (s): R10.9 - UNSPECIFIED ABDOMINAL PAIN SNOMED Code(s): 26664201 Comment: With diarrhea CT abd/pelvis with no definitive acute pathology. suspect Abd pain may be secondary to UTI - Klebsiella Oxytoca- will ceftriaxone - final culture results pending - upper epigastric pain- resolved will continue omeprazole and carafate (3) Diarrhea Current Visit: Yes Status: Acute Code(s): R19.7 - DIARRHEA, UNSPECIFIED SNOMED Code(s): 95878783 Comment: - one episode this AM- reports no recent antibiotic use - will monitor - obtain stool cultures and O&P (4) UTI (urinary tract infection) Current Visit: No Status: Acute Comment: Chronic ochoa - Klebsiella oxytoca > 100,000- will start on ceftriaxone (5) Afib Current Visit: No Status: Chronic Code(s): I48.91 - UNSPECIFIED ATRIAL FIBRILLATION SNOMED Code(s): 98041669 Comment: Rate controlled. Continue metoprolol. Chronically anticoagulated with Xarelto (6) GERD (gastroesophageal reflux disease) Current Visit: No Status: Chronic Priority: Low Code(s): K21.9 - GASTRO- ESOPHAGEAL REFLUX DISEASE WITHOUT ESOPHAGITIS SNOMED Code(s): 058058144 Comment: Upper ABd pain - resolved - will continue omeprazole and carafate (7) Type II diabetes mellitus Current Visit: No Status: Chronic Comment: BG low today 58 - lispro SSI coverage- will decrease fingersticks AC/HS (8) DVT prophylaxis Current Visit: No Status: Acute Onset Date: 10/23/14 Code(s): CCP3585 - SNOMED Code(s): 256202653 Comment: xarelto (9) DNR (do not resuscitate) Current Visit: No Status: Acute Onset Date: 09/14/14 Status and Disposition: most likely discharge tomorrow
--- NOTE | 2018-02-20 19:48 | RAD ---
CLINICAL HISTORY: Abdominal pain and diarrhea COMPARISON: Most recent CT of the abdomen and pelvis is dated April 01, 2017 TECHNIQUE: Oral contrast only CT examination of the abdomen and pelvis from the lung bases through the initial tuberosities. FINDINGS: VISUALIZED LUNG BASES: The visualized lung bases are grossly clear. There is no pleural effusion. ABDOMEN AND PELVIS: Evaluation of the solid organs and vasculature is limited without intravenous contrast. The liver, spleen, pancreas and adrenal glands are grossly normal in appearance. The gallbladder is normal. The kidneys are normal in appearance without focal mass, calcification or signs of hydronephrosis. Neural contrast has progressed as far as the descending colon. At the right abdomen there are air-fluid levels in dilated loops of small bowel measuring up to 3.8 cm in diameter. Oral contrast has progressed beyond this point but more distally the small bowel is decompressed. The patient is partially gas-filled normal appendix is identified in the right lower quadrant measuring 5 mm in diameter (image 66). There are air-fluid levels in the colon, predominantly the transverse colon, without pathologic distention or definite wall thickening. There is no intraluminal gas in the bowel. There is no definite wall thickening. There is no gross retroperitoneal or mesenteric lymphadenopathy. The pelvic viscera is normal in appearance. There is coarse atherosclerotic calcification in the infrarenal abdominal aorta extending into the iliac arteries. Coarse calcification is noted at the superior mesenteric artery as well. Degenerative changes include multilevel loss of intervertebral disc height involving the lower thoracic and lumbar spine.There are no sinister bone lesions. IMPRESSION: 1. There are pathologically dilated loops of small bowel in the right abdomen measuring up to 3.8 cm in diameter with air-fluid levels identified in the small bowel and transverse colon. There is no focal transition point or suspicious mass and therefore a diarrheal illness is favored as opposed to a bowel obstruction. 2. Additional chronic and degenerative changes as described in body the report.
[2018-02-20] MEDS ORDERED: cefTRIAXone(*) 1 GM in NS 0.9% 50 ML* 50 ML IVPB SCH (21:00)
[2018-02-20] MEDS: Tamsulosin CAP* 0.4 MG PO SCH (21:15)
[2018-02-20] MEDS: traMADol TAB* 50 MG PO PRN (21:35)
[2018-02-21] MEDS: Acetaminophen TAB* 325 MG PO PRN (03:29)
[2018-02-21] MEDS: traMADol TAB* 50 MG PO PRN (05:59)
[2018-02-21] MEDS: Insulin LISPRO* 1 UNITS UNIT SUBCUT SCH ×3 (07:25→17:50)
[2018-02-21] MEDS: Mometasone/Formoter 200/5 MDI INH SCH ×2 (07:27→20:07)
[2018-02-21] MEDS: Prenatal Vitamin TAB PO SCH (09:11)
[2018-02-21] MEDS: Metoprolol Tartrate TAB* 25 MG PO SCH (09:11)
[2018-02-21] MEDS: Furosemide TAB* 20 MG PO SCH (09:11)
[2018-02-21] MEDS: Oxybutynin XL TAB* 5 MG PO SCH (09:12)
[2018-02-21] MEDS: Potassium Chlor TAB* 20 MEQ TAB.ER PO SCH (09:12)
[2018-02-21] MEDS: Sucralfate TAB* 1 GM PO SCH ×3 (09:12→17:58)
[2018-02-21] MEDS: Finasteride TAB* 5 MG PO SCH (09:13)
[2018-02-21] MEDS: Sertraline* 25 MG TAB PO SCH (09:13)
[2018-02-21] MEDS: Omeprazole CAP* 20 MG PO SCH (09:13)
[2018-02-21] MEDS: Ferrous Sulfate TAB* 325 MG PO SCH (09:14)
[2018-02-21] MEDS: Rivaroxaban TAB(*) 20 MG TAB PO SCH (09:14)
[2018-02-21] MEDS ORDERED: oxyCODONE/Acetamin 5/325 MG* TAB PO ONE (11:09)
[2018-02-21 15:38] VITALS: BP 102/58
--- NOTE | 2018-02-21 23:15 | PN ---
Subjective Date of Service: 02/21/18 Interval History: c/o lower abd pain, better after pain mediations, Denies n/v Denies chest pain or shortness of breath. Family History: Unchanged from Admission Social History: Unchanged from Admission Past Medical History: Unchanged from Admission Objective Vital Signs - 8 hr 02/21/18 15:22 Temperature 98.1 F Pulse Rate 66 Respiratory 16 Rate Blood Pressure 102/58 (mmHg) O2 Sat by Pulse 98 Oximetry Oxygen Devices in Use Now: None Appearance: appears comfotable resting in bed, no acute distress Eyes: No Scleral Icterus Ears/Nose/Mouth/Throat: Clear Oropharnyx, Mucous Membranes Moist Neck: NL Appearance and Movements; NL JVP, Trachea Midline Respiratory: Symmetrical Chest Expansion and Respiratory Effort, Clear to Auscultation Cardiovascular: NL Sounds; No Murmurs; No JVD, No Edema Abdominal: NL Sounds; No Tenderness; No Distention Extremities: No Edema, No Clubbing, Cyanosis Skin: No Rash or Ulcers Neurological: Alert and Oriented x 3 Nutrition: Taking PO's Result Diagrams: 02/20/18 04:58 02/20/18 04:58 Additional Lab and Data: Lab Results 02/19/18 02/19/18 02/19/18 Range/Units 14:08 14:08 14:08 WBC 11.6 H (3.5-10.8) 10^3/ul RBC 4.45 (4.00-5.40) 10^6/ul Hgb 13.2 L (14.0-18.0) g/dl Hct 39 L (42-52) % MCV 88 (80-94) fL MCH 30 (27-31) pg MCHC 34 (31-36) g/dl RDW 16 H (10.5-15) % Plt Count 228 (150-450) 10^3/ul MPV 8.2 (7.4-10.4) um3 Neut % (Auto) 82.3 (38-83) % Lymph % (Auto) 9.1 L (25-47) % Hutchinson % (Auto) 5.9 (0-7) % Eos % (Auto) 2.2 (0-6) % Baso % (Auto) 0.5 (0-2) % Absolute Neuts (auto) 9.6 H (1.5-7.7) 10^3/ul Absolute Lymphs (auto) 1.1 (1.0-4.8) 10^3/ul Absolute Monos (auto) 0.7 (0-0.8) 10^3/ul Absolute Eos (auto) 0.3 (0-0.6) 10^3/ul Absolute Basos (auto) 0.1 (0-0.2) 10^3/ul Absolute Nucleated RBC 0 10^3/ul Nucleated RBC % 0.1 Sodium 139 (135-145) mmol/L Potassium 4.2 (3.5-5.0) mmol/L Chloride 109 (101-111) mmol/L Carbon Dioxide 21 L (22-32) mmol/L Anion Gap 9 (2-11) mmol/L BUN 23 (6-24) mg/dL Creatinine 1.28 H (0.67-1.17) mg/dL Est GFR ( Amer) 66.7 (>60) Est GFR (Non-Af Amer) 55.1 (>60) BUN/Creatinine Ratio 18.0 (8-20) Glucose 134 H (70-100) mg/dL Lactic Acid 1.8 (0.5-2.0) mmol/L Calcium 8.9 (8.6-10.3) mg/dL Magnesium 1.8 L (1.9-2.7) mg/dL Total Bilirubin 0.70 (0.2-1.0) mg/dL AST 9 L (13-39) U/L ALT 10 (7-52) U/L Alkaline Phosphatase 62 (34-104) U/L Total Creatine Kinase 47 (10-223) U/L CK-MB (CK-2) 1.6 (0.6-6.3) ng/mL Troponin I 0.02 (<0.04) ng/mL B-Natriuretic Peptide ( - 100) pg/mL Total Protein 7.0 (6.4-8.9) g/dL Albumin 3.8 (3.2-5.2) g/dL Globulin 3.2 (2-4) g/dL Albumin/Globulin Ratio 1.2 (1-3) TSH Pending 02/19/18 Range/Units 14:08 WBC (3.5-10.8) 10^3/ul RBC (4.00-5.40) 10^6/ul Hgb (14.0-18.0) g/dl Hct (42-52) % MCV (80-94) fL MCH (27-31) pg MCHC (31-36) g/dl RDW (10.5-15) % Plt Count (150-450) 10^3/ul MPV (7.4-10.4) um3 Neut % (Auto) (38-83) % Lymph % (Auto) (25-47) % Hutchinson % (Auto) (0-7) % Eos % (Auto) (0-6) % Baso % (Auto) (0-2) % Absolute Neuts (auto) (1.5-7.7) 10^3/ul Absolute Lymphs (auto) (1.0-4.8) 10^3/ul Absolute Monos (auto) (0-0.8) 10^3/ul Absolute Eos (auto) (0-0.6) 10^3/ul Absolute Basos (auto) (0-0.2) 10^3/ul Absolute Nucleated RBC 10^3/ul Nucleated RBC % Sodium (135-145) mmol/L Potassium (3.5-5.0) mmol/L Chloride (101-111) mmol/L Carbon Dioxide (22-32) mmol/L Anion Gap (2-11) mmol/L BUN (6-24) mg/dL Creatinine (0.67-1.17) mg/dL Est GFR ( Amer) (>60) Est GFR (Non-Af Amer) (>60) BUN/Creatinine Ratio (8-20) Glucose (70-100) mg/dL Lactic Acid (0.5-2.0) mmol/L Calcium (8.6-10.3) mg/dL Magnesium (1.9-2.7) mg/dL Total Bilirubin (0.2-1.0) mg/dL AST (13-39) U/L ALT (7-52) U/L Alkaline Phosphatase (34-104) U/L Total Creatine Kinase (10-223) U/L CK-MB (CK-2) (0.6-6.3) ng/mL Troponin I (<0.04) ng/mL B-Natriuretic Peptide 105 H ( - 100) pg/mL Total Protein (6.4-8.9) g/dL Albumin (3.2-5.2) g/dL Globulin (2-4) g/dL Albumin/Globulin Ratio (1-3) TSH Microbiology and Other Data: Microbiology 02/19/18 16:55 Urine Culture - Preliminary Urine Klebsiella Oxytoca 02/19/18 23:00 Stool Occult Blood (AYAD) - Final Stool Assess/Plan/Problems-Billing Assessment: - Patient Problems (1) Chest pain Status: Acute Onset Date: 10/23/14 Code(s): R07.9 - CHEST PAIN, UNSPECIFIED SNOMED Code(s): 36153342 Comment: Troponin negative -Nuclear stress test- low risk - suspect that his chest pain is related to muscloskeltal pain (2) Abdominal pain Status: Acute Priority: High Onset Date: 10/23/14 Code(s): R10.9 - UNSPECIFIED ABDOMINAL PAIN SNOMED Code(s): 18486382 Comment: With diarrhea CT abd/pelvis with no definitive acute pathology. suspect Abd pain may be secondary to UTI - Klebsiella Oxytoca- will ceftriaxone - final culture results - will treat with keflex 500 mg BID for 7 days - upper epigastric pain- resolved will continue omeprazole and carafate (3) Diarrhea Status: Acute Code(s): R19.7 - DIARRHEA, UNSPECIFIED SNOMED Code(s): 74332091 Comment: - reports 1 month of diarrhea - one episode this AM- reports no recent antibiotic use - will monitor - obtain stool cultures - cdiff negative (4) UTI (urinary tract infection) Status: Acute Comment: Chronic ochoa - Klebsiella oxytoca > 100,000- will start on ceftriaxone - will discharge on keflex 500 mg BID x 7 days (5) Afib Status: Chronic Code(s): I48.91 - UNSPECIFIED ATRIAL FIBRILLATION SNOMED Code(s): 50550418 Comment: Rate controlled. Continue metoprolol. Chronically anticoagulated with Xarelto (6) GERD (gastroesophageal reflux disease) Status: Chronic Priority: Low Code(s): K21.9 - GASTRO-ESOPHAGEAL REFLUX DISEASE WITHOUT ESOPHAGITIS SNOMED Code(s): 740610805 Comment: Upper ABd pain - resolved - will continue omeprazole and carafate (7) Type II diabetes mellitus Status: Chronic Comment: BG low today 99 lispro SSI coverage fingersticks AC/HS (8) DVT prophylaxis Status: Acute Onset Date: 10/23/14 Code(s): PEO7294 - SNOMED Code(s): 431642867 Comment: da (9) DNR (do not resuscitate) Status: Acute Onset Date: 09/14/14 Status and Disposition: discharge today
--- NOTE | 2018-02-23 18:19 | DS ---
AMENDED REPORT NOW INCLUDES COSIGNER DESIGNATION - ESIGNED BEFORE ADJUSTMENTS CC: Dr. Ivonne Cotton * DISCHARGE SUMMARY: DATE OF ADMISSION: 02/19/18 DATE OF DISCHARGE: 02/21/18 PROVIDER: Effie Koehler NP ATTENDING PHYSICIAN: Ankita Ambrose DO * (dictated by Effie Koehler NP) PRIMARY CARE PROVIDER: Dr. Ivonne Cotton. PRIMARY DIAGNOSES: 1. Chest pain. 2. Urinary tract infection. SECONDARY DIAGNOSES: 1. Atrial fibrillation. 2. History of pulmonary embolism. 3. Coronary artery disease. 4. Insulin-dependent diabetes. 5. Hypertension. STUDIES COMPLETED WHILE IN THE HOSPITAL: 1. He had a chest x-ray on 02/19/18, radiologist impression: Cardiomegaly. No active cardiopulmonary disease. 2. He had electrocardiogram on 02/19/18, which showed atrial fibrillation. 3. He had a nuclear stress test, report was low risk. 4. He had a CT of the abdomen and pelvis, radiologist impression: a. There are pathologic dilated loops of small bowel in right abdomen measuring up to 3.8 cm in diameter with air-fluid levels identified in the small bowel and transverse colon. There was no focal transition point or suspicious mass, therefore a diarrheal illness is favored as opposed to bowel obstruction. b. Additional chronic and degenerative changes in the intravertebral disk height involving the lower thoracic and lumbar spine. DISCHARGE MEDICATIONS: The patient's new medications: 1. Keflex 500 mg p.o. b.i.d. 2. Oxycodone/acetaminophen 5/325 dispense #6 one tablet every 8 hours as needed for pain. Continued home medications: 1. Acetaminophen 1000 mg p.o. b.i.d. 2. Albuterol inhaler 2 puffs q.6 hours. 3. Trulicity 0.75 mg weekly. 4. Ferrous sulfate 325 mg p.o. daily. 5. Proscar 5 mg p.o. q.a.m. 6. Advair HFA 1 puff b.i.d. 7. Furosemide 20 mg p.o. q.a.m. 8. Metoprolol 25 mg p.o. b.i.d. 9. Multivitamin 1 tablet p.o. daily. 10. Omeprazole 20 mg p.o. b.i.d. 11. Ditropan 10 mg p.o. daily. 12. Potassium 20 mEq p.o. daily. 13. Xarelto 20 mg p.o. daily. 14. Senna 2 tabs p.o. at bedtime p.r.n. 15. Sertraline 75 mg p.o. daily. 16. Carafate 1 g p.o. daily. 17. Tamsulosin 0.4 mg p.o. daily. HISTORY OF PRESENT ILLNESS AND HOSPITAL COURSE: Mr. Yip is a 72-year-old male patient who carries the past medical history significant for atrial fibrillation, on Xarelto; coronary artery disease; angina; type 2 diabetes; hypertension; GERD; eosinophilic esophagitis; obesity; BPH; history of SVT; history of PE, who presented today with a report of acute onset of chest pain. The patient also has an indwelling catheter. He reports that today he was feeling at his normal baseline health upon awaking and reports that he went to religious and this afternoon he got together with some friends and went for a 15- minute walk. He reports that approximately senior living and all of a sudden while walking and exerting himself, he had acute onset of midsternal chest pain reporting 10/10. He states it was so painful, he was doubled over. He reports he had accompanied shortness of breath. He denied the chest pain radiating. Denies experiencing any nausea or diaphoresis. He reports that his friend became worried and called 911 and EMS picked him up and brought him to the emergency room. In the ambulance, he was given 1 nitro sublingual, which he reports did not relieve the chest pressure. When he arrived to the emergency room, he reports the chest pressure had subsided. The patient does report significant reflux disease and does take Carafate several times a day. He did report on the day of admission, some epigastric tenderness is much worse than his baseline. The patient also reports that he usually does walk quite frequently and does not usually have chest pain on exertion. While in the the hospital, the patient was monitored on telemetry. He had a nuclear stress test that was low risk. There was no reversible changes noted. He did have a CT of the abdomen and pelvis for the complaints of lower abdominal pain during his hospitalization. Report as described above. The patient also had a urinalysis with the urinary culture. His urinary culture was positive for Klebsiella oxytoca with greater than a 100,000 and E. coli 25, 000 to 50,000. He was afebrile throughout the hospitalization. The patient was given 1 Percocet during his hospitalization, which significantly improved his lower abdominal pain. On the CT of the abdomen and pelvis, there was no hydronephrosis noted. At this time, Mr. Yip is stable for discharge home. Vital signs are as follows: Blood pressure was 102/58, temperature was 98.1, heart rate was 66, respirations 16, O2 saturation was 98% on room air. DISCHARGE PLAN: Mr. Yip will be discharged back home. Activity as tolerated. He should continue on a heart-healthy diet. 1. Chest pain. I suspect this is related to musculoskeletal. The patient denies any chest pain. His troponins were negative throughout his hospitalization. His Nuclear stress test was read as low risk with no reversible deficits. I feel his chest pain is noncardiac at this time. He should continue on his Xarelto and metoprolol as previous prescribed for his atrial fibrillation. 2. Lower abdominal pain. I suspect this is related to a urinary tract infection. I have started treatment with ceftriaxone during his hospitalization. He will be discharged home on Keflex 500 mg p.o. b.i.d. for 7 days. He should have a follow up urinalysis with culture to ensure resolution of his urinary tract infection. I did prescribe him oxycodone/acetaminophen 1 tablet q.8 hours dispense #6 tablets. 3. Atrial fibrillation. He should continue on his Xarelto and metoprolol. Rate was controlled throughout his hospitalization. He should follow up with his primary care provider in 4 to 7 days for reevaluation of his lower abdominal pain and UTI symptoms, and he should have a repeat urinalysis to confirm resolution of his urinary tract infection. The patient was instructed to return to the emergency room for any increased or worsening chest pain, shortness of breath, increasing abdominal pain, black or tarry stools, or any other concerning symptoms. This is a summarization of his hospitalization. For further details, please see the entire medical record. TIME SPENT: Time spent on this discharge was approximately 60 minutes, greater than half that time was spent with the patient discussing discharge plans and instructions. CONDITION ON DISCHARGE: Stable. EFFIE KOEHLER, CREW MEMBER [id number]/[facility] #: [id number] [facility]ITAL[facility]
== END 2018-02-21 19:35 | disposition home or self-care (01) ==
LOC: ED 13:55 → MEDTELE 17:31
PROVIDERS: ADMIT Hospitalist; ATTEND Hospitalist
DX: R07.9 Chest pain, unspecified (principal); I48.91 Unspecified atrial fibrillation; I25.10 Atherosclerotic heart disease of native coronary artery without angina pectoris; Z95.1 Presence of aortocoronary bypass graft; E11.9 Type 2 diabetes mellitus without complications; I10 Essential (primary) hypertension; K21.9 Gastro-esophageal reflux disease without esophagitis; N40.0 Benign prostatic hyperplasia without lower urinary tract symptoms; I42.9 Cardiomyopathy, unspecified; F70 Mild intellectual disabilities; E66.01 Morbid (severe) obesity due to excess calories; Z79.4 Long term (current) use of insulin; Z79.01 Long term (current) use of anticoagulants; Z86.73 Personal history of transient ischemic attack (TIA), and cerebral infarction without residual deficits; Z86.711 Personal history of pulmonary embolism; R10.30 Lower abdominal pain, unspecified; I51.7 Cardiomegaly; Z79.899 Other long term (current) drug therapy; Z91.013 Allergy to seafood; Z91.048 Other nonmedicinal substance allergy status; N17.9 Acute kidney failure, unspecified; E83.42 Hypomagnesemia; D64.9 Anemia, unspecified; F32.9 Major depressive disorder, single episode, unspecified; R33.9 Retention of urine, unspecified; Z86.718 Personal history of other venous thrombosis and embolism; Z66 Do not resuscitate
CPT/HCPCS: 36415; 71045; 74176; 78452; 80048; 80053; 81003; 81015; 82270; 82550; 82553; 83605; 83735; 83880; 84439; 84443; 84479; 84484; 85025; 87040; 87045; 87046; 87077; 87086; 87186; 87493; 93005; 93017; 94640; 96374; 96375; 99284; A9270-GY; A9502; G0378; J0696; J2270; J2785; J3475

== ENCOUNTER 2018-05-08 11:32 | Emergency (ER) | payer MEDICARE, MEDICAID ==
[2018-05-08] MEDS ORDERED: oxyCODONE/Acetamin 5/325 MG* TAB PO ONE (11:55)
--- NOTE | 2018-05-08 11:55 | ED ---
GI/ HPI - HPI Summary HPI Summary: The pt is a 72 y/o male presenting [facility] c/o hematuria since today morning. He was seen at [facility] after he accidentally removed his Rivero catheter with the balloon intact. He notes penile pain rated 7/10 in severity. The aching pain is aggravated by sitting. - History of Current Complaint Chief Complaint: EDUrogenitalProblems Time Seen by Provider: 05/08/18 11:40 Stated Complaint: CATH ISSUES Hx Obtained From: Patient Onset/Duration: Started Hours Ago - Today morning, Still Present Severity: Moderate Current Severity: Moderate Pain Intensity: 7 Additional Locations for Males: Penis Pain Characteristics: Aching Associated Signs and Symptoms: Positive: Hematuria Aggravating Factor(s): Sitting Alleviating Factor(s): Nothing - Additional Pertinent History Primary Care Physician: [id number] - Allergy/Home Medications Allergies/Adverse Reactions: Allergies Allergy/AdvReac Type Severity Reaction Status Date / Time povidone-iodine Allergy Rash Verified 02/19/18 14:23 shellfish derived Allergy Difficulty Verified 02/19/18 14:23 Breathing Home Medications: Home Medications Acetaminophen TAB* [Tylenol TAB*] 650 mg PO BID PRN 05/08/18 [History Confirmed 05/08/18] Al Hydrox/Mg Hydrox/Simet LIQ* [Maalox Plus*] 30 ml PO Q6H PRN 05/08/18 [ History Confirmed 05/08/18] Atorvastatin* [Lipitor*] 20 mg PO DAILY 05/08/18 [History Confirmed 05/08/18] Calcium Carbonate [Tums Extra Strength 750] 750 mg PO TID PRN 05/08/18 [History Confirmed 05/08/18] Cyclobenzaprine TAB* [Flexeril 10 MG TAB*] 10 mg PO TID PRN 05/08/18 [History Confirmed 05/08/18] Docusate CAP* [Colace Cap*] 100 mg PO BID 05/08/18 [History Confirmed 05/08/18] Dulaglutide (NF) [Trulicity (NF)] 0.5 ml SUBCUT WEEKLY 05/08/18 [History Confirmed 05/08/18] Fluticasone-Salmeterol 250-50* [Advair Diskus 250-50*] 1 puff INH BID 05/08/18 [ History Confirmed 05/08/18] Isopropyl Alcohol [Alcoh-Wipe 12" X 12"] 1 pad TOPICAL TID 05/08/18 [History Confirmed 05/08/18] Lidocaine PATCH 5%* [Lidoderm 5% Patch*] 1 patch TRANSDERM DAILY 05/08/18 [ History Confirmed 05/08/18] Loperamide CAP* [Imodium CAP*] 2 mg PO DAILY PRN MDD 8 mg 05/08/18 [History Confirmed 05/08/18] Losartan TAB* [Cozaar TAB*] 50 mg PO 1200 05/08/18 [History Confirmed 05/08/18] Magnesium Oxide TAB* [MagOx 400 TAB*] 800 mg PO BID 05/08/18 [History Confirmed 05/08/18] Metoprolol Tartrate TAB* [Lopressor TAB*] 25 mg PO BID 05/08/18 [History Confirmed 05/08/18] Multivitamins/Minerals TAB* [Theragran/minerals TAB*] 1 tab PO DAILY 05/08/18 [ History Confirmed 05/08/18] Potassium Chlor TAB* [Klor Con ER TAB*] 20 meq PO DAILY 05/08/18 [History Confirmed 05/08/18] Rivaroxaban TAB(*) [Xarelto 20 mg] 20 mg PO DAILY 05/08/18 [History Confirmed ] Senna TAB* [Senokot TAB*] 2 tab PO BEDTIME PRN 05/08/18 [History Confirmed 05/08] Tamsulosin CAP* [Flomax CAP*] 0.4 mg PO DAILY 05/08/18 [History Confirmed ] Triamcinolone 0.5% CREAM(NF) [Triamcinolone 0.5% CREAM*] 1 applic TOPICAL BID [History Confirmed 05/08/18] PMH/Surg Hx/FS Hx/Imm Hx Previously Healthy: No Endocrine/Hematology History: Reports: Hx Anticoagulant Therapy, Hx Diabetes - II, Hx Anemia, Other Endocrine/Hematological Disorders - Eosinophilia Denies: Hx Blood Disorders, Hx Blood Transfusions, Hx Systemic Lupus Erythematosus, Hx Thyroid Disease Cardiovascular History: Reports: Hx Angina, Hx Congestive Heart Failure, Hx Coronary Artery Disease, Hx Embolism, Hx Hypercholesterolemia, Hx Hypertension, Hx Myocardial Infarction - x2, Other Cardiovascular Problems/Disorders - Cardiomyopathy Denies: Hx Deep Vein Thrombosis, Hx Pacemaker/ICD Respiratory History: Reports: Hx Asthma, Hx Pneumonia, Hx Pulmonary Edema, Hx Pulmonary Embolism, Other Respiratory Problems/Disorders - PE'S Denies: Hx Chronic Obstructive Pulmonary Disease (COPD), Hx Lung Cancer GI History: Reports: Hx Gastroesophageal Reflux Disease, Hx Hiatal Hernia, Other GI Disorders - chronic abdominal pain Denies: Hx Gall Bladder Disease, Hx Gastrointestinal Bleed, Hx Ulcer, Hx Urosepsis History: Reports: Hx Acute Renal Failure, Hx Benign Prostatic Hyperplasia, Hx Kidney Stones Denies: Hx Dialysis, Hx Renal Disease, Other Problems/Disorders Musculoskeletal History: Reports: Hx Back Problems, Other Musculoskeletal History - OBESITY, DJD Denies: Hx Rheumatoid Arthritis Sensory History: Reports: Hx Contacts or Glasses, Hx Vision Problem Denies: Hx Hearing Aid, Other Sensory Impairments Opthamlomology History: Reports: Hx Contacts or Glasses, Hx Vision Problem Denies: Other Sensory Impairments Neurological History: Reports: 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 hernia repair x 2;. rt knee cartlidge repair;. RIGHT ROTATOR CUFF ;. CABG Hx Anesthesia Reactions: No - Immunization History Date of Tetanus Vaccine: Unknown Date of Influenza Vaccine: 05/13/14 Infectious Disease History: No Infectious Disease History: Reports: Hx Clostridium Difficile Denies: Hx Hepatitis, Hx Human Immunodeficiency Virus (HIV), Hx of Known/ Suspected MRSA, Hx Shingles, Hx Tuberculosis, History Other Infectious Disease, Traveled Outside the [place] in Last 30 Days - Family History Known Family History: Positive: Cardiac Disease - [place] mother and father, Diabetes - Social History Occupation: Unemployed, Disabled Lives: Alone Alcohol Use: None Hx Substance Use: No Substance Use Type: Reports: None Hx Tobacco Use: No Smoking Status (MU): Never Smoked Tobacco Review of Systems Negative: Fever Positive: hematuria, other - Positive: Penile pain All Other Systems Reviewed And Are Negative: Yes Physical Exam - Summary Physical Exam Summary: Appearance: The patient is well-nourished in no acute distress and in no acute pain. Skin: The skin is warm and dry and skin color reflects adequate perfusion. HEENT: The head is normocephalic and atraumatic. The pupils are equal and reactive. The conjunctivae are clear and without drainage. Nares are patent and without drainage. Mouth reveals moist mucous membranes and the throat is without erythema and exudate. The external ears are intact. The ear canals are patent and without drainage. The tympanic membranes are intact. Neck: The neck is supple with full range of motion and non-tender. There are no carotid bruits. There is no neck vein distension. Respiratory: Chest is non-tender. Lungs are clear to auscultation and breath sounds are symmetrical and equal. Cardiovascular: Heart is regular rate and rhythm. There is no murmur or rub auscultated. There is no peripheral edema and pulses are symmetrical and equal. Abdomen: The abdomen is soft and non-tender. There are normal bowel sounds heard in all four quadrants and there is no organomegaly palpated. Genitourinary: Martelle urine in the urine bag; 0 cc on bladder scan Musculoskeletal: There is no back tenderness noted. Extremities are non-tender with full range of motion. There is good capillary refill. There is no peripheral edema or calf tenderness elicited. Neurological: Patient is alert and oriented to person, place and time. The patient has symmetrical motor strength in all four extremities. Cranial nerves are grossly intact. Deep tendon reflexes are symmetrical and equal in all four extremities. Psychiatric: The patient has an appropriate affect and does not exhibit any anxiety or depression. Triage Information Reviewed: Yes Vital Signs On Initial Exam: Initial Vitals Temp Pulse Resp BP Pulse Ox 98.0 F 60 22 139/73 99 05/08/18 11:37 05/08/18 11:37 05/08/18 11:37 05/08/18 11:37 05/08/18 11:37 Vital Signs Reviewed: Yes Diagnostics - Vital Signs Vital Signs Temp Pulse Resp BP Pulse Ox 05/08/18 11:37 98.0 F 60 22 139/73 99 - Laboratory Lab Statement: Any lab studies that have been ordered have been reviewed, and results considered in the medical decision making process. GIGU Course/Dx - Course Course Of Treatment: Mr. Yip was nontoxic in appearance with normal vitals on arrival here. He was not retaining urine and had only a small amount of blood in his urine bag mixed with urine. A UA shows blood and white blood cells and is sent for a culture as this is equivocal. I gave him his normal home pain medication of Percocet here which helped. - Diagnoses Provider Diagnoses: Hematuria Discharge - Sign-Out/Discharge Documenting (check all that apply): Patient Departure - DC - Discharge Plan Condition: Stable Disposition: HOME Patient Education Materials: Hematuria (ED) Referrals: Ivonne Cotton MD [Primary Care Provider] - 2 Days Additional Instructions: Follow up with your PCP in 2 days Return to ED for any new or worsening symptoms - Billing Disposition and Condition Condition: STABLE Disposition: Home - Attestation Statements Document Initiated by Scribe: Yes Documenting Scribe: Yvonne Miller Provider For Whom Alecia is Documenting (Include Credential): Dr. Rickey Ramirez MD Scribe Attestation: Yvonne Osei , scribed for Dr. Rickey Ramirez MD on 05/08/18 at 1835. Scribe Documentation Reviewed: Yes Provider Attestation: The documentation as recorded by the scribe, Yvonne Miller accurately reflects the service I personally performed and the decisions made by me, Dr. Rickey Ramirez MD
[2018-05-08 12:27] LABS: Urine Appearance Cloudy; Urine Blood 3+ (Negative); Urine Color Yellow; Urine Ketones Negative (Negative); Urine Protein 2+(100 mg/dL) (Negative); Urine Red Blood Cell 3+(>10/hpf) (Absent); Urine Specific Gravity 1.006 (1.010-1.030); Urine Urobilinogen Negative (Negative); Urine White Blood Cell 3+(>20/hpf) (Absent)
[2018-05-08 14:20] VITALS: BP 119/57
--- NOTE | 2018-05-11 12:25 | ED ---
Progress - Progress Note Progress Note: Patient's final urine culture reveals 1-10,000 Klebsiella oxytoca. Organism is pansensitive except to ampicillin. Patient was seen for accidental removal of inflated Rivero catheter resulting in penile discomfort and hematuria. No antibiotics were prescribed and he was advised to follow-up with his PCP in 2 days. Called patient to follow up. Left message to call on and machine. Course/Dx - Course Course Of Treatment: Mr. Yip was nontoxic in appearance with normal vitals on arrival here. He was not retaining urine and had only a small amount of blood in his urine bag mixed with urine. A UA shows blood and white blood cells and is sent for a culture as this is equivocal. I gave him his normal home pain medication of Percocet here which helped. - Diagnoses Provider Diagnoses: Hematuria Discharge - Sign-Out/Discharge Documenting (check all that apply): Post-Discharge Follow Up - Discharge Plan Condition: Stable Disposition: HOME Patient Education Materials: Hematuria (ED) Referrals: Ivonne Cotton MD [Primary Care Provider] - 2 Days Additional Instructions: Follow up with your PCP in 2 days Return to ED for any new or worsening symptoms - Billing Disposition and Condition Condition: STABLE Disposition: Home
== END 2018-05-08 14:30 | disposition home or self-care (01) ==
LOC: ED 11:32
DX: R31.9 Hematuria, unspecified (principal); E11.9 Type 2 diabetes mellitus without complications; Z79.01 Long term (current) use of anticoagulants; D64.9 Anemia, unspecified
CPT/HCPCS: 81003; 81015; 87077; 87086; 87186; 99283; A9270-GY

== ENCOUNTER 2022-03-12 18:00 | Inpatient (IN) ==
[2022-03-12 19:23] LABS: ABS Basophils 0.1 10^3/ul (0-0.2); ABS Eosinophils 0.8 10^3/ul (0-0.6); ABS Lymphocytes 1.1 10^3/ul (1.0-4.8); ABS Monocytes 0.5 10^3/ul (0-0.8); ABS Neutrophils 5.2 10^3/ul (1.5-7.7); Eosinophil % 10.7 %; Hematocrit 32 % (42-52); Hemoglobin 9.9 g/dL (14.0-18.0); Lymphocyte % 14.7 %; Mean Corpuscular HGB Conc 31 g/dL (31-36); Mean Corpuscular Hemoglobin 22 pg (27-31); Mean Corpuscular Volume 70 fL (80-94); Mean Platelet Volume 7.7 fL (7.4-10.4); Nucleated Red Blood Cells % 0.1; Platelet Count 218 10^3/uL (150-450); Red Blood Count 4.57 10^6 /uL (4.18-5.48); Red Cell Distribution Width 21 % (10-15); White Blood Count 7.6 10^3/uL (3.5-10.8)
[2022-03-12] MEDS ORDERED: Morphine 4 MG/ML VIAL (1 ml) IV ONE ×2 (19:29→20:33)
[2022-03-12 20:40] LABS: Albumin/Globulin Ratio 1.6 (1-3); Calcium 8.9 mg/dL (8.6-10.3); Globulin 2.5 g/dL (2-4); Potassium 3.6 mmol/L (3.5-5.0); Total Bilirubin 0.6 mg/dL (0.2-1.0); Total Protein 6.5 g/dL (6.4-8.9); eGFR CKD-EPI 81.4 (>60)
[2022-03-12] MEDS ORDERED: Iodixanol (CONTRAST) 320 MG/ML 100 ML SDV IV ONE (20:47)
[2022-03-13 04:23] LABS: INR 1.79 (0.89-1.11)
[2022-03-13 10:42] LABS: High Sensitivity Troponin 1 Hr 20 pg/mL (<20)
[2022-03-13 11:46] LABS: High Sensitivity Troponin 3 Hr 19 pg/mL (<20)
[2022-03-13] MEDS ORDERED: Morphine 2 MG/ML SYRINGE IV ONE ×2 (15:21→15:27)
[2022-03-13] MEDS: Polyethylene Glycol 3350 17 GM PACKET PO SCH (21:07)
[2022-03-14 05:36] LABS: ABS Basophils 0.1 10^3/ul (0-0.2); ABS Eosinophils 0.8 10^3/ul (0-0.6); ABS Lymphocytes 0.8 10^3/ul (1.0-4.8); ABS Monocytes 0.4 10^3/ul (0-0.8); ABS Neutrophils 2.5 10^3/ul (1.5-7.7); Eosinophil % 18.3 %; Hematocrit 27 % (42-52); Hemoglobin 8.4 g/dL (14.0-18.0); Lymphocyte % 17.8 %; Mean Corpuscular HGB Conc 31 g/dL (31-36); Mean Corpuscular Hemoglobin 22 pg (27-31); Mean Corpuscular Volume 70 fL (80-94); Mean Platelet Volume 8.5 fL (7.4-10.4); Platelet Count 155 10^3/uL (150-450); Red Blood Count 3.91 10^6 /uL (4.18-5.48); Red Cell Distribution Width 21 % (10-15); White Blood Count 4.6 10^3/uL (3.5-10.8)
[2022-03-14 05:46] LABS: Albumin 3.3 g/dL (3.2-5.2); Albumin/Globulin Ratio 1.6 (1-3); Calcium 8.4 mg/dL (8.6-10.3); Globulin 2.1 g/dL (2-4); Total Bilirubin 0.3 mg/dL (0.2-1.0); Total Protein 5.4 g/dL (6.4-8.9); eGFR CKD-EPI 66.9 (>60)
[2022-03-14] MEDS: Polyethylene Glycol 3350 17 GM PACKET PO SCH ×2 (10:20→20:51)
[2022-03-14 11:03] LABS: INR 1.36 (0.89-1.11)
[2022-03-14] MEDS ORDERED: fentaNYL 100 mcg/2 ml 50 MCG/ML VIAL ONE ×2 (12:44→12:57)
[2022-03-14] MEDS ORDERED: Midazolam 2 mg/2 ml VIAL 1 mg/ml 2 ml VIAL (2 mg) ONE ×2 (12:44→12:57)
[2022-03-14] MEDS ORDERED: Lidocaine 2% PF 5 ML VIAL ONE (12:57)
[2022-03-14] MEDS ORDERED: Propofol 10 MG/ML 20 ML BTL ONE (12:57)
[2022-03-14] MEDS ORDERED: Rocuronium 50 mg VIAL 10 mg/ml 5 ml VIAL (50 mg) ONE (12:57)
[2022-03-14] MEDS ORDERED: ceFAZolin VIAL VIAL ONE (14:28)
[2022-03-14] MEDS ORDERED: Vancomycin 1,000 MG VIAL ONE (15:10)
[2022-03-14] MEDS ORDERED: fentaNYL 100 mcg/2 ml 50 MCG/ML VIAL IV PRN (16:30)
[2022-03-14] MEDS ORDERED: Ondansetron 4 mg VIAL 2 MG/ML 2 ml VIAL IV PRN (16:30)
[2022-03-14] MEDS ORDERED: Morphine 2 MG/ML SYRINGE IV PRN (19:00)
[2022-03-14] MEDS: ceFAZolin 1 GM X 3 DOSES POST-OP Q8H (AddVan) IVPB SCH (20:56)
[2022-03-15 05:04] LABS: Hematocrit 29 % (42-52); Hemoglobin 9.4 g/dL (14.0-18.0); Mean Corpuscular HGB Conc 32 g/dL (31-36); Mean Corpuscular Hemoglobin 24 pg (27-31); Mean Corpuscular Volume 74 fL (80-94); Mean Platelet Volume 8.1 fL (7.4-10.4); Platelet Count 143 10^3/uL (150-450); Red Cell Distribution Width 21 % (10-15); White Blood Count 7.7 10^3/uL (3.5-10.8)
[2022-03-15] MEDS: ceFAZolin 1 GM X 3 DOSES POST-OP Q8H (AddVan) IVPB SCH ×2 (05:24→14:14)
[2022-03-15 05:45] LABS: Magnesium 1.6 mg/dL (1.9-2.7); eGFR CKD-EPI 66.9 (>60)
[2022-03-15] MEDS ORDERED: Magnesium Sulfate IV 3 GM in NS 0.9% 100 ml BAG 100 ML IVPB ONE (06:58)
[2022-03-15] MEDS: Polyethylene Glycol 3350 17 GM PACKET PO SCH ×2 (10:08→21:51)
[2022-03-15] MEDS ORDERED: Enoxaparin 40 MG/0.4 ML SYR SUBCUT ONE (14:09)
[2022-03-15] MEDS ORDERED: Heparin 5000 UNITS/ML 1 mL VIAL SUBCUT ONE (14:13)
[2022-03-15] MEDS ORDERED: Morphine 2 MG/ML SYRINGE IV ONE (23:23)
[2022-03-16 06:07] LABS: Hematocrit 27 % (42-52); Hemoglobin 8.6 g/dL (14.0-18.0); Mean Corpuscular HGB Conc 32 g/dL (31-36); Mean Corpuscular Hemoglobin 24 pg (27-31); Mean Corpuscular Volume 73 fL (80-94); Mean Platelet Volume 7.9 fL (7.4-10.4); Platelet Count 123 10^3/uL (150-450); Red Blood Count 3.62 10^6 /uL (4.18-5.48); Red Cell Distribution Width 22 % (10-15); White Blood Count 8.2 10^3/uL (3.5-10.8)
[2022-03-16 06:31] LABS: Magnesium 2.3 mg/dL (1.9-2.7); Potassium 4.4 mmol/L (3.5-5.0); eGFR CKD-EPI 75.7 (>60)
[2022-03-16 07:28] VITALS: BP 106/58
[2022-03-16] MEDS: Polyethylene Glycol 3350 17 GM PACKET PO SCH (08:42)
== END 2022-03-16 09:00 | DRG 522 ==
LOC: ED 18:00 → SUATTDRO 03-13 00:45 → EDHOLD 03-13 00:45 → SSU 03-13 15:23
PROVIDERS: ADMIT Internal Medicine; ATTEND Student in an Organized Health Care Education/Training Program

== ENCOUNTER 2022-03-16 08:27 | Inpatient (IN) ==
[2022-03-16] MEDS ORDERED: Senna TAB 8.6 mg TAB PO PRN (12:51)
[2022-03-16] MEDS ORDERED: Magnesium Hydroxide LIQ 30 ML UDC PO PRN (12:51)
[2022-03-18 06:18] LABS: ABS Basophils 0.1 10^3/ul (0-0.2); ABS Eosinophils 0.6 10^3/ul (0-0.6); ABS Lymphocytes 0.8 10^3/ul (1.0-4.8); ABS Monocytes 0.5 10^3/ul (0-0.8); ABS Neutrophils 3.8 10^3/ul (1.5-7.7); Eosinophil % 10.8 %; Hematocrit 27 % (42-52); Hemoglobin 8.9 g/dL (14.0-18.0); Lymphocyte % 13.9 %; Mean Corpuscular HGB Conc 32 g/dL (31-36); Mean Corpuscular Hemoglobin 24 pg (27-31); Mean Corpuscular Volume 74 fL (80-94); Mean Platelet Volume 7.8 fL (7.4-10.4); Nucleated Red Blood Cells % 0.1; Platelet Count 168 10^3/uL (150-450); Red Cell Distribution Width 23 % (10-15); White Blood Count 5.8 10^3/uL (3.5-10.8)
[2022-03-18 06:23] LABS: Albumin/Globulin Ratio 1.3 (1-3); Calcium 8.4 mg/dL (8.6-10.3); Globulin 2.3 g/dL (2-4); Potassium 4.9 mmol/L (3.5-5.0); Total Bilirubin 0.8 mg/dL (0.2-1.0); Total Protein 5.3 g/dL (6.4-8.9); eGFR CKD-EPI 92.6 (>60)
[2022-03-22 10:49] LABS: Urine Appearance Clear; Urine Bilirubin Negative (Negative); Urine Blood Negative (Negative); Urine Color Straw; Urine Glucose Negative (Negative); Urine Ketones Negative (Negative); Urine Nitrite Negative (Negative); Urine Protein Negative (Negative); Urine Specific Gravity 1.015 (1.005-1.030); Urine Urobilinogen 0.2 (Negative) (Negative)
[2022-03-22 11:02] LABS: Urine Bacteria Absent (Absent); Urine Red Blood Cell Trace(0-2/hpf) (Absent); Urine Squamous Epithelial Cell Present (Absent); Urine White Blood Cell Trace(0-5/hpf) (Absent)
[2022-03-24 05:08] VITALS: BP 112/63
== END 2022-03-24 14:15 | disposition home health service (06) | DRG 561 ==
LOC: PMRU 09:10
PROVIDERS: ADMIT Physical Medicine & Rehabilitation; ATTEND Physical Medicine & Rehabilitation